=== PATIENT | female | born 1940 | race Caucasian/White ===

== ENCOUNTER 2020-08-03 22:12 | Emergency (ER) | payer MEDICARE, SELFPAY ==
[2020-08-03 22:20] VITALS: BP 159/75; PULSE 77; RESP 18; TEMP 36.2; O2SAT 96
[2020-08-03] MEDS: LIDOCAINE HCL 1% LOCAL INJ 20 ML VIAL (23:17)
--- NOTE | 2020-08-04 00:05 | ED.GENADULT ---
HPI - General Adult General Chief complaint: Fall Stated complaint: FALL, FACIAL TRAUMA Time Seen by Provider: 08/03/20 22:35 History of Present Illness HPI narrative: Patient is a 79-year-old female who presents the emergency department with chief complaint of facial injury. Patient reports that she tripped and fell and landed on her face. Patient reports she had 2 teeth that were fractured and reports that she has a laceration in her lip. Patient states she is unsure of her last tetanus shot reports that the tooth broke and she did not bring the fragments with her. The patient states that she is attempting to get a hold of her dentist to be able to schedule a follow-up appointment for the teeth. Related Data Home Medications Medication Instructions Recorded Confirmed alendronate mg PO 08/03/20 cholecalciferol (vitamin D3) 125 mcg PO DAILY 08/03/20 [Vitamin D3] citalopram mg 08/03/20 donepezil mg 08/03/20 famotidine 08/03/20 hydrochlorothiazide 08/03/20 levothyroxine 08/03/20 lisinopril 08/03/20 mirabegron [Myrbetriq] mg PO 08/03/20 simethicone 125 mg PO DAILY 08/03/20 solifenacin [Vesicare] mg PO 08/03/20 Allergies Allergy/AdvReac Type Severity Reaction Status Date / Time adhesive Allergy Unknown TAPE - Verified 08/03/20 22:26 BLISTERS erythromycin base Allergy Unknown Unknown Verified 08/03/20 22:26 Review of Systems Review of Systems: Narrative: A 10 system review of systems was completed on the patient and is negative except for what is stated in the HPI. Nursing and ancillary documentation was reviewed. [facility] Social History Social History Smoking status: Never smoker Alcohol intake: never Comments Patient has past medical history significant for hypertension Social history the patient lives at home denies alcohol or drug use Exam Narrative: Exam Narrative: GENERAL: Well-appearing, well-nourished, and in no acute distress. HEAD: Normocephalic, atraumatic. EYES: PERRLA and EOMI. ENT: Nares clear, no rhinorrhea or epistaxis. Mucous membranes moist., There is a 2 cm laceration of the lip that is stellate there is a 1 cm intraoral laceration there are dental fractures of the tooth #8 and 9. NECK: Supple. CHEST: Clear to auscultation. No respiratory distress. HEART: Regular rate and rhythm. No murmur heard. Normal peripheral pulses. ABDOMEN: Soft, nontender, nondistended, normal active bowel sounds. EXTREMITIES: Normal range of motion. No edema. SKIN: Warm, dry, no rash. NEURO: No focal deficits. Alert and oriented x3. PSYCH: Normal mood and affect. Course Vital Signs Vital signs: Vital Signs Temperature 36.2 C L 08/03/20 22:20 Pulse Rate 77 08/03/20 22:20 Respiratory Rate 18 08/03/20 22:20 Blood Pressure 159/75 H 08/03/20 22:20 Pulse Oximetry 96 08/03/20 22:20 Temperature 36.2 C L 08/03/20 22:20 Pulse Rate 77 08/03/20 22:20 Respiratory Rate 18 08/03/20 22:20 Blood Pressure 159/75 H 08/03/20 22:20 Pulse Oximetry 96 08/03/20 22:20 Procedures Laceration Laceration 1: Date: 08/04/20 Time: 00:09 Site: lip Size (cm): 3 Description: stellate and involves phylicia border Local Anesthetic: lidocaine 1% Amount of anesthesia used (mL): 3 Pre-repair: wound explored, irrigated and irrigated extensively ====== Skin Level ====== Skin layer closed with: nylon Size (cm): 5-0 Number of sutures: 6 Technique: simple, interrupted ====== Subcutaneous Layer ====== ====== Muscle Layer ====== ====== Tendon Layer ====== Laceration 2: Date: 08/04/20 Time: 00:10 Site: lip Size (cm): 2 Description: linear Local Anesthetic: lidocaine 1% Amount of anesthesia used (mL): 3 Pre-repair: wound explored, irrigated and irrigated extensively ====== Skin Level ====== Skin layer closed wit
[2020-08-04] MEDS: AMOXICILLIN/CLAVULANATE K 875-125 MG TAB 1 TABLET PO (00:21)
[2020-08-04] MEDS: TETANUS,DIPHTHERIA,AC PERTUSSIS ADULT (0.5 ML) BOOSTRIX IM (00:22)
[2020-08-04] MEDS: HYDROcodone/acetaminophen (*CRX) 5-325 MG TABLET 1 TAB PO (00:39)
== END 2020-08-04 00:45 | disposition home or self-care (01) ==
PROVIDERS: Emergency Provider Emergency Medicine; PCP Nurse Practitioner Family
DX: S01.511A Laceration without foreign body of lip, initial encounter (principal); S02.5XXB Fracture of tooth (traumatic), initial encounter for open fracture; S01.512A Laceration without foreign body of oral cavity, initial encounter; W01.0XXA Fall on same level from slipping, tripping and stumbling without subsequent striking against object, initial encounter; Z23 Encounter for immunization
CPT/HCPCS: 12013; 90471; 90715; 99283; A9270

== ENCOUNTER 2021-06-18 19:36 | Emergency (ER) | payer MEDICARE, MEDICAID, SELFPAY ==
--- NOTE | ~2021-06-18 | XR_ITS ---
EXAMINATION: XR wrist LT min 3V DATE: 06/18/2021 20:03 INDICATION: Left wrist pain post fall TECHNIQUE: Posteroanterior, navicular and lateral views of the left wrist were obtained. COMPARISON: none FINDINGS: Comminuted intra-articular fracture of the distal left radius prominent dorsal angulation resulting i n 45 degrees dorsal tilt of the distal articular surface. There is likely a significant fracture gap between a fragment at the dorsal/ulnar aspect of the articular surface however this is suboptimally p rofiled for quantitative assessment on the provided images. There is increased scapholunate angle whi ch suggests possibility of tear of the scapholunate ligament however assessment is limited by the abn ormal alignment of the distal radius resulting from the fracture. 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 Moderate osteoarthritis at the first metacarpophalangeal and inter phalangeal joints. Mild osteoarthritis at the triscaphe and multiple additional metacarpophalangeal a nd interphalangeal joints. Diffuse osteopenia. IMPRESSION: 1. Prominent dorsal angulation of a comminuted intra-articular fracture of the distal left radius. 2. Increased scapholunate angle suggesting possibility of scapholunate ligament tear although assessm ent is limited due to the malalignment of the fracture. Reviewed, dictated and finalized at location A. STOMACH PREPARER IMPRESSION: 1. Prominent dorsal angulation of a comminuted intra-articular fracture of the distal left radius. 2. Increased scapholunate angle suggesting possibility of scapholunate ligament tear although assessment is limited due to the malalignment of the fracture.
--- NOTE | ~2021-06-18 | XR_ITS ---
XR lumbar spine 2-3V DATE: 06/19/2021 01:29 INDICATION: Fall last night. Pain at L5-S1 area TECHNIQUE: AP and crosstable lateral views COMPARISON: 02/09/2019 CT lumbar spine FINDINGS: The crosstable lateral views are quite limited inadequate penetration. There is mild levoscoliosis of the lower thoracic and lumbar spine. There is diffuse osteopenia. There is multilevel degenerative disc disease. The lumbar pedicles are intact. Mild chronic anterior wedge compression fracture deformity of L1. Grade 1 anterolisthesis at L3-4 and L4-5. No obvious fracture or bone destruction is noted otherwise. The sacroiliac joints appear intact. Surgical clips, right upper quadrant, consistent with cholecystectomy. Abdominal aortic calcification . IMPRESSION: Limited examination Reviewed, dictated and finalized at location A. OWCASE MAKER IMPRESSION: Limited examination
--- NOTE | ~2021-06-18 | CT_ITS ---
EXAMINATION: CT cervical spine wo con DATE: 06/19/2021 01:03 INDICATION: Fall. Patient struck head. TECHNIQUE: Computed tomography (CT) of the cervical spine was performed without intravenous contrast. Automated exposure control and iterative reconstruction technique were employed. Exam dose: 585.55 mGy-cm total exam DLP. COMPARISON: None FINDINGS: There is straightening of cervical spine which may be due to positioning or muscle spasm. C1 and C2 are normally aligned and the odontoid process is intact. No fracture or dislocation or lock ed facet or prevertebral soft tissue swelling. There is moderate degenerative disc disease at C3-4. There is moderate degenerative disc disease and minimal anterolisthesis at C4-5. There is severe degenerative disc disease at C5-6 and C6-7, as well as T4-5. There is prominent degenerative change at the apophyseal joints throughout the cervical spine. Uncove rtebral joint spurring is noted as well, particularly at C5-6. Nonspecific mild groundglass infiltrate and/atelectasis of the included upper lungs. IMPRESSION: Straightening of the cervical spine, which may be due to muscle spasm No fracture or dislocation Cervical spondylosis Reviewed, dictated and finalized at Location A. Reviewed, dictated and finalized at location A. COLOGY TEACHER IMPRESSION: Straightening of the cervical spine, which may be due to muscle sp asm No fracture or dislocation Cervical spondylosis
--- NOTE | ~2021-06-18 | XR_ITS ---
XR wrist LT 2V DATE: 06/19/2021 00:28 INDICATION: Postoperative reduction examination TECHNIQUE: AP and lateral views COMPARISON: 06/18/2021 left wrist FINDINGS: There is blunting of the wrist. Comminuted intra-articular fracture distal radius is again noted with prominent dorsal inclination of distal radial articular surface. Prominent osteoarthritic change at the first carpometacarpal and first interphalangeal joints. Diffuse osteopenia. IMPRESSION: Comminuted intra-articular fracture of the distal radius with prominent dorsal inclinatio n of distal radial articular surface Reviewed, dictated and finalized at location A. ANALYTICS SPECIALIST IMPRESSION: Comminuted intra-articular fracture of the distal radius with promi nent dorsal inclination of distal radial articular surface
--- NOTE | ~2021-06-18 | CT_ITS ---
EXAMINATION: CT brain wo con DATE: 06/19/2021 01:04 INDICATION: Patient fell and struck head. TECHNIQUE: Computed tomography (CT) of the head was performed without intravenous contrast. The mA wa s adjusted according to patient size. Iterative reconstruction technique was employed. Exam dose: 60 5.33 mGy-cm total exam DLP. COMPARISON: 12/30/2015 CT brain FINDINGS: There are prominent bilateral vertebral artery calcifications and very prominent bilateral carotid siphon internal carotid artery calcifications. There is nonspecific patchy diminished attenuation of the cerebral white matter, likely due to chroni c small vessel ischemic changes. Chronic left basal ganglia lacunar infarct. There is moderate central and cortical cerebral and cerebellar atrophy. No intracranial mass lesion or hemorrhage or recent cerebrovascular accident is evident. There is no midline shift or mass effect effect. No subdural or epidural hematoma is detected. The included paranasal sinuses and mastoid air cells are normally developed and aerated. No fracture or bone destruction of the cranial vault. IMPRESSION: Prominent cerebral atherosclerosis Chronic small vessel ischemic changes of cerebral white matter Chronic left basal ganglia lacunar infarct No skull fracture or acute intracranial finding Reviewed, dictated and finalized at Location A. Reviewed, dictated and finalized at location A. RINTENDENT SE[employer] MILL
--- NOTE | ~2021-06-18 | XR_ITS ---
XR pelvis 1-2V DATE: 06/19/2021 02:14 INDICATION: Fall last night. Bilateral hip pain. TECHNIQUE: AP pelvis COMPARISON: 02/14/2019 pelvis and left hip FINDINGS: Prominent degenerative changes of the lumbar spine. Diffuse osteopenia. The pubic symphysis and sacroiliac an bilateral hip joints are normally aligned. No pelvic fracture or bone destruction is detected. IMPRESSION: Osteopenia; no pelvic fracture Degenerative changes of the lumbar spine Reviewed, dictated and finalized at location A. ING GAME WARDEN
[2021-06-18 19:42] VITALS: BP 121/69; PULSE 102; RESP 18; TEMP 36.7; O2SAT 95
[2021-06-18 22:13] VITALS: BP 157/83; PULSE 97; RESP 18; O2SAT 97
--- NOTE | 2021-06-18 22:54 | ED.GENADULT ---
HPI - General Adult General Chief complaint: Fall Stated complaint: Fall, left wrist pain Time Seen by Provider: 06/18/21 22:46 Source: patient and RN notes reviewed History of Present Illness HPI narrative: Patient is 80 y/o female complaining left wrist pain after a fall about 3 hours ago. She states that she usually ambulates with a walker, but she did not use a walker when she tried to get into a car. She rates her pain as 9/10. Pain is worse with movement. She also has some low back pain and headache. She states that she fell on her buttock and hit her head. Related Data Home Medications Medication Instructions Recorded Confirmed alendronate mg PO 08/03/20 cholecalciferol (vitamin D3) 125 mcg PO DAILY 08/03/20 [Vitamin D3] citalopram mg 08/03/20 donepezil mg 08/03/20 famotidine 08/03/20 hydrochlorothiazide 08/03/20 levothyroxine 08/03/20 lisinopril 08/03/20 mirabegron [Myrbetriq] mg PO 08/03/20 simethicone 125 mg PO DAILY 08/03/20 solifenacin [Vesicare] mg PO 08/03/20 Allergies Allergy/AdvReac Type Severity Reaction Status Date / Time adhesive Allergy Unknown TAPE - Verified 06/18/21 22:17 BLISTERS erythromycin base Allergy Unknown Unknown Verified 06/18/21 22:17 Review of Systems Constitutional: Constitutional: Denies chills, Denies fever(s), Reports headache(s) and Denies weakness Eyes: Eyes: Denies blurry vision ENT: Reports headache(s) and Denies neck pain Cardiovascular: Cardiovascular: Denies chest pain and Denies dyspnea Respiratory: Respiratory: Denies cough and Denies dyspnea Gastrointestinal: Gastrointestinal: Denies abdominal pain, Denies diarrhea, Denies nausea and Denies vomiting Genitourinary: Genitourinary: Denies hematuria and Denies dysuria Musculoskeletal: Musculoskeletal: Reports as per HPI, Denies back pain, Denies neck pain and Reports other (left wrist pain) Neurologic: Reports headache(s) and Denies weakness PMF Social History Social History Smoking status: Never smoker Alcohol intake: never Exam Const: General: no acute distress and well developed Orientation/consciousness: oriented to person, oriented to place, oriented to time and patient oriented x3 HENMT: Head: normocephalic Ears: external ears normal General nose exam: Normal external nose present Eyes: General: appearance normal, both eyes and all related structures Conjunctivae: conjunctivae normal Neck: Neck: normal visual inspection and full ROM Chest: Chest palpation & inspection: normal inspection of the chest and no tenderness Resp: Effort & Inspection: normal respiratory effort Auscultation: clear to auscultation bilaterally Cardio: Rate: regular rate Rhythm: regular rhythm GI: GI Palp: No abdominal tenderness and Yes Soft to palpation Skin: General skin exam: normal color and turgor normal Neuro: General: oriented to person, oriented to place, oriented to time and patient oriented x3 Cognition (Neuro): normal cognition Extrem: General: normal to inspection, full ROM and no pedal edema Left upper extremity: wrist swelling, abnormal ROM, ecchymosis and deformity Psych: Appearance: grossly normal Mental Status: mental status grossly normal Affect: normal affect Course Consultations Consultation #1: Discussed with Dr. Wu, who agrees with plan for closed reduction and will follow up. Date: 06/18/21 Time: 23:47 Vital Signs Vital signs: Vital Signs Temperature 36.7 C 06/18/21 19:42 Pulse Rate 102 H 06/18/21 19:42 Respiratory Rate 18 06/18/21 19:42 Blood Pressure 121/69 06/18/21 19:42 Pulse Oximetry 95 06/18/21 19:42 Temperature 36.7 C 06/19/21 00:07 Pulse Rate 69 06/19/21 03:17 Respiratory Rate 22 H 06/19/21 03:17 Blood Pressure 159/71 H 06/19/21 03:17 Pulse Oximetry 96 06/19/21 03:17 Procedures Orthopedic Fracture Reduction Fracture #1: Fracture Reduction
[2021-06-18 22:59] VITALS: BP 148/83; PULSE 95; RESP 16; O2SAT 95
[2021-06-19] VITALS (9 sets, daily range): BP systolic 129–159; BP diastolic 67–82; PULSE 69–100; RESP 20–26; TEMP 36.5–36.7; O2SAT 74–100
--- NOTE | 2021-06-19 00:55 | PC.NURSE ---
Pt to CT via stretcher on tele monitor at this time
== END 2021-06-19 03:38 | disposition home or self-care (01) ==
PROVIDERS: Emergency Provider Emergency Medicine; PCP Nurse Practitioner Family
DX: S52.572A Other intraarticular fracture of lower end of left radius, initial encounter for closed fracture (principal); S00.03XA Contusion of scalp, initial encounter; S39.92XA Unspecified injury of lower back, initial encounter; W18.39XA Other fall on same level, initial encounter
CPT/HCPCS: 25605; 70450; 72100; 72125; 72170; 73100; 73110; 99285; A4565; J2704

== ENCOUNTER 2022-01-25 12:22 | Outpatient (CLI) | payer MEDICARE, MEDICAID, SELFPAY ==
--- NOTE | ~2022-01-25 | US_ITS ---
EXAMINATION: US venous doppler LE DATE: 01/25/2022 12:54 INDICATION: Right calf pain. TECHNIQUE: Grayscale ultrasound images without and with compression and Doppler ultrasound images of the bilateral lower extremity veins were obtained. COMPARISON: None. FINDINGS: The visualized portions of right common femoral vein, profunda (deep) femoral vein, femoral vein, pop liteal vein, peroneal veins, posterior tibial veins, and greater saphenous vein outflow are patent. T here is a moderate-sized Joya's cyst. The visualized portions of left common femoral vein, profunda femoral vein, femoral vein, popliteal v ein, peroneal veins, posterior tibial veins, and greater saphenous vein outflow are patent. IMPRESSION: 1. No deep venous thrombosis. 2. Moderate-sized right Joya's cyst. Reviewed, dictated and finalized at location A.
== END 2022-01-25 12:23 | disposition home or self-care (01) ==
PROVIDERS: PCP Nurse Practitioner Family; Visit Provider Nurse Practitioner Family
DX: M79.661 Pain in right lower leg (principal); R09.89 Other specified symptoms and signs involving the circulatory and respiratory systems; M71.21 Synovial cyst of popliteal space [Baker], right knee
CPT/HCPCS: 93970

== ENCOUNTER 2022-04-26 07:34 | Inpatient (IN) | payer MEDICARE, MEDICAID, SELFPAY ==
[2022-04-26] VITALS (38 sets, daily range): BP systolic 86–131; BP diastolic 49–68; PULSE 84–105; RESP 16–35; TEMP 36.3–37.2; O2SAT 87–99; BMI 38.2
--- NOTE | ~2022-04-26 | CT_ITS ---
EXAMINATION: CT femur LT wo con DATE: 04/30/2022 15:26 INDICATION: Dropping hemoglobin/hematocrit following fall with suspected hematoma at the left thigh. TECHNIQUE: High resolution computed tomography (CT) of the left thigh was performed without intraveno us contrast. Additional sagittal and coronal reconstructions were performed. Automated exposure contr ol and iterative reconstruction technique were employed. The dose-length product was 943.93 mGy-cm. COMPARISON: Left hip radiographs dated 04/26/2022 FINDINGS: N at the lateral aspect of the proximal left thigh surrounding a lobulated lesion centered in the sub cutaneous fat which measures 8.5 cm craniocaudally by up to 6.8 x 2.9 cm maximal transaxial dimension s. This demonstrates soft tissue density and given the surrounding edema and provided history of trau ma would be most consistent with a posttraumatic hematoma. Mild to moderate osteoarthritis at the lef t hip. Osteitis pubis. There is a unicompartmental arthroplasty at the medial compartment of the left knee. Chondrocalcinosis and at least moderate osteoarthritis in the lateral compartment and moderate to severe osteoarthritis in the patellofemoral compartment. Small knee joint effusion and calcific d ebris versus loose osteochondral bodies at the suprapatellar pouch of the left knee. Moderate-sized f at-containing left inguinal hernia. IMPRESSION: 1. 8.5 x 6.8 x 2.9 cm lobulated soft tissue density lesion with surrounding edema in the subcutis fat at the lateral aspect of the proximal left thigh most likely representing a posttraumatic hematoma. 2. Moderate-sized fat-containing left inguinal hernia. Reviewed, dictated and finalized at location A. IMPRESSION: 1. 8.5 x 6.8 x 2.9 cm lobulated soft tissue density lesion with surrounding alton ma in the subcutis fat at the lateral aspect of the proximal left thigh most li zach representing a posttraumatic hematoma. 2. Moderate-sized fat-containing left inguinal hernia.
--- NOTE | ~2022-04-26 | XR_ITS ---
EXAMINATION: XR chest 2V DATE: 04/26/2022 08:36 INDICATION: Weakness TECHNIQUE: AP and lateral views of the chest are obtained. COMPARISON: 12/11/2016 FINDINGS: There is eventration in the anterior leaflet of the right hemidiaphragm. There are minimal airspace opacities of the right lung base, likely atelectasis. No pleural effusion or pneumothorax. T he cardiomediastinal silhouette is normal. There is severe thoracic spondylosis. There is advanced os teoarthritis of the shoulders. Surgical clips in the right upper quadrant are likely from prior britton cystectomy. IMPRESSION: 1. Mild atelectasis of the right lung base. Reviewed, dictated and finalized at location A.
--- NOTE | ~2022-04-26 | XR_ITS ---
EXAMINATION: XR hip LT 2V w AP pelvis DATE: 04/26/2022 08:46 INDICATION: Left hip pain. Fall. TECHNIQUE: An anteroposterior view pelvis and 2 views of left hip were obtained. COMPARISON: Pelvis radiograph 06/19/2021 FINDINGS: Bone alignment is normal. No fracture. There is severe lumbar spondylosis. Osteitis pubis i s noted. There is severe right hip osteoarthritis and moderate left hip osteoarthritis. Stool distend s the rectum. IMPRESSION: 1. No fracture. 2. Severe right hip osteoarthritis and moderate left hip osteoarthritis. Reviewed, dictated and finalized at location A.
--- NOTE | 2022-04-26 07:36 | ECG_ITS ---
Measurements Intervals [place] Rate: 92 P: 48 ME: 190 QRS: -47 QRSD: 92 T: 66 QT: 361 QTc: 447 Interpretive Statements SINUS RHYTHM WITH SINUS ARRHYTHMIA LEFT AXIS DEVIATION INCOMPLETE RIGHT BUNDLE BRANCH BLOCK DELAYED PRECORDIAL R/S TRANSITION LOW QRS VOLTAGE IN PRECORDIAL LEADS BORDERLINE ST-T WAVE ABNORMALITY- HIGH LATERAL LEADS BASELINE ARTIFACT- I, II, III, AVR, AVL, AVF, V1 BORDERLINE ECG NO PREVIOUS ECG AVAILABLE FOR COMPARISON Electronically Signed On 04-26-2022 7:47:59 CDT by Keshawn Jackson D.O.
--- NOTE | 2022-04-26 07:49 | ED.WEAKNESS ---
HPI - Weakness General Chief complaint: Weakness Stated complaint: altered loc, sick yesterday, increase in weakness Time Seen by Provider: 04/26/22 07:36 History of Present Illness HPI Narrative: Patient is an 81-year-old female who presents ER with new weakness. Patient had 2 falls at home trying to bed. Ivyyyorj-wi-pjo heard her hit the ground and yell out for help. No evidence of head trauma. Patient has no complaints of pain. Known dementia. Patient may have been becoming more weak yesterday but no reported shortness of breath/cough heard no new urinary symptoms. Related Data Home Medications Medication Instructions Recorded Confirmed alendronate 70 mg tablet mg PO 08/03/20 cholecalciferol (vitamin D3) 125 125 mcg PO DAILY 08/03/20 mcg (5,000 unit) tablet (Vitamin D3) citalopram 40 mg tablet mg 08/03/20 donepezil 10 mg tablet mg 08/03/20 famotidine 20 mg tablet 08/03/20 hydrochlorothiazide 25 mg tablet 08/03/20 levothyroxine 150 mcg tablet 08/03/20 lisinopril 10 mg tablet 08/03/20 mirabegron 25 mg tablet,extended mg PO 08/03/20 release 24 hr (Myrbetriq) simethicone 125 mg tablet 125 mg PO DAILY 08/03/20 solifenacin 10 mg tablet (Vesicare) mg PO 08/03/20 Allergies Allergy/AdvReac Type Severity Reaction Status Date / Time adhesive Allergy Unknown TAPE - Verified 04/26/22 14:47 BLISTERS erythromycin base Allergy Unknown Unknown Verified 04/26/22 14:47 PMF Past Medical History Medical History (Updated 04/26/22 @ 18:25 by Jeffery Woody MD) Alzheimer's dementia Anxiety Cataract Dementia Depression Depression with anxiety GERD (gastroesophageal reflux disease) Glaucoma Hypertension Hypothyroidism Neuropathy Osteoporosis Surgical History Surgical History (Updated 04/26/22 @ 15:12 by Chiquis Walker NP) H/O foot surgery On the right History of bilateral knee replacement History of cholecystectomy History of colonoscopy History of hernia repair History of tonsillectomy and adenoidectomy Family History Family History (Updated 04/26/22 @ 15:13 by Chiquis Walker NP) Father Acute myocardial infarction Sibling Acute myocardial infarction Brother Mother Acute myocardial infarction Social History Social History (Updated 04/26/22 @ 15:14 by Chiquis Walker NP) Social History: The patient is . 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 She has 2 children. She lives with daughter. She is a lifelong nonsmoker. She does not use any alcohol marijuana or illicit drugs. Code status full code Smoking status: Never smoker Second hand tobacco smoke exposure: Yes Alcohol intake: never Substance use: never Spiritual care concerns: No Exam Narrative: GENERAL: Well-appearing, well-nourished, and in no acute distress. HEAD: Normocephalic, atraumatic. EYES: PERRL and EOMI. ENT: Mucous membranes moist. CHEST: Clear to auscultation. No respiratory distress. HEART: Regular rate and rhythm. Normal peripheral pulses. ABDOMEN: Soft, nontender, nondistended. EXTREMITIES: Normal range of motion. No edema. SKIN: Warm, dry, no rash. NEURO: Alert and oriented x2. PSYCH: Normal mood and affect. Course Course Emergency Course: Admit to hospitalist service for weakness and UTI. Patient also found to be COVID-positive. Vital Signs Vital signs: Vital Signs Temperature 97.4 F L 04/26/22 07:35 Pulse Rate 98 04/26/22 07:35 Respiratory Rate 16 04/26/22 07:35 Blood Pressure 121/50 L 04/26/22 07:35 Pulse Oximetry 99 04/26/22 07:35 Temperature 98.9 F 04/26/22 14:39 Pulse Rate 95 04/26/22 14:39 Respiratory Rate 20 04/26/22 14:39 Blood Pressure 116/49 L 04/26/22 14:39 Pulse Oximetry 95 04/26/22 14:39 Oxygen Delivery Room Air 04/26/22 14:51 MDM - Weakness Lab Data Result diagrams: 04/26/22 07:46 04/26/22 07:46 Labs: Lab Results 04/26/22 04/26/22
[2022-04-26 07:55] LABS: Basophils Percent Auto 0.1 % (0.2-1.2); Hematocrit 36.9 % (37.0-47.0); Immature Granulocyte Absolute 0.07 K/mm3 (0.00-0.031); Immature Granulocyte Percent A 0.6 % (0-0.5); Lymphocytes Absolute Auto 1.69 K/mm3 (0.9-3.2); Lymphocytes Percent Auto 14.8 % (18.3-44.2); Mean Corpuscular HGB Conc 32.5 g/dl (32-36); Mean Corpuscular Hemoglobin 32.2 pg (26-34); Mean Corpuscular Volume 98.9 fl (80-100); Mean Platelet Volume 10.4 fl (7.4-10.4); Monocytes Absolute Auto 1.1 K/mm3 (0.1-0.6); Monocytes Percent Auto 9.2 % (2.6-8.5); Neutrophils Absolute Auto 8.6 K/mm3 (1.3-6.7); Neutrophils Percent Auto 75.3 % (45.5-73.1); Platelet Count Result 164 k/mm3 (150-375); Red Blood Count 3.73 M/mm3 (4.2-5.4); Red Cell Distribution Width 13.2 % (11.5-14.5); White Blood Count 11.4 K/mm3 (4.5-10.0)
[2022-04-26 08:07] LABS: Alanine Aminotransferase 20 U/L (6-35); Albumin Level 3.6 g/dL (3.5-5.1); Alkaline Phosphatase 79 U/L (38-126); Anion Gap 9 mmol/L (8-16); Aspartate Amino Transferase 29 U/L (14-36); Bilirubin,Total 0.6 mg/dL (0.2-1.3); Blood Urea Nitrogen 27 mg/dL (7-17); Calcium 8.7 mg/dL (8.4-10.2); Carbon Dioxide 22 mmol/L (22-30); Chloride 100 mmol/L (98-107); Estimated CRCL calculation 25 ml/min; Estimated Glomerular Filt Rate 33; Glucose 203 mg/dL (65-110); Potassium 4.5 mmol/L (3.4-5.0); Sodium 131 mmol/L (137-145)
[2022-04-26 08:49] LABS: Appearance Urine Cloudy (Clear); Bilirubin Urine 1+ (Negative); Blood Urine 1+ (Negative); Color Urine Yellow (Yellow); Glucose Urine UA Negative (Negative); Ketones Urine Negative (Negative); Leukocyte Esterase Ur 1+ LEU/UL (Negative); Nitrate Urine Positive (Negative); Protein Urine 2+ mg/dL (Negative); Urobilinogen Urine 0.2 mg/dL (<2.0); pH Urine 8.5 (5.0-9.0)
[2022-04-26 08:53] LABS: Bacteria Urine 2+ /hpf; Mucus Urine Rare /lpf; RBC Urine 21-50 /hpf (0-2); Squamous Epithelial Cell Urine Rare /hpf (Few); WBC Urine >75 /hpf
[2022-04-26 09:00] LABS: Add Urine Microscopic? YES
[2022-04-26] MEDS: SODIUM CHLORIDE 0.9% IV 1,000 ML 999 ML IV CONT (09:27)
--- NOTE | 2022-04-26 11:19 | PC.NURSE ---
Patient report received from BRANDIE Samaniego. All questions answered and care of patient assumed.
--- NOTE | 2022-04-26 11:51 | PC.NURSE ---
Patient resting comfortably in stretcher with family at bedside and call-light in reach. Awaiting available inpatient bed. VSS. Patient without complaints at this time. Will continue to address needs as they arise.
[2022-04-26 12:24] LABS: SARS-CoV-2 RNA PCR Positive
--- NOTE | 2022-04-26 13:03 | PC.NURSE ---
Patient's [id number] Zainab Ovalleine [phone]
--- NOTE | 2022-04-26 13:25 | PM.IMHP ---
H&P: HPI History of Present Illness Date/Time: 04/26/22 13:25 Chief Complaint: Weakness Narrative: This is a 81-year-old female patient who has a history of dementia and is a poor historian. The patient came in with altered mental status. She had been feeling sick since yesterday and increased weakness. She also has a cough. She lives with her family members and denies any sick contacts. Her white counts noted to be 11.4. Sodium slightly low at 131. Creatinine is 1.5 which appears to be her baseline. Glucose is 203. She was found to have a UTI. She was also found to be positive for COVID. The patient was started on IV fluids and Rocephin. 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 Chest x-ray was read as mild atelectasis of the right lung base. The patient is being admitted for observation status on the date of service of 04/26/2022. Review of Systems Review of Systems: See HPI All systems reviewed & are unremarkable except as noted in HPI and below Constitutional: Constitutional: Reports as per HPI and Reports no additional constitutional complaints Eyes: Eyes: Reports as per HPI and Reports no additional eye complaints ENT: Reports system reviewed and no additional complaints, except as documented and Reports Normal hearing present Cardiovascular: Cardiovascular: Reports no additional cardiovascular complaints Respiratory: Respiratory: Reports no additional respiratory complaints and Reports no additional respiratory complaints Gastrointestinal: Gastrointestinal: Reports as per HPI and Reports no additional gastrointestinal complaints Musculoskeletal: Musculoskeletal: Reports no additional musculoskeletal complaints Integumentary/Breasts: Skin/Breast: Reports system reviewed and no additional complaints, except as docu and Reports as per HPI Neurologic: Reports system reviewed and no additional complaints, except as documented, Reports as per HPI and Reports Normal hearing present Psychiatric: Psychiatric: Reports no additional psychiatric complaints and Reports as per HPI Endocrine: Endocrine: Reports no additional endocrine complaints Hematologic/Lymphatic: Hematologic/Lymphatic: Reports no additional hematologic/lymphatic complaints Allergic/Immunologic: Allergic/Immunologic: Reports no additional allergic/immunologic complaints [facility] Past Medical History Medical History (Updated 04/26/22 @ 15:19 by Chiquis Walker NP) Alzheimer's dementia Anxiety Cataract Dementia Depression Depression with anxiety GERD (gastroesophageal reflux disease) Glaucoma Hypertension Hypothyroidism Neuropathy Osteoporosis Surgical History Surgical History (Updated 04/26/22 @ 15:12 by Chiquis Walker NP) H/O foot surgery On the right History of bilateral knee replacement History of cholecystectomy History of colonoscopy History of hernia repair History of tonsillectomy and adenoidectomy Family History Family History (Updated 04/26/22 @ 15:13 by Chiquis Walker NP) Father Acute myocardial infarction Sibling Acute myocardial infarction Brother Mother Acute myocardial infarction Social History Social History (Updated 04/26/22 @ 15:14 by Chiquis Walker NP) Social History: The patient is . 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 She has 2 children. She lives with daughter. She is a lifelong nonsmoker. She does not use any alcohol marijuana or illicit drugs. Code status full code Smoking status: Never smoker Second hand tobacco smoke exposure: Yes Alcohol intake: never Substance use: never Spiritual care concerns: No Meds Home Medications and Allergies Home Medications Medication Instructions Recorded Confirmed Type alendronate 70 mg tablet mg PO 08/03/20 History cholecalciferol (vitamin D3) 125 125 mcg PO GABRIELA
--- NOTE | 2022-04-26 14:32 | ADMGEN ---
This patient, Lori Pederson, was admitted to Medical Room 244-. Patient/family oriented to hospital policies and general routines including ID bracelet, bed and alarms, visiting hours, pain management, procedures, bathroom and other care routines, personal items, smoking policy, room service/diet, and visiting hours. Information on how to activate the Rapid Response Team has been discussed. Patient/Family are encouraged to report perceived risks to care and to ask questions if they do not understand what they are told or what they should do.
[2022-04-27 06:00] VITALS: BP 106/51; PULSE 103; RESP 16; TEMP 36.9; O2SAT 91
[2022-04-27 06:17] LABS: Basophils Percent Auto 0.2 % (0.2-1.2); Hematocrit 32.9 % (37.0-47.0); Hemoglobin 10.6 g/dL (12.0-15.0); Immature Granulocyte Absolute 0.05 K/mm3 (0.00-0.031); Immature Granulocyte Percent A 0.5 % (0-0.5); Lymphocytes Absolute Auto 2.46 K/mm3 (0.9-3.2); Lymphocytes Percent Auto 26.4 % (18.3-44.2); Mean Corpuscular HGB Conc 32.2 g/dl (32-36); Mean Corpuscular Hemoglobin 31.9 pg (26-34); Mean Corpuscular Volume 99.1 fl (80-100); Mean Platelet Volume 10.9 fl (7.4-10.4); Monocytes Absolute Auto 1.3 K/mm3 (0.1-0.6); Monocytes Percent Auto 13.8 % (2.6-8.5); Neutrophils Absolute Auto 5.5 K/mm3 (1.3-6.7); Neutrophils Percent Auto 59.1 % (45.5-73.1); Platelet Count Result 155 k/mm3 (150-375); Red Blood Count 3.32 M/mm3 (4.2-5.4); Red Cell Distribution Width 13.4 % (11.5-14.5); White Blood Count 9.3 K/mm3 (4.5-10.0)
[2022-04-27 06:27] LABS: CRP 5.4 mg/dL (<1.0); Lactate Dehydrogenase 169 U/L (120-246); Magnesium 1.9 mg/dL (1.6-2.3)
[2022-04-27 06:30] LABS: Lactic Acid Reflex 0.9 mmol/L (0.7-2.0)
--- NOTE | 2022-04-27 07:23 | PM.IMPN ---
Progress Note: A&P Assessment and Plan (1) UTI (urinary tract infection): Code(s): N39.0 - Urinary tract infection, site not specified Status: Acute Assessment and Plan: 1/2 blood cultures positive for GPC. -Resend blood cultures in AM -Continue with Rocephin (2) COVID: Code(s): U07.1 - COVID-19 Status: Acute Assessment and Plan: -supportive care. The patient is on room air -Robitussin -. Albuterol. -contact and droplet isolation (3) GERD (gastroesophageal reflux disease): Code(s): K21.9 - Gastro-esophageal reflux disease without esophagitis Status: Acute Assessment and Plan: -continue with Pepcid (4) Anxiety: Code(s): F41.9 - Anxiety disorder, unspecified Status: Acute Assessment and Plan: -continue Celexa (5) Hypertension: Code(s): I10 - Essential (primary) hypertension Status: Acute Assessment and Plan: -hold hydrochlorothiazide due to hyponatremia -continue with lisinopril patient's creatinine is at her baseline. (6) Hypothyroidism: Code(s): E03.9 - Hypothyroidism, unspecified Status: Acute Assessment and Plan: TSH within range. -continue levothyroxine (7) Dementia: Code(s): F03.90 - Unspecified dementia without behavioral disturbance Status: Acute Assessment and Plan: -continue with donepezil (8) Depression with anxiety: Code(s): F41.8 - Other specified anxiety disorders Status: Acute Assessment and Plan: -continue Celexa (9) Neuropathy: Code(s): G62.9 - Polyneuropathy, unspecified Status: Acute Assessment and Plan: -continue with current management (10) Glaucoma: Code(s): H40.9 - Unspecified glaucoma Status: Acute Assessment and Plan: -continue with current management (11) Osteoporosis: Code(s): M81.0 - Age-related osteoporosis without current pathological fracture Status: Acute Assessment and Plan: -continue with Fosamax Plan Enoxaparin Full Code Subjective Date/time seen: 04/27/22 07:23 Patient says she does not remember how she came to the hospital or emergency department. She says she feels better. Denies chest pain, chest heaviness, shortness of breath, difficulty breathing. Review of Systems Cardiovascular: Cardiovascular: Denies chest pain Respiratory: Respiratory: Denies dyspnea Exam Narrative: GENERAL: NAD, cooperative HEENT: Normocephalic, atraumatic, anicteric NECK: Supple CV: Normal S1, S2, RRR, No MRG RESP: Diminished breath sounds at the bases, no wheezes, rhonchi or rales. EXTREMITIES: Warm and well perfused, no clubbing, cyanosis, or edema. SKIN: warm, dry and intact. NEURO: CN 2-12. Alert and oriente x 4. Objective Data Vital Signs Vital Signs: Vital Signs - 24 hr 04/26/22 07:35 04/26/22 09:04 04/26/22 10:14 Temperature 97.4 F L Pulse Rate 98 97 92 Respiratory Rate 16 16 Blood Pressure 121/50 L 86/50 L 116/53 L Pulse Oximetry 99 96 Oxygen Delivery 04/26/22 07:47 04/26/22 08:06 04/26/22 08:33 Temperature Pulse Rate 93 99 94 Respiratory Rate 31 H 27 H 18 Blood Pressure Pulse Oximetry 97 90 97 Oxygen Delivery 04/26/22 09:15 04/26/22 09:33 04/26/22 09:49 Temperature Pulse Rate 97 102 H 92 Respiratory Rate 32 H 25 H 26 H Blood Pressure Pulse Oximetry 92 91 Oxygen Delivery 04/26/22 09:52 04/26/22 10:00 04/26/22 10:01 Temperature Pulse Rate 92 91 85 Respiratory Rate 30 H 30 H 23 H Blood Pressure 117/57 L 116/53 L Pulse Oximetry 93 98 89 L Oxygen Delivery 04/26/22 10:24 04/26/22 10:32 04/26/22 10:47 Temperature Pulse Rate 92 95 91 Respiratory Rate 29 H 23 H 27 H Blood Pressure Pulse Oximetry 88 L 87 L 88 L Oxygen Delivery 04/26/22 11:00 04/26/22 11:02 04/26/22 11:03 Temperature Pulse Rate 91 92 93 Respiratory Rate 31 H 23 H 29 H Blood Pr
[2022-04-27] MEDS: ENOXAPARIN 40 MG/0.4 ML SYRINGE SUB-Q (09:33)
[2022-04-27 14:00] VITALS: BP 105/66; PULSE 117; RESP 18; TEMP 36.8; O2SAT 92
[2022-04-27 20:22] VITALS: BP 126/55; PULSE 120; RESP 16; TEMP 36.7; O2SAT 96
[2022-04-27] MEDS: ASPIRIN 81 MG ENTERIC TABLET PO (20:58)
[2022-04-27] MEDS: FAMOTIDINE 20 MG TABLET PO (20:58)
[2022-04-27] MEDS: ACETAMINOPHEN 500 MG TABLET 1000 MG PO (21:00)
[2022-04-27] MEDS: CITALOPRAM HYDROBROMIDE 20 MG TABLET 40 MG PO (21:00)
[2022-04-27] MEDS: MIRABEGRON 25 MG ER TABLET PO (21:01)
[2022-04-27] MEDS: DONEPEZIL HCL 10 MG TABLET PO (21:01)
[2022-04-27] MEDS: MELATONIN 5 MG TABLET 10 MG PO (21:01)
[2022-04-27] MEDS: LATANOPROST 0.005% OP SOLN 2.5 ML BTL 1 DROP EACH EYE (21:02)
[2022-04-27] MEDS: SOLIFENACIN 5 MG TABLET 10 MG PO (21:02)
[2022-04-28] MEDS: LEVOTHYROXINE SODIUM 25 MCG TABLET PO (05:52)
[2022-04-28] MEDS: LEVOTHYROXINE SODIUM 112 MCG TABLET PO (05:52)
[2022-04-28 05:55] VITALS: BP 128/90; PULSE 116; RESP 16; TEMP 36.6; O2SAT 94
[2022-04-28 06:12] LABS: Basophils Percent Auto 0.1 % (0.2-1.2); Hematocrit 33.5 % (37.0-47.0); Immature Granulocyte Absolute 0.02 K/mm3 (0.00-0.031); Immature Granulocyte Percent A 0.3 % (0-0.5); Lymphocytes Absolute Auto 2.75 K/mm3 (0.9-3.2); Lymphocytes Percent Auto 39.3 % (18.3-44.2); Mean Corpuscular HGB Conc 32.8 g/dl (32-36); Mean Corpuscular Hemoglobin 32.4 pg (26-34); Mean Corpuscular Volume 98.5 fl (80-100); Mean Platelet Volume 10.4 fl (7.4-10.4); Monocytes Absolute Auto 0.9 K/mm3 (0.1-0.6); Monocytes Percent Auto 12.6 % (2.6-8.5); Neutrophils Absolute Auto 3.3 K/mm3 (1.3-6.7); Neutrophils Percent Auto 47.7 % (45.5-73.1); Platelet Count Result 156 k/mm3 (150-375); Red Cell Distribution Width 13.3 % (11.5-14.5)
[2022-04-28 06:24] LABS: Alanine Aminotransferase 17 U/L (6-35); Albumin Level 3.2 g/dL (3.5-5.1); Alkaline Phosphatase 71 U/L (38-126); Anion Gap 7 mmol/L (8-16); Aspartate Amino Transferase 26 U/L (14-36); Bilirubin,Total 0.5 mg/dL (0.2-1.3); Blood Urea Nitrogen 27 mg/dL (7-17); Calcium 8.6 mg/dL (8.4-10.2); Carbon Dioxide 24 mmol/L (22-30); Chloride 102 mmol/L (98-107); Estimated CRCL calculation 34 ml/min; Estimated Glomerular Filt Rate 47; Glucose 99 mg/dL (65-110); Lactate Dehydrogenase 169 U/L (120-246); Potassium 3.9 mmol/L (3.4-5.0); Sodium 133 mmol/L (137-145)
--- NOTE | 2022-04-28 07:26 | ECG_ITS ---
Measurements Intervals [place] Rate: 103 P: 16 HI: 197 QRS: -41 QRSD: 85 T: 61 QT: 354 QTc: 465 Interpretive Statements SINUS TACHYCARDIA LEFT AXIS DEVIATION LOW QRS VOLTAGE IN PRECORDIAL LEADS POOR R WAVE PROGRESSION, CONSIDER ANTERIOR INFARCT INFERIOR INFARCT, AGE INDETERMINATE BORDERLINE ST-T WAVE ABNORMALITY- HIGH LATERAL LEADS BASELINE ARTIFACT- II, III ABNORMAL ECG COMPARED TO ECG 04/26/2022 07:47:04 HEART RATE HAS INCREASED INFERIOR INFARCT, AGE INDETERMINATE NOW PRESENT Electronically Signed On 04-28-2022 8:21:04 CDT by Keshawn Jackson D.O.
--- NOTE | 2022-04-28 07:35 | PM.IMPN ---
Progress Note: A&P Assessment and Plan (1) UTI (urinary tract infection): Code(s): N39.0 - Urinary tract infection, site not specified Status: Acute Assessment and Plan: 1/2 blood cultures positive staphylococcus haemolytics. This is likely a contaminant. Repeat cultures sent. Urine culture with gram negative bacilli. -Continue with ceftriaxone (2) COVID: Code(s): U07.1 - COVID-19 Status: Acute Assessment and Plan: -supportive care. The patient is on room air -Robitussin -. Albuterol. -contact and droplet isolation (3) GERD (gastroesophageal reflux disease): Code(s): K21.9 - Gastro-esophageal reflux disease without esophagitis Status: Acute Assessment and Plan: -continue with Pepcid (4) Anxiety: Code(s): F41.9 - Anxiety disorder, unspecified Status: Acute Assessment and Plan: -continue Celexa (5) Hypertension: Code(s): I10 - Essential (primary) hypertension Status: Acute Assessment and Plan: -hold hydrochlorothiazide due to hyponatremia. Sodium improved. -continue with lisinopril patient's creatinine is at her baseline. (6) Hypothyroidism: Code(s): E03.9 - Hypothyroidism, unspecified Status: Acute Assessment and Plan: TSH within range. -continue levothyroxine (7) Dementia: Code(s): F03.90 - Unspecified dementia without behavioral disturbance Status: Acute Assessment and Plan: -continue with donepezil (8) Depression with anxiety: Code(s): F41.8 - Other specified anxiety disorders Status: Acute Assessment and Plan: -continue Celexa (9) Neuropathy: Code(s): G62.9 - Polyneuropathy, unspecified Status: Acute Assessment and Plan: -continue with current management (10) Glaucoma: Code(s): H40.9 - Unspecified glaucoma Status: Acute Assessment and Plan: -continue with current management (11) Osteoporosis: Code(s): M81.0 - Age-related osteoporosis without current pathological fracture Status: Acute Assessment and Plan: -continue with Fosamax (12) Chronic kidney disease: Code(s): N18.9 - Chronic kidney disease, unspecified Status: Acute Assessment and Plan: Creatinine 1.9 in 2017 per historical link. Creatinine down to 1.1 today. Stable. Plan Heparin Full Code Subjective Date/time seen: 04/28/22 07:35 Patient says she feels fine and has no complaints. Review of Systems Genitourinary: Genitourinary: Reports dysuria Exam Narrative: GENERAL: NAD, cooperative HEENT: Normocephalic, atraumatic, anicteric NECK: Supple CV: Normal S1, S2, RRR, No MRG RESP: Diminished breath sounds at the bases, no wheezes, rhonchi or rales. EXTREMITIES: Warm and well perfused, no clubbing, cyanosis, or edema. SKIN: warm, dry and intact. NEURO: CN 2-12. Alert and oriente x 4. Objective Data Vital Signs Vital Signs: Vital Signs - 24 hr 04/27/22 08:00 04/27/22 14:00 04/27/22 20:22 Temperature 36.8 C 36.7 C Pulse Rate 117 H 120 H Respiratory Rate 18 16 Blood Pressure 105/66 126/55 L Pulse Oximetry 92 96 Oxygen Delivery Room Air 04/28/22 05:55 Temperature 36.6 C Pulse Rate 116 H Respiratory Rate 16 Blood Pressure 128/90 Pulse Oximetry 94 Oxygen Delivery Intake/Output Intake/Output: Intake & Output 04/25/22 04/26/22 04/27/22 04/28/22 23:59 23:59 23:59 23:59 Intake Total 1270 1170 50 Output Total 150 Balance 1120 1170 50 Meds/Results Medications: Active Medications Generic Name Dose Route Start Last Admin Trade Name Freq PRN Reason Stop Dose Admin Acetaminophen 650 mg 04/26/22 10:48 Acetaminophen 325 Mg Tablet PO Q4H PRN Mild Pain (1-3) or Fever Acetaminophen 1,000 mg 04/27/22 21:00 04/27/22 21:00 Acetaminophen 500 Mg Tablet PO 1,000 mg HS ZACARIAS Administration Hydrocodone Bitart/
[2022-04-28] MEDS: CHOLECALCIFEROL 1,000 UNITS TABLET 5000 UNITS PO (10:01)
[2022-04-28] MEDS: ENOXAPARIN 40 MG/0.4 ML SYRINGE SUB-Q (10:02)
[2022-04-28] MEDS: FAMOTIDINE 20 MG TABLET PO ×2 (10:03→16:46)
[2022-04-28] MEDS: TIMOLOL MALEATE 0.5% OP SOLN 5 ML BOTTLE 1 DROP EACH EYE (10:03)
[2022-04-28] MEDS: VENLAFAXINE HCL XR 75 MG CAP.ER.24H 225 MG PO (10:03)
[2022-04-28] MEDS: LACTATED RINGERS 1,000 ML 500 ML IV CONT ×2 (10:06→17:23)
[2022-04-28] MEDS: ASPIRIN 81 MG ENTERIC TABLET PO (11:14)
[2022-04-28 13:41] VITALS: BP 118/46; PULSE 100; RESP 16; TEMP 36.9; O2SAT 93
[2022-04-28 16:43] LABS: Sodium Urine Random 24 meq/L
[2022-04-28 17:08] VITALS: TEMP 37.1
[2022-04-28 19:44] VITALS: BP 126/46; PULSE 100; RESP 20; TEMP 36.3; O2SAT 92
[2022-04-28] MEDS: CITALOPRAM HYDROBROMIDE 20 MG TABLET 40 MG PO (21:37)
[2022-04-28] MEDS: DONEPEZIL HCL 10 MG TABLET PO (21:37)
[2022-04-28] MEDS: SOLIFENACIN 5 MG TABLET 10 MG PO (21:37)
[2022-04-28] MEDS: ACETAMINOPHEN 500 MG TABLET 1000 MG PO (21:37)
[2022-04-28] MEDS: MELATONIN 5 MG TABLET 10 MG PO (21:37)
[2022-04-28] MEDS: LATANOPROST 0.005% OP SOLN 2.5 ML BTL 1 DROP EACH EYE (21:38)
[2022-04-28] MEDS: MIRABEGRON 25 MG ER TABLET PO (21:38)
[2022-04-29 04:58] VITALS: BP 115/54; PULSE 90; RESP 20; TEMP 36.5; O2SAT 94
[2022-04-29 05:29] LABS: Basophils Percent Auto 0.2 % (0.2-1.2); Hematocrit 28.2 % (37.0-47.0); Hemoglobin 9.2 g/dL (12.0-15.0); Immature Granulocyte Absolute 0.03 K/mm3 (0.00-0.031); Immature Granulocyte Percent A 0.5 % (0-0.5); Lymphocytes Absolute Auto 2.74 K/mm3 (0.9-3.2); Lymphocytes Percent Auto 47.7 % (18.3-44.2); Mean Corpuscular HGB Conc 32.6 g/dl (32-36); Mean Corpuscular Hemoglobin 32.3 pg (26-34); Mean Corpuscular Volume 98.9 fl (80-100); Mean Platelet Volume 10.8 fl (7.4-10.4); Monocytes Absolute Auto 0.7 K/mm3 (0.1-0.6); Monocytes Percent Auto 11.3 % (2.6-8.5); Neutrophils Absolute Auto 2.3 K/mm3 (1.3-6.7); Neutrophils Percent Auto 40.3 % (45.5-73.1); Platelet Count Result 150 k/mm3 (150-375); Red Blood Count 2.85 M/mm3 (4.2-5.4); Red Cell Distribution Width 13.2 % (11.5-14.5); White Blood Count 5.8 K/mm3 (4.5-10.0)
[2022-04-29 05:38] LABS: Alanine Aminotransferase 16 U/L (6-35); Albumin Level 2.7 g/dL (3.5-5.1); Alkaline Phosphatase 58 U/L (38-126); Anion Gap 2 mmol/L (8-16); Aspartate Amino Transferase 23 U/L (14-36); Bilirubin,Total 0.3 mg/dL (0.2-1.3); Blood Urea Nitrogen 22 mg/dL (7-17); Calcium 8.3 mg/dL (8.4-10.2); Carbon Dioxide 27 mmol/L (22-30); Chloride 103 mmol/L (98-107); Estimated CRCL calculation 31 ml/min; Estimated Glomerular Filt Rate 43; Glucose 100 mg/dL (65-110); Lactate Dehydrogenase 143 U/L (120-246); Potassium 3.6 mmol/L (3.4-5.0); Sodium 132 mmol/L (137-145)
[2022-04-29] MEDS: LEVOTHYROXINE SODIUM 112 MCG TABLET PO (05:42)
[2022-04-29] MEDS: LEVOTHYROXINE SODIUM 25 MCG TABLET PO (05:42)
--- NOTE | 2022-04-29 07:10 | PM.DS ---
DS: Summary Time Spent with Patient Time attestation: Total time spent providing and/or coordinating discharge services: DS: Data Data Completed and Pending Labs on day of discharge: Labs from last 24 hours 04/29/22 04/29/22 04/28/22 04:47 04:47 16:05 WBC 5.8 RBC 2.85 L Hgb 9.2 L Hct 28.2 L MCV 98.9 MCH 32.3 MCHC 32.6 RDW 13.2 Plt Count 150 MPV 10.8 H Immature Gran % (Auto) 0.5 Neut % (Auto) 40.3 L Lymph % (Auto) 47.7 H [place] % (Auto) 11.3 H Eos % (Auto) 0.0 Baso % (Auto) 0.2 Lymph # (Auto) 2.74 [place] # (Auto) 0.7 H Eos # (Auto) 0.0 Baso # (Auto) 0.0 Abs Immat Gran (auto) 0.03 Absolute Neuts (auto) 2.3 Absolute Nucleated RBC 0.0 Nucleated RBC % 0.0 Sodium 132 L Potassium 3.6 Chloride 103 Carbon Dioxide 27 Anion Gap 2 L BUN 22 H Creatinine 1.20 H Estim Creat Clear Calc 31 Estimated GFR 43 L Glucose 100 Calcium 8.3 L Total Bilirubin 0.3 AST 23 ALT 16 Alkaline Phosphatase 58 Lactate Dehydrogenase 143 Total Protein 5.0 L Albumin 2.7 L Total Catecholamines Urine Myoglobin Urine Osmolality Ur Random Sodium 24 Ur Random Dopamine Ur Random Epinephrine U Random Norepinephrine Urine Creatinine 04/28/22 16:05 WBC RBC Hgb Hct MCV MCH MCHC RDW Plt Count MPV Immature Gran % (Auto) Neut % (Auto) Lymph % (Auto) [place] % (Auto) Eos % (Auto) Baso % (Auto) Lymph # (Auto) [place] # (Auto) Eos # (Auto) Baso # (Auto) Abs Immat Gran (auto) Absolute Neuts (auto) Absolute Nucleated RBC Nucleated RBC % Sodium Potassium Chloride Carbon Dioxide Anion Gap BUN Creatinine Estim Creat Clear Calc Estimated GFR Glucose Calcium Total Bilirubin AST ALT Alkaline Phosphatase Lactate Dehydrogenase Total Protein Albumin Total Catecholamines Pending Urine Myoglobin Pending Urine Osmolality Pending Ur Random Sodium Ur Random Dopamine Pending Ur Random Epinephrine Pending U Random Norepinephrine Pending Urine Creatinine Pending Preliminary micro results at discharge 04/28/22 09:15 Blood Culture - Preliminary Blood 04/28/22 08:46 Blood Culture - Preliminary Blood 04/26/22 09:25 Blood Culture - Preliminary Blood Staphylococcus haemolytics 04/26/22 09:44 Blood Culture - Preliminary Blood Discharge Plan Discharge Patient Instructions: Pain Management (DC) Discharge Medications: No Action citalopram 40 mg tablet 40 mg PO HS donepezil 10 mg tablet 10 mg PO HS alendronate 70 mg tablet 70 mg PO WEEKLY Rx Instructions: Patient takes on Saturdays famotidine 20 mg tablet 20 mg PO BID levothyroxine 150 mcg tablet 137 mcg PO DAILY simethicone 125 mg Tablet 125 mg PO TIDWM solifenacin [Vesicare] 10 mg tablet 10 mg PO HS cholecalciferol (vitamin D3) [Vitamin D3] 125 mcg (5,000 unit) Tablet 125 mcg PO DAILY Myrbetriq 25 mg tablet extended release 24 hr 25 mg PO HS losartan 50 mg tablet 50 mg PO DAILY latanoprost 0.005 % drops 1 drp EACH EYE HS acetaminophen [Tylenol] 325 mg Tablet 1,000 mg PO HS venlafaxine 75 mg capsule,extended release 24hr 225 mg PO DAILY aspirin 81 mg tablet,delayed release (DR/EC) 81 mg PO DAILY timolol maleate 0.5 % drops 1 drp EACH EYE DAILY melatonin 10 mg Tablet 10 mg PO HS Anoro Ellipta 62.5-25 mcg/actuation blister with device 1 ea INHALATION DAILY PRN (Reason: cough, sob) Date of admission: 04/28/22 16:55 Primary Care Provider: SERGIODESTINI Admitting Provider: Whitney Andrade Attending physician on admission: Whitney Andrade Condition: Stable
--- NOTE | 2022-04-29 07:11 | ECG_ITS ---
Measurements Intervals [place] Rate: 94 P: 209 MD: 129 QRS: -32 QRSD: 81 T: 70 QT: 365 QTc: 457 Interpretive Statements SINUS RHYTHM WITH SINUS ARRHYTMIA LOW QRS VOLTAGE IN PRECORDIAL LEADS BORDERLINE R WAVE PROGRESSION, ANTERIOR LEADS CONSIDER INFERIOR INFARCT, AGE INDETERMINATE ST-T WAVE ABNORMALITY IN HIGH LATERAL LEADS- CONSIDER ISCHEMIA BASELINE ARTIFACT- I, II, AVL, AVF ABNORMAL ECG COMPARED TO ECG 04/28/2022 08:14:15 HEART RATE HAS DECREASED Electronically Signed On 04-29-2022 12:01:07 CDT by Keshawn Jackson D.O.
--- NOTE | 2022-04-29 07:51 | PM.IMPN ---
Progress Note: A&P Assessment and Plan (1) UTI (urinary tract infection): Code(s): N39.0 - Urinary tract infection, site not specified Status: Acute Assessment and Plan: 1/2 blood cultures positive staphylococcus haemolytics. This is likely a contaminant. Repeat cultures sent. Urine culture proteus mirabilis. -Discontinue ceftriaxone -Ampicillin 500 mg q6h through 05/03 -Discharge held as patient needs referral for SNF, which requires insurance authorization. (2) COVID: Code(s): U07.1 - COVID-19 Status: Acute Assessment and Plan: The patient is on room air (3) GERD (gastroesophageal reflux disease): Code(s): K21.9 - Gastro-esophageal reflux disease without esophagitis Status: Acute Assessment and Plan: -continue with Pepcid (4) Anxiety: Code(s): F41.9 - Anxiety disorder, unspecified Status: Acute Assessment and Plan: -continue Celexa (5) Hypertension: Code(s): I10 - Essential (primary) hypertension Status: Acute Assessment and Plan: -hold hydrochlorothiazide due to hyponatremia. Sodium improved. -continue with lisinopril patient's creatinine is at her baseline. (6) Hypothyroidism: Code(s): E03.9 - Hypothyroidism, unspecified Status: Acute Assessment and Plan: TSH within range. -continue levothyroxine (7) Dementia: Code(s): F03.90 - Unspecified dementia without behavioral disturbance Status: Acute Assessment and Plan: -continue with donepezil (8) Depression with anxiety: Code(s): F41.8 - Other specified anxiety disorders Status: Acute Assessment and Plan: -continue Celexa (9) Neuropathy: Code(s): G62.9 - Polyneuropathy, unspecified Status: Acute Assessment and Plan: -continue with current management (10) Glaucoma: Code(s): H40.9 - Unspecified glaucoma Status: Acute Assessment and Plan: -continue with current management (11) Osteoporosis: Code(s): M81.0 - Age-related osteoporosis without current pathological fracture Status: Acute Assessment and Plan: -continue with Fosamax (12) Chronic kidney disease: Code(s): N18.9 - Chronic kidney disease, unspecified Status: Acute Assessment and Plan: Creatinine 1.9 in 2017 per historical link. Creatinine down to 1.1 today. Stable. Plan Heparin Full Code Subjective Date/time seen: 04/29/22 17:51 Patient says she has not been out of bed since she was admitted to the hospital and she does not know if she is strong enough to walk when she leaves the hospital. Says she uses a walker at home. Says she feels fine. Review of Systems Musculoskeletal: Comments: msucle weakness Exam Narrative: GENERAL: NAD, cooperative HEENT: Normocephalic, atraumatic, anicteric NECK: Supple CV: Normal S1, S2, RRR, No MRG RESP: Diminished breath sounds at the bases, no wheezes, rhonchi or rales. EXTREMITIES: Warm and well perfused, no clubbing, cyanosis, or edema. SKIN: warm, dry and intact. NEURO: CN 2-12. Alert and oriente x 4. Objective Data Vital Signs Vital Signs: Vital Signs - 24 hr 04/28/22 19:44 04/29/22 04:58 04/29/22 14:00 Temperature 36.3 C L 36.5 C 36.6 C Pulse Rate 100 90 98 Respiratory Rate 20 20 20 Blood Pressure 126/46 L 115/54 L 120/59 L Pulse Oximetry 92 94 93 Oxygen Delivery 04/29/22 14:38 04/29/22 09:35 Temperature Pulse Rate Respiratory Rate Blood Pressure Pulse Oximetry Oxygen Delivery Room Air Room Air Intake/Output Intake/Output: Intake & Output 04/26/22 04/27/22 04/28/22 04/29/22 23:59 23:59 23:59 23:59 Intake Total 1270 1170 2170 530 Output Total 150 1050 Balance 1120 1170 2170 -520 Meds/Results Medications: Active Medications Generic Name Dose Route Start Last Admin Trade Name Freq PRN Reason Stop Dose Admin Acetaminophe
[2022-04-29] MEDS: UMECLIDINIUM/VILANTEROL 62.5-25 MCG ELLIPTA 1 PUFF INHALATION (09:01)
[2022-04-29] MEDS: VENLAFAXINE HCL XR 75 MG CAP.ER.24H 225 MG PO (09:24)
[2022-04-29] MEDS: CHOLECALCIFEROL 1,000 UNITS TABLET 5000 UNITS PO (09:25)
[2022-04-29] MEDS: FAMOTIDINE 20 MG TABLET PO ×2 (09:25→17:50)
[2022-04-29] MEDS: ASPIRIN 81 MG ENTERIC TABLET PO (09:25)
[2022-04-29] MEDS: ENOXAPARIN 40 MG/0.4 ML SYRINGE SUB-Q (09:25)
[2022-04-29] MEDS: TIMOLOL MALEATE 0.5% OP SOLN 5 ML BOTTLE 1 DROP EACH EYE (09:26)
[2022-04-29 14:00] VITALS: BP 120/59; PULSE 98; RESP 20; TEMP 36.6; O2SAT 93
[2022-04-29] MEDS: SODIUM CHLORIDE 0.9% IV 1,000 ML 100 ML IV CONT (17:52)
[2022-04-29] MEDS: AMPICILLIN TRIHYDRATE 500 MG CAPSULE PO ×2 (18:05→23:04)
[2022-04-29] MEDS: DONEPEZIL HCL 10 MG TABLET PO (20:05)
[2022-04-29] MEDS: SOLIFENACIN 5 MG TABLET 10 MG PO (20:05)
[2022-04-29] MEDS: CITALOPRAM HYDROBROMIDE 20 MG TABLET 40 MG PO (20:05)
[2022-04-29] MEDS: MELATONIN 5 MG TABLET 10 MG PO (20:05)
[2022-04-29] MEDS: LATANOPROST 0.005% OP SOLN 2.5 ML BTL 1 DROP EACH EYE (20:05)
[2022-04-29] MEDS: ACETAMINOPHEN 500 MG TABLET 1000 MG PO (20:05)
[2022-04-29] MEDS: MIRABEGRON 25 MG ER TABLET PO (20:05)
[2022-04-29 21:37] VITALS: BP 130/54; PULSE 93; RESP 18; TEMP 36.8; O2SAT 96
[2022-04-30 05:10] LABS: Basophils Percent Auto 0.2 % (0.2-1.2); Hemoglobin 8.6 g/dL (12.0-15.0); Immature Granulocyte Absolute 0.01 K/mm3 (0.00-0.031); Immature Granulocyte Percent A 0.2 % (0-0.5); Lymphocytes Absolute Auto 1.94 K/mm3 (0.9-3.2); Mean Corpuscular HGB Conc 33.1 g/dl (32-36); Mean Corpuscular Volume 96.7 fl (80-100); Mean Platelet Volume 10.3 fl (7.4-10.4); Monocytes Absolute Auto 0.7 K/mm3 (0.1-0.6); Monocytes Percent Auto 11.7 % (2.6-8.5); Neutrophils Absolute Auto 2.9 K/mm3 (1.3-6.7); Neutrophils Percent Auto 52.9 % (45.5-73.1); Platelet Count Result 157 k/mm3 (150-375); Red Blood Count 2.69 M/mm3 (4.2-5.4); Red Cell Distribution Width 13.1 % (11.5-14.5); White Blood Count 5.6 K/mm3 (4.5-10.0)
[2022-04-30] MEDS: AMPICILLIN TRIHYDRATE 500 MG CAPSULE PO ×4 (05:26→23:40)
[2022-04-30] MEDS: LEVOTHYROXINE SODIUM 112 MCG TABLET PO (05:26)
[2022-04-30] MEDS: LEVOTHYROXINE SODIUM 25 MCG TABLET PO (05:26)
[2022-04-30 05:34] VITALS: BP 131/54; PULSE 76; RESP 18; TEMP 36.8; O2SAT 94
[2022-04-30 05:34] LABS: Alanine Aminotransferase 17 U/L (6-35); Albumin Level 2.6 g/dL (3.5-5.1); Alkaline Phosphatase 53 U/L (38-126); Anion Gap 5 mmol/L (8-16); Aspartate Amino Transferase 25 U/L (14-36); Bilirubin,Total 0.5 mg/dL (0.2-1.3); Blood Urea Nitrogen 20 mg/dL (7-17); Calcium 7.8 mg/dL (8.4-10.2); Carbon Dioxide 24 mmol/L (22-30); Chloride 105 mmol/L (98-107); Estimated CRCL calculation 34 ml/min; Estimated Glomerular Filt Rate 47; Glucose 92 mg/dL (65-110); Lactate Dehydrogenase 196 U/L (120-246); Potassium 3.6 mmol/L (3.4-5.0); Sodium 134 mmol/L (137-145)
[2022-04-30] MEDS: HYDROcodone/acetaminophen (*CRX) 5-325 MG TABLET 1 TAB PO ×2 (05:38→15:32)
[2022-04-30 08:05] VITALS: RESP 16
[2022-04-30] MEDS: UMECLIDINIUM/VILANTEROL 62.5-25 MCG ELLIPTA 1 PUFF INHALATION (08:05)
[2022-04-30] MEDS: VENLAFAXINE HCL XR 75 MG CAP.ER.24H 225 MG PO (09:54)
[2022-04-30] MEDS: CHOLECALCIFEROL 1,000 UNITS TABLET 5000 UNITS PO (09:54)
[2022-04-30] MEDS: ASPIRIN 81 MG ENTERIC TABLET PO (09:55)
[2022-04-30] MEDS: FAMOTIDINE 20 MG TABLET PO ×2 (09:55→17:42)
[2022-04-30] MEDS: TIMOLOL MALEATE 0.5% OP SOLN 5 ML BOTTLE 1 DROP EACH EYE (09:55)
[2022-04-30 14:38] VITALS: BP 102/52; PULSE 94; RESP 18; TEMP 36.7; O2SAT 96
--- NOTE | 2022-04-30 15:23 | PCPTNOTE ---
Attempted to see patient for PT at this time, however patient out of room for testing.
--- NOTE | 2022-04-30 17:45 | PM.IMPN ---
Progress Note: A&P Assessment and Plan (1) UTI (urinary tract infection): Code(s): N39.0 - Urinary tract infection, site not specified Status: Acute Assessment and Plan: 1/2 blood cultures positive staphylococcus haemolytics. This is likely a contaminant. Repeat cultures sent. Urine culture proteus mirabilis. -Discontinue ceftriaxone -Ampicillin 500 mg q6h through 05/03 -SNF authorization pending (2) COVID: Code(s): U07.1 - COVID-19 Status: Acute Assessment and Plan: The patient is on room air. Supportive care as needed. Will monitor. (3) GERD (gastroesophageal reflux disease): Code(s): K21.9 - Gastro-esophageal reflux disease without esophagitis Status: Acute Assessment and Plan: Continue pepcid. (4) Anxiety: Code(s): F41.9 - Anxiety disorder, unspecified Status: Acute Assessment and Plan: Continue celexa. (5) Hypertension: Code(s): I10 - Essential (primary) hypertension Status: Acute Assessment and Plan: -hold hydrochlorothiazide due to hyponatremia. Sodium improved. -continue with lisinopril patient's creatinine is at her baseline. (6) Hypothyroidism: Code(s): E03.9 - Hypothyroidism, unspecified Status: Acute Assessment and Plan: TSH within range. -continue levothyroxine (7) Dementia: Code(s): F03.90 - Unspecified dementia without behavioral disturbance Status: Acute Assessment and Plan: -continue with donepezil (8) Depression with anxiety: Code(s): F41.8 - Other specified anxiety disorders Status: Acute Assessment and Plan: -continue Celexa (9) Neuropathy: Code(s): G62.9 - Polyneuropathy, unspecified Status: Acute Assessment and Plan: -continue with current management (10) Glaucoma: Code(s): H40.9 - Unspecified glaucoma Status: Acute Assessment and Plan: -continue with current management (11) Osteoporosis: Code(s): M81.0 - Age-related osteoporosis without current pathological fracture Status: Acute Assessment and Plan: -continue with Fosamax (12) Chronic kidney disease: Code(s): N18.9 - Chronic kidney disease, unspecified Status: Acute Assessment and Plan: Creatinine 1.9 in 2017 per historical link. Creatinine down to 1.1 today. Stable. (13) Anemia: Code(s): D64.9 - Anemia, unspecified Status: Acute Assessment and Plan: Admission hemoglobin 12.0-->8.6 this morning with left thigh hematoma on exam. CT abomen pelvis shows 8.5x6.8x2.6cm lobulated soft tissue desnity with surrounding edeman at the lateral aspect of the proximal let thigh representing post-traumatic hernia. Hemodynamically stable. Neurovascularly intact. -Consult to General Surgery -Trend H/H -Hold enoxaparin prophylaxis and ASA Plan Heparin Full Code Subjective Date/time seen: 04/30/22 07:45 Patient denies shortness of breath. Says she has persistent rhinorrhea and dry throat. She denies tightness in her left thigh but says it is painful. Review of Systems Respiratory: Respiratory: Denies dyspnea Objective Data Vital Signs Vital Signs: Vital Signs - 24 hr 04/29/22 21:37 04/30/22 05:34 04/30/22 08:05 Temperature 36.8 C 36.8 C Pulse Rate 93 76 Respiratory Rate 18 18 16 Blood Pressure 130/54 L 131/54 L Pulse Oximetry 96 94 Oxygen Delivery 04/30/22 08:00 04/30/22 14:38 Temperature 36.7 C Pulse Rate 94 Respiratory Rate 18 Blood Pressure 102/52 L Pulse Oximetry 96 Oxygen Delivery Room Air Intake/Output Intake/Output: Intake & Output 04/27/22 04/28/22 04/29/22 04/30/22 23:59 23:59 23:59 23:59 Intake Total 1170 2170 1250 240 Output Total 1050 400 Balance 1170 2170 200 -160 Meds/Results Medications: Active Medications Generic Name Dose Route Start Last Admin Trade Name Freq
[2022-04-30 20:02] LABS: Hematocrit 29.1 % (37.0-47.0); Hemoglobin 9.3 g/dL (12.0-15.0)
[2022-04-30 20:08] VITALS: BP 100/40; PULSE 94; RESP 18; TEMP 36; O2SAT 96
[2022-04-30] MEDS: LATANOPROST 0.005% OP SOLN 2.5 ML BTL 1 DROP EACH EYE (21:02)
[2022-04-30] MEDS: SOLIFENACIN 5 MG TABLET 10 MG PO (21:02)
[2022-04-30] MEDS: ACETAMINOPHEN 500 MG TABLET 1000 MG PO (21:02)
[2022-04-30] MEDS: MELATONIN 5 MG TABLET 10 MG PO (21:02)
[2022-04-30] MEDS: CITALOPRAM HYDROBROMIDE 20 MG TABLET 40 MG PO (21:03)
[2022-04-30] MEDS: MIRABEGRON 25 MG ER TABLET PO (21:03)
[2022-04-30] MEDS: DONEPEZIL HCL 10 MG TABLET PO (21:17)
--- NOTE | 2022-04-30 21:49 | PC.NURSE ---
Dr Hameed exchange notified of consult. Added patient to his list for the morning
[2022-05-01 03:03] VITALS: BP 112/51; PULSE 84; RESP 20; TEMP 36.6; O2SAT 94
[2022-05-01 04:53] LABS: Basophils Percent Auto 0.2 % (0.2-1.2); Hematocrit 25.8 % (37.0-47.0); Hemoglobin 8.7 g/dL (12.0-15.0); Immature Granulocyte Absolute 0.02 K/mm3 (0.00-0.031); Immature Granulocyte Percent A 0.4 % (0-0.5); Lymphocytes Absolute Auto 2.28 K/mm3 (0.9-3.2); Mean Corpuscular HGB Conc 33.7 g/dl (32-36); Mean Corpuscular Hemoglobin 32.3 pg (26-34); Mean Corpuscular Volume 95.9 fl (80-100); Mean Platelet Volume 10.3 fl (7.4-10.4); Monocytes Absolute Auto 0.6 K/mm3 (0.1-0.6); Neutrophils Absolute Auto 2.8 K/mm3 (1.3-6.7); Neutrophils Percent Auto 49.4 % (45.5-73.1); Platelet Count Result 171 k/mm3 (150-375); Red Blood Count 2.69 M/mm3 (4.2-5.4); Red Cell Distribution Width 13.2 % (11.5-14.5); White Blood Count 5.7 K/mm3 (4.5-10.0)
[2022-05-01 05:11] LABS: Anion Gap 5 mmol/L (8-16); Blood Urea Nitrogen 20 mg/dL (7-17); Calcium 8.4 mg/dL (8.4-10.2); Carbon Dioxide 25 mmol/L (22-30); Chloride 104 mmol/L (98-107); Estimated CRCL calculation 31 ml/min; Estimated Glomerular Filt Rate 43; Glucose 83 mg/dL (65-110); Potassium 3.8 mmol/L (3.4-5.0); Sodium 134 mmol/L (137-145)
[2022-05-01] MEDS: HYDROcodone/acetaminophen (*CRX) 5-325 MG TABLET 1 TAB PO (05:35)
[2022-05-01] MEDS: LEVOTHYROXINE SODIUM 25 MCG TABLET PO (05:35)
[2022-05-01] MEDS: AMPICILLIN TRIHYDRATE 500 MG CAPSULE PO ×3 (05:35→17:06)
[2022-05-01] MEDS: LEVOTHYROXINE SODIUM 112 MCG TABLET PO (05:42)
--- NOTE | 2022-05-01 08:32 | PM.IMPN ---
Subjective Date/time seen: 05/01/22 08:32 Objective Data Vital Signs Vital Signs: Vital Signs - 24 hr 04/30/22 14:38 04/30/22 20:08 05/01/22 03:03 Temperature 98.0 F 96.8 F L 97.8 F Pulse Rate 94 94 84 Respiratory Rate 18 18 20 Blood Pressure 102/52 L 100/40 L 112/51 L Pulse Oximetry 96 96 94 Intake/Output Intake/Output: Intake & Output 04/28/22 04/29/22 04/30/22 05/01/22 23:59 23:59 23:59 23:59 Intake Total 2170 1250 510 100 Output Total 1050 650 Balance 2170 200 -140 100 Meds/Results Medications: Active Medications Generic Name Dose Route Start Last Admin Trade Name Freq PRN Reason Stop Dose Admin Acetaminophen 650 mg 04/26/22 10:48 Acetaminophen 325 Mg Tablet PO Q4H PRN Mild Pain (1-3) or Fever Acetaminophen 1,000 mg 04/27/22 21:00 04/30/22 21:02 Acetaminophen 500 Mg Tablet PO 1,000 mg HS ZACARIAS Administration Hydrocodone Bitart/Acetaminophen 1 tab 04/26/22 10:48 05/01/22 05:35 Hydrocodone/Acetaminophen (*Crx) 5-325 Mg Tablet PO 1 tab Q4H PRN Administration Pain Rated 4-6 Albuterol 2 puff 04/26/22 15:20 Albuterol Sulfate (*Sp) Aerosol 1 Puff INHALATION Q6HRT PRN Shortness Of Breath Alendronate Sodium 70 mg 05/04/22 06:30 Alendronate Sodium 70 Mg Tablet PO Sa@0630 ZACARIAS Ampicillin 500 mg 04/29/22 18:00 05/01/22 05:35 Ampicillin Trihydrate 500 Mg Capsule PO 05/03/22 23:59 500 mg Q6HR ZACARIAS Administration Aspirin 81 mg 04/27/22 18:35 04/30/22 09:55 Aspirin 81 Mg Enteric Tablet PO 81 mg DAILY ZACARIAS Administration Citalopram Hydrobromide 40 mg 04/27/22 21:00 04/30/22 21:03 Citalopram Hydrobromide 20 Mg Tablet PO 40 mg HS ZACARIAS Administration Donepezil HCl 10 mg 04/27/22 21:00 04/30/22 21:17 Donepezil Hcl 10 Mg Tablet PO 10 mg HS ZACARIAS Administration Enoxaparin Sodium 40 mg 04/27/22 09:00 04/29/22 09:25 Enoxaparin 40 Mg/0.4 Ml Syringe SUB-Q 40 mg DAILY ZACARIAS Administration Famotidine 20 mg 04/27/22 18:45 04/30/22 17:42 Famotidine 20 Mg Tablet PO 20 mg BID ZACARIAS Administration Guaifenesin/Dextromethorphan 10 ml 04/26/22 15:20 Guaifenesin/Dextromethorphan 10 Ml Udc PO Q4H PRN Cough Latanoprost 1 drop 04/27/22 21:00 04/30/22 21:02 Latanoprost 0.005% Op Soln 2.5 Ml Btl EACH EYE 1 drop HS ZACARIAS Administration Levothyroxine Sodium 112 mcg 04/28/22 06:30 05/01/22 05:42 Levothyroxine Sodium 112 Mcg Tablet PO 112 mcg DAILY@0630 ZACARIAS Administration Levothyroxine Sodium 25 mcg 04/28/22 06:30 05/01/22 05:35 Levothyroxine Sodium 25 Mcg Tablet PO 25 mcg DAILY@0630 ZACARIAS Administration Melatonin 10 mg 04/27/22 21:00 04/30/22 21:02 Melatonin 5 Mg Tablet PO 10 mg HS ZACARIAS Administration Mirabegron 25 mg 04/27/22 21:00 04/30/22 21:03 Mirabegron 25 Mg Er Tablet PO 25 mg HS ZACARIAS Administration Morphine Sulfate 4 mg 04/26/22 10:48 Morphine Sulfate (*Crx) 4 Mg/Ml Inj IV PUSH Q2H PRN Pain Rated 7-10 Ondansetron HCl 4 mg 04/26/22 10:48 Ondansetron Inj 4 Mg/2 Ml Vial IV PUSH Q4H PRN Nausea Solifenacin 10 mg 04/27/22 21:00 04/30/22 21:02 Solifenacin 5 Mg Tablet PO 10 mg HS ZACARIAS Administration Timolol Maleate 1 drop 04/28/22 09:00 04/30/22 09:55 Timolol Maleate 0.5% Op Soln 5 Ml Bottle EACH EYE 1 drop DAILY ZACARIAS Administration Umeclidinium/Vilanterol 1 puff 04/29/22 09:00 04/30/22 08:05 Umeclidinium/Vilanterol 62.5-25 Mcg Ellipta INHALATION 1 puff DAILY ZACARIAS Administration Venlafaxine HCl 225 mg 04/28/22 09:00 04/30/22 09:54 Venlafaxine Hcl Xr 75 Mg Cap.Er.24h PO 225 mg DAILY ZACARIAS Administration Vitamin D 5,000 units 04/28/22 09:00 04/30/22 09:54 Cholecalciferol 1,000 Units Tablet PO 5,000 units DAILY ZACARIAS Administration Radiology Results: ITS Impressions Chest X-Ray 04/26/22 08:37 IMPRESSION: 1. Mild atelectasis of the right lung
--- NOTE | 2022-05-01 09:27 | PM.CNGS ---
Assessment and Plan Assessment and plan (1) Hematoma of left lower extremity: Code(s): S80.12XA - Contusion of left lower leg, initial encounter Status: Acute Assessment and Plan: CT femur yesterday suggesting subcutaneous hematoma of the left thigh. No fractures noted on plain films or CT. She has had a recent fall prior to admission, which is likely the cause. On exam, this is a large area of ecchymosis that is soft and not concerning for an expanding hematoma. Her hgb appears stable. Agree with holding any anticoagulation for now. Would recommend using samia wrap for compression of the left upper leg. Elevate the left lower extremity. No indication for surgical intervention at this time. Okay to discharge from our standpoint. (2) Anemia: Code(s): D64.9 - Anemia, unspecified Status: Acute (3) COVID: Code(s): U07.1 - COVID-19 Status: Acute Assessment and Plan: Appears stable. On room air. Still on contact precautions. (4) Acute UTI: Code(s): N39.0 - Urinary tract infection, site not specified Status: Acute (5) Chronic kidney disease: Code(s): N18.9 - Chronic kidney disease, unspecified Status: Acute (6) Hypertension: Code(s): I10 - Essential (primary) hypertension Status: Acute (7) Dementia: Code(s): F03.90 - Unspecified dementia without behavioral disturbance Status: Acute Plan I have discussed the patient's case and plan of care with Dr. Hameed. History of Present Illness Consult details Consult date: 05/01/22 Reason for consult: other (Left leg hematoma) Requesting physician: Whitney Andrade MD Narrative: This is an 81-year-old woman who has dementia and is a poor historian. She was initially brought into the ER on 04/26/2022 for evaluation of altered mental status. She was found have mild leukocytosis and mild hyponatremia. She was found to have a UTI and was positive for COVID. She was admitted to the hospitalist service and started on IV fluids and IV antibiotics. Her IV antibiotics have changed and she is currently on ampicillin p.o.. Prior to admission she had also had a recent fall and was found to have bruising on the left thigh and hip. 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 With serial labs, she was found to be anemic and her hemoglobin was trending down. This is gone as low as 8.6 yesterday, but is now stable on the last to H&H draws. This morning her hemoglobin is 8.7. Yesterday, she subsequently had a left femur CT that showed an 8.5 x 6.8 x 2.9 cm lobulated soft tissue density lesion with surrounding edema in the subcutaneous fat at the lateral aspect of the proximal left thigh, most consistent with a posttraumatic hematoma. Our service has now been consulted for surgical evaluation the hematoma. Her aspirin and Lovenox have been put on hold. She was not on any anticoagulation prior to admission. Review of Systems Review of Systems: ROS unobtainable: Yes unobtainable due to medical condition (dementia) [facility] Past Medical History Medical History Alzheimer's dementia Anxiety Cataract Dementia Depression Depression with anxiety GERD (gastroesophageal reflux disease) Glaucoma Hypertension Hypothyroidism Neuropathy Osteoporosis Surgical History Surgical History H/O foot surgery On the right History of bilateral knee replacement History of cholecystectomy History of colonoscopy History of hernia repair History of tonsillectomy and adenoidectomy Family History Family History Father Acute myocardial infarction Sibling Acute myocardial infarction Brother Mother Acute myocardial infarction Social History Social History (Reviewed 04/05
[2022-05-01] MEDS: CHOLECALCIFEROL 1,000 UNITS TABLET 5000 UNITS PO (09:28)
[2022-05-01] MEDS: FAMOTIDINE 20 MG TABLET PO ×2 (09:28→17:06)
[2022-05-01] MEDS: VENLAFAXINE HCL XR 75 MG CAP.ER.24H 225 MG PO (09:28)
[2022-05-01] MEDS: TIMOLOL MALEATE 0.5% OP SOLN 5 ML BOTTLE 1 DROP EACH EYE (09:28)
[2022-05-01] MEDS: UMECLIDINIUM/VILANTEROL 62.5-25 MCG ELLIPTA 1 PUFF INHALATION (10:52)
[2022-05-01 14:00] VITALS: BP 120/53; PULSE 94; RESP 18; TEMP 36.7; O2SAT 95
--- NOTE | 2022-05-01 14:26 | PM.DS ---
DS: Admitting Diagnosis Discharge Date May 01, 2022 Admitting Diagnosis Altered mental status DS: Discharge Diagnosis Discharge Diagnosis (1) UTI (urinary tract infection): Code(s): N39.0 - Urinary tract infection, site not specified Status: Acute (2) COVID: Code(s): U07.1 - COVID-19 Status: Acute (3) GERD (gastroesophageal reflux disease): Code(s): K21.9 - Gastro-esophageal reflux disease without esophagitis Status: Acute (4) Anxiety: Code(s): F41.9 - Anxiety disorder, unspecified Status: Acute (5) Hypertension: Code(s): I10 - Essential (primary) hypertension Status: Acute (6) Hypothyroidism: Code(s): E03.9 - Hypothyroidism, unspecified Status: Acute (7) Dementia: Code(s): F03.90 - Unspecified dementia, unspecified severity, without behavioral disturbance, psychotic disturbance, mood disturbance, and anxiety Status: Acute (8) Depression with anxiety: Code(s): F41.8 - Other specified anxiety disorders Status: Acute (9) Neuropathy: Code(s): G62.9 - Polyneuropathy, unspecified Status: Acute (10) Glaucoma: Code(s): H40.9 - Unspecified glaucoma Status: Acute (11) Osteoporosis: Code(s): M81.0 - Age-related osteoporosis without current pathological fracture Status: Acute (12) Chronic kidney disease: Code(s): N18.9 - Chronic kidney disease, unspecified Status: Acute (13) Anemia: Code(s): D64.9 - Anemia, unspecified Status: Acute DS: Summary Hospital Course Hospital Course: 81-year-old female patient who has a history of dementia and is a poor historian.? The patient came in with altered mental status.? She had been feeling sick since yesterday and increased weakness.? She also has a cough.? She lives with her family members and denies any sick contacts.? Her white counts noted to be 11.4.? Sodium slightly low at 131.? Creatinine is 1.5 which appears to be her baseline.? Glucose is 203.? She was found to have a UTI.? She was also found to be positive for COVID.? The patient was started on IV fluids and Rocephin.? The patient has had a recent fall and her hip and pelvis were x-rayed which was read as no fracture severe right hip osteoarthritis with moderate left hip osteoarthritis.? Chest x-ray was read as mild atelectasis of the right lung base. General surgery was consulted for her left thigh trauma due to hematoma being noted. No fractures were noted. Surgery recommended holding anticoagulation, wrapping Syd wrap around the left upper leg for compression and elevating. Patient was then discharged in good condition on ampicillin for her UTI with close outpatient follow-up. SNF was recommended at discharge but family refused and wanted to take patient home with them. Time Spent with Patient Time attestation: Total time spent providing and/or coordinating discharge services: DS: Data Data Completed and Pending Labs on day of discharge: Labs from last 24 hours 05/01/22 05/01/22 04/30/22 04:32 04:32 19:51 WBC 5.7 RBC 2.69 L Hgb 8.7 L 9.3 L Hct 25.8 L 29.1 L MCV 95.9 MCH 32.3 MCHC 33.7 RDW 13.2 Plt Count 171 MPV 10.3 Immature Gran % (Auto) 0.4 Neut % (Auto) 49.4 Lymph % (Auto) 40.0 Foard % (Auto) 10.0 H Eos % (Auto) 0.0 Baso % (Auto) 0.2 Lymph # (Auto) 2.28 Foard # (Auto) 0.6 Eos # (Auto) 0.0 Baso # (Auto) 0.0 Abs Immat Gran (auto) 0.02 Absolute Neuts (auto) 2.8 Absolute Nucleated RBC 0.0 Nucleated RBC % 0.0 Sodium 134 L Potassium 3.8 Chloride 104 Carbon Dioxide 25 Anion Gap 5 L BUN 20 H Creatinine 1.20 H Estim Creat Clear Calc 31 Estimated GFR 43 L Glucose 83 Calcium 8.4 Preliminary micro results at discharge 04/26/22 09:25 Blood Culture - Preliminary Blood Staphylococcus haemolytics 04/28/22 09:15 Blood Culture
[2022-05-01 15:19] LABS: Osmolality, Urine 750 mOsm/kg (50-1200)
[2022-05-03 01:10] LABS: Calculated Total (E+NE) 75 mcg/g cr (9-74); Creatinine, Urine 81 mg/dL (20-275); Dopamine, Urine 186 mcg/g cr (40-390); Norepinephrine, Urine 75 mcg/g cr (7-65)
== END 2022-05-01 20:05 | disposition swing bed (61) | DRG 689 ==
LOC: ANHED 08:15 → ANH2MED 14:17
PROVIDERS: Nurse Practitioner; Admitting Provider Family Medicine; Emergency Provider Emergency Medicine; PCP Nurse Practitioner Family; Visit Provider Student in an Organized Health Care Education/Training Program
DX: N39.0 Urinary tract infection, site not specified (principal); U07.1 COVID-19; E87.1 Hypo-osmolality and hyponatremia; B96.4 Proteus (mirabilis) (morganii) as the cause of diseases classified elsewhere; S70.12XA Contusion of left thigh, initial encounter; W19.XXXA Unspecified fall, initial encounter; D63.1 Anemia in chronic kidney disease; E03.9 Hypothyroidism, unspecified; F41.8 Other specified anxiety disorders; F02.80 Dementia in other diseases classified elsewhere, unspecified severity, without behavioral disturbance, psychotic disturbance, mood disturbance, and anxiety; G30.8 Other Alzheimer's disease; G62.9 Polyneuropathy, unspecified; H40.9 Unspecified glaucoma; H26.9 Unspecified cataract; I12.9 Hypertensive chronic kidney disease with stage 1 through stage 4 chronic kidney disease, or unspecified chronic kidney disease; K21.9 Gastro-esophageal reflux disease without esophagitis; M16.0 Bilateral primary osteoarthritis of hip; M81.0 Age-related osteoporosis without current pathological fracture; N18.9 Chronic kidney disease, unspecified; R05.9 Cough, unspecified; Z96.653 Presence of artificial knee joint, bilateral; Z90.49 Acquired absence of other specified parts of digestive tract; Z79.82 Long term (current) use of aspirin
CPT/HCPCS: 36415; 51701; 71046; 73502; 73700; 80048; 80053; 81001; 82384; 82570; 82728; 83605; 83615; 83735; 83874; 83935; 84300; 84443; 85014; 85018; 85025; 86140; 87040; 87077; 87086; 87088; 87147; 87181; 87186; 93005; 94640; 96361; 96365; 96372; 97110; 97161; 97166; 97530; 97535; 99285; A9270; C9803; G0378; J0696; J1650; J7030; J7120; U0003; U0005

== ENCOUNTER 2022-05-01 21:11 | Inpatient (IN) | payer MEDICARE, MEDICAID, SELFPAY ==
--- NOTE | ~2022-05-01 | XR_ITS ---
EXAMINATION: XR hip LT min 2V DATE: 05/07/2022 11:46 INDICATION: Left hip injury. TECHNIQUE: 2 views of left hip were obtained. COMPARISON: Left hip radiographs 04/26/2022 FINDINGS: Bone alignment is normal. No fracture. There is mild left hip osteoarthritis. Osteitis pubi s is noted. IMPRESSION: 1. Mild left hip osteoarthritis. Reviewed, dictated and finalized at location B.
[2022-05-01 21:18] VITALS: BMI 37.2
--- NOTE | 2022-05-01 21:33 | ADMGEN ---
This patient, Lori Pederson, was admitted to 2nd Floor Room 208-1. Patient oriented to hospital policies and general routines including ID bracelet, bed and alarms, visiting hours, pain management, procedures, bathroom and other care routines, personal items, smoking policy, room service/diet, and visiting hours. Information on how to activate the Rapid Response Team has been discussed. Patient are encouraged to report perceived risks to care and to ask questions if they do not understand what they are told or what they should do.
[2022-05-01 22:01] VITALS: O2SAT 97
--- NOTE | 2022-05-01 22:08 | PC.NURSE ---
2135 Julien Hawk, Hospitalist, notified of patient's arrival and that the med rec was completed.
[2022-05-01] MEDS: MELATONIN 5 MG TABLET 10 MG PO (23:08)
[2022-05-01] MEDS: ACETAMINOPHEN 500 MG TABLET 1000 MG PO (23:08)
[2022-05-01] MEDS: MIRABEGRON 25 MG ER TABLET PO (23:08)
[2022-05-01 23:15] VITALS: BP 146/65; PULSE 90; RESP 22; TEMP 36.6; O2SAT 97
[2022-05-01] MEDS: SOLIFENACIN 5 MG TABLET 10 MG PO (23:18)
[2022-05-02] MEDS: LEVOTHYROXINE SODIUM 25 MCG TABLET PO (05:49)
[2022-05-02] MEDS: LEVOTHYROXINE SODIUM 112 MCG TABLET PO (05:49)
--- NOTE | 2022-05-02 06:58 | PM.IMHP ---
H&P: HPI History of Present Illness Date/Time: 05/02/22 06:58 Chief Complaint: Weakness, Rehab, COVID Narrative: This is a 81-year-old female that is being admitted into our swing bed. Patient was admitted from [facility] as she has a past medical history of dementia she was found to have a UTI as well as positive for COVID although she is asymptomatic. Patient lives with a family member she was initially started on IV Rocephin she is coming to us that she is not at her baseline and still remains weak she is going to go home with her daughter who would like for her to be a little bit stronger patient has a past medical history of hypertension, hypothyroidism, depression past surgeries have been tonsillectomy and adenoids, knee resurfacing, and gallbladder removed. Patient has not required any oxygen last set of vitals was 146/65, pulse is 90, respirations 22, temp is 98 5, 97% on room air patient will participate with physical therapy and Occupational Therapy she denies any pain no swelling and states she does not need anything. Review of Systems Review of Systems: Weakness All systems reviewed & are unremarkable except as noted in HPI and below PMFSH Past Medical History Medical History Alzheimer's dementia Anxiety Cataract Dementia Depression Depression with anxiety GERD (gastroesophageal reflux disease) Glaucoma Hypertension Hypothyroidism Neuropathy Osteoporosis Surgical History Surgical History H/O foot surgery On the right History of bilateral knee replacement History of cholecystectomy History of colonoscopy History of hernia repair History of tonsillectomy and adenoidectomy Family History Family History Father Acute myocardial infarction Sibling Acute myocardial infarction Brother Mother Acute myocardial infarction Social History Social History Social History: The patient is . 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 She has 2 children. She lives with daughter. She is a lifelong nonsmoker. She does not use any alcohol marijuana or illicit drugs. Code status full code Smoking status: Never smoker Second hand tobacco smoke exposure: Yes Alcohol intake: never Substance use: never Spiritual care concerns: Yes (Mosque) Comments At time as signature, I have reviewed and agree with nursing past medical, social, surgical and family history. Please see nursing chart for further information. There is no relevant family history pertinent to the presenting complaint. Meds Home Medications and Allergies Home Medications Medication Instructions Recorded Confirmed Type alendronate 70 mg tablet 70 mg PO WEEKLY 08/03/20 05/01/22 History cholecalciferol (vitamin D3) 125 125 mcg PO DAILY 08/03/20 05/01/22 History mcg (5,000 unit) tablet (Vitamin D3) citalopram 40 mg tablet 40 mg PO HS 08/03/20 05/01/22 History donepezil 10 mg tablet 10 mg PO HS 08/03/20 05/01/22 History famotidine 20 mg tablet 20 mg PO BID 08/03/20 05/01/22 History levothyroxine 150 mcg tablet 137 mcg PO DAILY 08/03/20 05/01/22 History mirabegron 25 mg tablet,extended 25 mg PO HS 08/03/20 05/01/22 History release 24 hr (Myrbetriq) simethicone 125 mg tablet 125 mg PO TIDWM 08/03/20 05/01/22 History solifenacin 10 mg tablet (Vesicare) 10 mg PO HS 08/03/20 05/01/22 History aspirin 81 mg tablet,delayed 81 mg PO DAILY 04/27/22 05/01/22 History release latanoprost 0.005 % eye drops 1 drp EACH EYE HS 04/27/22 05/01/22 History melatonin 10 mg tablet 10 mg PO HS 04/27/22 05/01/22 History timolol maleate 0.5 % eye drops 1 drp EACH EYE DAILY 04/27/22 05/01/22 History umeclidinium 62.5 mcg-vilanterol 1 ea inhalation DAILY PRN cough, 04/27/22 05/01/22 History 25 mcg/
[2022-05-02 08:00] VITALS: BP 140/64; PULSE 79; RESP 16; TEMP 36.7; O2SAT 92
[2022-05-02] MEDS: SIMETHICONE 80 MG TAB.CHEW PO ×3 (08:10→17:16)
[2022-05-02] MEDS: UMECLIDINIUM/VILANTEROL 62.5-25 MCG ELLIPTA 2 PUFF INHALATION (09:06)
[2022-05-02] MEDS: TIMOLOL MALEATE 0.5% OP SOLN 5 ML BOTTLE 1 DROP EACH EYE (09:07)
[2022-05-02] MEDS: CHOLECALCIFEROL 1,000 UNITS TABLET 5000 UNITS PO (09:07)
[2022-05-02] MEDS: VENLAFAXINE HCL XR 75 MG CAP.ER.24H 225 MG PO (09:08)
[2022-05-02] MEDS: ASPIRIN 81 MG ENTERIC TABLET PO (09:09)
[2022-05-02] MEDS: FAMOTIDINE 20 MG TABLET PO ×2 (09:09→17:16)
[2022-05-02] MEDS: AMOXICILLIN 500 MG CAPSULE PO ×3 (09:18→21:06)
[2022-05-02 16:40] VITALS: BP 140/69; PULSE 87; RESP 18; TEMP 37.1; O2SAT 93
[2022-05-02 20:00] VITALS: O2SAT 96
[2022-05-02] MEDS: DONEPEZIL HCL 5 MG TABLET 10 MG PO (20:25)
[2022-05-02] MEDS: CITALOPRAM HYDROBROMIDE 20 MG TABLET 40 MG PO (20:25)
[2022-05-02] MEDS: LATANOPROST 0.005% OP SOLN 2.5 ML BTL 1 DROP EACH EYE (20:26)
[2022-05-02] MEDS: MELATONIN 5 MG TABLET 10 MG PO (20:26)
[2022-05-02] MEDS: ACETAMINOPHEN 500 MG TABLET 1000 MG PO (20:26)
[2022-05-02] MEDS: MIRABEGRON 25 MG ER TABLET PO (20:27)
[2022-05-02] MEDS: SOLIFENACIN 5 MG TABLET 10 MG PO (20:27)
[2022-05-03] VITALS: BP 137/45; PULSE 78; RESP 19; TEMP 36.6; O2SAT 91
[2022-05-03] MEDS: AMOXICILLIN 500 MG CAPSULE PO ×4 (02:05→20:41)
[2022-05-03] MEDS: LEVOTHYROXINE SODIUM 25 MCG TABLET PO (06:17)
[2022-05-03] MEDS: LEVOTHYROXINE SODIUM 112 MCG TABLET PO (06:17)
[2022-05-03 08:00] VITALS: BP 131/62; PULSE 88; RESP 16; TEMP 36.4; O2SAT 97
[2022-05-03] MEDS: SIMETHICONE 80 MG TAB.CHEW PO ×3 (08:10→17:33)
[2022-05-03] MEDS: CHOLECALCIFEROL 1,000 UNITS TABLET 5000 UNITS PO (09:01)
[2022-05-03] MEDS: VENLAFAXINE HCL XR 75 MG CAP.ER.24H 225 MG PO (09:02)
[2022-05-03] MEDS: ASPIRIN 81 MG ENTERIC TABLET PO (09:03)
[2022-05-03] MEDS: FAMOTIDINE 20 MG TABLET PO ×2 (09:04→17:33)
[2022-05-03] MEDS: UMECLIDINIUM/VILANTEROL 62.5-25 MCG ELLIPTA 2 PUFF INHALATION (09:04)
[2022-05-03] MEDS: TIMOLOL MALEATE 0.5% OP SOLN 5 ML BOTTLE 1 DROP EACH EYE (09:04)
[2022-05-03 16:35] VITALS: BP 125/53; PULSE 85; RESP 18; TEMP 36.9; O2SAT 95
[2022-05-03] MEDS: ACETAMINOPHEN 500 MG TABLET 1000 MG PO (20:37)
[2022-05-03] MEDS: CITALOPRAM HYDROBROMIDE 20 MG TABLET 40 MG PO (20:38)
[2022-05-03] MEDS: DONEPEZIL HCL 5 MG TABLET 10 MG PO (20:40)
[2022-05-03] MEDS: MELATONIN 5 MG TABLET 10 MG PO (20:40)
[2022-05-03] MEDS: SOLIFENACIN 5 MG TABLET 10 MG PO (20:41)
[2022-05-03] MEDS: LATANOPROST 0.005% OP SOLN 2.5 ML BTL 1 DROP EACH EYE (20:42)
[2022-05-03] MEDS: MIRABEGRON 25 MG ER TABLET PO (20:42)
--- NOTE | 2022-05-03 22:44 | PC.NURSE ---
Pt assisted c SBA and use of walker and gait belt to BR. Pt moves very slowly and needs much encouragement to walk. Pt c/o pain c movement and soreness to her Lt hip area c movement. Pt assisted back to bed and call meyers within reach.
[2022-05-04 00:49] VITALS: BP 129/64; PULSE 74; RESP 20; TEMP 36.4; O2SAT 96
--- NOTE | 2022-05-04 01:05 | PC.NURSE ---
Pt awake, watching TV, assisted c SBA and walker to BR, noted depend saturated c urine, pt incontinent, reminded on use of call meyers for assist. Pt verbalizes understanding, assisted back to bed in position of comfort c call meyers at pt side.
[2022-05-04] MEDS: AMOXICILLIN 500 MG CAPSULE PO ×4 (03:38→20:09)
[2022-05-04] MEDS: LEVOTHYROXINE SODIUM 112 MCG TABLET PO (06:19)
[2022-05-04] MEDS: LEVOTHYROXINE SODIUM 25 MCG TABLET PO (06:19)
[2022-05-04 08:00] VITALS: BP 157/68; PULSE 89; RESP 16; TEMP 36.9
[2022-05-04] MEDS: SIMETHICONE 80 MG TAB.CHEW PO ×3 (08:26→17:04)
[2022-05-04] MEDS: CHOLECALCIFEROL 1,000 UNITS TABLET 5000 UNITS PO (08:26)
[2022-05-04] MEDS: VENLAFAXINE HCL XR 75 MG CAP.ER.24H 225 MG PO (08:27)
[2022-05-04] MEDS: ASPIRIN 81 MG ENTERIC TABLET PO (08:27)
[2022-05-04] MEDS: FAMOTIDINE 20 MG TABLET PO ×2 (08:28→17:04)
[2022-05-04] MEDS: UMECLIDINIUM/VILANTEROL 62.5-25 MCG ELLIPTA 2 PUFF INHALATION (08:29)
[2022-05-04] MEDS: TIMOLOL MALEATE 0.5% OP SOLN 5 ML BOTTLE 1 DROP EACH EYE (08:29)
[2022-05-04 16:00] VITALS: BP 156/63; PULSE 86; RESP 16; TEMP 36.9; O2SAT 97
[2022-05-04] MEDS: CITALOPRAM HYDROBROMIDE 20 MG TABLET 40 MG PO (20:06)
[2022-05-04] MEDS: DONEPEZIL HCL 5 MG TABLET 10 MG PO (20:07)
[2022-05-04] MEDS: MIRABEGRON 25 MG ER TABLET PO ×2 (20:07→20:10)
[2022-05-04] MEDS: MELATONIN 5 MG TABLET 10 MG PO (20:07)
[2022-05-04] MEDS: ACETAMINOPHEN 500 MG TABLET 1000 MG PO (20:08)
[2022-05-04] MEDS: SOLIFENACIN 5 MG TABLET 10 MG PO (20:09)
[2022-05-04] MEDS: LATANOPROST 0.005% OP SOLN 2.5 ML BTL 1 DROP EACH EYE (20:10)
[2022-05-05] VITALS: BP 166/60; PULSE 85; RESP 20; TEMP 35.8; O2SAT 93
[2022-05-05] MEDS: AMOXICILLIN 500 MG CAPSULE PO (02:58)
[2022-05-05] MEDS: LEVOTHYROXINE SODIUM 25 MCG TABLET PO (06:03)
[2022-05-05] MEDS: LEVOTHYROXINE SODIUM 112 MCG TABLET PO (06:03)
[2022-05-05 08:00] VITALS: BP 153/83; PULSE 92; RESP 16; TEMP 36.8; O2SAT 95
[2022-05-05] MEDS: SIMETHICONE 80 MG TAB.CHEW PO ×3 (08:17→17:13)
[2022-05-05] MEDS: CHOLECALCIFEROL 1,000 UNITS TABLET 5000 UNITS PO (08:17)
[2022-05-05] MEDS: VENLAFAXINE HCL XR 75 MG CAP.ER.24H 225 MG PO (08:18)
[2022-05-05] MEDS: FAMOTIDINE 20 MG TABLET PO ×2 (08:19→17:13)
[2022-05-05] MEDS: TIMOLOL MALEATE 0.5% OP SOLN 5 ML BOTTLE 1 DROP EACH EYE (08:20)
[2022-05-05] MEDS: UMECLIDINIUM/VILANTEROL 62.5-25 MCG ELLIPTA 2 PUFF INHALATION (08:20)
[2022-05-05] MEDS: ASPIRIN 81 MG ENTERIC TABLET PO (08:21)
[2022-05-05] MEDS: ACETAMINOPHEN 325 MG TABLET 650 MG PO ×2 (10:18→17:22)
--- NOTE | 2022-05-05 10:25 | PM.EVENT ---
Event Note Event Note Event Note: Patient is having some pain and I ordered some Tylenol for patient today we will continue to monitor not wanting to cause confusion we will see if this helps
[2022-05-05 16:00] VITALS: BP 123/60; PULSE 80; RESP 16; TEMP 36.8; O2SAT 93
--- NOTE | 2022-05-05 18:48 | PCDIET ---
Patient gets good relief with Tylenol 650. Up in chair with no immediate needs at this time.
[2022-05-05] MEDS: DONEPEZIL HCL 5 MG TABLET 10 MG PO (20:40)
[2022-05-05] MEDS: CITALOPRAM HYDROBROMIDE 20 MG TABLET 40 MG PO (20:40)
[2022-05-05] MEDS: SOLIFENACIN 5 MG TABLET 10 MG PO (20:40)
[2022-05-05] MEDS: MELATONIN 5 MG TABLET 10 MG PO (20:41)
[2022-05-05] MEDS: ACETAMINOPHEN 500 MG TABLET 1000 MG PO (20:41)
[2022-05-05] MEDS: LATANOPROST 0.005% OP SOLN 2.5 ML BTL 1 DROP EACH EYE (21:05)
[2022-05-05] MEDS: ALBUTEROL SULFATE (*SP) INHALER 2 PUFF INHALATION (21:48)
[2022-05-06] VITALS: BP 145/64; PULSE 73; RESP 20; TEMP 36.6; O2SAT 93
[2022-05-06] MEDS: ACETAMINOPHEN 325 MG TABLET 650 MG PO ×2 (03:22→13:45)
[2022-05-06] MEDS: LEVOTHYROXINE SODIUM 112 MCG TABLET PO (06:02)
[2022-05-06] MEDS: LEVOTHYROXINE SODIUM 25 MCG TABLET PO (06:02)
[2022-05-06 08:00] VITALS: BP 150/70; PULSE 85; RESP 16; TEMP 36.6; O2SAT 98
[2022-05-06] MEDS: SIMETHICONE 80 MG TAB.CHEW PO ×3 (08:30→16:44)
[2022-05-06] MEDS: polyethylene glycoL 3350 17 GM POWD.PACK PO (09:48)
[2022-05-06] MEDS: CHOLECALCIFEROL 1,000 UNITS TABLET 5000 UNITS PO (09:49)
[2022-05-06] MEDS: FAMOTIDINE 20 MG TABLET PO ×2 (09:49→16:44)
[2022-05-06] MEDS: VENLAFAXINE HCL XR 75 MG CAP.ER.24H 225 MG PO (09:50)
[2022-05-06] MEDS: ASPIRIN 81 MG ENTERIC TABLET PO (09:51)
[2022-05-06] MEDS: TIMOLOL MALEATE 0.5% OP SOLN 5 ML BOTTLE 1 DROP EACH EYE (09:51)
[2022-05-06] MEDS: UMECLIDINIUM/VILANTEROL 62.5-25 MCG ELLIPTA 2 PUFF INHALATION (09:51)
[2022-05-06 15:59] VITALS: BP 154/65; PULSE 84; RESP 20; TEMP 36.6; O2SAT 97
[2022-05-06 20:00] VITALS: PULSE 84; RESP 20; O2SAT 97
[2022-05-06] MEDS: MELATONIN 5 MG TABLET 10 MG PO (20:15)
[2022-05-06] MEDS: DONEPEZIL HCL 5 MG TABLET 10 MG PO (20:16)
[2022-05-06] MEDS: CITALOPRAM HYDROBROMIDE 20 MG TABLET 40 MG PO (20:16)
[2022-05-06] MEDS: ACETAMINOPHEN 500 MG TABLET 1000 MG PO (20:16)
[2022-05-06] MEDS: LATANOPROST 0.005% OP SOLN 2.5 ML BTL 1 DROP EACH EYE (20:18)
[2022-05-06] MEDS: MIRABEGRON 25 MG ER TABLET PO (20:18)
[2022-05-06] MEDS: SOLIFENACIN 5 MG TABLET 10 MG PO (20:18)
--- NOTE | 2022-05-06 23:10 | PC.NURSE ---
Pt alarm sounding in room, pt had transferred herself from recliner to bed without calling for assist, no injury noted. Pt states, I thought I put on the light, I must have pushed the TV button. Reorientation to call light given, fall precaution education given, pt states understanding.
[2022-05-07] VITALS: BP 143/66; PULSE 83; RESP 16; TEMP 36.7; O2SAT 97
[2022-05-07 05:36] LABS: Basophils Absolute Auto 0.01 K/mm3 (0.00-0.10); Basophils Percent Auto 0.1 % (0.0-1.0); Hematocrit 29.6 % (35.0-42.0); Hemoglobin 9.7 g/dL (11.7-13.8); Immature Granulocyte Absolute 0.03 K/mm3 (0.00-0.00); Immature Granulocyte Percent A 0.4 % (0.0-0.0); Lymphocytes Absolute Auto 2.54 K/mm3 (1.10-4.50); Lymphocytes Percent Auto 31.9 % (18.0-42.0); Mean Corpuscular HGB Conc 32.8 g/dL (32.0-36.0); Mean Corpuscular Hemoglobin 32.3 pg (27.0-31.0); Mean Corpuscular Volume 98.7 fL (78.0-102.0); Monocytes Absolute Auto 0.73 K/mm3 (0.10-0.90); Monocytes Percent Auto 9.2 % (2.0-11.0); Neutrophils Absolute Auto 4.6 K/mm3 (1.7-7.2); Neutrophils Percent Auto 58.4 % (50.0-70.0); Platelet Count Result 290 K/mm3 (150-420); Red Cell Distribution Width 14.3 % (11.6-14.4)
[2022-05-07] MEDS: LEVOTHYROXINE SODIUM 25 MCG TABLET PO (05:53)
[2022-05-07] MEDS: LEVOTHYROXINE SODIUM 112 MCG TABLET PO (05:53)
[2022-05-07 05:54] LABS: Alanine Aminotransferase 24 U/L (14-59); Albumin Level 3.1 g/dL (3.4-5.0); Alkaline Phosphatase 102 U/L (46-116); Anion Gap 9 mmol/L (8-16); Aspartate Amino Transferase 21 U/L (15-37); Bilirubin,Total 0.8 mg/dL (0.00-1.00); Blood Urea Nitrogen 24 mg/dL (7-18); Calcium 8.9 mg/dL (8.5-10.1); Carbon Dioxide 26 mmol/L (21-32); Chloride 105 mmol/L (98-108); Estimated CRCL calculation 27 ml/min; Estimated Glomerular Filt Rate 37; Glucose 85 mg/dL (70-99); Osmolality Calculated 293 mOsm/kg (285-295); Sodium 140 mmol/L (136-145)
--- NOTE | 2022-05-07 06:23 | PC.NURSE ---
Pt noted to be incontinent, states I'm just so confused. A&Ox3. Assisted to bedside commode with extensive 1 assist, pt unable to move her legs on/off bed without assist. Dayami-care provided, pt assisted back to bed. No distress noted.
[2022-05-07 08:00] VITALS: BP 140/70; PULSE 83; RESP 16; TEMP 36.4; O2SAT 97
[2022-05-07] MEDS: SIMETHICONE 80 MG TAB.CHEW PO ×3 (08:33→16:55)
[2022-05-07] MEDS: CHOLECALCIFEROL 1,000 UNITS TABLET 5000 UNITS PO (09:30)
[2022-05-07] MEDS: ASPIRIN 81 MG ENTERIC TABLET PO (09:34)
[2022-05-07] MEDS: polyethylene glycoL 3350 17 GM POWD.PACK PO (09:34)
[2022-05-07] MEDS: VENLAFAXINE HCL XR 75 MG CAP.ER.24H 225 MG PO (09:34)
[2022-05-07] MEDS: FAMOTIDINE 20 MG TABLET PO ×2 (09:35→16:55)
[2022-05-07] MEDS: UMECLIDINIUM/VILANTEROL 62.5-25 MCG ELLIPTA 2 PUFF INHALATION (09:39)
[2022-05-07] MEDS: TIMOLOL MALEATE 0.5% OP SOLN 5 ML BOTTLE 1 DROP EACH EYE (09:39)
[2022-05-07] MEDS: ACETAMINOPHEN 325 MG TABLET 650 MG PO (13:30)
[2022-05-07 16:00] VITALS: BP 150/84; PULSE 79; RESP 20; TEMP 36.6; O2SAT 97
--- NOTE | 2022-05-07 16:16 | PC.NURSE ---
UA collected per order, SBA of pt to BSC c use of gait belt and walker, pt then back to chair c legs elevated and watching TV, call meyers in pt reach.
[2022-05-07 16:29] LABS: Add Urine Microscopic? NO; Appearance Urine Clear (Clear); Bilirubin Urine Negative (Negative); Blood Urine Negative (Negative); Color Urine Yellow (Yellow); Glucose Urine UA Negative (Negative); Ketones Urine Negative (Negative); Leukocyte Esterase Ur Negative LEU/UL (Negative); Nitrate Urine Negative (Negative); Protein Urine Negative (Negative); Specific Grav Ur 1.025 (1.010-1.020); Urobilinogen Urine 0.2 mg/dL (0.2-1.0)
--- NOTE | 2022-05-07 18:38 | PC.NURSE ---
Pt sitting in chair recliner c legs elevated visiting c family watching TV, pt reports no pain at this time, call meyers in reach.
[2022-05-07] MEDS: LATANOPROST 0.005% OP SOLN 2.5 ML BTL 1 DROP EACH EYE (20:55)
[2022-05-07] MEDS: CITALOPRAM HYDROBROMIDE 20 MG TABLET 40 MG PO (20:55)
[2022-05-07] MEDS: MELATONIN 5 MG TABLET 10 MG PO (20:55)
[2022-05-07] MEDS: MIRABEGRON 25 MG ER TABLET PO (20:55)
[2022-05-07] MEDS: SOLIFENACIN 5 MG TABLET 10 MG PO (20:55)
[2022-05-07] MEDS: DONEPEZIL HCL 5 MG TABLET 10 MG PO (20:56)
[2022-05-07] MEDS: ACETAMINOPHEN 500 MG TABLET 1000 MG PO (20:56)
[2022-05-08] VITALS: BP 144/69; PULSE 82; RESP 18; TEMP 36.4; O2SAT 96
[2022-05-08] MEDS: LEVOTHYROXINE SODIUM 25 MCG TABLET PO (05:56)
[2022-05-08] MEDS: LEVOTHYROXINE SODIUM 112 MCG TABLET PO (05:56)
[2022-05-08 08:00] VITALS: BP 145/58; PULSE 81; RESP 17; TEMP 36.6; O2SAT 93
[2022-05-08] MEDS: polyethylene glycoL 3350 17 GM POWD.PACK PO (08:41)
[2022-05-08] MEDS: traMADol HCL (*CRX) 50 MG TABLET PO (08:42)
[2022-05-08] MEDS: SIMETHICONE 80 MG TAB.CHEW PO ×3 (08:45→17:12)
[2022-05-08] MEDS: VENLAFAXINE HCL XR 75 MG CAP.ER.24H 225 MG PO (08:45)
[2022-05-08] MEDS: CHOLECALCIFEROL 1,000 UNITS TABLET 5000 UNITS PO (08:45)
[2022-05-08] MEDS: ASPIRIN 81 MG ENTERIC TABLET PO (08:45)
[2022-05-08] MEDS: FAMOTIDINE 20 MG TABLET PO ×2 (08:45→17:12)
[2022-05-08] MEDS: TIMOLOL MALEATE 0.5% OP SOLN 5 ML BOTTLE 1 DROP EACH EYE (08:45)
[2022-05-08] MEDS: UMECLIDINIUM/VILANTEROL 62.5-25 MCG ELLIPTA 2 PUFF INHALATION (08:46)
--- NOTE | 2022-05-08 09:54 | WPDPN ---
Progress Note: A&P Assessment and Plan (1) COVID: Code(s): U07.1 - COVID-19 Status: Acute Assessment and Plan: isolated completed Asymptomatic will monitor and treat symptoms (2) Chronic kidney disease: Code(s): N18.9 - Chronic kidney disease, unspecified Status: Acute Assessment and Plan: avoid nephrotoxic medication cr on admission 1.36 baseline 1.10-1.20 Monitor BUN/CR (3) GERD (gastroesophageal reflux disease): Code(s): K21.9 - Gastro-esophageal reflux disease without esophagitis Status: Acute Assessment and Plan: Protonix (4) UTI (urinary tract infection): Code(s): N39.0 - Urinary tract infection, site not specified Status: Acute Assessment and Plan: treatment completed (5) Hypertension: Code(s): I10 - Essential (primary) hypertension Status: Acute Assessment and Plan: continue with home medication patient blood pressure is stable (6) Dementia: Code(s): F03.90 - Unspecified dementia, unspecified severity, without behavioral disturbance, psychotic disturbance, mood disturbance, and anxiety Status: Acute Assessment and Plan: monitor pt is alert and able to follow direction (7) Weakness: Code(s): R53.1 - Weakness Status: Acute Assessment and Plan: pt/OT EVALUATE AND TREAT (8) Hypothyroidism: Code(s): E03.9 - Hypothyroidism, unspecified Status: Acute Assessment and Plan: stable continue home dosage of Synthroid Subjective Date/time seen: 05/08/22 09:54 Interval history: Patient notes that she feels better she continues to have pain to that left hip but it has improved since yesterday. Patient notes that she slept well overnight, she is tolerating her meals if physical therapy is going well. The patient denies SOB, CP, palpitation, extremity numbness, lightheadedness, dizziness, constipation, diarrhea, chills, or fever. Review of Systems Review of Systems: All systems reviewed & are unremarkable except as noted in HPI and below Exam Narrative: GENERAL:Well-appearing, SMALL/frail and in no acute distress. HEAD:Normocephalic, atraumatic. EYES: PERRLA ENT: Nares clear, no rhinorrhea or epistaxis. Mucous membranes moist. NECK: Supple. CHEST: Clear to auscultation. No respiratory distress. HEART: Regular rate and rhythm. Normal peripheral pulses. ABDOMEN: Soft, nontender, nondistended, normal active bowel sounds. EXTREMITIES: Normal range of motion. No edema. SKIN: Warm, dry, no rash.discoloration to the left hip. NEURO: No focal deficits. Alert and oriented x3. Objective Data Vital Signs Vital Signs: Vital Signs - 24 hr 05/07/22 16:00 05/08/22 00:00 05/08/22 08:00 Temperature 97.8 F 97.6 F 98 F Pulse Rate 79 82 81 Respiratory Rate 20 18 17 Blood Pressure 150/84 H 144/69 H 145/58 H Pulse Oximetry 97 96 93 Oxygen Delivery Room Air Room Air Room Air Intake/Output Intake/Output: Intake & Output 05/05/22 05/06/22 05/07/22 05/08/22 23:59 23:59 23:59 23:59 Intake Total 1920 1390 1540 690 Output Total 500 600 500 550 Balance 9440 005 9999 140 Meds/Results Medications: Active Medications Generic Name Dose Route Start Last Admin Trade Name Freq PRN Reason Stop Dose Admin Acetaminophen 1,000 mg 05/01/22 21:00 05/07/22 20:56 Acetaminophen 500 Mg Tablet PO 1,000 mg HS ZACARIAS Administration Acetaminophen 650 mg 05/05/22 09:43 05/07/22 13:30 Acetaminophen 325 Mg Tablet PO 650 mg Q6H PRN Administration Mild Pain (1-3) or Fever Hydrocodone Bitart/Acetaminophen 1 tab 05/08/22 08:23 Hydrocodone/Acetaminophen (*Crx) 7.5-325 Mg Tablet PO Q6H PRN Pain Rated 7-10 Albuterol 2 puff 05/02/22 06:56 05/05/22 21:48 Albuterol Sulfate (*Sp) Inhaler INHALATION 2 puff QID PRN Administration Shortness Of Breath Alendronate Sodium 70 mg 05/11/22 06:30 A
[2022-05-08 16:00] VITALS: BP 144/60; PULSE 71; RESP 17; TEMP 36.6; O2SAT 96
--- NOTE | 2022-05-08 19:09 | PC.NURSE ---
Charting by Yana Genao, student nurse has been reviewed and agreed with by this nurse.
[2022-05-08] MEDS: SOLIFENACIN 5 MG TABLET 10 MG PO (20:46)
[2022-05-08] MEDS: CITALOPRAM HYDROBROMIDE 20 MG TABLET 40 MG PO (20:47)
[2022-05-08] MEDS: MIRABEGRON 25 MG ER TABLET PO (20:47)
[2022-05-08] MEDS: DONEPEZIL HCL 5 MG TABLET 10 MG PO (20:48)
[2022-05-08] MEDS: ACETAMINOPHEN 500 MG TABLET 1000 MG PO (20:48)
[2022-05-08] MEDS: MELATONIN 5 MG TABLET 10 MG PO (20:49)
[2022-05-08] MEDS: DICLOFENAC SODIUM 1% 100 GM GEL (*BKC) 1 APPLIC TOPICAL (20:49)
[2022-05-08] MEDS: TOLNAFTATE 1% POWDER 45 GM BTL 1 APPLIC TOPICAL (20:50)
[2022-05-08] MEDS: LATANOPROST 0.005% OP SOLN 2.5 ML BTL 1 DROP EACH EYE (20:50)
[2022-05-09] VITALS: BP 130/62; PULSE 80; RESP 18; TEMP 36.8; O2SAT 95
[2022-05-09] MEDS: traMADol HCL (*CRX) 50 MG TABLET PO ×3 (00:30→21:50)
[2022-05-09] MEDS: LEVOTHYROXINE SODIUM 25 MCG TABLET PO (05:40)
[2022-05-09] MEDS: LEVOTHYROXINE SODIUM 112 MCG TABLET PO (05:40)
[2022-05-09 08:00] VITALS: BP 142/82; PULSE 82; RESP 18; TEMP 36.6; O2SAT 95
[2022-05-09] MEDS: polyethylene glycoL 3350 17 GM POWD.PACK PO (08:34)
[2022-05-09] MEDS: VENLAFAXINE HCL XR 75 MG CAP.ER.24H 225 MG PO (08:34)
[2022-05-09] MEDS: DICLOFENAC SODIUM 1% 100 GM GEL (*BKC) 1 APPLIC TOPICAL ×4 (08:34→21:02)
[2022-05-09] MEDS: SIMETHICONE 80 MG TAB.CHEW PO ×3 (08:34→17:07)
[2022-05-09] MEDS: CHOLECALCIFEROL 1,000 UNITS TABLET 5000 UNITS PO (08:34)
[2022-05-09] MEDS: FAMOTIDINE 20 MG TABLET PO ×2 (08:35→17:07)
[2022-05-09] MEDS: ASPIRIN 81 MG ENTERIC TABLET PO (08:35)
[2022-05-09] MEDS: TIMOLOL MALEATE 0.5% OP SOLN 5 ML BOTTLE 1 DROP EACH EYE (08:35)
[2022-05-09] MEDS: TOLNAFTATE 1% POWDER 45 GM BTL 1 APPLIC TOPICAL ×2 (08:37→21:02)
[2022-05-09] MEDS: UMECLIDINIUM/VILANTEROL 62.5-25 MCG ELLIPTA 2 PUFF INHALATION (08:46)
[2022-05-09 16:00] VITALS: BP 164/62; PULSE 82; RESP 18; TEMP 36.6; O2SAT 95
[2022-05-09 20:00] VITALS: PULSE 82; RESP 18; O2SAT 95
[2022-05-09] MEDS: MELATONIN 5 MG TABLET 10 MG PO (21:03)
[2022-05-09] MEDS: SOLIFENACIN 5 MG TABLET 10 MG PO (21:03)
[2022-05-09] MEDS: CITALOPRAM HYDROBROMIDE 20 MG TABLET 40 MG PO (21:08)
[2022-05-09] MEDS: LATANOPROST 0.005% OP SOLN 2.5 ML BTL 1 DROP EACH EYE (21:08)
[2022-05-09] MEDS: ACETAMINOPHEN 500 MG TABLET 1000 MG PO (21:08)
[2022-05-09] MEDS: DONEPEZIL HCL 5 MG TABLET 10 MG PO (21:08)
[2022-05-09] MEDS: MIRABEGRON 25 MG ER TABLET PO (21:08)
[2022-05-10] VITALS: BP 113/47; PULSE 89; RESP 17; TEMP 36.8; O2SAT 95
[2022-05-10] MEDS: LEVOTHYROXINE SODIUM 112 MCG TABLET PO (05:48)
[2022-05-10] MEDS: LEVOTHYROXINE SODIUM 25 MCG TABLET PO (05:48)
[2022-05-10 08:00] VITALS: BP 146/78; PULSE 78; RESP 20; TEMP 36.8; O2SAT 95
[2022-05-10] MEDS: CHOLECALCIFEROL 1,000 UNITS TABLET 5000 UNITS PO (08:43)
[2022-05-10] MEDS: polyethylene glycoL 3350 17 GM POWD.PACK PO (08:43)
[2022-05-10] MEDS: DICLOFENAC SODIUM 1% 100 GM GEL (*BKC) 1 APPLIC TOPICAL ×4 (08:43→21:18)
[2022-05-10] MEDS: VENLAFAXINE HCL XR 75 MG CAP.ER.24H 225 MG PO (08:44)
[2022-05-10] MEDS: traMADol HCL (*CRX) 50 MG TABLET PO ×2 (08:44→15:43)
[2022-05-10] MEDS: ASPIRIN 81 MG ENTERIC TABLET PO (08:45)
[2022-05-10] MEDS: TIMOLOL MALEATE 0.5% OP SOLN 5 ML BOTTLE 1 DROP EACH EYE (08:45)
[2022-05-10] MEDS: TOLNAFTATE 1% POWDER 45 GM BTL 1 APPLIC TOPICAL ×2 (08:46→21:18)
[2022-05-10] MEDS: UMECLIDINIUM/VILANTEROL 62.5-25 MCG ELLIPTA 2 PUFF INHALATION (08:46)
[2022-05-10] MEDS: SIMETHICONE 80 MG TAB.CHEW PO ×3 (08:57→16:42)
[2022-05-10] MEDS: FAMOTIDINE 20 MG TABLET PO ×2 (09:05→16:42)
[2022-05-10 16:00] VITALS: BP 133/57; PULSE 75; RESP 16; TEMP 36.7; O2SAT 93
[2022-05-10] MEDS: ACETAMINOPHEN 500 MG TABLET 1000 MG PO (21:15)
[2022-05-10] MEDS: DONEPEZIL HCL 5 MG TABLET 10 MG PO (21:16)
[2022-05-10] MEDS: CITALOPRAM HYDROBROMIDE 20 MG TABLET 40 MG PO (21:16)
[2022-05-10] MEDS: SOLIFENACIN 5 MG TABLET 10 MG PO (21:17)
[2022-05-10] MEDS: MELATONIN 5 MG TABLET 10 MG PO (21:17)
[2022-05-10] MEDS: MIRABEGRON 25 MG ER TABLET PO (21:17)
[2022-05-10] MEDS: LATANOPROST 0.005% OP SOLN 2.5 ML BTL 1 DROP EACH EYE (21:18)
[2022-05-11] VITALS: BP 134/53; PULSE 80; RESP 24; TEMP 36.6; O2SAT 94
--- NOTE | 2022-05-11 00:02 | PC.NURSE ---
Pt resting in recliner chair and vital signs taken. Pt up to the bathroom with the walker and standby assist of one. Pt voided and returned to bed with the walker and standby assist of one.
--- NOTE | 2022-05-11 03:05 | PC.NURSE ---
Pt asleep and no signs of discomfort noted.
[2022-05-11] MEDS: ALENDRONATE SODIUM 70 MG TABLET PO (06:44)
[2022-05-11] MEDS: LEVOTHYROXINE SODIUM 112 MCG TABLET PO (06:44)
[2022-05-11] MEDS: LEVOTHYROXINE SODIUM 25 MCG TABLET PO (06:44)
--- NOTE | 2022-05-11 06:45 | PC.NURSE ---
Pt given synthroid 137 mcg and fosamax 70 mcg PO. HOB up 30 degrees at this time.
[2022-05-11 08:00] VITALS: BP 124/60; PULSE 78; RESP 18; TEMP 36.6; O2SAT 95
[2022-05-11] MEDS: polyethylene glycoL 3350 17 GM POWD.PACK PO (10:02)
[2022-05-11] MEDS: VENLAFAXINE HCL XR 75 MG CAP.ER.24H 225 MG PO (10:05)
[2022-05-11] MEDS: ASPIRIN 81 MG ENTERIC TABLET PO (10:05)
[2022-05-11] MEDS: CHOLECALCIFEROL 1,000 UNITS TABLET 5000 UNITS PO (10:05)
[2022-05-11] MEDS: FAMOTIDINE 20 MG TABLET PO ×2 (10:05→17:00)
[2022-05-11] MEDS: SIMETHICONE 80 MG TAB.CHEW PO ×3 (10:05→17:00)
[2022-05-11] MEDS: TIMOLOL MALEATE 0.5% OP SOLN 5 ML BOTTLE 1 DROP EACH EYE (10:06)
[2022-05-11] MEDS: DICLOFENAC SODIUM 1% 100 GM GEL (*BKC) 1 APPLIC TOPICAL ×2 (10:06→21:08)
[2022-05-11] MEDS: UMECLIDINIUM/VILANTEROL 62.5-25 MCG ELLIPTA 2 PUFF INHALATION (10:07)
[2022-05-11] MEDS: TOLNAFTATE 1% POWDER 45 GM BTL 1 APPLIC TOPICAL ×2 (10:08→21:10)
[2022-05-11 16:00] VITALS: BP 138/64; PULSE 82; RESP 18; TEMP 36.3; O2SAT 97
--- NOTE | 2022-05-11 18:18 | PC.NURSE ---
Charting by Yana Genao, student nurse has been reviewed and agreed with by this nurse.
[2022-05-11] MEDS: CITALOPRAM HYDROBROMIDE 20 MG TABLET 40 MG PO (21:07)
[2022-05-11] MEDS: ACETAMINOPHEN 500 MG TABLET 1000 MG PO (21:07)
[2022-05-11] MEDS: MELATONIN 5 MG TABLET 10 MG PO (21:08)
[2022-05-11] MEDS: DONEPEZIL HCL 5 MG TABLET 10 MG PO (21:08)
[2022-05-11] MEDS: LATANOPROST 0.005% OP SOLN 2.5 ML BTL 1 DROP EACH EYE (21:08)
[2022-05-11] MEDS: SOLIFENACIN 5 MG TABLET 10 MG PO (21:09)
[2022-05-11] MEDS: MIRABEGRON 25 MG ER TABLET PO (21:09)
[2022-05-12] VITALS: BP 142/58; PULSE 62; RESP 18; TEMP 36.8; O2SAT 98
[2022-05-12] MEDS: traMADol HCL (*CRX) 50 MG TABLET PO (01:22)
[2022-05-12 05:27] LABS: Hematocrit 33.6 % (35.0-42.0); Hemoglobin 10.6 g/dL (11.7-13.8); Mean Corpuscular HGB Conc 31.5 g/dL (32.0-36.0); Mean Corpuscular Hemoglobin 32.4 pg (27.0-31.0); Mean Corpuscular Volume 102.8 fL (78.0-102.0); Platelet Count Result 324 K/mm3 (150-420); Red Blood Count 3.27 M/mm3 (4.20-5.40); Red Cell Distribution Width 14.6 % (11.6-14.4); White Blood Count 7.2 K/mm3 (4.8-10.8)
[2022-05-12] MEDS: LEVOTHYROXINE SODIUM 25 MCG TABLET PO (05:39)
[2022-05-12] MEDS: LEVOTHYROXINE SODIUM 112 MCG TABLET PO (05:39)
[2022-05-12 05:42] LABS: Anion Gap 7 mmol/L (8-16); Blood Urea Nitrogen 20 mg/dL (7-18); Carbon Dioxide 27 mmol/L (21-32); Chloride 104 mmol/L (98-108); Estimated CRCL calculation 26 ml/min; Estimated Glomerular Filt Rate 34; Glucose 95 mg/dL (70-99); Osmolality Calculated 288 mOsm/kg (285-295); Sodium 138 mmol/L (136-145)
[2022-05-12 08:00] VITALS: BP 135/54; PULSE 80; RESP 18; TEMP 36.6; O2SAT 94
--- NOTE | 2022-05-12 08:27 | PM.DS ---
DS: Admitting Diagnosis Discharge Date 05/12/2022 Admitting Diagnosis wekness, rehab DS: Discharge Diagnosis Discharge Diagnosis (1) COVID: Code(s): U07.1 - COVID-19 Status: Acute Assessment and Plan: isolated completed Asymptomatic will monitor and treat symptoms (2) Chronic kidney disease: Code(s): N18.9 - Chronic kidney disease, unspecified Status: Acute Assessment and Plan: avoid nephrotoxic medication cr on admission 1.36 baseline 1.10-1.20 f/u with pcp (3) GERD (gastroesophageal reflux disease): Code(s): K21.9 - Gastro-esophageal reflux disease without esophagitis Status: Acute Assessment and Plan: continue famotidine (4) UTI (urinary tract infection): Code(s): N39.0 - Urinary tract infection, site not specified Status: Acute Assessment and Plan: treatment completed (5) Hypertension: Code(s): I10 - Essential (primary) hypertension Status: Acute Assessment and Plan: continue with home medication patient blood pressure is stable (6) Dementia: Code(s): F03.90 - Unspecified dementia, unspecified severity, without behavioral disturbance, psychotic disturbance, mood disturbance, and anxiety Status: Acute Assessment and Plan: monitor pt is alert and able to follow direction (7) Weakness: Code(s): R53.1 - Weakness Status: Acute Assessment and Plan: home with home health (8) Hypothyroidism: Code(s): E03.9 - Hypothyroidism, unspecified Status: Acute Assessment and Plan: stable continue home dosage of Synthroid DS: Summary Hospital Course Hospital Course: This is a 81-year-old female that is was admitted into our swing bed.? Patient was admitted from [facility] as she has a past medical history of dementia she was found to have a UTI as well as positive for COVID although she was asymptomatic.? Patient lives with a family member.On discharge she is able to ambulate 100 Ftx2 with FWW and sba. Discharge instructions reviewed with patient, as well as provided in writing per nursing staff. The instructions also include specific and strict return/GO TO THE ER as well as f/u information. All questions have been answered, and the patient and/or family deny any further questions with discharge and discharge plan. The patient denies SOB, CP, palpitation, extremity numbness, lightheadedness, dizziness, constipation, diarrhea, chills, or fever. Time Spent with Patient Time attestation: Total time spent providing and/or coordinating discharge services: Exam Narrative: GENERAL:Well-appearing, SMALL/frail and in no acute distress. HEAD:Normocephalic, atraumatic. EYES: PERRLA ENT: Nares clear, no rhinorrhea or epistaxis. Mucous membranes moist. NECK: Supple. CHEST: Clear to auscultation. No respiratory distress. HEART: Regular rate and rhythm. Normal peripheral pulses. ABDOMEN: Soft, nontender, nondistended, normal active bowel sounds. EXTREMITIES: Normal range of motion. No edema. SKIN: Warm, dry, no rash.discoloration to the left hip. NEURO: No focal deficits. Alert and oriented x3. DS: Data Data Completed and Pending Labs on day of discharge: Labs from last 24 hours 05/12/22 05/12/22 05:16 05:16 WBC 7.2 RBC 3.27 L Hgb 10.6 L Hct 33.6 L MCV 102.8 H MCH 32.4 H MCHC 31.5 L RDW 14.6 H Plt Count 324 MPV 10.0 Sodium 138 Potassium 4.0 Chloride 104 Carbon Dioxide 27 Anion Gap 7 L BUN 20 H Creatinine 1.47 H Estim Creat Clear Calc 26 Estimated GFR 34 L Glucose 95 Calculated Osmolality 288 Calcium 9.0 Discharge Plan Discharge Attending physician on discharge: Gatito Flores Discharging Clinician: Zoe Hameed Anticipated Discharge Date/Time: 05/12/22 07:54 Patient Disposition: Home Health Service Activity: as tolerated Diet: heart healthy
[2022-05-12] MEDS: TIMOLOL MALEATE 0.5% OP SOLN 5 ML BOTTLE 1 DROP EACH EYE (09:56)
[2022-05-12] MEDS: UMECLIDINIUM/VILANTEROL 62.5-25 MCG ELLIPTA 2 PUFF INHALATION (09:56)
[2022-05-12] MEDS: CHOLECALCIFEROL 1,000 UNITS TABLET 5000 UNITS PO (09:58)
[2022-05-12] MEDS: ASPIRIN 81 MG ENTERIC TABLET PO (09:58)
[2022-05-12] MEDS: VENLAFAXINE HCL XR 75 MG CAP.ER.24H 225 MG PO (09:59)
[2022-05-12] MEDS: FAMOTIDINE 20 MG TABLET PO (09:59)
[2022-05-12] MEDS: ACETAMINOPHEN 325 MG TABLET 650 MG PO (09:59)
[2022-05-12] MEDS: SIMETHICONE 80 MG TAB.CHEW PO ×2 (09:59→12:23)
--- NOTE | 2022-05-12 12:34 | PC.NURSE ---
Reviewed discharge with pt and pt's daughter. All questions answered.
--- NOTE | 2022-05-15 09:50 | PC.NURSE ---
Unable to contact for discharge call back.
== END 2022-05-12 13:10 | disposition home health service (06) | DRG 947 ==
PROVIDERS: Nurse Practitioner; Nurse Practitioner Family; Admitting Provider Internal Medicine; PCP Nurse Practitioner Family; Visit Provider Internal Medicine
DX: R53.1 Weakness (principal); U07.1 COVID-19; N39.0 Urinary tract infection, site not specified; I12.9 Hypertensive chronic kidney disease with stage 1 through stage 4 chronic kidney disease, or unspecified chronic kidney disease; N18.9 Chronic kidney disease, unspecified; E03.9 Hypothyroidism, unspecified; K21.9 Gastro-esophageal reflux disease without esophagitis; M81.0 Age-related osteoporosis without current pathological fracture; M25.552 Pain in left hip; G62.9 Polyneuropathy, unspecified; G30.9 Alzheimer's disease, unspecified; F02.80 Dementia in other diseases classified elsewhere, unspecified severity, without behavioral disturbance, psychotic disturbance, mood disturbance, and anxiety; F41.9 Anxiety disorder, unspecified; F32.A Depression, unspecified; Z96.653 Presence of artificial knee joint, bilateral; Z90.49 Acquired absence of other specified parts of digestive tract; Z79.82 Long term (current) use of aspirin
CPT/HCPCS: 36415; 73502; 80048; 80053; 81003; 85025; 85027; 97110; 97161; 97165; 97530; 97535; A9270

== ENCOUNTER 2023-03-22 21:08 | Emergency (ER) | payer MEDICARE, MEDICAID, SELFPAY ==
--- NOTE | ~2023-03-22 | CT_ITS ---
EXAMINATION: CT brain wo con DATE: 03/22/2023 21:57 INDICATION: Head injury. TECHNIQUE: Computed tomography (CT) of the head was performed without intravenous contrast. The mA wa s adjusted according to patient size. Iterative reconstruction technique was employed. The dose-lengt h product was 605.33 mGy-cm. COMPARISON: Head CT 06/19/2021 FINDINGS: There are scattered areas of low attenuation in the cerebral white matter. There are old in farcts in the bilateral basal ganglia. There is no intracranial hemorrhage, acute infarction, or abno rmal intracranial mass lesion. The ventricles are normal in size. There are likely changes of ocular lens replacement surgeries. The paranasal sinuses are clear. There is a trace left mastoid effusion. IMPRESSION: 1. Old infarcts in the bilateral basal ganglia. 2. Stable extensive nonspecific cerebral white matter disease, which likely represents chronic small vessel ischemic disease. Reviewed, dictated and finalized at location A. IMPRESSION: 1. Old infarcts in the bilateral basal ganglia. 2. Stable extensive nonspecific cerebral white matter disease, which likely rep resents chronic small vessel ischemic disease.
--- NOTE | ~2023-03-22 | XR_ITS ---
EXAMINATION: XR shoulder RT min 2V DATE: 03/22/2023 22:09 INDICATION: Right shoulder pain. Fall. TECHNIQUE: 4 views of right shoulder were obtained. COMPARISON: None. FINDINGS: Bone alignment is normal. No fracture. There is advanced osteoarthritis of glenohumeral aureliano nt including bone volume loss of glenoid and humeral head. There is severe osteoarthritis of acromioc lavicular joint. There is calcific tendinitis of the rotator cuff. IMPRESSION: 1. Polyarticular osteoarthritis. 2. Calcific tendinitis of the rotator cuff. Reviewed, dictated and finalized at location A.
--- NOTE | ~2023-03-22 | XR_ITS ---
EXAMINATION: XR ribs RT 2V w CXR 2V DATE: 03/22/2023 22:08 INDICATION: Right chest pain. Fall. TECHNIQUE: Frontal and lateral views of the chest and 2 views on 3 radiographs of the right ribs were obtained. COMPARISON: Chest 2 views 04/26/2022 FINDINGS: CHEST TWO VIEWS: There is no pneumonia, pleural effusion, or pneumothorax. The heart size is normal. Calcified left hilar lymph nodes are consistent with old granulomatous disease. There are surgical cl ips in the abdomen. There is mild chronic anterior wedging of a midthoracic vertebral body. There is severe thoracic spondylosis. RIGHT RIBS: There is no right rib fracture. IMPRESSION: 1. No right rib fracture. Reviewed, dictated and finalized at location A. IMPRESSION: 1. No right rib fracture.
--- NOTE | ~2023-03-22 | CT_ITS ---
EXAMINATION: CT facial & cervical spine wo DATE: 03/22/2023 21:57 INDICATION: Head injury. TECHNIQUE: Computed tomography (CT) of the maxillofacial region and cervical spine was performed with out intravenous contrast. Automated exposure control and iterative reconstruction technique were empl oyed. The dose-length product was 289.26 mGy-cm. COMPARISON: CT cervical spine 06/19/2021 FINDINGS: MAXILLOFACIAL CT: There are likely changes of ocular lens replacement surgeries. There is right cheek soft tissue swell ing. There is rightward deviation of the nasal septum. The paranasal sinuses are clear. There is a tr samia left mastoid effusion. CERVICAL SPINE CT: There is 2 mm anterolisthesis of C4 on C5. Vertebral body heights are normal. There is moderately dec reased disc height at C3-C4, mildly decreased disc height at C4-C5, and severely decreased disc heigh t at C5-C6 and C6-C7. The following disc levels are specifically discussed: C2-C3: There is no uncovertebral joint osteoarthritis. There is ankylosis of left facet joint with se danielle hypertrophy. There is mild left neural foraminal stenosis. There is no central canal stenosis. C3-C4: There is severe right and moderate left uncovertebral joint osteoarthritis. There is severe bi lateral facet joint osteoarthritis. There is mild right and moderate left neural foraminal stenosis. There is mild central canal stenosis. C4-C5: There is moderate right and severe left uncovertebral joint osteoarthritis. There is severe bi lateral facet joint osteoarthritis. There is mild bilateral neural foraminal stenosis. There is mild central canal stenosis. C5-C6: There is severe bilateral uncovertebral joint osteoarthritis. There is moderate right and yan re left facet joint osteoarthritis. There is mild right and moderate left neural foraminal stenosis. There is mild central canal stenosis. C6-C7: There is severe right and moderate left uncovertebral joint osteoarthritis. There is severe bi lateral facet joint osteoarthritis. There is mild bilateral neural foraminal stenosis. There is mild central canal stenosis. C7-T1: There is no uncovertebral joint osteoarthritis. There is severe bilateral facet joint osteoart hritis. There is mild bilateral neural foraminal stenosis. There is no central canal stenosis. IMPRESSION: 1. No fracture. 2. Severe cervical spondylosis. Reviewed, dictated and finalized at location A.
[2023-03-22 21:09] VITALS: BP 138/63; PULSE 99; RESP 19; TEMP 36.4; O2SAT 95
[2023-03-22 21:23] VITALS: BP 150/68; PULSE 93; RESP 21; O2SAT 100
[2023-03-22] MEDS: TETANUS,DIPHTHERIA,AC PERTUSSIS ADULT (0.5 ML) BOOSTRIX IM (22:11)
[2023-03-22 23:10] VITALS: BP 122/55; PULSE 86; RESP 25; O2SAT 97
--- NOTE | 2023-03-23 00:27 | ED.GENADULT ---
HPI - General Adult General Chief complaint: Fall Stated complaint: fall Time Seen by Provider: 03/22/23 21:21 History of Present Illness HPI narrative: Patient is a 82-year-old female who presents to the emergency department with chief complaint of fall. Patient reports that she was walking and got tangled up in her walker fell forward and landed on the ground. Patient reports she struck the right side of her face reports that she had a bruise on her cheek and also small laceration the patient states this happened around 2 PM and reports that she had no loss of consciousness and originally was negative, and but the small laceration continued to bleed and they decided that she come in for possible wound closure. Patient reports that she is acting her normal self afterwards reports she has no chest pain or shortness of breath patient reports no pain in her extremities other than her shoulder on the right side patient also reports she has pain in her anterior ribs on the right side of her chest. Related Data Home Medications Medication Instructions Recorded Confirmed alendronate 70 mg tablet 70 mg PO WEEKLY 08/03/20 05/01/22 cholecalciferol (vitamin D3) 125 125 mcg PO DAILY 08/03/20 05/01/22 mcg (5,000 unit) tablet (Vitamin D3) citalopram 40 mg tablet 40 mg PO HS 08/03/20 05/01/22 donepezil 10 mg tablet 10 mg PO HS 08/03/20 05/01/22 famotidine 20 mg tablet 20 mg PO BID 08/03/20 05/01/22 simethicone 125 mg tablet 125 mg PO TIDWM 08/03/20 05/01/22 solifenacin 10 mg tablet (Vesicare) 10 mg PO HS 08/03/20 05/01/22 aspirin 81 mg tablet,delayed 81 mg PO DAILY 04/27/22 05/01/22 release latanoprost 0.005 % eye drops 1 drp EACH EYE HS 04/27/22 05/01/22 melatonin 10 mg tablet 10 mg PO HS 04/27/22 05/01/22 timolol maleate 0.5 % eye drops 1 drp EACH EYE DAILY 04/27/22 05/01/22 umeclidinium 62.5 mcg-vilanterol 1 ea inhalation DAILY PRN cough, 04/27/22 05/01/22 25 mcg/actuation powdr for sob inhalation (Anoro Ellipta) venlafaxine 75 mg capsule,extended 225 mg PO DAILY 04/27/22 05/01/22 release 24 hr acetaminophen 500 mg tablet 1,000 mg PO HS 05/01/22 05/01/22 (Acetaminophen Extra Strength) Allergies Allergy/AdvReac Type Severity Reaction Status Date / Time adhesive Allergy Unknown TAPE - Verified 03/22/23 21:13 BLISTERS erythromycin base Allergy Unknown Unknown Verified 03/22/23 21:13 Review of Systems Review of Systems: A 10 system review of systems was completed on the patient and is negative except for what is stated in the HPI. Nursing and ancillary documentation was reviewed. [facility] Past Medical History Medical History Alzheimer's dementia Anxiety Cataract Dementia Depression Depression with anxiety GERD (gastroesophageal reflux disease) Glaucoma Hypertension Hypothyroidism Neuropathy Osteoporosis Surgical History Surgical History H/O foot surgery On the right History of bilateral knee replacement History of cholecystectomy History of colonoscopy History of hernia repair History of tonsillectomy and adenoidectomy Family History Family History Father Acute myocardial infarction Sibling Acute myocardial infarction Brother Mother Acute myocardial infarction Social History Social History Social History: The patient is . 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 She has 2 children. She lives with daughter. She is a lifelong nonsmoker. She does not use any alcohol marijuana or illicit drugs. Code status full code Smoking status: Never smoker Second hand tobacco smoke exposure: Yes Alcohol intake: never Substance use: never Spiritual care concerns: Yes (Evangelical) Exam Narrative: GENERAL:
[2023-03-23 01:02] VITALS: BP 145/75; PULSE 91; RESP 21; TEMP 36.9; O2SAT 96
== END 2023-03-23 01:03 | disposition home or self-care (01) ==
PROVIDERS: Emergency Provider Emergency Medicine; PCP Nurse Practitioner Family
DX: S01.411A Laceration without foreign body of right cheek and temporomandibular area, initial encounter (principal); S40.011A Contusion of right shoulder, initial encounter; S20.211A Contusion of right front wall of thorax, initial encounter; S20.01XA Contusion of right breast, initial encounter; Z23 Encounter for immunization; G30.9 Alzheimer's disease, unspecified; F02.80 Dementia in other diseases classified elsewhere, unspecified severity, without behavioral disturbance, psychotic disturbance, mood disturbance, and anxiety; K21.9 Gastro-esophageal reflux disease without esophagitis; I10 Essential (primary) hypertension; H40.9 Unspecified glaucoma; E03.9 Hypothyroidism, unspecified; M81.0 Age-related osteoporosis without current pathological fracture; G62.9 Polyneuropathy, unspecified; F41.8 Other specified anxiety disorders; Z96.653 Presence of artificial knee joint, bilateral; Z90.49 Acquired absence of other specified parts of digestive tract; Z77.22 Contact with and (suspected) exposure to environmental tobacco smoke (acute) (chronic); Z79.82 Long term (current) use of aspirin; M19.011 Primary osteoarthritis, right shoulder; M75.31 Calcific tendinitis of right shoulder; R90.82 White matter disease, unspecified; M47.812 Spondylosis without myelopathy or radiculopathy, cervical region; W18.39XA Other fall on same level, initial encounter
CPT/HCPCS: 12011; 70450; 70486; 71046; 71100; 72125; 73030; 90471; 90715; 99284

== ENCOUNTER 2025-04-19 14:15 | Inpatient (IN) | payer MEDICARE, MEDICAID, SELFPAY ==
--- NOTE | ~2025-04-19 | MR_ITS ---
EXAMINATION: MR hip LT wo con DATE: 04/20/2025 12:16 INDICATION: Left hip and leg pain. Osteoporosis. TECHNIQUE: Magnetic resonance imaging (MRI) of the left hip was performed without intravenous contrast. Sequences included full-field axial PD-weighted FS FSE and T1-weighted FSE, coronal of the pelvis with PD-weighted FS FSE, T2- weighted FSE and T1-weighted FSE, small field of view of the left hip with axial PD-weighted FS FSE, sagittal PD-weighted FS FSE, coronal PD-weighted FS FSE and coronal T2 weighted FSE. Additional radial T1-weighted FGR oriented orthogonal to the acetabular rim were obtained for evaluation of the labrum. COMPARISON: None FINDINGS: Bones/labrum/cartilage: Partially visualized mild levocurvature at the visualized mid lumbar spine. Grade 1 anterolisthesis L4 on L5. Horizontal compression fracture line underlying the superior endplate of L4 with minimal associated marrow edema suggesting this is subacute but with residual lucency along the fracture plane w hich remains ununited on prior CT. No other fractures. No avascular necrosis or pathologic marrow replacing process. Polyarticular osteoarthritis, mild at the bilateral hips, moderate at the bilateral sacroiliac joints is severe at multiple bilateral mid to lower lumbar facet joints. Diffuse degenerative tearing of the left acetabular labrum. Fluid: Symmetric physiologic amount of fluid within both hip joints. There are small fluid collections along the posterior margin of the basicervical proximal femurs, left greater than right, consistent with greater externus bursitis. Soft tissues: There is asymmetric moderate fatty atrophy of the right right iliac crest and psoas muscles. The right iliopsoas tendon distal to the anterior margin of the right acetabulum appears attenuated with mild thickening of the more proximal tendon when compared with the left iliopsoas tendon consistent with partial tear which is likely chronic and accounts for the likely secondary muscular atrophy. Similarly there is asymmetric muscular atrophy of the left obturator externus muscle belly with at least partial tear at the femoral insertion of the tendon. There is mild tendinopathy without discrete tear at the contralateral right obturator externus tendon. Remainder of the muscular nature of the pelvis and visualized proximal thighs appears normal and symmetric. The bilateral gluteal and proximal hamstring tendons are normal. There is diverticulosis along the visualized sigmoid colon without adjacent comparison to suggest diverticulitis. Limited evaluation of visceral organs of the pelvis is otherwise unremarkable. Moderate-sized bilateral fat-containing inguinal hernias. No pathologically enlarged pelvic/inguinal lymphadenopathy. IMPRESSION: 1. Bilateral obturator externus bursitis, mild on the right with mild tendinopathy without discrete tear of the distal right obturator externus tendon. More prominent bursitis on the left with likely chronic partial tear of the left obturator externus tendon and secondary moderate atrophy of the left o bturator externus muscle belly. 2. Severe lumbar spondylosis with likely subacute subacute superior endplate compression fracture at L4. 3. Polyarticular osteoarthritis in the pelvis, moderate severity at the bilateral sacral iliac joints and mild at the bilateral hip joints with diffuse degenerative tearing of the left acetabular labrum on the small [id number] images. Reviewed, dictated and finalized at location A. IMPRESSION: 1. Bilateral obturator externus bursitis, mild on the right with mild tendinopa thy without discrete tear of the distal right obturator externus tendon. More p rominent bursitis on the left with likely chronic partial tear of the left obtu rator externus tendon and secondary moderate atrophy of the left obturator exte rnus muscle belly. 2. Severe lumbar spondylosis with likely subacute subacute superior endplate co mpression fracture at L4. 3. Polyarticular osteoarthritis in the pelvis, moderate severity at the bilater al sacral iliac joints and mild at the bilateral hip joints with diffuse degene rative tearing of the left acetabular labrum on the small [id number] images.
--- NOTE | ~2025-04-19 | CT_ITS ---
EXAMINATION: CT lumbar spine wo con DATE: 04/19/2025 18:41 INDICATION: Fall. TECHNIQUE: Computed tomography (CT) of the lumbar spine was performed without intravenous contrast. Automated exposure control and iterative reconstruction technique were employed. The dose-length product was 1300.06 mGy-cm. COMPARISON: CT lumbar spine 02/09/2019 FINDINGS: There is 16 degrees levoscoliosis of thoracolumbar spine. There is 5 mm anterolisthesis of L3 on L4 and L4 on L5. Again seen is a chronic compression fracture of L1 with 1/5 loss of height. There is severely decreased disc height from T12-L1 through L4-L5. There is severe bilateral facet joint osteoarthritis at all levels. The discs are bulging from T12-L1 through L5-S1. There is mild neural foraminal stenosis at most levels. On the right, there is moderate neural foraminal stenosis at T12-L1, L1-L2, and L4-L5. On the left, there is moderate neural foraminal stenosis at L3-L4 and L4-L5. There is mild central canal stenosis at T12-L1 and L1-L2, severe central canal stenosis at L2-L3, moderate central canal stenosis at L3-L4 and L4-L5, and mild central canal stenosis at L5-S1. IMPRESSION: 1. No acute fracture. 2. Severe lumbar spondylosis. 3. Thoracolumbar levoscoliosis. Reviewed, dictated and finalized at location E.
--- NOTE | ~2025-04-19 | MR_ITS ---
EXAMINATION: MR femur LT wo con DATE: 04/20/2025 12:16 INDICATION: Left femoral pain post fall TECHNIQUE: Magnetic resonance imaging (MRI) of the left femur was performed without intravenous contrast. Sequences included axial, sagittal and coronal T1- weighted FSE and fluid sensitive FSE STIR. COMPARISON: Left hip MRI dated 04/20/[address] dated 12/17/2024 FINDINGS: Chronic nonunited avulsion fracture of the femoral insertion of the left obturator externus tendon with moderate secondary atrophy of the left palletiser operator externus muscle belly. There is associated moderate-sized left palletiser operator externus bursal fluid collection consistent with bursitis. The more distal musculature in the left thigh demonstrate normal bulk and signal and appears symmetric with the contralateral right thigh which is included on the larger [id number] imaging. Bone marrow signal is normal throughout with no acute fracture or pathologic marrow replacing process. Moderate osteoarthritis at the patellofemoral compartment of the left knee with small to moderate-sized knee joint effusion and associated synovitis at the suprapatellar pouch. 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 Moderate-sized fat-containing left inguinal hernia. No pathologically enlarged left pelvic or inguinal lymphadenopathy. IMPRESSION: 1. 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 No acute fracture. 2. Moderate fat-containing left inguinal hernia. Reviewed, dictated and finalized at location A.
--- NOTE | ~2025-04-19 | XR_ITS ---
EXAMINATION: XR chest 1V portable COMPARISON: No comparisons available. HISTORY: weakness FINDINGS: Mild pulmonary venous congestion. Elevation right hemidiaphragm. No pneumothorax. Mild cardiomegaly. Mediastinal and hilar contours are within normal limits. Severe degenerative changes of the glenohumeral joints. Miscellaneous: None Impression: Mild CHF Reviewed, dictated and finalized at location A. Impression: Mild CHF
--- NOTE | ~2025-04-19 | CT_ITS ---
EXAM: CT pelvis wo con - 04/19/2025 18:31 CDT History: 84 years old Female with falls TECHNIQUE: Multidetector CT of the pelvis without contrast. Coronal and sagittal reformats were also provided for review. Automatic exposure control was used for this study. COMPARISON: None Available. FINDINGS: URINARY BLADDER: Within normal limits. VISUALIZED BOWEL: No abnormal bowel wall thickening. No obstruction. REPRODUCTIVE ORGANS: Within normal limits. MESENTERY/PERITONEAL CAVITY: No free fluid or pneumoperitoneum. LYMPH NODES: No abdominal or pelvic lymphadenopathy. ABDOMINAL WALL: Bilateral fat-containing inguinal hernias. VASCULATURE: Within normal limits. MUSCULOSKELETAL: Multilevel degenerative changes of the spine. IMPRESSION: No fracture. Reviewed, dictated and finalized at location N. IMPRESSION: No fracture.
[2025-04-19 14:35] VITALS: BP 139/68; PULSE 95; RESP 14; TEMP 36.6; O2SAT 97
--- OUTSIDE RECORDS SUMMARY | 2025-04-19 15:54 | XMS_ITS | Clinical Summary ---
Author Organization [facility] the grafter Address [address] [place] [address] Care Team Providers Care Invasive Cardiologist Name Role Phone Cayetano Farrar MD Primary Care Provider [phone] Source Comments [facility],non-owned Affiliates and Associated Physician Practices is amultiple site organization consisting of ambulatory clinics and hospital sitesin [place], [place], [place] and [place]. This disclosure is being madepursuant to the Care Everywhere program and may not contain all information available regarding this patient. 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 Gender Identity Not on file Sexual Orientation Not on file Last Filed Vital Signs Vital Sign Reading Time Taken Comments Blood Pressure 121/64 12/30/2015 11:30 PM CDT Pulse 79 12/30/2015 11:30 PM CDT Temperature 36.6 C (97.9 F) 12/30/2015 9:34 PM CDT Respiratory Rate 25 12/30/2015 11:30 PM CDT Oxygen Saturation 98% 12/30/2015 11:30 PM CDT Inhaled Oxygen Concentration - - Weight 81.6 kg (180 lb) 12/30/2015 9:34 PM CDT Height 160 cm (5' 3) 12/30/2015 9:34 PM CDT Body Mass Index 31.89 12/30/2015 9:34 PM CDT Plan of Treatment Health Maintenance Due Date Last Done Comments BONE DENSITY TESTING 1938 DTAP/TDAP/TD VACCINES (1 - Tdap) 1957 PNEUMOCOCCAL VACCINE 50+ (1 of 1 - PCV) 1988 ZOSTER VACCINE (1 of 2) 1988 Respiratory Syncytial Virus (RSV) Vaccine Pt: or over 60 yrs (1 - 1-dose 75+ series) 2013 DEPRESSION SCREENING 08/04/2024 COVID-19 VACCINE ( - 2023-2 5 season) 2025 INFLUENZA VACCINE (#1) 2025 HEPATITIS B VACCINE Aged Out No longe r eligible based on patient's age to complete this topic HIB VACCINE Aged Out No longer eligi ble based on patient's age to complete this topic HPV VACCINE Aged Out No longer eligi ble based on patient's age to complete this topic MENINGOCOCCAL (Group B) VACC INE SHARED DECISION-MAKING Aged Out No longer eligibl e based on patient's age to complete this topic MENINGOCOCCAL GROUPS A/C/Y/W VACCINE Aged Out No longer eligible b ased on patient's age to complete this topic Care Teams Invasive Cardiologist Relationship Specialty Start Date End Date Cayetano Farrar MD PCP - General 08/12/19
--- OUTSIDE RECORDS SUMMARY | 2025-04-19 15:54 | XMS_ITS | Encounter Summary ---
Author Organization [facility] Address 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
--- OUTSIDE RECORDS SUMMARY | 2025-04-19 15:54 | XMS_ITS | Encounter Summary ---
Author Organization [facility] Address 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
--- OUTSIDE RECORDS SUMMARY | 2025-04-19 15:54 | XMS_ITS | Clinical Summary ---
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 Gender Identity Not on file Sexual Orientation Not on file Occupation Industry Job Start Date Job End Date Not on file Not on file Not on file Not on file Plan of Treatment Health Maintenance Due Date Last Done Comments DTAP/TDAP/TD VACCINES (1 - Tdap) 1957 ZOSTER VACCINE (1 of 2) 1988 OSTEOPOROSIS SCREENING 12/22/2003 RSV VACCINE (60+ or ) (1 - 1-dose 75+ series) 2013 INFLUENZA VACCINE (#1) 2025 08/04/2012 PNEUMOCOCCAL VACCINE 50+ YEARS Completed 05/01/2016 , 05/04/2006 Insurance [place]ICAID [place] Care Teams Commercial Credit Reviewer Relationship Specialty Start Date End Date Joseph Simmons MD [address] [place] [address] PCP - General 06/13/15
--- OUTSIDE RECORDS SUMMARY | 2025-04-19 15:54 | XMS_ITS | Encounter Summary ---
Author Organization [facility] Address [address] [place] [address] Care Team Providers Care Commissions Analyst Name Role Phone Joseph Simmons MD Primary Care Provider +1- [phone] Encounter Details Date Type Department Care Team (Latest Contact Info) Description 05/19/2001 Outpatient Historical HIS [facility] BIBI Quintana, Yaya Rosales MD NO ADDRESS ON FILE Other screening mammogram (Primary Dx) Social History Tobacco Use Types Packs/Day Years Used Date Smoking Tobacco: Never Assessed Comments Unknown Sex and Gender Information Value Date Recorded Sex Assigned at Not on file Legal Sex Female 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
--- OUTSIDE RECORDS SUMMARY | 2025-04-19 15:54 | XMS_ITS | Encounter Summary ---
Author Organization [facility] Address 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
--- OUTSIDE RECORDS SUMMARY | 2025-04-19 15:54 | XMS_ITS | Clinical Summary ---
[facility] [address] [facility], [address] [address] Phone Care Team Providers Care Channel Manager Name Role Phone Unavailable Primary Care Provider Unavailabl e Allergies Active Allergy Reactions Criticality Noted Date Comments Erythromycin Unknown 07/19/2015 Medications hydrochlorothia zide 25 MG Tablet 3 5 Active latanoprost (XALATAN) 0.005 % Solution 11 5 Active levothyroxine (SYNTHROID) 150 MCG Tablet 3 5 Active PATADAY 0.2 % Solution 5 Active timolol (TIMOPTIC) 0.5 % Solution 11 5 Active omeprazole (PRILOSEC) 20 MG CAPSULE DELAYED RELEASE TAKE ONE CAPSULE BY MOUTH EVERY DAY 90 Cap 3 5 Active desonide (DESOWEN) 0.05 % Lotion 6 6 Active ibuprofen (MOTRIN) 600 MG Tablet 0 6 Active citalopram (CELEXA) 40 MG Tablet Take by mouth. Activ e Fexofenadine HCl (BETO PO) Take 1 Tab by mouth daily. Active Cholecalciferol (VITAMIN D PO) Take 5,000 mg by mouth daily. Active methylPREDNISol one (MEDROL DOSPACK) 4 MG Tablet Therapy Pack Follow instructions on pack, take with food; Give one pack 1 Each 0 6 Active fluticasone (FLONASE) 50 MCG/ACT Suspension 1-2 Sprays by Nasal route daily. 1-2 sprays each nostril daily for nasal congestion and allergies. 1 Bottle 0 6 Active donepezil (ARICEPT) 10 MG Tablet Take 1 Tab by mouth every evening. 90 Tab 7 Active Active Problems Problem Noted Date Diagnosed Date Nodule of right lung 08/15/2016 SOB (shortness of breath) 08/15/2016 Cough 08/15/2016 Non morbid obesity due to excess calories 2016 Chronic obstructive pulmonary disease 06/13/2016 Closed fracture of nasal bone with routine heali ng 01/03/2016 HTN (hypertension) 07/19/2015 Hypothyroidism 07/19/2015 Osteoarthritis 07/19/2015 Low vitamin D level 07/19/2015 Glaucoma 07/19/2015 GERD (gastroesophageal reflux disease) 5 Alzheimer disease 07/19/2015 Immunizations Immunization Administration Dates Next Due Influenza Vaccine greater than 3 yrs 08/04/2012 PUR PCV-13 05/01/2016 Pneumococcal Vaccine Adult - 23 Valent 6 Tetanus Toxoid, Unspecified Formulation 08/04/19 06 Family History Medical History Relation Name Comments Heart Attack Father Heart Attack Mother Relation Name Status Comments Father Mother Social History Tobacco Use Types Packs/Day Years Used Date Smoking Tobacco: Never Tobacco Cessation:Counseling Given: No Alcohol Use Standard Drinks/Week Comments No 0 (1 standard drink = 0.6 oz pur e alcohol) Comments No Sex and Gender Information Value Date Recorded Sex Assigned at Not on file Legal Sex Female 10:55 PM CDT Gender Identity Not on file Sexual Orientation Not on file Last Filed Vital Signs Vital Sign Reading Time Taken Comments Blood Pressure 138/80 08/15/2016 1:39 PM COMMERCIAL ATTACHE Pulse 82 08/15/2016 1:39 PM COMMERCIAL ATTACHE Temperature 36.6 C (97.8 F) 08/15/2016 1:39 PM COMMERCIAL ATTACHE Respiratory Rate 18 08/15/2016 1:39 PM COMMERCIAL ATTACHE Oxygen Saturation 90% 08/15/2016 1:39 PM COMMERCIAL ATTACHE Inhaled Oxygen Concentration - - Weight 88.5 kg (195 lb) 08/15/2016 1:39 PM COMMERCIAL ATTACHE Height 154.9 cm (5' 1) 08/15/2016 1:39 PM COMMERCIAL ATTACHE Body Mass Index 36.84 08/15/2016 1:39 PM COMMERCIAL ATTACHE Plan of Treatment Health Maintenance Due Date Last Done Comments Hepatitis C Virus (HCV) Screening 1940 TdaP Immunization 1940 Zoster Immunization (1 of 2) 1988 Respiratory Syncytial Virus (RSV) Immunization (Adult) (1 - 1-dose 75+ series) 2013 Influenza Immunization (#1) 2025 08/04/2012 SARS-COV-2 Immunization ( season) 2025 Pneumococcal Immunization (5 0+ years) Completed 05/01/2016, 05/04/2006 Pneumococcal Immunization Combined Discontinued 05/01/2016, 05/04/2006 Hepatitis B Immunization Aged Out No longer eligible based on patient's age to complete this topic Human Papillomavirus (HPV) Immunization Aged Out No longer eligible based on patient's age to complete this topic Meningococcal Immunization (ACWY) Aged Out No longer eligible based on patient's age to complete this topic Rotavirus Immunization Aged Out No lo nger eligible based on patient's age to complete this topic
--- OUTSIDE RECORDS SUMMARY | 2025-04-19 15:54 | XMS_ITS | Clinical Summary ---
Author Organization [place] [id number] Address [address] [place] [address] Care Team Providers Care Support Engineer Name Role Phone Lisette Yadav NP Primary Care Provider + [phone] Allergies Active Allergy Reactions Criticality Noted Date Comments Erythromycin Unknown 03/09/2019 Medications levothyroxine (SYNTHROID, LEVOTHROID) 150 mcg tablet Take 150 mcg by mouth painter spray before breakfast Active hydroCHLOROthia zide (HYDRODIURIL) 25 mg tablet Take 25 mg by mouth daily Active citalopram (CeleXA) 40 mg tablet Take 40 mg by mouth daily Active donepezil (ARICEPT) 10 mg tablet Take 10 mg by mouth nightly Active mirabegron ER (MYRBETRIQ) 25 mg tablet extended release 24 hr 25 mg Active oxybutynin (DITROPAN) 5 mg tablet Take 5 mg by mouth 3 (three) times a day Active solifenacin (VESIcare) 10 mg tablet Take 10 mg by mouth daily Active diazePAM (VALIUM) 5 mg tablet Take 5 mg by mouth daily as needed for anxiety Active HYDROcodone-samia taminophen (NORCO) 5-325 mg per tabletIndicatio ns:Pain Take 1 tablet by mouth every 6 (six) hours as needed Active Active Problems Problem Noted Date Diagnosed Date Lumbar stenosis with neurogenic claudication 01/2019 Assessment & Plan (03/09/2019 2:37 PM CDT): CT lumbar along with the above findings was reviewed with Dr. Evans, patient has central disc stenosis at L4-5. Unable to detect other issues other than the fact that her bone quality seems to be of poor quality. We would have the patient obtain MRI lumbar spine without contrast to check for lumbar stenosis as well as a bone density study to determine if she would be a good surgical candidate. If her bone quality is poor she would not be a good candidate for any type of fusion surgery with instrumentation. Her next course of action would be to follow up with pain management for injection therapy. Discussed with the daughter as far as holding the diazepam and is using Tylenol p.r.n. For pain control at night and this is insufficient to helping alleviate her symptoms to contact her primary care provider for the possibility of tramadol as an option. Discussed Dr. Evans policy about not prescribing any medication until the patient is surgical and only postoperatively. Osteopenia determined by x-ray 03/09/2019 Age-related osteoporosis wit h current pathological fracture of vertebra ([facility]) 03/09/2019 Alzheimer's disease 05/11/2013 Anxiety 02/16/2013 Surgical History Surgery Date Site/Laterality Comments TONSILLECTOMY AND ADENOIDECTOMY 08/04/1943 - 08/03/1944 KNEE SURGERY 08/04/1984 - 08/03/1985 resurfacing CHOLECYSTECTOMY 08/04/1988 - 08/03/1989 Medical History Medical History Date Comments Infectious viral hepatitis Liver disease Thyroid disease Depression Sleep apnea Glaucoma Loss of hearing Vision changes Hypertension Pneumonia Arthritis Gastric reflux Family History Medical History Relation Name Comments Alzheimer's disease Brother Family h istory of Alzheimer's disease - may have had Parkinson;s dementia rather than AD (Added by TW Conv) Heart disease Father Hypertension Father Heart disease Mother Hypertension Mother Relation Name Status Comments Brother Father Mother Social History Tobacco Use Types Packs/Day Years Used Date Smoking Tobacco: Never Smokeless Tobacco: Never Alcohol Use Standard Drinks/Week Comments Yes 0 (1 standard drink = 0.6 oz pur e alcohol) PHQ-2 Answer Date Recorded PHQ-2 Score 2 03/24/2019 Comments Unknown Sex and Gender Information Value Date Recorded Sex Assigned at Not on file 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 Gender Identity Not on file Sexual Orientation Not on file Occupation Industry Job Start Date Job End Date Retired Not on file Not on file Not on file Obstetrics History Last Filed Vital Signs Vital Sign Reading Time Taken Comments Blood Pressure 115/73 03/09/2019 1:37 PM CDT Pulse 80 03/09/2019 1:37 PM CDT Temperature - - Respiratory Rate - - Oxygen Saturation - - Inhaled Oxygen Concentration - - Weight 78 kg (172 lb) 03/09/2019 1:37 PM CDT Height 154.3 cm (5' 0.75) 03/09/2019 1:37 PM CD T Body Mass Index 32.77 03/09/2019 1:37 PM CDT Plan of Treatment Not on file Insurance [place] [employer] Member Subscriber Plan / Payer ( fective 2018-Present) Name:Lori Pederson Relation to Subscriber:Self Name:Lori Pederson Payer ID:[id number] ([facility]) Type:Not on file Address: [address] [facility] Care Teams Support Engineer Relationship Specialty Start Date End Date Lisette Yadav NP [address] [place] [address] PCP - General Nurse Practitioner 02/16/19
--- OUTSIDE RECORDS SUMMARY | 2025-04-19 15:54 | XMS_ITS | Encounter Summary ---
Author Organization [facility] Address [address] [place] [address] Care Team Providers Care Regional Transfer Liaison Name Role Phone Joseph Simmons MD Primary Care Provider +1- [phone] Encounter Details Date Type Department Care Team (Late st Contact Info) Description 12/14/2004 Outpatient Historical [facility] Nilton Bhat MD [address] [place] [address] SURGERY FOLLOWUP, UNSPEC (Primary Dx) Social History Tobacco Use Types Packs/Day Years Used Date Smoking Tobacco: Never Assessed Comments Unknown Sex and Gender Information Value Date Recorded Sex Assigned at Not on file 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
--- OUTSIDE RECORDS SUMMARY | 2025-04-19 15:54 | XMS_ITS | Encounter Summary ---
Author Organization [facility] Address [address] [place] [address] Care Team Providers Care Government Relations Analyst Name Role Phone Joseph Simmons MD Primary Care Provider +1- [phone] Encounter Details Date Type Department Care Team (Late st Contact Info) Description 10/29/1999 Outpatient Historical [facility] Nilton Bhat MD [address] [place] [address] Diverticulosis of colon (without mention of hemorrhage) (Primary Dx) Social History Tobacco Use Types Packs/Day Years Used Date Smoking Tobacco: Never Assessed Comments Unknown Sex and Gender Information Value Date Recorded Sex Assigned at Not on file 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
--- NOTE | 2025-04-19 15:56 | PC.NURSE ---
patient to ED with her daughter who she lives with. Daughter states that on January 30, 2025 she couldn't walk or stand up and they went to [facility] ER. Patient got a hip xray that was negative, but continued having pain and discomfort and bouts of inability to walk. patient then was taken to her doctor on 03/10 due to increasing pain and inability to walk or preform ADLs- where they did a second hip xray that was also negative. stated that they may need to do an MRI- patient got the MRI on 03/30 and was referred to ortho (Dr. Jara who they have an appointment with tomorrow) last night the patient was screaming in pain from waist to her knee. complaining of unbearable pain stating that she can't do this anymore patient was able to step up on a step to get to the toilet, but was unable to step back down. patient at 0100 was unable to ambulate knees were shaking and legs were wobbly at 0700 this morning patient was unable to get off of the toilet and fell in the bathroom. had increased wobbly legs and inability to stand. patients daughter states that she has not been giving the patient ordered norco due to it causing her to be a psycho bitch from hell causing things to fly off of the wall and hallucinations. patient has been getting tylenol and muscle relaxer tizanidine every 8 hours. daughter states that she is starting to be unable to care for the patient because she has no ability to transfer and help with ambulation. Will speak to [facility] with care coordination.
--- NOTE | 2025-04-19 17:00 | ED.LOWEXIN ---
HPI - Extremity Injury (Lower) General Chief Complaint: Extremity Injury, Lower <Fede Cunningham MD - Last Filed: 04/19/25 18:55> Stated Complaint: leg pain <Fede Cunningham MD - Last Filed: 04/19/25 18:55> Time Seen by Provider: 04/19/25 16:59 <Fede Cunningham MD - Last Filed: 04/19/25 18:55> Source: patient <Fede Cunningham MD - Last Filed: 04/19/25 18:55> Mode of arrival: ambulatory <Fede Cunningham MD - Last Filed: 04/19/25 18:55> Limitations: no limitations <Fede Cunningham MD - Last Filed: 04/19/25 18:55> History of Present Illness HPI Narrative: 84 years old white female came to the ED with daughter from home complaining of pain from left buttock old way down to the left knee started January 30 after multiple falls. Pain is getting worse. Patient was seen by emergency room and by her family physician, schedule for MRI next month, scheduled to see an orthopedic tomorrow. Today unable to manage to put weight on the left leg, her daughter got concerned and brought her to the emergency room. No recent trauma the last few days, no fever, no chills, no nausea no vomiting no abdominal pain no chest pain or shortness of breath no back pain. <Fede Cunningham MD - Last Filed: 04/19/25 18:55> Related Data Home Medications: Home Medications ?Medication ?Instructions ?Recorded ?Confirmed ?Last Taken ?Type alendronate 70 mg tablet 70 mg PO WEEKLY 08/03/20 04/20/25 04/16/25 06:16 History cholecalciferol (vitamin D3) 125 125 mcg PO DAILY 08/03/20 04/20/25 04/19/25 10:41 History mcg (5,000 unit) tablet (Vitamin D3) citalopram 40 mg tablet 40 mg PO HS 08/03/20 04/20/25 04/17/25 22:00 History donepezil 10 mg tablet 10 mg PO HS 08/03/20 04/20/25 04/18/25 22:00 History famotidine 20 mg tablet 20 mg PO BID 08/03/20 04/20/2525 08:00 History simethicone 125 mg tablet 125 mg PO TIDWM 08/03/20 04/20/25 04/19/25 08:27 History solifenacin 10 mg tablet (Vesicare) 10 mg PO HS 08/03/20 04/20/25 04/18/25 22:00 History aspirin 81 mg tablet,delayed 81 mg PO DAILY 04/27/22 04/20/25 04/19/25 08:09 History release latanoprost 0.005 % eye drops 1 drp EACH EYE HS 04/27/22 04/20/25 04/18/25 22:18 History melatonin 10 mg tablet 10 mg PO HS 04/27/22 04/20/25 04/18/25 22:00 History timolol maleate 0.5 % eye drops 1 drp EACH EYE DAILY 04/27/22 04/20/25 04/19/25 09:00 History umeclidinium 62.5 mcg-vilanterol 1 ea inhalation DAILY PRN cough, 04/27/22 04/20/25 04/13/25 08:00 History 25 mcg/actuation powdr for sob inhalation (Anoro Ellipta) venlafaxine 75 mg capsule,extended 225 mg PO DAILY 04/27/22 04/20/25 04/19/25 08:00 History release 24 hr Lactobacillus rhamnosus GG 10 1 cap PO DAILY 04/20/25 04/20/25 04/18/25 10:00 History billion cell capsule (Culturelle) acetaminophen 650 mg 650 mg PO Q8H PRN pain 04/20/25 04/20/25 04/19/25 08:00 History tablet,extended release calcium citrate 400 mg PO DAILY 04/20/25 04/20/25 04/19/25 08:38 History d-mannose 500 mg capsule 2,100 mg PO DAILY 04/20/25 04/20/25 04/18/25 10:00 History folic acid 1 mg tablet 1,000 mcg PO DAILY 04/20/25 04/20/25 04/18/25 22:32 History hydrochlorothiazide 12.5 mg capsule 12.5 mg PO DAILY 04/20/25 04/20/25 04/19/25 08:00 History magnesium 100 mg capsule 300 mg PO HS 0904/20/25 04/18/25 22:00 History mirabegron 50 mg tablet,extended 50 mg PO QHS 04/20/25 04/20/25 04/18/25 22:00 History release 24 hr (Myrbetriq) polyethylene glycol 3350 17 17 g PO .qod 04/20/25 04/20/25 04/18/25 22:26 History gram/dose oral powder terbinafine HCl 250 mg tablet 250 mg PO DAILY 04/20/25 04/20/25 04/19/25 08:00 History tizanidine 2 mg tablet 2 mg PO Q8H 04/20/25 04/20/25 04/19/25 10:00 History <Fede Cunningham MD - Last Filed: 04/19/25 18:55> Allergies/Adverse Reactions: Allergies Allergy/AdvReac Type Severity Reaction Status Date / Time adhesive Allergy Unknown TAPE - Verified 03/22/23 21:13 BLISTERS erythromycin base Allergy Unknown Unknown Verified 03/22/23 21:13 <Fede Cunningham MD - Last Filed: 04/19/25 18:55> Review of Systems Review of Systems: All systems reviewed & are unremarkable except as noted in HPI and below <Fede Cunningham MD - Last Filed: 04/19/25 18:55> [facility] Past Medical History Medical History: Medical History Dementia Depression with anxiety Osteoporosis Neuropathy Glaucoma Cataract Anxiety Depression Hypothyroidism GERD (gastroesophageal reflux disease) Hypertension Alzheimer's dementia <Fede Cunningham MD - Last Filed: 04/19/25 18:55> Surgical History Surgical History: Surgical History H/O foot surgery On the right History of bilateral knee replacement History of colonoscopy History of tonsillectomy and adenoidectomy History of hernia repair History of cholecystectomy <Fede Cunningham MD - Last Filed: 04/19/25 18:55> Family History Family History: Family History (Updated 04/20/25 @ 00:43 by Elisa Clayton RN) Father Acute myocardial infarction Hypertension Sibling Acute myocardial infarction Brother Mother Acute myocardial infarction Hypertension <Fede Cunningham MD - Last Filed: 04/19/25 18:55> Social History Social History: Social History Social History: The patient is . 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 She has 2 children. She lives with daughter. She is a lifelong nonsmoker. She does not use any alcohol marijuana or illicit drugs. Code status full code Smoking status: Never smoker Second hand tobacco smoke exposure: Yes Alcohol intake: never Substance use: never Lack of Transportation: No Lack of Food: Never True Current Housing: I Have Housing Concerned About Future Housing: No Difficulty Paying Gas/Electric Bills: No Difficulty Paying for Meds: No Currently Unemployed: No Education: High School Diploma/GED Difficulty w/ Childcare or Family Care: No Spiritual care concerns: No <Fede Cunningham MD - Last Filed: 04/19/25 18:55> Exam Narrative: General appearance: Well-developed, well-nourished Skin: Normal color Head: Normocephalic, nontraumatic Eyes: Clear conjunctiva ENT: Oropharynx normal, ears normal, nose normal Neck: Supple, nontender Chest and respiratory: Airway patent, no respiratory distress, no accessory muscle use Heart: Regular rate/rhythm Abdomen: Soft, nontender, no organomegaly, quiet bowel sounds Vascular: Normal peripheral pulses, normal capillary refill. Musculoskeletal: Normal range of motion, nontender back Neurologic: Alert and oriented ?3, NETWORKING SPECIALIST is normal as tested, no gross motor deficit <Fede Cunningham MD - Last Filed: 04/19/25 18:55> Course Vital Signs Vital signs: Vital Signs Temperature 97.8 F 04/19/25 14:35 Pulse Rate 95 04/19/25 14:35 Respiratory Rate 14 04/19/25 14:35 Blood Pressure 139/68 04/19/25 14:35 Pulse Oximetry 97 04/19/25 14:35 Temperature 97.1 F L 04/20/25 00:01 Pulse Rate 89 04/20/25 00:01 Respiratory Rate 18 04/20/25 00:01 Blood Pressure 123/53 L 04/20/25 00:01 Pulse Oximetry 95 04/20/25 00:01 Oxygen Delivery Room Air 04/20/25 00:51 <Fede Cunningham MD - Last Filed: 04/19/25 18:55> Vital Signs Temperature 97.8 F 04/19/25 14:35 Pulse Rate 95 04/19/25 14:35 Respiratory Rate 14 04/19/25 14:35 Blood Pressure 139/68 04/19/25 14:35 Pulse Oximetry 97 04/19/25 14:35 Temperature 97.1 F L 04/20/25 00:01 Pulse Rate 89 04/20/25 00:01 Respiratory Rate 18 04/20/25 00:01 Blood Pressure 123/53 L 04/20/25 00:01 Pulse Oximetry 95 04/20/25 00:01 Oxygen Delivery Room Air 04/20/25 00:51 <Ricci Bell MD - Last Filed: 04/20/25 01:18> MDM - Extremity Injury (Lower) MDM Narrative Medical decision making narrative: Patient came from home with her daughter because of chronic pain at the left buttock all the way down to the left knee after multiple falls. Vital signs are stable Physical examination showing diffuse tenderness add in the left buttocks with deep palpation otherwise within normal limit, patient is able to bend and extend left hip without any restriction, no deformity Differential diagnosis lumbar spine fracture, pelvic fracture, contusion, urinary tract infection Blood workup today includes CBC, CMP showed sodium 131, BUN 24, creatinine 1.1 otherwise within normal limit Urinalysis showed no acute abnormality Chest x-ray showed mild CHF <Fede Cunningham MD - Last Filed: 04/19/25 18:55> Differential Diagnosis Differential diagnosis: Likely other (As above) <Fede Cunningham MD - Last Filed: 04/19/25 18:55> Medical Records Attestation: I reviewed the patient's medical records. <Fede Cunningham MD - Last Filed: 04/19/25 18:55> Lab Data Attestation: I reviewed the patient's lab results. <Fede Cunningham MD - Last Filed: 04/19/25 18:55> Result diagrams: 04/19/25 17:49 04/19/25 17:49 <Fede Cunningham MD - Last Filed: 04/19/25 18:55> Labs: Lab Results 04/19/25 04/19/25 Range/Units 17:49 18:05 WBC 8.6 (4.5-10.0) K/mm3 RBC 3.83 L (4.2-5.4) M/mm3 Hgb 13.0 D (12.0-15.0) g/dL Hct 38.5 (37.0-47.0) % MCV 100.5 H (80-100) fl MCH 33.9 (26-34) pg MCHC 33.8 (32-36) g/dl RDW 14.8 H (11.5-14.5) % Plt Count 171 (150-375) k/mm3 MPV 9.3 (7.4-10.4) fl Immature Gran % (Auto) 0.3 (0-0.5) % Neut % (Auto) 61.5 (45.5-73.1) % Lymph % (Auto) 28.2 (18.3-44.2) % [place] % (Auto) 9.7 H (2.6-8.5) % Eos % (Auto) 0.1 (0-4.4) % Baso % (Auto) 0.2 (0.2-1.2) % Lymph # (Auto) 2.42 (0.9-3.2) K/mm3 [place] # (Auto) 0.8 H (0.1-0.6) K/mm3 Eos # (Auto) 0.0 (0-0.3) K/mm3 Baso # (Auto) 0.0 (0.0-0.1) K/mm3 Abs Immat Gran (auto) 0.03 (0.00-0.031) K/mm3 Absolute Neuts (auto) 5.3 (1.3-6.7) K/mm3 Absolute Nucleated RBC 0.000 (0.0-0.012) K/mm3 Nucleated RBC % 0.0 (0.0-0.2) % Sodium 131 L (137-145) mmol/L Potassium 3.4 (3.4-5.0) mmol/L Chloride 97 L (98-107) mmol/L Carbon Dioxide 27 (22-30) mmol/L Anion Gap 7 (4-12) mmol/L BUN 24 H (7-17) mg/dL Creatinine 1.17 H (0.7-1.0) mg/dL Estim Creat Clear Calc 25 ml/min Estimated GFR 44 L (59 - ) Glucose 98 (65-110) mg/dL Calcium 9.8 (8.4-10.2) mg/dL Total Bilirubin 0.8 (0.2-1.3) mg/dL AST 31 (14-36) U/L ALT 17 (6-35) U/L Alkaline Phosphatase 77 (38-126) U/L Total Creatine Kinase 83 (30-135) U/L Total Protein 7.2 (6.3-8.2) g/dL Albumin 4.1 (3.5-5.1) g/dL Urine Color Yellow (Yellow) Urine Appearance Clear (Clear) Urine pH 5.0 (5.0-9.0) Ur Specific [place] 1.026 (1.001-1.035) Urine Protein Trace (Negative) mg/dL Urine Glucose (UA) Negative (Negative) mg/dL Urine Ketones Negative (Negative) mg/dL Ur Blood (Man) Negative (Negative) Urine Nitrate Negative (Negative) Urine Bilirubin Negative (Negative) Urine Urobilinogen 1.0 (<2.0) mg/dL Add Ur Microanalysis Reviewed Leukocyte Esterase Rfl Negative (Negative) DAGO/UL Urine RBC 0-2 (0-2) /hpf Urine WBC 0-5 (0-3) /hpf Ur Squamous Epith Cells None seen (Few) /hpf Urine Bacteria None seen /hpf Urine Casts 0-2 <Fede Cunningham MD - Last Filed: 04/19/25 18:55> Lab Results 04/19/25 04/19/25 Range/Units 17:49 18:05 WBC 8.6 (4.5-10.0) K/mm3 RBC 3.83 L (4.2-5.4) M/mm3 Hgb 13.0 D (12.0-15.0) g/dL Hct 38.5 (37.0-47.0) % MCV 100.5 H (80-100) fl MCH 33.9 (26-34) pg MCHC 33.8 (32-36) g/dl RDW 14.8 H (11.5-14.5) % Plt Count 171 (150-375) k/mm3 MPV 9.3 (7.4-10.4) fl Immature Gran % (Auto) 0.3 (0-0.5) % Neut % (Auto) 61.5 (45.5-73.1) % Lymph % (Auto) 28.2 (18.3-44.2) % [place] % (Auto) 9.7 H (2.6-8.5) % Eos % (Auto) 0.1 (0-4.4) % Baso % (Auto) 0.2 (0.2-1.2) % Lymph # (Auto) 2.42 (0.9-3.2) K/mm3 [place] # (Auto) 0.8 H (0.1-0.6) K/mm3 Eos # (Auto) 0.0 (0-0.3) K/mm3 Baso # (Auto) 0.0 (0.0-0.1) K/mm3 Abs Immat Gran (auto) 0.03 (0.00-0.031) K/mm3 Absolute Neuts (auto) 5.3 (1.3-6.7) K/mm3 Absolute Nucleated RBC 0.000 (0.0-0.012) K/mm3 Nucleated RBC % 0.0 (0.0-0.2) % Sodium 131 L (137-145) mmol/L Potassium 3.4 (3.4-5.0) mmol/L Chloride 97 L (98-107) mmol/L Carbon Dioxide 27 (22-30) mmol/L Anion Gap 7 (4-12) mmol/L BUN 24 H (7-17) mg/dL Creatinine 1.17 H (0.7-1.0) mg/dL Estim Creat Clear Calc 25 ml/min Estimated GFR 44 L (59 - ) Glucose 98 (65-110) mg/dL Calcium 9.8 (8.4-10.2) mg/dL Total Bilirubin 0.8 (0.2-1.3) mg/dL AST 31 (14-36) U/L ALT 17 (6-35) U/L Alkaline Phosphatase 77 (38-126) U/L Total Creatine Kinase 83 (30-135) U/L Total Protein 7.2 (6.3-8.2) g/dL Albumin 4.1 (3.5-5.1) g/dL Urine Color Yellow (Yellow) Urine Appearance Clear (Clear) Urine pH 5.0 (5.0-9.0) Ur Specific [place] 1.026 (1.001-1.035) Urine Protein Trace (Negative) mg/dL Urine Glucose (UA) Negative (Negative) mg/dL Urine Ketones Negative (Negative) mg/dL Ur Blood (Man) Negative (Negative) Urine Nitrate Negative (Negative) Urine Bilirubin Negative (Negative) Urine Urobilinogen 1.0 (<2.0) mg/dL Add Ur Microanalysis Reviewed Leukocyte Esterase Rfl Negative (Negative) DAGO/UL Urine RBC 0-2 (0-2) /hpf Urine WBC 0-5 (0-3) /hpf Ur Squamous Epith Cells None seen (Few) /hpf Urine Bacteria None seen /hpf Urine Casts 0-2 <Ricci Bell MD - Last Filed: 04/20/25 01:18> Medical Decision Making MDM Documentation: Patient signed out pending CT L spine and pelvis. Possible admission for placement vs discharge depending on patient/family goals. CT lumbar spine showed a 10% loss of height compression fracture to L1. 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 On further discussion with patient and family, they would prefer admission for possible rehab placement. Discussed case with hospitalist who will admit the patient. 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
--- NOTE | 2025-04-19 17:24 | PCCCNOTE ---
Asked to speak to the pt and her daughter whom is her caregiver. She stated the pt has been unable to walk/transfer the last two days and is unable to care for her at home. Stated they had not been seen yet by the ED provider and unsure of her diagnosis. Did note she has [employer] MCR and Medicaid. Stated their goal would be to get some rehab so she can go back home. Noted they had success with the [facility] swing bed last time. Per the pt's insurance for rehab she would need a PT/OT eval and authorization before she can be admitted for rehab services. Pt's nurse updated since they have not been seen by a provider at this time.-misael
[2025-04-19 18:00] LABS: Hematocrit 38.5 % (37.0-47.0); Hemoglobin 13.0 g/dL (12.0-15.0); Immature Granulocyte Percent A 0.3 % (0-0.5); Lymphocytes Absolute Auto 2.42 K/mm3 (0.9-3.2); Mean Corpuscular HGB Conc 33.8 g/dl (32-36); Mean Corpuscular Hemoglobin 33.9 pg (26-34); Mean Corpuscular Volume 100.5 fl (80-100); Nucleated Red Blood Cells Absolute Auto 0.000 K/mm3 (0.0-0.012); Nucleated Red Blood Cells Perc 0.0 % (0.0-0.2); Platelet Count Result 171 k/mm3 (150-375); Red Blood Count 3.83 M/mm3 (4.2-5.4); White Blood Count 8.6 K/mm3 (4.5-10.0)
[2025-04-19 18:09] LABS: Alanine Aminotransferase 17 U/L (6-35); Albumin Level 4.1 g/dL (3.5-5.1); Alkaline Phosphatase 77 U/L (38-126); Anion Gap 7 mmol/L (4-12); Aspartate Amino Transferase 31 U/L (14-36); Bilirubin,Total 0.8 mg/dL (0.2-1.3); Blood Urea Nitrogen 24 mg/dL (7-17); Calcium 9.8 mg/dL (8.4-10.2); Carbon Dioxide 27 mmol/L (22-30); Chloride 97 mmol/L (98-107); Creatine Kinase 83 U/L (30-135); Estimated CRCL calculation 25 ml/min; Estimated Glomerular Filt Rate 44; Glucose 98 mg/dL (65-110); Potassium 3.4 mmol/L (3.4-5.0); Sodium 131 mmol/L (137-145); Total Protein 7.2 g/dL (6.3-8.2)
[2025-04-19 18:37] LABS: Add Urine Microscopic? YES; Appearance Urine Clear (Clear); Glucose Urine UA Negative (Negative); Leukocyte Esterase Ur Negative LEU/UL (Negative); Need Manual Microscopic Reviewed; Nitrate Urine Negative (Negative); Non Pathogenic Casts 0-2; Specific Grav Ur 1.026 (1.001-1.035)
--- NOTE | 2025-04-19 19:15 | PC.NURSE ---
Assumed care of patient after receiving bedside report from BRANDIE Dimas. Pt and daughter given update about admission with no questions at this time.
[2025-04-19] MEDS: TIZANIDINE HCL 2 MG TABLET PO (22:27)
[2025-04-19] MEDS: ACETAMINOPHEN 500 MG TABLET 1000 MG PO (22:27)
[2025-04-19 23:19] VITALS: BMI 26.2
--- NOTE | 2025-04-19 23:58 | ADMGEN ---
This patient, Lori Pederson, was admitted to [facility] Surg Room 301-01. Patient/family oriented to hospital policies and general routines including ID bracelet, bed and alarms, visiting hours, pain management, procedures, bathroom and other care routines, personal items, smoking policy, room service/diet, and visiting hours. Information on how to activate the Rapid Response Team has been discussed. Patient/Family are encouraged to report perceived risks to care and to ask questions if they do not understand what they are told or what they should do.
[2025-04-20 00:01] VITALS: BP 123/53; PULSE 89; RESP 18; TEMP 36.2; O2SAT 95
--- NOTE | 2025-04-20 05:04 | PM.IMHP ---
H&P: HPI History of Present Illness Date/Time: 04/20/25 05:04 Chief Complaint: Pain to left hip after fall Narrative: This is an 84-year-old female patient to reside with her daughter. The patient has a history of dementia and has been having multiple falls. The patient came to the emergency room with complaints of left buttocks pain in that goes all the way down her left leg to her knee. The patient stated that she is scheduled for an MRI next month and that she has an appointment with Orthopedics today. As per ED provider CT lumbar spine showed a 10% loss of height compression fracture to L1. 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 Her sodium was low at 131 BUN 24 creatinine 1.17 which appears to be improved since previous labs. Her GFR is 44 which again has improved from previous. The daughter was in the emergency room and stated that she wanted the patient to be admitted for pain management and rehab. Patient is being admitted to inpatient status on medical-surgical floor the date of service of 04/20/2025. Review of Systems Constitutional: Constitutional: Reports as per HPI and Reports no additional constitutional complaints Eyes: Eyes: Reports as per HPI and Reports no additional eye complaints ENT: Reports no additional ear, nose, mouth, and throat complaints and Reports Normal hearing present Cardiovascular: Cardiovascular: Reports no additional cardiovascular complaints Respiratory: Respiratory: Reports as per HPI and Reports no additional respiratory complaints Gastrointestinal: Gastrointestinal: Reports as per HPI and Reports no additional gastrointestinal complaints Genitourinary: Genitourinary: Reports no additional female genitourinary complaints Musculoskeletal: Musculoskeletal: Reports no additional musculoskeletal complaints Integumentary/Breasts: Skin/Breast: Reports system reviewed and no additional complaints, except as docu Neurologic: Reports no additional neurologic complaints and Reports Normal hearing present Psychiatric: Psychiatric: Reports no additional psychiatric complaints and Reports as per HPI Hematologic/Lymphatic: Hematologic/Lymphatic: Reports no additional hematologic/lymphatic complaints Allergic/Immunologic: Allergic/Immunologic: Reports no additional allergic/immunologic complaints [facility] Past Medical History Medical History Dementia Depression with anxiety Osteoporosis Neuropathy Glaucoma Cataract Anxiety Depression Hypothyroidism GERD (gastroesophageal reflux disease) Hypertension Alzheimer's dementia Surgical History Surgical History H/O foot surgery On the right History of bilateral knee replacement History of colonoscopy History of tonsillectomy and adenoidectomy History of hernia repair History of cholecystectomy Family History Family History Father Acute myocardial infarction Hypertension Sibling Acute myocardial infarction Brother Mother Acute myocardial infarction Hypertension Social History Social History Social History: The patient is . 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 She has 2 children. She lives with daughter. She is a lifelong nonsmoker. She does not use any alcohol marijuana or illicit drugs. Code status full code Smoking status: Never smoker Second hand tobacco smoke exposure: Yes Alcohol intake: never Substance use: never Lack of Transportation: No Lack of Food: Never True Current Housing: I Have Housing Concerned About Future Housing: No Difficulty Paying Gas/Electric Bills: No Difficulty Paying for Meds: No Currently Unemployed: No Education: High School Diploma/GED Difficulty w/ Childcare or Family Care: No Spiritual care concerns: No Meds Home Medications and Allergies Home Medications ?Medication ?Instructions ?Recorded ?Confirmed ?Type alendronate 70 mg tablet 70 mg PO WEEKLY 08/03/20 04/20/25 History cholecalciferol (vitamin D3) 125 125 mcg PO DAILY 08/03/20 04/20/25 History mcg (5,000 unit) tablet (Vitamin D3) citalopram 40 mg tablet 40 mg PO HS 08/03/20 04/20/25 History donepezil 10 mg tablet 10 mg PO HS 08/03/20 04/20/25 History famotidine 20 mg tablet 20 mg PO BID 08/03/20 04/20/25 History simethicone 125 mg tablet 125 mg PO TIDWM 08/03/20 04/20/25 History solifenacin 10 mg tablet (Vesicare) 10 mg PO HS 08/03/20 04/20/25 History aspirin 81 mg tablet,delayed 81 mg PO DAILY 04/27/22 04/20/25 History release latanoprost 0.005 % eye drops 1 drp EACH EYE HS 04/27/22 04/20/25 History melatonin 10 mg tablet 10 mg PO HS 04/27/22 04/20/25 History timolol maleate 0.5 % eye drops 1 drp EACH EYE DAILY 04/27/22 04/20/25 History umeclidinium 62.5 mcg-vilanterol 1 ea inhalation DAILY PRN cough, 04/27/22 04/20/25 History 25 mcg/actuation powdr for sob inhalation (Anoro Ellipta) venlafaxine 75 mg capsule,extended 225 mg PO DAILY 04/27/22 04/20/25 History release 24 hr albuterol sulfate 90 mcg/actuation 2 puff inhalation QID PRN 05/12/22 04/20/25 Rx aerosol inhaler (Proventil HFA) Shortness Of Breath #1 g levothyroxine 150 mcg tablet 137 mcg (0.9133 x 150 mcg) PO 05/12/22 04/20/25 Rx DAILY 30 days #30 tabs losartan 50 mg tablet 50 mg PO DAILY #30 tabs 05/12/22 04/20/25 Rx tolnaftate 1 % topical powder 1 applic topical Q12HR 20 days #1 g 05/12/22 04/20/25 Rx Lactobacillus rhamnosus GG 10 1 cap PO DAILY 04/20/25 04/20/25 History billion cell capsule (Culturelle) acetaminophen 650 mg 650 mg PO Q8H PRN pain 04/20/25 04/20/25 History tablet,extended release calcium citrate 400 mg PO DAILY 04/20/25 04/20/25 History d-mannose 500 mg capsule 2,100 mg PO DAILY 04/20/25 04/20/25 History folic acid 1 mg tablet 1,000 mcg PO DAILY 04/20/25 04/20/25 History hydrochlorothiazide 12.5 mg capsule 12.5 mg PO DAILY 04/20/25 04/20/25 History magnesium 100 mg capsule 300 mg PO HS 04/20/25 04/20/25 History mirabegron 50 mg tablet,extended 50 mg PO QHS 04/20/25 04/20/25 History release 24 hr (Myrbetriq) polyethylene glycol 3350 17 17 g PO .qod 04/20/25 04/20/25 History gram/dose oral powder terbinafine HCl 250 mg tablet 250 mg PO DAILY 04/20/25 04/20/25 History tizanidine 2 mg tablet 2 mg PO Q8H 04/20/25 04/20/25 History Allergies Allergy/AdvReac Type Severity Reaction Status Date / Time adhesive Allergy Unknown TAPE - Verified 03/22/23 21:13 BLISTERS erythromycin base Allergy Unknown Unknown Verified 03/22/23 21:13 Vital Signs Vital Signs - 24 hr 04/19/25 14:35 04/20/25 00:01 04/20/25 00:51 Temperature 97.8 F 97.1 F L Pulse Rate 95 89 Respiratory Rate 14 18 Blood Pressure 139/68 123/53 L Pulse Oximetry 97 95 Oxygen Delivery Room Air Exam Const: General: cooperative, no acute distress, well developed, awake, Physically active, average body habitus and well nourished Nutritional Appearance: average body habitus and well nourished Orientation/consciousness: oriented to person and oriented to place HENMT: Head: normal to inspection, No palpable skull fracture present, normocephalic, atraumatic and abrasion Ears: hearing grossly normal bilaterally and external ears normal Eyes: General: appearance normal, both eyes and all related structures Alignment and Position: alignment normal Periorbital: periorbital findings normal Eyelids: eyelids normal EOM: EOMs intact bilaterally Neck: Neck: normal visual inspection, full ROM and no lymphadenopathy Chest: Chest palpation & inspection: normal inspection of the chest Resp: Effort & Inspection: normal respiratory effort Auscultation: clear to auscultation bilaterally Percussion: percussion normal Cardio: Palpation: normal PMI Rate: regular rate Rhythm: regular rhythm Heart sounds: S1 normal heart sound present and S2 normal heart sound present Peripheral pulses: Peripheral pulses 2+ throughout GI: Inspection: normal to inspection Percussion: Yes normal to percussion Auscultation: normal bowel sounds Rectal Exam: deferred Back/Spine/Pelvis: Cervical Spine: cervical ROM normal Skin: General skin exam: normal color Rashes: no rashes Wounds: no wounds Hair: normal Nails: normal Other: Multiple stages of bruising to bilateral legs. some are green and some are purple. Neuro: General: oriented to person and oriented to place Cranial nerves: Yes Equal, round and reactive pupils present and Yes Normal hearing present Cognition (Neuro): normal cognition Speech: normal speech Extrem: General: normal to inspection Right upper extremity: normal to inspection and shoulder/upper arm Left upper extremity: normal to inspection and shoulder/upper arm Right lower extremity: normal to inspection Psych: Appearance: grossly normal Mental Status: mental status grossly normal Speech and movement: Normal speech and movement present Affect: normal affect Attitude: cooperative Thought process: Normal thought process present Thought content: Yes Normal thought content present Insight: Limited insight present (Psych) Judgement: Limited judgement present (Psych) H&P: Results Labs Labs: Short CBC 04/19/25 Range/Units 17:49 WBC 8.6 (4.5-10.0) K/mm3 Hgb 13.0 D (12.0-15.0) g/dL Hct 38.5 (37.0-47.0) % Plt Count 171 (150-375) k/mm3 BMP 04/19/25 17:49 Sodium 131 L Potassium 3.4 Chloride 97 L Carbon Dioxide 27 BUN 24 H Creatinine 1.17 H Glucose 98 Calcium 9.8 Cardiac Enzymes 04/19/25 Range/Units 17:49 Total Creatine Kinase 83 (30-135) U/L Liver Function 04/19/25 Range/Units 17:49 Total Bilirubin 0.8 (0.2-1.3) mg/dL AST 31 (14-36) U/L ALT 17 (6-35) U/L Alkaline Phosphatase 77 (38-126) U/L Albumin 4.1 (3.5-5.1) g/dL Urine 04/19/25 Range/Units 18:05 Urine Color Yellow (Yellow) Urine Appearance Clear (Clear) Urine pH 5.0 (5.0-9.0) Ur Specific [place] 1.026 (1.001-1.035) Urine Protein Trace (Negative) mg/dL Urine Glucose (UA) Negative (Negative) mg/dL Imaging Chest x-ray: Radiologist's impression: Impressions Chest X-Ray 04/19/25 17:33 Impression: Mild CHF Assessment and Plan Assessment and plan (1) Hip pain, left: Code(s): M25.552 - Pain in left hip Status: Acute Assessment and Plan: -intractable left hip pain. Tenderness noted to the left lateral femur. The patient has had multiple falls. -MRI has been ordered of the left hip -PT evaluate and treat. -care connector consult for possible rehab. -pain management. (2) Depression with anxiety: Code(s): F41.8 - Other specified anxiety disorders Status: Acute Assessment and Plan: -continue Celexa and venlafaxine (3) Hypothyroidism: Code(s): E03.9 - Hypothyroidism, unspecified Status: Acute Assessment and Plan: -continue with levothyroxine and check thyroid level (4) Osteoporosis: Code(s): M81.0 - Age-related osteoporosis without current pathological fracture Status: Acute Assessment and Plan: -osteoporosis with multiple falls puts the patient at risk for a fracture. -continue with Fosamax (5) Glaucoma: Code(s): H40.9 - Unspecified glaucoma Status: Acute Assessment and Plan: -continue with home eye drops. (6) Hypertension: Code(s): I10 - Essential (primary) hypertension Status: Acute Assessment and Plan: -continue with losartan and monitor renal functions. (7) Dementia: Code(s): F03.90 - Unspecified dementia, unspecified severity, without behavioral disturbance, psychotic disturbance, mood disturbance, and anxiety Status: Acute Assessment and Plan: -continue with donepezil
[2025-04-20 05:39] VITALS: BP 128/60; PULSE 91; RESP 18; TEMP 36.2; O2SAT 97
[2025-04-20] MEDS: TIZANIDINE HCL 2 MG TABLET PO ×3 (05:55→21:19)
[2025-04-20] MEDS: LEVOTHYROXINE SODIUM 112 MCG TABLET PO (05:56)
[2025-04-20] MEDS: LEVOTHYROXINE SODIUM 25 MCG TABLET PO (05:56)
[2025-04-20] MEDS: ACETAMINOPHEN 325 MG TABLET 650 MG PO (05:56)
[2025-04-20 06:04] LABS: Magnesium 1.9 mg/dL (1.6-2.3)
[2025-04-20] MEDS: HYDROcodone/acetaminophen (*CRX) 5-325 MG TABLET 1 TAB PO ×3 (06:38→18:08)
--- NOTE | 2025-04-20 07:19 | P.PNIM_ITS ---
Progress Note: A&P Assessment and Plan (1) Hip pain, left: Code(s): M25.552 - Pain in left hip Status: Acute Assessment and Plan: -intractable left hip pain. Tenderness noted to the left lateral femur. The bethany taylor has had multiple falls. - CT L-spine showed severe lumbar spondylosis and thoracolumbar levoscoliosis. -MRI L hip and femur ordered to rule occult fracture. -PT/OT -career services assistant consult for possible rehab. -pain management. (2) Depression with anxiety: Code(s): F41.8 - Other specified anxiety disorders Status: Acute Assessment and Plan: -continue Celexa and venlafaxine (3) Hypothyroidism: Code(s): E03.9 - Hypothyroidism, unspecified Status: Acute Assessment and Plan: -TSH WNL -continue levothyroxine (4) Osteoporosis: Code(s): M81.0 - Age-related osteoporosis without current pathological fracture Status: Acute Assessment and Plan: -osteoporosis with multiple falls puts the patient at risk for a fracture. -continue with Fosamax (5) Glaucoma: Code(s): H40.9 - Unspecified glaucoma Status: Acute Assessment and Plan: -continue with home eye drops. (6) Hypertension: Code(s): I10 - Essential (primary) hypertension Status: Acute Assessment and Plan: -continue with losartan and monitor renal functions. (7) Dementia: Code(s): F03.90 - Unspecified dementia, unspecified severity, without behavioral disturbance, psychotic disturbance, mood disturbance, and anxiety Status: Acute Assessment and Plan: -continue with donepezil (8) Hyponatremia: Code(s): E87.1 - Hypo-osmolality and hyponatremia Status: Acute Assessment and Plan: - Na 131 - CXR with possible mild CHF - may be due to poor PO intake in setting of pain. Also on HCTZ - hold HCTZ - monitor BMP (9) Chronic kidney disease: Code(s): N18.9 - Chronic kidney disease, unspecified Status: Acute Assessment and Plan: - Cr 1.17, near baseline - avoid nephrotoxins Subjective Date/time seen: 04/20/25 07:19 Interval history: This is an 84-year-old female patient to reside with her daughter. The patient has a history of dementia and has been having multiple falls. Patient seen and examined at bedside. Still having significant pain in her anterior thigh this morning. Agree able to MRI and likely placement. Review of Systems Review of Systems: All systems reviewed & are unremarkable except as noted in HPI and below Exam Narrative: General: NAD Eyes: EOMI ENT: neck supple Cardiovascular: Regular rate and rhythm Respiratory: Clear to auscultation, respirations even and unlabored on RA Gastrointestinal: Soft, non tender Genitourinary: no suprapubic tenderness Musculoskeletal: No edema. Tenderness to left anterior thigh with palpation. Mild tenderness of lumbar spine and left SI joint with deep palpation. No bruising or deformity noted. Full range of motion at hip and knee bilaterally. Skin: warm, dry Neuro: Alert. Strength 5/5 in bilateral lower extremities. Psych: Mood appropriate Objective Data Vital Signs Vital Signs: Vital Signs - 24 hr 04/19/25 14:35 04/20/25 00:01 04/20/25 00:51 Temperature 97.8 F 97.1 F L Pulse Rate 95 89 Respiratory Rate 14 18 Blood Pressure 139/68 123/53 L Pulse Oximetry 97 95 Oxygen Delivery Room Air 04/20/25 05:39 Temperature 97.1 F L Pulse Rate 91 Respiratory Rate 18 Blood Pressure 128/60 Pulse Oximetry 97 Oxygen Delivery Intake/Output Intake/Output: Intake & Output 04/17/25 04/18/25 04/19/25 04/20/25 23:59 23:59 23:59 23:59 Output Total 0 Balance 0 Meds/Results Medications: Active Medications Generic Name Dose Route Start Last Admin Trade Name Freq PRN Reason Stop Dose Admin Acetaminophen 650 mg 04/20/25 05:13 04/20/25 05:56 Acetaminophen 325 Mg Tablet PO 650 mg Q8H PRN Administration Pain Rated 1-3 Hydrocodone Bitart/Acetaminophen 1 tab 04/20/25 05:00 04/20/25 06:38 Hydrocodone/Acetaminophen (*Crx) 5-325 Mg Tablet PO 1 tab Q4H PRN Administration Pain Rated 4-6 Albuterol 2 puff 04/20/25 05:13 Albuterol Sulfate (*Sp) Aerosol 1 Puff INHALATION QID PRN Shortness Of Breath Alendronate Sodium 70 mg 04/23/25 07:30 Alendronate Sodium 70 Mg Tablet PO Sa@0730 [facility] Aspirin 81 mg 04/20/25 09:00 Aspirin 81 Mg Enteric Tablet PO DAILY [facility] Calcium Citrate 1 tablet 04/20/25 09:00 Calcium Citrate 315 Mg/Vitamin D 6.25 Mcg (250 Units) Tab PO QAM [facility] Citalopram Hydrobromide 40 mg 04/20/25 21:00 Citalopram Hydrobromide 20 Mg Tablet PO HS [facility] Diclofenac Sodium 1 applic 04/20/25 09:00 Diclofenac Sodium 1% 100 Gm Gel (*Bkc) TOPICAL QID [facility] Donepezil HCl 10 mg 04/20/25 21:00 Donepezil Hcl 10 Mg Tablet PO HS [facility] Famotidine 20 mg 04/20/25 09:00 Famotidine 20 Mg Tablet PO BID [facility] Folic Acid 1 mg 04/20/25 09:00 Folic Acid 1 Mg Tablet PO DAILY [facility] Hydrochlorothiazide 12.5 mg 04/20/25 09:00 Hydrochlorothiazide 12.5 Mg Capsule PO DAILY [facility] Lactobacillus Acidophilus 1 tablet 04/20/25 09:00 Acidophilus/Bulgaricus Chewable Tablet BY MOUTH DAILY [facility] Latanoprost 1 drop 04/20/25 21:00 Latanoprost 0.005% Op Soln 2.5 Ml Btl EACH EYE HS [facility] Levothyroxine Sodium 112 mcg 04/20/25 06:30 04/20/25 05:56 Levothyroxine Sodium 112 Mcg Tablet PO 112 mcg DAILY@0630 [facility] Administration Levothyroxine Sodium 25 mcg 04/20/25 06:30 04/20/25 05:56 Levothyroxine Sodium 25 Mcg Tablet PO 25 mcg DAILY@0630 [facility] Administration Losartan Potassium 50 mg 04/20/25 09:00 Losartan Potassium 50 Mg Tablet PO DAILY [facility] Magnesium Oxide 400 mg 04/20/25 21:00 Magnesium Oxide 400 Mg Tablet PO HS [facility] Melatonin 10 mg 04/20/25 21:00 Melatonin 5 Mg Tablet PO HS [facility] Mirabegron 50 mg 04/20/25 21:00 Mirabegron 50 Mg Er Tablet PO QHS [facility] Miscellaneous Information 1 each 04/20/25 09:00 Tolnaftate Powder XX 04/21/25 08:59 BID PRN Informational Polyethylene Glycol 17 gm 04/20/25 09:00 Polyethylene Glycol 3350 17 Gm Powd.Pack PO Q48H [facility] Simethicone 125 mg 04/20/25 08:00 Simethicone 125 Mg Chew Tab PO TIDWM [facility] Solifenacin 10 mg 04/20/25 21:00 Solifenacin 5 Mg Tablet PO HS [facility] Terbinafine HCl 250 mg 04/20/25 09:00 Terbinafine Hcl 250 Mg Tablet PO DAILY [facility] Timolol Maleate 1 drop 04/20/25 09:00 Timolol Maleate 0.5% Op Soln 5 Ml Bottle EACH EYE DAILY [facility] Tizanidine HCl 2 mg 04/20/25 06:00 04/20/25 05:55 Tizanidine Hcl 2 Mg Tablet PO 2 mg Q8HR [facility] Administration Umeclidinium/Vilanterol 1 puff 04/20/25 08:00 Umeclidinium/Vilanterol 62.5-25 Mcg Ellipta INHALATION DAILYRT [facility] Venlafaxine HCl 225 mg 04/20/25 09:00 Venlafaxine Hcl Xr 75 Mg Cap.Er.24h PO DAILY [facility] Vitamin D 125 mcg 04/20/25 09:00 Cholecalciferol (Vitamin D3) 125 Mcg (5,000 Units) Tablet PO DAILY [facility] Radiology Results: ITS Impressions Chest X-Ray 04/19/25 17:33 Impression: Mild CHF Labs Labs: Laboratory Results - last 24 hr 04/19/25 04/19/25 04/20/25 17:49 18:05 05:18 WBC 8.6 RBC 3.83 L Hgb 13.0 D Hct 38.5 MCV 100.5 H MCH 33.9 MCHC 33.8 RDW 14.8 H Plt Count 171 MPV 9.3 Immature Gran % (Auto) 0.3 Neut % (Auto) 61.5 Lymph % (Auto) 28.2 [place] % (Auto) 9.7 H Eos % (Auto) 0.1 Baso % (Auto) 0.2 Lymph # (Auto) 2.42 [place] # (Auto) 0.8 H Eos # (Auto) 0.0 Baso # (Auto) 0.0 Abs Immat Gran (auto) 0.03 Absolute Neuts (auto) 5.3 Absolute Nucleated RBC 0.000 Nucleated RBC % 0.0 Sodium 131 L Potassium 3.4 Chloride 97 L Carbon Dioxide 27 Anion Gap 7 BUN 24 H Creatinine 1.17 H Estim Creat Clear Calc 25 Estimated GFR 44 L Glucose 98 Calcium 9.8 Magnesium 1.9 Total Bilirubin 0.8 AST 31 ALT 17 Alkaline Phosphatase 77 Total Creatine Kinase 83 Total Protein 7.2 Albumin 4.1 Vitamin D 25-Hydroxy 28.1 Urine Color Yellow Urine Appearance Clear Urine pH 5.0 Ur Specific [place] 1.026 Urine Protein Trace Urine Glucose (UA) Negative Urine Ketones Negative Ur Blood (Man) Negative Urine Nitrate Negative Urine Bilirubin Negative Urine Urobilinogen 1.0 Add Ur Microanalysis Reviewed Leukocyte Esterase Rfl Negative Urine RBC 0-2 Urine WBC 0-5 Ur Squamous Epith Cells None seen Urine Bacteria None seen Urine Casts 0-2 Quality VTE Prophylaxis VTE prophylaxis: pharmacologic ordered
[2025-04-20 07:56] LABS: NT Pro B Type Natriuretic Pept 4460 pg/mL (19.9-100)
[2025-04-20 08:04] LABS: Thyroid Stimulating Hormone Reflex 3.500 uIU/mL (0.465-4.68)
[2025-04-20] MEDS: SIMETHICONE 125 MG CHEW TAB PO ×3 (09:00→16:14)
[2025-04-20] MEDS: TERBINAFINE HCL 250 MG TABLET PO (09:21)
[2025-04-20] MEDS: LOSARTAN POTASSIUM 50 MG TABLET PO (09:21)
[2025-04-20] MEDS: CALCIUM CITRATE 315 MG/VITAMIN D 6.25 MCG (250 UNITS) TAB 1 TABLET PO (09:22)
[2025-04-20] MEDS: ASPIRIN 81 MG ENTERIC TABLET PO (09:22)
[2025-04-20] MEDS: CHOLECALCIFEROL (VITAMIN D3) 125 MCG (5,000 UNITS) TABLET PO (09:22)
[2025-04-20] MEDS: VENLAFAXINE HCL XR 75 MG CAP.ER.24H 225 MG PO (09:22)
[2025-04-20] MEDS: ACIDOPHILUS/BULGARICUS CHEWABLE TABLET 1 TABLET BY MOUTH (09:22)
[2025-04-20] MEDS: FAMOTIDINE 20 MG TABLET PO ×2 (09:22→16:14)
[2025-04-20] MEDS: FOLIC ACID 1 MG TABLET PO (09:22)
[2025-04-20] MEDS: TIMOLOL MALEATE 0.5% OP SOLN 5 ML BOTTLE 1 DROP EACH EYE (09:22)
[2025-04-20] MEDS: UMECLIDINIUM/VILANTEROL 62.5-25 MCG ELLIPTA 1 PUFF INHALATION (10:10)
[2025-04-20 10:11] VITALS: PULSE 84; RESP 18
--- NOTE | 2025-04-20 10:20 | PC.NURSE ---
Attempted to reach Kimberley Pederson, daughter, to get MRI screening completed, but there was no answer.
[2025-04-20] MEDS: DICLOFENAC SODIUM 1% 100 GM GEL (*BKC) 1 APPLIC TOPICAL ×3 (12:40→20:24)
[2025-04-20 14:00] VITALS: BP 142/71; PULSE 86; RESP 20; TEMP 35.8; O2SAT 94
[2025-04-20] MEDS: CITALOPRAM HYDROBROMIDE 20 MG TABLET 40 MG PO (20:19)
[2025-04-20] MEDS: MIRABEGRON 50 MG ER TABLET PO (20:19)
[2025-04-20] MEDS: SOLIFENACIN 5 MG TABLET 10 MG PO (20:19)
[2025-04-20] MEDS: MAGNESIUM OXIDE 400 MG TABLET PO (20:20)
[2025-04-20] MEDS: DONEPEZIL HCL 10 MG TABLET PO (20:20)
[2025-04-20] MEDS: LATANOPROST 0.005% OP SOLN 2.5 ML BTL 1 DROP EACH EYE (20:21)
[2025-04-20] MEDS: MELATONIN 5 MG TABLET 10 MG PO (21:19)
[2025-04-20 21:40] VITALS: BP 112/57; PULSE 92; RESP 17; TEMP 36.1; O2SAT 98
[2025-04-21 04:05] VITALS: BP 130/55; PULSE 86; RESP 17; TEMP 36.3; O2SAT 97
[2025-04-21] MEDS: LEVOTHYROXINE SODIUM 25 MCG TABLET PO (05:44)
[2025-04-21] MEDS: TIZANIDINE HCL 2 MG TABLET PO ×3 (05:44→21:15)
[2025-04-21] MEDS: LEVOTHYROXINE SODIUM 112 MCG TABLET PO (05:44)
[2025-04-21 06:26] LABS: Hematocrit 41.3 % (37.0-47.0); Hemoglobin 13.8 g/dL (12.0-15.0); Immature Granulocyte Percent A 0.5 % (0-0.5); Lymphocytes Absolute Auto 2.79 K/mm3 (0.9-3.2); Mean Corpuscular HGB Conc 33.4 g/dl (32-36); Mean Corpuscular Hemoglobin 34.2 pg (26-34); Mean Corpuscular Volume 102.2 fl (80-100); Nucleated Red Blood Cells Absolute Auto 0.000 K/mm3 (0.0-0.012); Nucleated Red Blood Cells Perc 0.0 % (0.0-0.2); Platelet Count Result 177 k/mm3 (150-375); Red Blood Count 4.04 M/mm3 (4.2-5.4); White Blood Count 8.2 K/mm3 (4.5-10.0)
[2025-04-21 06:47] LABS: Anion Gap 7 mmol/L (4-12); Blood Urea Nitrogen 27 mg/dL (7-17); Calcium 9.2 mg/dL (8.4-10.2); Carbon Dioxide 27 mmol/L (22-30); Chloride 97 mmol/L (98-107); Estimated CRCL calculation 26 ml/min; Estimated Glomerular Filt Rate 45; Glucose 86 mg/dL (65-110); Potassium 3.6 mmol/L (3.4-5.0); Sodium 131 mmol/L (137-145)
[2025-04-21] MEDS: UMECLIDINIUM/VILANTEROL 62.5-25 MCG ELLIPTA 1 PUFF INHALATION (07:07)
[2025-04-21 07:08] VITALS: PULSE 89; RESP 18
[2025-04-21 07:10] VITALS: PULSE 89; RESP 18; O2SAT 93
--- NOTE | 2025-04-21 07:14 | P.PNIM_ITS ---
Progress Note: A&P Assessment and Plan (1) Hip pain, left: Code(s): M25.552 - Pain in left hip Status: Acute Assessment and Plan: -intractable left hip pain. Tenderness noted to the left lateral femur. The bethany taylor has had multiple falls. - CT L-spine showed severe lumbar spondylosis and thoracolumbar levoscoliosis. 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 -PT/OT - recommended SNF. Care coordination following for placement. -pain management - stop opiates due to concerns for hallucinations. Schedule Tylenol, continue PRN Zanaflex. Heating pad. - ortho consulted, appreciate recs (2) Depression with anxiety: Code(s): F41.8 - Other specified anxiety disorders Status: Acute Assessment and Plan: -continue Celexa and venlafaxine (3) Hypothyroidism: Code(s): E03.9 - Hypothyroidism, unspecified Status: Acute Assessment and Plan: -TSH WNL -continue levothyroxine (4) Osteoporosis: Code(s): M81.0 - Age-related osteoporosis without current pathological fracture Status: Acute Assessment and Plan: -osteoporosis with multiple falls puts the patient at risk for a fracture. -continue with Fosamax (5) Glaucoma: Code(s): H40.9 - Unspecified glaucoma Status: Acute Assessment and Plan: -continue with home eye drops. (6) Hypertension: Code(s): I10 - Essential (primary) hypertension Status: Acute Assessment and Plan: -continue with losartan and monitor renal functions. (7) Dementia: Code(s): F03.90 - Unspecified dementia, unspecified severity, without behavioral disturbance, psychotic disturbance, mood disturbance, and anxiety Status: Acute Assessment and Plan: -continue with donepezil (8) Hyponatremia: Code(s): E87.1 - Hypo-osmolality and hyponatremia Status: Acute Assessment and Plan: - Na 131 - may be due to poor PO intake in setting of pain. Also on HCTZ - hold HCTZ - monitor BMP (9) Chronic kidney disease: Code(s): N18.9 - Chronic kidney disease, unspecified Status: Acute Assessment and Plan: - Cr 1.17, near baseline - avoid nephrotoxins Subjective Date/time seen: 04/21/25 07:14 Interval history: This is an 84-year-old female patient to reside with her daughter. The patient has a history of dementia and has been having multiple falls. Patient seen and examined at bedside. Daughter concerned opiates may be causing hallucinations. Will make medication adjustments. Review of Systems Review of Systems: All systems reviewed & are unremarkable except as noted in HPI and below Exam Narrative: General: NAD Eyes: EOMI ENT: neck supple Cardiovascular: Regular rate and rhythm Respiratory: Clear to auscultation, respirations even and unlabored on RA Gastrointestinal: Soft, non tender Genitourinary: no suprapubic tenderness Musculoskeletal: No edema. Skin: warm, dry Neuro: Alert and oriented to person, place and time, but appears to be hallucinating. Psych: Mood appropriate Objective Data Vital Signs Vital Signs: Vital Signs - 24 hr 04/20/25 08:00 04/20/25 10:11 04/20/25 13:59 Temperature Pulse Rate 84 Respiratory Rate 18 Blood Pressure Pulse Oximetry Oxygen Delivery Room Air Room Air 04/20/25 14:00 04/20/25 21:19 04/20/25 21:40 Temperature 96.5 F L 96.9 F L Pulse Rate 86 92 Respiratory Rate 20 17 Blood Pressure 142/71 H 112/57 L Pulse Oximetry 94 98 Oxygen Delivery Room Air 04/21/25 04:05 04/21/25 07:08 04/21/25 07:10 Temperature 97.3 F L Pulse Rate 86 89 89 Respiratory Rate 17 18 18 Blood Pressure 130/55 L Pulse Oximetry 97 93 Oxygen Delivery Room Air Intake/Output Intake/Output: Intake & Output 04/18/25 04/19/25 04/20/25 04/21/25 23:59 23:59 23:59 23:59 Intake Total 480 Output Total 200 400 Balance 280 -400 Meds/Results Medications: Active Medications Generic Name Dose Route Start Last Admin Trade Name Freq PRN Reason Stop Dose Admin Acetaminophen 650 mg 04/20/25 05:13 04/20/25 05:56 Acetaminophen 325 Mg Tablet PO 650 mg Q8H PRN Administration Pain Rated 1-3 Hydrocodone Bitart/Acetaminophen 1 tab 04/20/25 05:00 04/20/25 18:08 Hydrocodone/Acetaminophen (*Crx) 5-325 Mg Tablet PO 1 tab Q4H PRN Administration Pain Rated 4-6 Albuterol 2 puff 04/20/25 05:13 Albuterol Sulfate (*Sp) Aerosol 1 Puff INHALATION QID PRN Shortness Of Breath Alendronate Sodium 70 mg 04/23/25 07:30 Alendronate Sodium 70 Mg Tablet PO Sa@0730 ZACARIAS Aspirin 81 mg 04/20/25 09:00 04/20/25 09:22 Aspirin 81 Mg Enteric Tablet PO 81 mg DAILY ZACARIAS Administration Calcium Citrate 1 tablet 04/20/25 09:00 04/20/25 09:22 Calcium Citrate 315 Mg/Vitamin D 6.25 Mcg (250 Units) Tab PO 1 tablet QAM ZACARIAS Administration Citalopram Hydrobromide 40 mg 04/20/25 21:00 04/20/25 20:19 Citalopram Hydrobromide 20 Mg Tablet PO 40 mg HS ZACARIAS Administration Diclofenac Sodium 1 applic 04/20/25 09:00 04/20/25 20:24 Diclofenac Sodium 1% 100 Gm Gel (*Bkc) TOPICAL 1 applic QID ZACARIAS Administration Donepezil HCl 10 mg 04/20/25 21:00 04/20/25 20:20 Donepezil Hcl 10 Mg Tablet PO 10 mg HS ZACARIAS Administration Enoxaparin Sodium 30 mg 04/21/25 09:00 Enoxaparin 30 Mg/0.3 Ml Syringe SUB-Q DAILY ZACARIAS Famotidine 20 mg 04/20/25 09:00 04/20/25 16:14 Famotidine 20 Mg Tablet PO 20 mg BID ZACARIAS Administration Folic Acid 1 mg 04/20/25 09:00 04/20/25 09:22 Folic Acid 1 Mg Tablet PO 1 mg DAILY ZACARIAS Administration Lactobacillus Acidophilus 1 tablet 04/20/25 09:00 04/20/25 09:22 Acidophilus/Bulgaricus Chewable Tablet BY MOUTH 1 tablet DAILY ZACARIAS Administration Latanoprost 1 drop 04/20/25 21:00 04/20/25 20:21 Latanoprost 0.005% Op Soln 2.5 Ml Btl EACH EYE 1 drop HS ZACARIAS Administration Levothyroxine Sodium 112 mcg 04/20/25 06:30 04/21/25 05:44 Levothyroxine Sodium 112 Mcg Tablet PO 112 mcg DAILY@0630 ZACARIAS Administration Levothyroxine Sodium 25 mcg 04/20/25 06:30 04/21/25 05:44 Levothyroxine Sodium 25 Mcg Tablet PO 25 mcg DAILY@0630 ZACARIAS Administration Losartan Potassium 50 mg 04/20/25 09:00 04/20/25 09:21 Losartan Potassium 50 Mg Tablet PO 50 mg DAILY ZACARIAS Administration Magnesium Oxide 400 mg 04/20/25 21:00 04/20/25 20:20 Magnesium Oxide 400 Mg Tablet PO 400 mg HS ZACRAIAS Administration Melatonin 10 mg 04/20/25 21:00 04/20/25 21:19 Melatonin 5 Mg Tablet PO 10 mg HS ZACARIAS Administration Mirabegron 50 mg 04/20/25 21:00 04/20/25 20:19 Mirabegron 50 Mg Er Tablet PO 50 mg QHS ZACARIAS Administration Miscellaneous Information 1 each 04/20/25 09:00 Tolnaftate Powder XX 04/21/25 08:59 BID PRN Informational Polyethylene Glycol 17 gm 04/20/25 09:00 04/20/25 09:21 Polyethylene Glycol 3350 17 Gm Powd.Pack PO 17 gm Q48H ZACARIAS Administration Simethicone 125 mg 04/20/25 08:00 04/20/25 16:14 Simethicone 125 Mg Chew Tab PO 125 mg TIDWM ZACARIAS Administration Solifenacin 10 mg 04/20/25 21:00 04/20/25 20:19 Solifenacin 5 Mg Tablet PO 10 mg HS ZACARIAS Administration Terbinafine HCl 250 mg 04/20/25 09:00 04/20/25 09:21 Terbinafine Hcl 250 Mg Tablet PO 250 mg DAILY ZACARIAS Administration Timolol Maleate 1 drop 04/20/25 09:00 04/20/25 09:22 Timolol Maleate 0.5% Op Soln 5 Ml Bottle EACH EYE 1 drop DAILY ZACARIAS Administration Tizanidine HCl 2 mg 04/20/25 06:00 04/21/25 05:44 Tizanidine Hcl 2 Mg Tablet PO 2 mg Q8HR ZACARIAS Administration Umeclidinium/Vilanterol 1 puff 04/20/25 08:00 04/21/25 07:07 Umeclidinium/Vilanterol 62.5-25 Mcg Ellipta INHALATION 1 puff DAILYRT ZACARIAS Administration Venlafaxine HCl 225 mg 04/20/25 09:00 04/20/25 09:22 Venlafaxine Hcl Xr 75 Mg Cap.Er.24h PO 225 mg DAILY ZACARIAS Administration Vitamin D 125 mcg 04/20/25 09:00 04/20/25 09:22 Cholecalciferol (Vitamin D3) 125 Mcg (5,000 Units) Tablet PO 125 mcg DAILY ZACARIAS Administration Radiology Results: ITS Impressions Chest X-Ray 04/19/25 17:33 Impression: Mild CHF Pelvis CT 04/20/25 08:32 IMPRESSION: No fracture. Lumbar Spine CT 04/20/25 08:33 IMPRESSION: 1. No acute fracture. 2. Severe lumbar spondylosis. 3. Thoracolumbar levoscoliosis. Hip MRI 04/20/25 12:31 IMPRESSION: 1. Bilateral obturator externus bursitis, mild on the right with mild tendinopathy without discrete tear of the distal right obturator externus tendon. More prominent bursitis on the left with likely chronic partial tear of the left obturator externus tendon and secondary moderate atrophy of the left obturator externus muscle belly. 2. Severe lumbar spondylosis with likely subacute subacute superior endplate compression fracture at L4. 3. 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 ADDENDUM: 04/20/25 1316 ADDENDUM: Upon further review of the images of the pelvis CT there are corticated ossicles along the medial margin of the posterior left greater trochanter in the region of the insertion of the left obturator externus tendon and rather than chronic partial tear, this is more likely to represent a chronic nonunited avulsion fracture of the footplate of the obturator externus tendon. Femur MRI 04/20/25 13:07 IMPRESSION: 1. 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 No acute fracture. 2. Moderate fat-containing left inguinal hernia. Labs Labs: Laboratory Results - last 24 hr 04/20/25 04/20/25 04/21/25 05:18 05:18 05:19 WBC 8.2 RBC 4.04 L Hgb 13.8 Hct 41.3 MCV 102.2 H MCH 34.2 H MCHC 33.4 RDW 14.6 H Plt Count 177 MPV 9.7 Immature Gran % (Auto) 0.5 Neut % (Auto) 53.1 Lymph % (Auto) 34.1 [place] % (Auto) 11.4 H Eos % (Auto) 0.5 Baso % (Auto) 0.4 Lymph # (Auto) 2.79 [place] # (Auto) 0.9 H Eos # (Auto) 0.0 Baso # (Auto) 0.0 Abs Immat Gran (auto) 0.04 H Absolute Neuts (auto) 4.3 Absolute Nucleated RBC 0.000 Nucleated RBC % 0.0 Sodium 131 L Potassium 3.6 Chloride 97 L Carbon Dioxide 27 Anion Gap 7 BUN 27 H Creatinine 1.14 H Estim Creat Clear Calc 26 Estimated GFR 45 L Glucose 86 Calcium 9.2 NT-Pro-B Natriuret Pep 4460 H TSH (Reflex) 3.500 Cancelled Quality VTE Prophylaxis VTE prophylaxis: pharmacologic ordered
--- NOTE | 2025-04-21 08:10 | PCOTNOTE ---
Ortho consult pending. OT evaluation pending ortho recommendation.
[2025-04-21] MEDS: ASPIRIN 81 MG ENTERIC TABLET PO (08:50)
[2025-04-21] MEDS: FOLIC ACID 1 MG TABLET PO (08:50)
[2025-04-21] MEDS: CALCIUM CITRATE 315 MG/VITAMIN D 6.25 MCG (250 UNITS) TAB 1 TABLET PO (08:51)
[2025-04-21] MEDS: LOSARTAN POTASSIUM 50 MG TABLET PO (08:51)
[2025-04-21] MEDS: TERBINAFINE HCL 250 MG TABLET PO (08:51)
[2025-04-21] MEDS: SIMETHICONE 125 MG CHEW TAB PO ×3 (08:51→16:32)
[2025-04-21] MEDS: ACIDOPHILUS/BULGARICUS CHEWABLE TABLET 1 TABLET BY MOUTH (08:51)
[2025-04-21] MEDS: CHOLECALCIFEROL (VITAMIN D3) 125 MCG (5,000 UNITS) TABLET PO (08:51)
[2025-04-21] MEDS: FAMOTIDINE 20 MG TABLET PO ×2 (08:51→16:32)
[2025-04-21] MEDS: VENLAFAXINE HCL XR 75 MG CAP.ER.24H 225 MG PO (08:52)
[2025-04-21] MEDS: DICLOFENAC SODIUM 1% 100 GM GEL (*BKC) 1 APPLIC TOPICAL ×4 (08:56→21:18)
[2025-04-21] MEDS: TIMOLOL MALEATE 0.5% OP SOLN 5 ML BOTTLE 1 DROP EACH EYE (08:56)
[2025-04-21] MEDS: ENOXAPARIN 30 MG/0.3 ML SYRINGE SUB-Q (09:02)
--- NOTE | 2025-04-21 11:47 | PM.CNOR ---
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 Decreased muscle tone in the left leg. Multiple falls. Patient may have aggravated an old injury with her recent fall. No acute findings on the MRI. Reviewed MRI of the hip, femur, and the CT pelvis with Dr. Hernández. Moderate hip joint arthritis. Chronic appearing fracture with muscle atrophy on MRI. Patient is pleasant confused and answers questions well. Excellent hip range of motion without pain. No surgical intervention is recommended at this time. She may follow up outpatient with orthopedics. Per ER note she was scheduled to see an orthopedic provider that day. Per patient's nurse, patient screams in pain when trying to ambulate. I recommend physical therapy. Patient may weight bear as tolerated with a walker. I recommend rehab at discharge. <ALEXANDRIA Sandhu - Last Filed: 04/21/25 14:47> (2) Arthritis of left hip: Code(s): M16.12 - Unilateral primary osteoarthritis, left hip <ALEXANDIRA Sandhu - Last Filed: 04/21/25 14:47> Status: Acute <ALEXANDRIA Sandhu - Last Filed: 04/21/25 14:47> (3) Multiple falls: Code(s): R29.6 - Repeated falls <ALEXANDRIA Sandhu - Last Filed: 04/21/25 14:47> Status: Acute <ALEXANDRIA Sandhu - Last Filed: 04/21/25 14:47> Assessment and Plan: Patient seen and examined. Discussed above care plan. Radiographic images reviewed personally. Agree with conservative care plan. <Antelmo Hernández MD - Last Filed: 04/21/25 14:51> History of Present Illness HPI Consult date: 04/21/25 <ALEXANDRIA Sandhu - Last Filed: 04/21/25 14:47> 04/21/25 <Antelmo Hernández MD - Last Filed: 04/21/25 14:51> Chief complaint: Hip pain, general debility, compression fracture <ALEXANDRIA Sandhu - Last Filed: 04/21/25 14:47> Narrative: Pleasant 84 y/o female. She complains of left lower leg pain. States the pain is more in the anterior thigh. Pain does go down to her feet. No numbness or tingling. She has been falling. Typically walks with a walker. Patient has dementia. No family in the room. Per the nurse, patient screams with pain when bearing weight on the left leg. No calf pain. <ALEXANDRIA Sandhu - Last Filed: 04/21/25 14:47> Review of Systems Review of Systems: All systems reviewed & are unremarkable except as noted in HPI and below <ALEXANDRIA Sandhu - Last Filed: 04/21/25 14:47> [facility] Past Medical History Medical History: Medical History Dementia Depression with anxiety Osteoporosis Neuropathy Glaucoma Cataract Anxiety Depression Hypothyroidism GERD (gastroesophageal reflux disease) Hypertension Alzheimer's dementia <ALEXANDRIA Sandhu - Last Filed: 04/21/25 14:47> Surgical History Surgical History: Surgical History H/O foot surgery On the right History of bilateral knee replacement History of colonoscopy History of tonsillectomy and adenoidectomy History of hernia repair History of cholecystectomy <ALEXANDRIA Sandhu - Last Filed: 04/21/25 14:47> Family History Family History: Family History Father Acute myocardial infarction Hypertension Sibling Acute myocardial infarction Brother Mother Acute myocardial infarction Hypertension <ALEXANDRIA Sandhu - Last Filed: 04/21/25 14:47> Social History Social History: Social History Social History: The patient is . 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 She has 2 children. She lives with daughter. She is a lifelong nonsmoker. She does not use any alcohol marijuana or illicit drugs. Code status full code Smoking status: Never smoker Second hand tobacco smoke exposure: Yes Alcohol intake: never Substance use: never Lack of Transportation: No Lack of Food: Never True Current Housing: I Have Housing Concerned About Future Housing: No Difficulty Paying Gas/Electric Bills: No Difficulty Paying for Meds: No Currently Unemployed: No Education: High School Diploma/GED Difficulty w/ Childcare or Family Care: No Spiritual care concerns: No <ALEXANDRIA Sandhu - Last Filed: 04/21/25 14:47> Meds Home Medications and Allergies Home medications: Home Medications ?Medication ?Instructions ?Recorded ?Confirmed ?Type alendronate 70 mg tablet 70 mg PO WEEKLY 08/03/20 04/20/25 History cholecalciferol (vitamin D3) 125 125 mcg PO DAILY 08/03/20 04/20/25 History mcg (5,000 unit) tablet (Vitamin D3) citalopram 40 mg tablet 40 mg PO HS 08/03/20 04/20/25 History donepezil 10 mg tablet 10 mg PO HS 08/03/20 04/20/25 History famotidine 20 mg tablet 20 mg PO BID 08/03/20 04/20/25 History simethicone 125 mg tablet 125 mg PO TIDWM 08/03/20 04/20/25 History solifenacin 10 mg tablet (Vesicare) 10 mg PO HS 08/03/20 04/20/25 History aspirin 81 mg tablet,delayed 81 mg PO DAILY 04/27/22 04/20/25 History release latanoprost 0.005 % eye drops 1 drp EACH EYE HS 04/27/22 04/20/25 History melatonin 10 mg tablet 10 mg PO HS 04/27/22 04/20/25 History timolol maleate 0.5 % eye drops 1 drp EACH EYE DAILY 04/27/22 04/20/25 History umeclidinium 62.5 mcg-vilanterol 1 ea inhalation DAILY PRN cough, 04/27/22 04/20/25 History 25 mcg/actuation powdr for sob inhalation (Anoro Ellipta) venlafaxine 75 mg capsule,extended 225 mg PO DAILY 04/27/22 04/20/25 History release 24 hr albuterol sulfate 90 mcg/actuation 2 puff inhalation QID PRN 05/12/22 04/20/25 Rx aerosol inhaler (Proventil HFA) Shortness Of Breath #1 g levothyroxine 150 mcg tablet 137 mcg (0.9133 x 150 mcg) PO 05/12/22 04/20/25 Rx DAILY 30 days #30 tabs losartan 50 mg tablet 50 mg PO DAILY #30 tabs 05/12/22 04/20/25 Rx tolnaftate 1 % topical powder 1 applic topical Q12HR 20 days #1 g 05/12/22 04/20/25 Rx Lactobacillus rhamnosus GG 10 1 cap PO DAILY 04/20/25 04/20/25 History billion cell capsule (Culturelle) acetaminophen 650 mg 650 mg PO Q8H PRN pain 04/20/25 04/20/25 History tablet,extended release calcium citrate 400 mg PO DAILY 04/20/25 04/20/25 History d-mannose 500 mg capsule 2,100 mg PO DAILY 04/20/25 04/20/25 History folic acid 1 mg tablet 1,000 mcg PO DAILY 04/20/25 04/20/25 History hydrochlorothiazide 12.5 mg capsule 12.5 mg PO DAILY 04/20/25 04/20/25 History magnesium 100 mg capsule 300 mg PO HS 04/20/25 04/20/25 History mirabegron 50 mg tablet,extended 50 mg PO QHS 04/20/25 04/20/25 History release 24 hr (Myrbetriq) polyethylene glycol 3350 17 17 g PO .qod 04/20/25 04/20/25 History gram/dose oral powder terbinafine HCl 250 mg tablet 250 mg PO DAILY 04/20/25 04/20/25 History tizanidine 2 mg tablet 2 mg PO Q8H 04/20/25 04/20/25 History ALEXANDRIA Pierre - Last Filed: 04/21/25 14:47> Allergies/Adverse reactions: Allergies Allergy/AdvReac Type Severity Reaction Status Date / Time adhesive Allergy Unknown TAPE - Verified 03/22/23 21:13 BLISTERS erythromycin base Allergy Unknown Unknown Verified 03/22/23 21:13 <ALEXANDRIA Sandhu Last Filed: 04/21/25 14:47> Vital Signs Vital Signs - 24 hr 04/20/25 13:59 04/20/25 14:00 04/20/25 21:19 Temperature 96.5 F L Pulse Rate 86 Respiratory Rate 20 Blood Pressure 142/71 H Pulse Oximetry 94 Oxygen Delivery Room Air Room Air 04/20/25 21:40 04/21/25 04:05 04/21/25 07:08 Temperature 96.9 F L 97.3 F L Pulse Rate 92 86 89 Respiratory Rate 17 17 18 Blood Pressure 112/57 L 130/55 L Pulse Oximetry 98 97 Oxygen Delivery 04/21/25 07:10 04/21/25 08:30 Temperature Pulse Rate 89 Respiratory Rate 18 Blood Pressure Pulse Oximetry 93 Oxygen Delivery Room Air Room Air <ALEXANDRIA Sandhu - Last Filed: 04/21/25 14:47> Exam Narrative: Pleasant overweight 84 y/o female. A&O x3. No acute distress. Resting comfortably in bed. No clinical deformity. Decreased muscle tone in the left leg. Hip ROM, no pain with any motion: Flexion 120?, internal rotation 30 and external rotation 45 without pain. Negative Stinchfield sign. Tenderness at the greater trochanter. No ecchymosis or swelling. No rash or lesions. No mass or swelling. No distal edema. Anterior tibialis strength 3/5 without pain. Knee exam benign. Scar from previous total knee arthroplasty. Light touch sensation intact. Dorsalis pedis pulse normal. Normal plantar and dorsiflexion flexion strength bilaterally. <ALEXANDRIA Sandhu - Last Filed: 04/21/25 14:47> Results Labs Result Diagrams: 04/21/25 05:19 04/21/25 05:19 <ALEXANDRIA Sandhu Last Filed: 04/21/25 14:47> Labs: Abnormal lab results 09/18/25 Range/Units 05:19 RBC 4.04 L (4.2-5.4) M/mm3 MCV 102.2 H (80-100) fl MCH 34.2 H (26-34) pg RDW 14.6 H (11.5-14.5) % [place] % (Auto) 11.4 H (2.6-8.5) % [place] # (Auto) 0.9 H (0.1-0.6) K/mm3 Abs Immat Gran (auto) 0.04 H (0.00-0.031) K/mm3 Sodium 131 L (137-145) mmol/L Chloride 97 L (98-107) mmol/L BUN 27 H (7-17) mg/dL Creatinine 1.14 H (0.7-1.0) mg/dL Estimated GFR 45 L (59 - ) H & H 04/19/25 04/21/25 Range/Units 17:49 05:19 Hgb 13.0 D 13.8 (12.0-15.0) g/dL Hct 38.5 41.3 (37.0-47.0) % All other labs normal. <ALEXANDRIA Sandhu - Last Filed: 04/21/25 14:47>
[2025-04-21] MEDS: ACETAMINOPHEN 325 MG TABLET 650 MG PO ×2 (12:52→17:31)
[2025-04-21 14:00] VITALS: BP 159/83; PULSE 89; RESP 17; TEMP 36.7; O2SAT 97
[2025-04-21 19:37] VITALS: BP 111/73; PULSE 80; RESP 12; TEMP 36.6; O2SAT 95
[2025-04-21] MEDS: CITALOPRAM HYDROBROMIDE 20 MG TABLET 40 MG PO (21:15)
[2025-04-21] MEDS: MAGNESIUM OXIDE 400 MG TABLET PO (21:15)
[2025-04-21] MEDS: MIRABEGRON 50 MG ER TABLET PO (21:15)
[2025-04-21] MEDS: DONEPEZIL HCL 10 MG TABLET PO (21:15)
[2025-04-21] MEDS: MELATONIN 5 MG TABLET 10 MG PO (21:16)
[2025-04-21] MEDS: LATANOPROST 0.005% OP SOLN 2.5 ML BTL 1 DROP EACH EYE (21:18)
[2025-04-21] MEDS: SOLIFENACIN 5 MG TABLET 10 MG PO (21:21)
[2025-04-22] MEDS: ACETAMINOPHEN 325 MG TABLET 650 MG PO ×4 (00:46→18:19)
[2025-04-22 04:17] VITALS: BP 128/70; PULSE 93; RESP 12; TEMP 36.2; O2SAT 97
[2025-04-22] MEDS: TIZANIDINE HCL 2 MG TABLET PO ×3 (06:31→21:53)
[2025-04-22] MEDS: LEVOTHYROXINE SODIUM 112 MCG TABLET PO (06:31)
[2025-04-22] MEDS: LEVOTHYROXINE SODIUM 25 MCG TABLET PO (06:31)
[2025-04-22 07:17] LABS: Anion Gap 6 mmol/L (4-12); Blood Urea Nitrogen 28 mg/dL (7-17); Calcium 9.3 mg/dL (8.4-10.2); Carbon Dioxide 26 mmol/L (22-30); Chloride 97 mmol/L (98-107); Estimated CRCL calculation 25 ml/min; Estimated Glomerular Filt Rate 43; Glucose 80 mg/dL (65-110); Potassium 3.9 mmol/L (3.4-5.0); Sodium 129 mmol/L (137-145)
[2025-04-22] MEDS: SIMETHICONE 125 MG CHEW TAB PO ×3 (08:19→18:19)
[2025-04-22] MEDS: ACIDOPHILUS/BULGARICUS CHEWABLE TABLET 1 TABLET BY MOUTH (08:19)
[2025-04-22] MEDS: TERBINAFINE HCL 250 MG TABLET PO (08:19)
[2025-04-22] MEDS: VENLAFAXINE HCL XR 75 MG CAP.ER.24H 225 MG PO (08:19)
[2025-04-22] MEDS: FAMOTIDINE 20 MG TABLET PO ×2 (08:20→18:19)
[2025-04-22] MEDS: LOSARTAN POTASSIUM 50 MG TABLET PO (08:20)
[2025-04-22] MEDS: CHOLECALCIFEROL (VITAMIN D3) 125 MCG (5,000 UNITS) TABLET PO (08:20)
[2025-04-22] MEDS: FOLIC ACID 1 MG TABLET PO (08:20)
[2025-04-22] MEDS: ASPIRIN 81 MG ENTERIC TABLET PO (08:20)
[2025-04-22] MEDS: DICLOFENAC SODIUM 1% 100 GM GEL (*BKC) 1 APPLIC TOPICAL ×4 (08:21→21:58)
[2025-04-22] MEDS: TIMOLOL MALEATE 0.5% OP SOLN 5 ML BOTTLE 1 DROP EACH EYE (08:21)
[2025-04-22] MEDS: CALCIUM CITRATE 315 MG/VITAMIN D 6.25 MCG (250 UNITS) TAB 1 TABLET PO (08:22)
[2025-04-22] MEDS: ENOXAPARIN 30 MG/0.3 ML SYRINGE SUB-Q (08:30)
[2025-04-22 08:40] VITALS: BP 142/71; PULSE 84; O2SAT 97
[2025-04-22] MEDS: UMECLIDINIUM/VILANTEROL 62.5-25 MCG ELLIPTA 1 PUFF INHALATION (08:45)
[2025-04-22 08:46] VITALS: PULSE 92; RESP 18
--- NOTE | 2025-04-22 11:25 | P.PNIM_ITS ---
Progress Note: A&P Assessment and Plan (1) Hip pain, left: Code(s): M25.552 - Pain in left hip Status: Acute Assessment and Plan: -intractable left hip pain. Tenderness noted to the left lateral femur. The bethany taylor has had multiple falls. - CT L-spine showed severe lumbar spondylosis and thoracolumbar levoscoliosis. 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 -PT/OT - recommended SNF. Care coordination following for placement. -pain management - stopped opiates due to concerns for hallucinations. Schedule Tylenol, continue PRN Zanaflex. Heating pad. - ortho consulted - recommended WBAT and PT. Follow-up as outpatient. (2) Depression with anxiety: Code(s): F41.8 - Other specified anxiety disorders Status: Acute Assessment and Plan: -continue Celexa and venlafaxine (3) Hypothyroidism: Code(s): E03.9 - Hypothyroidism, unspecified Status: Acute Assessment and Plan: -TSH WNL -continue levothyroxine (4) Osteoporosis: Code(s): M81.0 - Age-related osteoporosis without current pathological fracture Status: Acute Assessment and Plan: -osteoporosis with multiple falls puts the patient at risk for a fracture. -continue with Fosamax (5) Glaucoma: Code(s): H40.9 - Unspecified glaucoma Status: Acute Assessment and Plan: -continue with home eye drops. (6) Hypertension: Code(s): I10 - Essential (primary) hypertension Status: Acute Assessment and Plan: -continue with losartan and monitor renal functions. (7) Dementia: Code(s): F03.90 - Unspecified dementia, unspecified severity, without behavioral disturbance, psychotic disturbance, mood disturbance, and anxiety Status: Acute Assessment and Plan: -continue with donepezil (8) Hyponatremia: Code(s): E87.1 - Hypo-osmolality and hyponatremia Status: Acute Assessment and Plan: - Na 131-->129 - may be due to poor PO intake in setting of pain. Also on HCTZ - hold HCTZ - monitor BMP (9) Chronic kidney disease: Code(s): N18.9 - Chronic kidney disease, unspecified Status: Acute Assessment and Plan: - Cr 1.17, near baseline - avoid nephrotoxins Subjective Date/time seen: 04/22/25 11:25 Interval history: This is an 84-year-old female patient to reside with her daughter. The patient has a history of dementia and has been having multiple falls. Patient seen and examined at bedside. States pain is well controlled. Seems to be doing better with medication changes. Review of Systems Review of Systems: All systems reviewed & are unremarkable except as noted in HPI and below Exam Narrative: General: NAD Eyes: EOMI ENT: neck supple Cardiovascular: Regular rate and rhythm Respiratory: Clear to auscultation, respirations even and unlabored on RA Gastrointestinal: Soft, non tender Genitourinary: no suprapubic tenderness Musculoskeletal: No edema. Skin: warm, dry Neuro: Alert and oriented to person, place and time. Psych: Mood appropriate Objective Data Vital Signs Vital Signs: Vital Signs - 24 hr 04/21/25 14:00 04/21/25 19:37 04/21/25 21:15 Temperature 98.1 F 97.8 F Pulse Rate 89 80 Respiratory Rate 17 12 Blood Pressure 159/83 H 111/73 Pulse Oximetry 97 95 Oxygen Delivery Room Air 04/22/25 04:17 04/22/25 08:40 04/22/25 08:40 Temperature 97.2 F L Pulse Rate 93 84 84 Respiratory Rate 12 Blood Pressure 128/70 142/71 H Pulse Oximetry 97 97 97 Oxygen Delivery Room Air 04/22/25 08:46 Temperature Pulse Rate 92 Respiratory Rate 18 Blood Pressure Pulse Oximetry Oxygen Delivery Intake/Output Intake/Output: Intake & Output 04/19/25 04/20/25 04/21/25 04/22/25 23:59 23:59 23:59 23:59 Intake Total 480 1080 300 Output Total 200 900 Balance 280 180 300 Meds/Results Medications: Active Medications Generic Name Dose Route Start Last Admin Trade Name Freq PRN Reason Stop Dose Admin Acetaminophen 650 mg 04/21/25 12:00 04/22/25 06:32 Acetaminophen 325 Mg Tablet PO 650 mg Q6H ZACARIAS Administration Albuterol 2 puff 04/20/25 05:13 Albuterol Sulfate (*Sp) Aerosol 1 Puff INHALATION QID PRN Shortness Of Breath Alendronate Sodium 70 mg 04/23/25 07:30 Alendronate Sodium 70 Mg Tablet PO Sa@0730 ZACARIAS Aspirin 81 mg 04/20/25 09:00 04/22/25 08:20 Aspirin 81 Mg Enteric Tablet PO 81 mg DAILY ZACARIAS Administration Calcium Citrate 1 tablet 04/20/25 09:00 04/22/25 08:22 Calcium Citrate 315 Mg/Vitamin D 6.25 Mcg (250 Units) Tab PO 1 tablet QAM ZACARIAS Administration Citalopram Hydrobromide 40 mg 04/20/25 21:00 04/21/25 21:15 Citalopram Hydrobromide 20 Mg Tablet PO 40 mg HS ZACARIAS Administration Diclofenac Sodium 1 applic 04/20/25 09:00 04/22/25 08:21 Diclofenac Sodium 1% 100 Gm Gel (*Bkc) TOPICAL 1 applic QID ZACARIAS Administration Donepezil HCl 10 mg 04/20/25 21:00 04/21/25 21:15 Donepezil Hcl 10 Mg Tablet PO 10 mg HS ZACRAIAS Administration Enoxaparin Sodium 30 mg 04/21/25 09:00 04/22/25 08:30 Enoxaparin 30 Mg/0.3 Ml Syringe SUB-Q 30 mg DAILY ZACARIAS Administration Famotidine 20 mg 04/20/25 09:00 04/22/25 08:20 Famotidine 20 Mg Tablet PO 20 mg BID ZACARIAS Administration Folic Acid 1 mg 04/20/25 09:00 04/22/25 08:20 Folic Acid 1 Mg Tablet PO 1 mg DAILY ZACARIAS Administration Lactobacillus Acidophilus 1 tablet 04/20/25 09:00 04/22/25 08:19 Acidophilus/Bulgaricus Chewable Tablet BY MOUTH 1 tablet DAILY ZACARIAS Administration Latanoprost 1 drop 04/20/25 21:00 04/21/25 21:18 Latanoprost 0.005% Op Soln 2.5 Ml Btl EACH EYE 1 drop HS ZACARIAS Administration Levothyroxine Sodium 112 mcg 04/20/25 06:30 04/22/25 06:31 Levothyroxine Sodium 112 Mcg Tablet PO 112 mcg DAILY@0630 ZACARIAS Administration Levothyroxine Sodium 25 mcg 04/20/25 06:30 04/22/25 06:31 Levothyroxine Sodium 25 Mcg Tablet PO 25 mcg DAILY@0630 ZACARIAS Administration Losartan Potassium 50 mg 04/20/25 09:00 04/22/25 08:20 Losartan Potassium 50 Mg Tablet PO 50 mg DAILY ZACARIAS Administration Magnesium Oxide 400 mg 04/20/25 21:00 04/21/25 21:15 Magnesium Oxide 400 Mg Tablet PO 400 mg HS ZACARIAS Administration Melatonin 10 mg 04/20/25 21:00 04/21/25 21:16 Melatonin 5 Mg Tablet PO 10 mg HS ZACARIAS Administration Mirabegron 50 mg 04/20/25 21:00 04/21/25 21:15 Mirabegron 50 Mg Er Tablet PO 50 mg QHS ZACARIAS Administration Polyethylene Glycol 17 gm 04/20/25 09:00 04/22/25 08:21 Polyethylene Glycol 3350 17 Gm Powd.Pack PO 17 gm Q48H ZACARIAS Administration Simethicone 125 mg 04/20/25 08:00 04/22/25 08:19 Simethicone 125 Mg Chew Tab PO 125 mg TIDWM ZACARIAS Administration Solifenacin 10 mg 04/20/25 21:00 04/21/25 21:21 Solifenacin 5 Mg Tablet PO 10 mg HS ZACARIAS Administration Terbinafine HCl 250 mg 04/20/25 09:00 04/22/25 08:19 Terbinafine Hcl 250 Mg Tablet PO 250 mg DAILY ZACARIAS Administration Timolol Maleate 1 drop 04/20/25 09:00 04/22/25 08:21 Timolol Maleate 0.5% Op Soln 5 Ml Bottle EACH EYE 1 drop DAILY ZACARIAS Administration Tizanidine HCl 2 mg 04/20/25 06:00 04/22/25 06:31 Tizanidine Hcl 2 Mg Tablet PO 2 mg Q8HR ZACARIAS Administration Umeclidinium/Vilanterol 1 puff 04/20/25 08:00 04/22/25 08:45 Umeclidinium/Vilanterol 62.5-25 Mcg Ellipta INHALATION 1 puff DAILYRT ZACARIAS Administration Venlafaxine HCl 225 mg 04/20/25 09:00 04/22/25 08:19 Venlafaxine Hcl Xr 75 Mg Cap.Er.24h PO 225 mg DAILY ZACARIAS Administration Vitamin D 125 mcg 04/20/25 09:00 04/22/25 08:20 Cholecalciferol (Vitamin D3) 125 Mcg (5,000 Units) Tablet PO 125 mcg DAILY ZACARIAS Administration Radiology Results: ITS Impressions Chest X-Ray 04/19/25 17:33 Impression: Mild CHF Pelvis CT 04/20/25 08:32 IMPRESSION: No fracture. Lumbar Spine CT 04/20/25 08:33 IMPRESSION: 1. No acute fracture. 2. Severe lumbar spondylosis. 3. Thoracolumbar levoscoliosis. Hip MRI 04/20/25 12:31 IMPRESSION: 1. Bilateral obturator externus bursitis, mild on the right with mild tendinopathy without discrete tear of the distal right obturator externus tendon. More prominent bursitis on the left with likely chronic partial tear of the left obturator externus tendon and secondary moderate atrophy of the left obturator externus muscle belly. 2. Severe lumbar spondylosis with likely subacute subacute superior endplate compression fracture at L4. 3. 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 ADDENDUM: 04/20/25 1316 ADDENDUM: Upon further review of the images of the pelvis CT there are corticated ossicles along the medial margin of the posterior left greater trochanter in the region of the insertion of the left obturator externus tendon and rather than chronic partial tear, this is more likely to represent a chronic nonunited avulsion fracture of the footplate of the obturator externus tendon. Femur MRI 04/20/25 13:07 IMPRESSION: 1. 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 No acute fracture. 2. Moderate fat-containing left inguinal hernia. Labs Labs: Laboratory Results - last 24 hr 04/22/25 05:59 Sodium 129 L Potassium 3.9 Chloride 97 L Carbon Dioxide 26 Anion Gap 6 BUN 28 H Creatinine 1.20 H Estim Creat Clear Calc 25 Estimated GFR 43 L Glucose 80 Calcium 9.3 Quality VTE Prophylaxis VTE prophylaxis: pharmacologic ordered
[2025-04-22 13:24] VITALS: BMI 26.2
[2025-04-22 14:00] VITALS: BP 103/50; PULSE 79; RESP 18; TEMP 36.4; O2SAT 96
[2025-04-22 19:36] VITALS: BP 110/51; PULSE 72; RESP 20; TEMP 35.9; O2SAT 97
[2025-04-22 20:20] VITALS: O2SAT 94
[2025-04-22] MEDS: MIRABEGRON 50 MG ER TABLET PO (21:53)
[2025-04-22] MEDS: SOLIFENACIN 5 MG TABLET 10 MG PO (21:53)
[2025-04-22] MEDS: CITALOPRAM HYDROBROMIDE 20 MG TABLET 40 MG PO (21:53)
[2025-04-22] MEDS: MAGNESIUM OXIDE 400 MG TABLET PO (21:53)
[2025-04-22] MEDS: DONEPEZIL HCL 10 MG TABLET PO (21:53)
[2025-04-22] MEDS: MELATONIN 5 MG TABLET 10 MG PO (21:56)
[2025-04-22] MEDS: LATANOPROST 0.005% OP SOLN 2.5 ML BTL 1 DROP EACH EYE (21:58)
[2025-04-23] MEDS: ACETAMINOPHEN 325 MG TABLET 650 MG PO ×4 (01:00→17:18)
[2025-04-23 04:09] VITALS: BP 117/50; PULSE 78; RESP 18; TEMP 36.6; O2SAT 97
[2025-04-23] MEDS: ALENDRONATE SODIUM 70 MG TABLET PO (06:36)
[2025-04-23] MEDS: LEVOTHYROXINE SODIUM 112 MCG TABLET PO (06:36)
[2025-04-23] MEDS: TIZANIDINE HCL 2 MG TABLET PO ×3 (06:36→21:10)
[2025-04-23] MEDS: LEVOTHYROXINE SODIUM 25 MCG TABLET PO (06:38)
[2025-04-23 06:46] LABS: Anion Gap 7 mmol/L (4-12); Blood Urea Nitrogen 35 mg/dL (7-17); Calcium 9.2 mg/dL (8.4-10.2); Carbon Dioxide 26 mmol/L (22-30); Chloride 97 mmol/L (98-107); Estimated CRCL calculation 23 ml/min; Estimated Glomerular Filt Rate 38; Glucose 84 mg/dL (65-110); Potassium 4.0 mmol/L (3.4-5.0); Sodium 130 mmol/L (137-145)
[2025-04-23 07:25] VITALS: PULSE 90; RESP 18
[2025-04-23] MEDS: UMECLIDINIUM/VILANTEROL 62.5-25 MCG ELLIPTA 1 PUFF INHALATION (07:25)
[2025-04-23] MEDS: DICLOFENAC SODIUM 1% 100 GM GEL (*BKC) 1 APPLIC TOPICAL ×4 (08:31→21:16)
[2025-04-23] MEDS: SIMETHICONE 125 MG CHEW TAB PO ×3 (08:32→17:18)
[2025-04-23] MEDS: VENLAFAXINE HCL XR 75 MG CAP.ER.24H 225 MG PO (08:32)
[2025-04-23] MEDS: FOLIC ACID 1 MG TABLET PO (08:32)
[2025-04-23] MEDS: CALCIUM CITRATE 315 MG/VITAMIN D 6.25 MCG (250 UNITS) TAB 1 TABLET PO (08:32)
[2025-04-23] MEDS: FAMOTIDINE 20 MG TABLET PO ×2 (08:32→17:18)
[2025-04-23] MEDS: ASPIRIN 81 MG ENTERIC TABLET PO (08:32)
[2025-04-23] MEDS: ACIDOPHILUS/BULGARICUS CHEWABLE TABLET 1 TABLET BY MOUTH (08:33)
[2025-04-23] MEDS: LOSARTAN POTASSIUM 50 MG TABLET PO (08:33)
[2025-04-23] MEDS: TIMOLOL MALEATE 0.5% OP SOLN 5 ML BOTTLE 1 DROP EACH EYE (08:33)
[2025-04-23] MEDS: CHOLECALCIFEROL (VITAMIN D3) 125 MCG (5,000 UNITS) TABLET PO (08:33)
[2025-04-23] MEDS: ENOXAPARIN 30 MG/0.3 ML SYRINGE SUB-Q (08:33)
[2025-04-23] MEDS: TERBINAFINE HCL 250 MG TABLET PO (08:33)
[2025-04-23 09:56] VITALS: O2SAT 94
--- NOTE | 2025-04-23 10:37 | P.PNIM_ITS ---
Progress Note: A&P Assessment and Plan (1) Hip pain, left: Code(s): M25.552 - Pain in left hip Status: Acute Assessment and Plan: -intractable left hip pain. Tenderness noted to the left lateral femur. The bethany taylor has had multiple falls. - CT L-spine showed severe lumbar spondylosis and thoracolumbar levoscoliosis. 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 -PT/OT - recommended SNF. Awaiting auth. -pain management - stopped opiates due to concerns for hallucinations. Schedule Tylenol, continue PRN Zanaflex. Heating pad. - ortho consulted - recommended WBAT and PT. Follow-up as outpatient. (2) Depression with anxiety: Code(s): F41.8 - Other specified anxiety disorders Status: Acute Assessment and Plan: -continue Celexa and venlafaxine (3) Hypothyroidism: Code(s): E03.9 - Hypothyroidism, unspecified Status: Acute Assessment and Plan: -TSH WNL -continue levothyroxine (4) Osteoporosis: Code(s): M81.0 - Age-related osteoporosis without current pathological fracture Status: Acute Assessment and Plan: -osteoporosis with multiple falls puts the patient at risk for a fracture. -continue with Fosamax (5) Glaucoma: Code(s): H40.9 - Unspecified glaucoma Status: Acute Assessment and Plan: -continue with home eye drops. (6) Hypertension: Code(s): I10 - Essential (primary) hypertension Status: Acute Assessment and Plan: -continue with losartan and monitor renal functions. (7) Dementia: Code(s): F03.90 - Unspecified dementia, unspecified severity, without behavioral disturbance, psychotic disturbance, mood disturbance, and anxiety Status: Acute Assessment and Plan: -continue with donepezil (8) Hyponatremia: Code(s): E87.1 - Hypo-osmolality and hyponatremia Status: Acute Assessment and Plan: - Na 130 - may be due to poor PO intake in setting of pain. Also on HCTZ - hold HCTZ - monitor BMP (9) Chronic kidney disease: Code(s): N18.9 - Chronic kidney disease, unspecified Status: Acute Assessment and Plan: - Cr 1.3, baseline 1.1 - avoid nephrotoxins - encourage PO intake - monitor BMP Subjective Date/time seen: 04/23/25 10:37 Interval history: This is an 84-year-old female patient to reside with her daughter. The patient has a history of dementia and has been having multiple falls. Patient seen and examined at bedside. Having some pain this morning. Review of Systems Review of Systems: All systems reviewed & are unremarkable except as noted in HPI and below Exam Narrative: General: NAD Eyes: EOMI ENT: neck supple Cardiovascular: Regular rate and rhythm Respiratory: Clear to auscultation, respirations even and unlabored on RA Gastrointestinal: Soft, non tender Genitourinary: no suprapubic tenderness Musculoskeletal: No edema. Skin: warm, dry Neuro: Alert. Psych: Mood appropriate Objective Data Vital Signs Vital Signs: Vital Signs - 24 hr 04/22/25 11:40 04/22/25 14:00 04/22/25 19:36 Temperature 97.6 F 96.7 F L Pulse Rate 79 72 Respiratory Rate 18 20 Blood Pressure 103/50 L 110/51 L Pulse Oximetry 96 97 Oxygen Delivery Room Air 04/22/25 20:20 04/23/25 04:09 04/23/25 07:25 Temperature 97.8 F Pulse Rate 78 90 Respiratory Rate 18 18 Blood Pressure 117/50 L Pulse Oximetry 94 97 Oxygen Delivery Room Air 04/23/25 09:56 Temperature Pulse Rate Respiratory Rate Blood Pressure Pulse Oximetry 94 Oxygen Delivery Room Air Intake/Output Intake/Output: Intake & Output 04/20/25 04/21/25 04/22/25 04/23/25 23:59 23:59 23:59 23:59 Intake Total 480 1080 1100 200 Output Total 200 900 Balance 334 200 5953 200 Meds/Results Medications: Active Medications Generic Name Dose Route Start Last Admin Trade Name Freq PRN Reason Stop Dose Admin Acetaminophen 650 mg 04/21/25 12:00 04/23/25 06:36 Acetaminophen 325 Mg Tablet PO 650 mg Q6H ZACARIAS Administration Albuterol 2 puff 04/20/25 05:13 Albuterol Sulfate (*Sp) Aerosol 1 Puff INHALATION QID PRN Shortness Of Breath Alendronate Sodium 70 mg 04/23/25 07:30 04/23/25 06:36 Alendronate Sodium 70 Mg Tablet PO 70 mg Sa@0730 ZACARIAS Administration Aspirin 81 mg 04/20/25 09:00 04/23/25 08:32 Aspirin 81 Mg Enteric Tablet PO 81 mg DAILY ZACARIAS Administration Calcium Citrate 1 tablet 04/20/25 09:00 04/23/25 08:32 Calcium Citrate 315 Mg/Vitamin D 6.25 Mcg (250 Units) Tab PO 1 tablet QAM ZACARIAS Administration Citalopram Hydrobromide 40 mg 04/20/25 21:00 04/22/25 21:53 Citalopram Hydrobromide 20 Mg Tablet PO 40 mg HS ZACARIAS Administration Diclofenac Sodium 1 applic 04/20/25 09:00 04/23/25 08:31 Diclofenac Sodium 1% 100 Gm Gel (*Bkc) TOPICAL 1 applic QID ZACARIAS Administration Donepezil HCl 10 mg 04/20/25 21:00 04/22/25 21:53 Donepezil Hcl 10 Mg Tablet PO 10 mg HS ZACARIAS Administration Enoxaparin Sodium 30 mg 04/21/25 09:00 04/23/25 08:33 Enoxaparin 30 Mg/0.3 Ml Syringe SUB-Q 30 mg DAILY ZACARIAS Administration Famotidine 20 mg 04/20/25 09:00 04/23/25 08:32 Famotidine 20 Mg Tablet PO 20 mg BID ZACARIAS Administration Folic Acid 1 mg 04/20/25 09:00 04/23/25 08:32 Folic Acid 1 Mg Tablet PO 1 mg DAILY ZACARIAS Administration Lactobacillus Acidophilus 1 tablet 04/20/25 09:00 04/23/25 08:33 Acidophilus/Bulgaricus Chewable Tablet BY MOUTH 1 tablet DAILY ZACARIAS Administration Latanoprost 1 drop 04/20/25 21:00 04/22/25 21:58 Latanoprost 0.005% Op Soln 2.5 Ml Btl EACH EYE 1 drop HS ZACARIAS Administration Levothyroxine Sodium 112 mcg 04/20/25 06:30 04/23/25 06:36 Levothyroxine Sodium 112 Mcg Tablet PO 112 mcg DAILY@0630 ZACARIAS Administration Levothyroxine Sodium 25 mcg 04/20/25 06:30 04/23/25 06:38 Levothyroxine Sodium 25 Mcg Tablet PO 25 mcg DAILY@0630 ZACARIAS Administration Losartan Potassium 50 mg 04/20/25 09:00 04/23/25 08:33 Losartan Potassium 50 Mg Tablet PO 50 mg DAILY ZACARIAS Administration Magnesium Oxide 400 mg 04/20/25 21:00 04/22/25 21:53 Magnesium Oxide 400 Mg Tablet PO 400 mg HS ZACARIAS Administration Melatonin 10 mg 04/20/25 21:00 04/22/25 21:56 Melatonin 5 Mg Tablet PO 10 mg HS ZACARIAS Administration Mirabegron 50 mg 04/20/25 21:00 04/22/25 21:53 Mirabegron 50 Mg Er Tablet PO 50 mg QHS ZACARIAS Administration Polyethylene Glycol 17 gm 04/20/25 09:00 04/22/25 08:21 Polyethylene Glycol 3350 17 Gm Powd.Pack PO 17 gm Q48H ZACARIAS Administration Simethicone 125 mg 04/20/25 08:00 04/23/25 08:32 Simethicone 125 Mg Chew Tab PO 125 mg TIDWM ZACARIAS Administration Solifenacin 10 mg 04/20/25 21:00 04/22/25 21:53 Solifenacin 5 Mg Tablet PO 10 mg HS ZACARIAS Administration Terbinafine HCl 250 mg 04/20/25 09:00 04/23/25 08:33 Terbinafine Hcl 250 Mg Tablet PO 250 mg DAILY ZACARIAS Administration Timolol Maleate 1 drop 04/20/25 09:00 04/23/25 08:33 Timolol Maleate 0.5% Op Soln 5 Ml Bottle EACH EYE 1 drop DAILY ZACARIAS Administration Tizanidine HCl 2 mg 04/20/25 06:00 04/23/25 06:36 Tizanidine Hcl 2 Mg Tablet PO 2 mg Q8HR ZACARIAS Administration Umeclidinium/Vilanterol 1 puff 04/20/25 08:00 04/23/25 07:25 Umeclidinium/Vilanterol 62.5-25 Mcg Ellipta INHALATION 1 puff DAILYRT ZACARIAS Administration Venlafaxine HCl 225 mg 04/20/25 09:00 04/23/25 08:32 Venlafaxine Hcl Xr 75 Mg Cap.Er.24h PO 225 mg DAILY ZACARIAS Administration Vitamin D 125 mcg 04/20/25 09:00 04/23/25 08:33 Cholecalciferol (Vitamin D3) 125 Mcg (5,000 Units) Tablet PO 125 mcg DAILY ZACARIAS Administration Radiology Results: ITS Impressions Chest X-Ray 04/19/25 17:33 Impression: Mild CHF Pelvis CT 04/20/25 08:32 IMPRESSION: No fracture. Lumbar Spine CT 04/20/25 08:33 IMPRESSION: 1. No acute fracture. 2. Severe lumbar spondylosis. 3. Thoracolumbar levoscoliosis. Hip MRI 04/20/25 12:31 IMPRESSION: 1. Bilateral obturator externus bursitis, mild on the right with mild tendinopathy without discrete tear of the distal right obturator externus tendon. More prominent bursitis on the left with likely chronic partial tear of the left obturator externus tendon and secondary moderate atrophy of the left obturator externus muscle belly. 2. Severe lumbar spondylosis with likely subacute subacute superior endplate compression fracture at L4. 3. 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 ADDENDUM: 04/20/25 1316 ADDENDUM: Upon further review of the images of the pelvis CT there are corticated ossicles along the medial margin of the posterior left greater trochanter in the region of the insertion of the left obturator externus tendon and rather than chronic partial tear, this is more likely to represent a chronic nonunited avulsion fracture of the footplate of the obturator externus tendon. Femur MRI 04/20/25 13:07 IMPRESSION: 1. 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 No acute fracture. 2. Moderate fat-containing left inguinal hernia. Labs Labs: Laboratory Results - last 24 hr 04/23/25 05:16 Sodium 130 L Potassium 4.0 Chloride 97 L Carbon Dioxide 26 Anion Gap 7 BUN 35 H Creatinine 1.32 H Estim Creat Clear Calc 23 Estimated GFR 38 L Glucose 84 Calcium 9.2 Quality VTE Prophylaxis VTE prophylaxis: pharmacologic ordered
[2025-04-23 14:00] VITALS: BP 96/52; PULSE 83; RESP 16; TEMP 36.5; O2SAT 98
[2025-04-23] MEDS: MAGNESIUM OXIDE 400 MG TABLET PO (21:10)
[2025-04-23] MEDS: MIRABEGRON 50 MG ER TABLET PO (21:10)
[2025-04-23] MEDS: DONEPEZIL HCL 10 MG TABLET PO (21:10)
[2025-04-23] MEDS: CITALOPRAM HYDROBROMIDE 20 MG TABLET 40 MG PO (21:11)
[2025-04-23] MEDS: MELATONIN 5 MG TABLET 10 MG PO (21:12)
[2025-04-23] MEDS: SOLIFENACIN 5 MG TABLET 10 MG PO (21:12)
[2025-04-23] MEDS: LATANOPROST 0.005% OP SOLN 2.5 ML BTL 1 DROP EACH EYE (21:15)
[2025-04-23 21:20] VITALS: BP 102/60; PULSE 84; RESP 16; TEMP 36.6; O2SAT 97
[2025-04-24] MEDS: ACETAMINOPHEN 325 MG TABLET 650 MG PO ×4 (00:37→17:20)
[2025-04-24 05:33] VITALS: BP 128/45; PULSE 80; RESP 17; TEMP 36.6; O2SAT 97
[2025-04-24] MEDS: LEVOTHYROXINE SODIUM 25 MCG TABLET PO (05:48)
[2025-04-24] MEDS: LEVOTHYROXINE SODIUM 112 MCG TABLET PO (05:49)
[2025-04-24] MEDS: TIZANIDINE HCL 2 MG TABLET PO ×3 (05:49→21:19)
[2025-04-24 08:00] LABS: Anion Gap 1 mmol/L (4-12); Blood Urea Nitrogen 33 mg/dL (7-17); Calcium 8.8 mg/dL (8.4-10.2); Carbon Dioxide 30 mmol/L (22-30); Chloride 99 mmol/L (98-107); Estimated CRCL calculation 22 ml/min; Estimated Glomerular Filt Rate 36; Glucose 120 mg/dL (65-110); Potassium 4.0 mmol/L (3.4-5.0); Sodium 130 mmol/L (137-145)
[2025-04-24] MEDS: UMECLIDINIUM/VILANTEROL 62.5-25 MCG ELLIPTA 1 PUFF INHALATION (08:32)
[2025-04-24] MEDS: TERBINAFINE HCL 250 MG TABLET PO (09:04)
[2025-04-24] MEDS: ASPIRIN 81 MG ENTERIC TABLET PO (09:04)
[2025-04-24] MEDS: DICLOFENAC SODIUM 1% 100 GM GEL (*BKC) 1 APPLIC TOPICAL ×4 (09:04→20:52)
[2025-04-24] MEDS: CHOLECALCIFEROL (VITAMIN D3) 125 MCG (5,000 UNITS) TABLET PO (09:04)
[2025-04-24] MEDS: VENLAFAXINE HCL XR 75 MG CAP.ER.24H 225 MG PO (09:04)
[2025-04-24] MEDS: LOSARTAN POTASSIUM 50 MG TABLET PO (09:04)
[2025-04-24] MEDS: ACIDOPHILUS/BULGARICUS CHEWABLE TABLET 1 TABLET BY MOUTH (09:04)
[2025-04-24] MEDS: CALCIUM CITRATE 315 MG/VITAMIN D 6.25 MCG (250 UNITS) TAB 1 TABLET PO (09:04)
[2025-04-24] MEDS: TIMOLOL MALEATE 0.5% OP SOLN 5 ML BOTTLE 1 DROP EACH EYE (09:04)
[2025-04-24] MEDS: FOLIC ACID 1 MG TABLET PO (09:04)
[2025-04-24] MEDS: SIMETHICONE 125 MG CHEW TAB PO ×3 (09:04→17:20)
[2025-04-24] MEDS: FAMOTIDINE 20 MG TABLET PO ×2 (09:04→17:20)
[2025-04-24] MEDS: ENOXAPARIN 30 MG/0.3 ML SYRINGE SUB-Q (09:05)
[2025-04-24] MEDS: LACTATED RINGERS 500 ML 100 ML IV CONT (09:18)
--- NOTE | 2025-04-24 10:30 | P.PNIM_ITS ---
Progress Note: A&P Assessment and Plan (1) Hip pain, left: Code(s): M25.552 - Pain in left hip Status: Acute Assessment and Plan: -intractable left hip pain. Tenderness noted to the left lateral femur. The bethany taylor has had multiple falls. - CT L-spine showed severe lumbar spondylosis and thoracolumbar levoscoliosis. 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 -PT/OT - recommended SNF. Awaiting auth. -pain management - stopped opiates due to concerns for hallucinations. Schedule Tylenol, continue PRN Zanaflex. Heating pad. - ortho consulted - recommended WBAT and PT. Follow-up as outpatient. (2) Depression with anxiety: Code(s): F41.8 - Other specified anxiety disorders Status: Acute Assessment and Plan: -continue Celexa and venlafaxine (3) Hypothyroidism: Code(s): E03.9 - Hypothyroidism, unspecified Status: Acute Assessment and Plan: -TSH WNL -continue levothyroxine (4) Osteoporosis: Code(s): M81.0 - Age-related osteoporosis without current pathological fracture Status: Acute Assessment and Plan: -osteoporosis with multiple falls puts the patient at risk for a fracture. -continue with Fosamax (5) Glaucoma: Code(s): H40.9 - Unspecified glaucoma Status: Acute Assessment and Plan: -continue with home eye drops. (6) Hypertension: Code(s): I10 - Essential (primary) hypertension Status: Acute Assessment and Plan: -continue with losartan and monitor renal functions. (7) Dementia: Code(s): F03.90 - Unspecified dementia, unspecified severity, without behavioral disturbance, psychotic disturbance, mood disturbance, and anxiety Status: Acute Assessment and Plan: -continue with donepezil (8) Hyponatremia: Code(s): E87.1 - Hypo-osmolality and hyponatremia Status: Acute Assessment and Plan: - Na 130 - may be due to poor PO intake in setting of pain. Also on HCTZ - hold HCTZ - monitor BMP - trialing gentle IV fluids (9) Chronic kidney disease: Code(s): N18.9 - Chronic kidney disease, unspecified Status: Acute Assessment and Plan: - Cr 1.3, baseline 1.1 - avoid nephrotoxins - encourage PO intake - monitor BMP - Cr trended up slightly, trial gentle IV fluids Subjective Date/time seen: 04/24/25 10:30 Interval history: This is an 84-year-old female patient to reside with her daughter. The patient has a history of dementia and has been having multiple falls. Patient seen and examined at bedside. Pain well-controlled today. Review of Systems Review of Systems: All systems reviewed & are unremarkable except as noted in HPI and below Exam Narrative: General: NAD Eyes: EOMI ENT: neck supple Cardiovascular: Regular rate and rhythm Respiratory: Clear to auscultation, respirations even and unlabored on RA Gastrointestinal: Soft, non tender Genitourinary: no suprapubic tenderness Musculoskeletal: No edema. Skin: warm, dry Neuro: Alert. Psych: Mood appropriate Objective Data Vital Signs Vital Signs: Vital Signs - 24 hr 04/23/25 14:00 04/23/25 21:20 04/24/25 05:33 Temperature 97.7 F 97.8 F 97.8 F Pulse Rate 83 84 80 Respiratory Rate 16 16 17 Blood Pressure 96/52 L 102/60 128/45 L Pulse Oximetry 98 97 97 Intake/Output Intake/Output: Intake & Output 04/21/25 04/22/25 04/23/25 04/24/25 23:59 23:59 23:59 23:59 Intake Total 1080 1100 980 180 Output Total 900 Balance 180 1100 980 180 Meds/Results Medications: Active Medications Generic Name Dose Route Start Last Admin Trade Name Freq PRN Reason Stop Dose Admin Acetaminophen 650 mg 04/21/25 12:00 04/24/25 05:48 Acetaminophen 325 Mg Tablet PO 650 mg Q6H ZACARIAS Administration Albuterol 2 puff 04/20/25 05:13 Albuterol Sulfate (*Sp) Aerosol 1 Puff INHALATION QID PRN Shortness Of Breath Alendronate Sodium 70 mg 04/23/25 07:30 04/23/25 06:36 Alendronate Sodium 70 Mg Tablet PO 70 mg Sa@0730 ZACARIAS Administration Aspirin 81 mg 04/20/25 09:00 04/24/25 09:04 Aspirin 81 Mg Enteric Tablet PO 81 mg DAILY ZACARIAS Administration Calcium Citrate 1 tablet 04/20/25 09:00 04/24/25 09:04 Calcium Citrate 315 Mg/Vitamin D 6.25 Mcg (250 Units) Tab PO 1 tablet QAM ZACARIAS Administration Citalopram Hydrobromide 40 mg 04/20/25 21:00 04/23/25 21:11 Citalopram Hydrobromide 20 Mg Tablet PO 40 mg HS ZACARIAS Administration Diclofenac Sodium 1 applic 04/20/25 09:00 04/23/25 21:16 Diclofenac Sodium 1% 100 Gm Gel (*Bkc) TOPICAL 1 applic QID ZACARIAS Administration Donepezil HCl 10 mg 04/20/25 21:00 04/23/25 21:10 Donepezil Hcl 10 Mg Tablet PO 10 mg HS ZACARIAS Administration Enoxaparin Sodium 30 mg 04/21/25 09:00 04/24/25 09:05 Enoxaparin 30 Mg/0.3 Ml Syringe SUB-Q 30 mg DAILY ZACARIAS Administration Famotidine 20 mg 04/20/25 09:00 04/24/25 09:04 Famotidine 20 Mg Tablet PO 20 mg BID ZACARIAS Administration Folic Acid 1 mg 04/20/25 09:00 04/24/25 09:04 Folic Acid 1 Mg Tablet PO 1 mg DAILY ZACARIAS Administration Lactated Ringer's 500 mls @ 100 mls/hr 04/24/25 09:00 04/24/25 09:18 Lactated Ringers IV CONT 04/24/25 13:59 100 mls/hr .Q5H ZACARIAS Administration Lactobacillus Acidophilus 1 tablet 04/20/25 09:00 04/24/25 09:04 Acidophilus/Bulgaricus Chewable Tablet BY MOUTH 1 tablet DAILY ZACARIAS Administration Latanoprost 1 drop 04/20/25 21:00 04/23/25 21:15 Latanoprost 0.005% Op Soln 2.5 Ml Btl EACH EYE 1 drop HS ZACARIAS Administration Levothyroxine Sodium 112 mcg 04/20/25 06:30 04/24/25 05:49 Levothyroxine Sodium 112 Mcg Tablet PO 112 mcg DAILY@0630 ZACARIAS Administration Levothyroxine Sodium 25 mcg 04/20/25 06:30 04/24/25 05:48 Levothyroxine Sodium 25 Mcg Tablet PO 25 mcg DAILY@0630 ZACARIAS Administration Losartan Potassium 50 mg 04/20/25 09:00 04/24/25 09:04 Losartan Potassium 50 Mg Tablet PO 50 mg DAILY ZACARIAS Administration Magnesium Oxide 400 mg 04/20/25 21:00 04/23/25 21:10 Magnesium Oxide 400 Mg Tablet PO 400 mg HS ZACARIAS Administration Melatonin 10 mg 04/20/25 21:00 04/23/25 21:12 Melatonin 5 Mg Tablet PO 10 mg HS ZACARIAS Administration Mirabegron 50 mg 04/20/25 21:00 04/23/25 21:10 Mirabegron 50 Mg Er Tablet PO 50 mg QHS ZACARIAS Administration Polyethylene Glycol 17 gm 04/20/25 09:00 04/24/25 09:03 Polyethylene Glycol 3350 17 Gm Powd.Pack PO 17 gm Q48H ZACARIAS Administration Senna/Docusate Sodium 1 tab 04/24/25 21:00 Senna/Docusate Sodium Tablet PO HS ZACARIAS Simethicone 125 mg 04/20/25 08:00 04/24/25 09:04 Simethicone 125 Mg Chew Tab PO 125 mg TIDWM ZACARIAS Administration Solifenacin 10 mg 04/20/25 21:00 04/23/25 21:12 Solifenacin 5 Mg Tablet PO 10 mg HS ZACARIAS Administration Terbinafine HCl 250 mg 04/20/25 09:00 04/24/25 09:04 Terbinafine Hcl 250 Mg Tablet PO 250 mg DAILY ZACARIAS Administration Timolol Maleate 1 drop 04/20/25 09:00 04/23/25 08:33 Timolol Maleate 0.5% Op Soln 5 Ml Bottle EACH EYE 1 drop DAILY ZACARIAS Administration Tizanidine HCl 2 mg 04/20/25 06:00 04/24/25 05:49 Tizanidine Hcl 2 Mg Tablet PO 2 mg Q8HR ZACARIAS Administration Umeclidinium/Vilanterol 1 puff 04/20/25 08:00 04/24/25 08:32 Umeclidinium/Vilanterol 62.5-25 Mcg Ellipta INHALATION 1 puff DAILYRT ZACARIAS Administration Venlafaxine HCl 225 mg 04/20/25 09:00 04/24/25 09:04 Venlafaxine Hcl Xr 75 Mg Cap.Er.24h PO 225 mg DAILY ZACARIAS Administration Vitamin D 125 mcg 04/20/25 09:00 04/24/25 09:04 Cholecalciferol (Vitamin D3) 125 Mcg (5,000 Units) Tablet PO 125 mcg DAILY ZACARIAS Administration Radiology Results: ITS Impressions Chest X-Ray 04/19/25 17:33 Impression: Mild CHF Pelvis CT 04/20/25 08:32 IMPRESSION: No fracture. Lumbar Spine CT 04/20/25 08:33 IMPRESSION: 1. No acute fracture. 2. Severe lumbar spondylosis. 3. Thoracolumbar levoscoliosis. Hip MRI 04/20/25 12:31 IMPRESSION: 1. Bilateral obturator externus bursitis, mild on the right with mild tendinopathy without discrete tear of the distal right obturator externus tendon. More prominent bursitis on the left with likely chronic partial tear of the left obturator externus tendon and secondary moderate atrophy of the left obturator externus muscle belly. 2. Severe lumbar spondylosis with likely subacute subacute superior endplate compression fracture at L4. 3. 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 ADDENDUM: 04/20/25 3695 ADDENDUM: Upon further review of the images of the pelvis CT there are corticated ossicles along the medial margin of the posterior left greater trochanter in the region of the insertion of the left obturator externus tendon and rather than chronic partial tear, this is more likely to represent a chronic nonunited avulsion fracture of the footplate of the obturator externus tendon. Femur MRI 04/20/25 13:07 IMPRESSION: 1. 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 No acute fracture. 2. Moderate fat-containing left inguinal hernia. Labs Labs: Laboratory Results - last 24 hr 04/24/25 07:16 Sodium 130 L Potassium 4.0 Chloride 99 Carbon Dioxide 30 Anion Gap 1 L BUN 33 H Creatinine 1.38 H Estim Creat Clear Calc 22 Estimated GFR 36 L Glucose 120 H Calcium 8.8 Quality VTE Prophylaxis VTE prophylaxis: pharmacologic ordered
[2025-04-24 12:50] VITALS: BP 124/58; PULSE 81; RESP 18; TEMP 36.7; O2SAT 97
[2025-04-24] MEDS: SOLIFENACIN 5 MG TABLET 10 MG PO (20:47)
[2025-04-24] MEDS: MELATONIN 5 MG TABLET 10 MG PO (20:48)
[2025-04-24] MEDS: MAGNESIUM OXIDE 400 MG TABLET PO (20:48)
[2025-04-24] MEDS: CITALOPRAM HYDROBROMIDE 20 MG TABLET 40 MG PO (20:48)
[2025-04-24] MEDS: DONEPEZIL HCL 10 MG TABLET PO (20:48)
[2025-04-24] MEDS: SENNA/DOCUSATE SODIUM TABLET 1 TAB PO (20:48)
[2025-04-24] MEDS: MIRABEGRON 50 MG ER TABLET PO (20:48)
[2025-04-24 20:51] VITALS: BP 126/44; PULSE 87; RESP 18; TEMP 37; O2SAT 96
[2025-04-24] MEDS: LATANOPROST 0.005% OP SOLN 2.5 ML BTL 1 DROP EACH EYE (20:51)
[2025-04-25] MEDS: ACETAMINOPHEN 325 MG TABLET 650 MG PO ×3 (00:31→12:07)
[2025-04-25 05:08] VITALS: BP 121/51; PULSE 53; RESP 18; TEMP 37.1; O2SAT 98
[2025-04-25 06:00] LABS: Anion Gap 5 mmol/L (4-12); Blood Urea Nitrogen 30 mg/dL (7-17); Calcium 8.9 mg/dL (8.4-10.2); Carbon Dioxide 27 mmol/L (22-30); Chloride 100 mmol/L (98-107); Estimated CRCL calculation 25 ml/min; Estimated Glomerular Filt Rate 42; Glucose 84 mg/dL (65-110); Potassium 4.3 mmol/L (3.4-5.0); Sodium 132 mmol/L (137-145)
[2025-04-25] MEDS: LEVOTHYROXINE SODIUM 112 MCG TABLET PO (06:45)
[2025-04-25] MEDS: TIZANIDINE HCL 2 MG TABLET PO ×2 (06:45→13:56)
[2025-04-25] MEDS: LEVOTHYROXINE SODIUM 25 MCG TABLET PO (06:45)
[2025-04-25 07:20] VITALS: PULSE 68; RESP 14
[2025-04-25] MEDS: UMECLIDINIUM/VILANTEROL 62.5-25 MCG ELLIPTA 1 PUFF INHALATION (07:22)
[2025-04-25 08:11] LABS: Hematocrit 35.7 % (37.0-47.0); Hemoglobin 11.6 g/dL (12.0-15.0); Immature Granulocyte Percent A 0.6 % (0-0.5); Lymphocytes Absolute Auto 2.21 K/mm3 (0.9-3.2); Mean Corpuscular HGB Conc 32.5 g/dl (32-36); Mean Corpuscular Hemoglobin 34.0 pg (26-34); Mean Corpuscular Volume 104.7 fl (80-100); Nucleated Red Blood Cells Absolute Auto 0.000 K/mm3 (0.0-0.012); Nucleated Red Blood Cells Perc 0.0 % (0.0-0.2); Platelet Count Result 178 k/mm3 (150-375); Red Blood Count 3.41 M/mm3 (4.2-5.4); White Blood Count 6.4 K/mm3 (4.5-10.0)
[2025-04-25 08:17] LABS: Alanine Aminotransferase 17 U/L (6-35); Albumin Level 3.4 g/dL (3.5-5.1); Alkaline Phosphatase 64 U/L (38-126); Aspartate Amino Transferase 26 U/L (14-36); Bilirubin,Total 0.4 mg/dL (0.2-1.3); Total Protein 6.0 g/dL (6.3-8.2)
[2025-04-25] MEDS: ACIDOPHILUS/BULGARICUS CHEWABLE TABLET 1 TABLET BY MOUTH (09:15)
[2025-04-25] MEDS: FOLIC ACID 1 MG TABLET PO (09:15)
[2025-04-25] MEDS: LOSARTAN POTASSIUM 50 MG TABLET PO (09:15)
[2025-04-25] MEDS: SIMETHICONE 125 MG CHEW TAB PO ×2 (09:15→12:08)
[2025-04-25] MEDS: FAMOTIDINE 20 MG TABLET PO (09:15)
[2025-04-25] MEDS: CHOLECALCIFEROL (VITAMIN D3) 125 MCG (5,000 UNITS) TABLET PO (09:15)
[2025-04-25] MEDS: ASPIRIN 81 MG ENTERIC TABLET PO (09:15)
[2025-04-25] MEDS: CALCIUM CITRATE 315 MG/VITAMIN D 6.25 MCG (250 UNITS) TAB 1 TABLET PO (09:15)
[2025-04-25] MEDS: TERBINAFINE HCL 250 MG TABLET PO (09:15)
[2025-04-25] MEDS: VENLAFAXINE HCL XR 75 MG CAP.ER.24H 225 MG PO (09:15)
[2025-04-25] MEDS: TIMOLOL MALEATE 0.5% OP SOLN 5 ML BOTTLE 1 DROP EACH EYE (09:16)
[2025-04-25] MEDS: ENOXAPARIN 30 MG/0.3 ML SYRINGE SUB-Q (09:16)
[2025-04-25] MEDS: DICLOFENAC SODIUM 1% 100 GM GEL (*BKC) 1 APPLIC TOPICAL ×2 (09:17→12:08)
[2025-04-25] MEDS: traMADol HCL (*CRX) 25 MG TABLET PO (10:45)
--- NOTE | 2025-04-25 13:16 | P.DS_ITS ---
DS: Admitting Diagnosis Discharge Date 04/25/25 Admitting Diagnosis - intractable left hip pain DS: Discharge Diagnosis Discharge Diagnosis (1) Hip pain, left: Code(s): M25.552 - Pain in left hip Status: Acute (2) Depression with anxiety: Code(s): F41.8 - Other specified anxiety disorders Status: Acute (3) Hypothyroidism: Code(s): E03.9 - Hypothyroidism, unspecified Status: Acute (4) Osteoporosis: Code(s): M81.0 - Age-related osteoporosis without current pathological fracture Status: Acute (5) Glaucoma: Code(s): H40.9 - Unspecified glaucoma Status: Acute (6) Hypertension: Code(s): I10 - Essential (primary) hypertension Status: Acute (7) Dementia: Code(s): F03.90 - Unspecified dementia, unspecified severity, without behavioral disturbance, psychotic disturbance, mood disturbance, and anxiety Status: Acute (8) Hyponatremia: Code(s): E87.1 - Hypo-osmolality and hyponatremia Status: Acute (9) Chronic kidney disease: Code(s): N18.9 - Chronic kidney disease, unspecified Status: Acute DS: Summary Hospital Course Reason for hospitalization: - intractable left hip pain Hospital Course: Patient is an 84 yo female with past medical history of dementia, osteoporosis, hypertension with intractable left hip pain. CT L-spine showed severe lumbar spondylosis and thoracolumbar levoscoliosis. In ED, sodium 131, BUN 24, cr eatinine 1.17 which appears to be improved since previous labs. Her GFR is 44 which again has improved from previous. The daughter was in the emergency room and stated that she wanted the patient to be admitted for pain management and rehab. 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 Orthopedic surgery was consulted and recommended weight- bearing as tolerated and physical therapy. Recommended follow-up as outpatient. Patient was initially started on opiates for pain control however developed hallucinations. She was subsequently scheduled on Tylenol and tizanidine was some improvement in her pain. Patient also felt heating pad was beneficial. May consider trialing gabapentin in swing bed if pain does not continue to improve. PT/OT was consulted and recommended fpc facility. While admitted, patient had mild hyponatremia likely secondary to hydrochlorothiazide and poor p.o. intake. Creatinine also trended up slightly from her baseline. She received IV fluids with improvement in her sodium and creatinine. Hydrochlorothiazide was discontinued on discharge. Recommend repeat BMP in 3-5 days to monitor sodium and creatinine levels. Patient was discharged to [facility] bed in stable condition. Status at Discharge Functional status at discharge: uses cane/walker Time Spent with Patient Time attestation: Total time spent providing and/or coordinating discharge services: Time spent: Greater than 30 minutes Exam Narrative: General: NAD Eyes: EOMI ENT: neck supple Cardiovascular: Regular rate and rhythm Respiratory: Clear to auscultation, respirations even and unlabored on RA Gastrointestinal: Soft, non tender Genitourinary: no suprapubic tenderness Musculoskeletal: No edema. Skin: warm, dry Neuro: Alert. Psych: Mood appropriate DS: Data Data Completed and Pending Completed studies during hospitalization: ITS Impressions Chest X-Ray 04/19/25 17:33 Impression: Mild CHF Pelvis CT 04/20/25 08:32 IMPRESSION: No fracture. Lumbar Spine CT 04/20/25 08:33 IMPRESSION: 1. No acute fracture. 2. Severe lumbar spondylosis. 3. Thoracolumbar levoscoliosis. Hip MRI 04/20/25 12:31 IMPRESSION: 1. Bilateral obturator externus bursitis, mild on the right with mild tendinopathy without discrete tear of the distal right obturator externus tendon. More prominent bursitis on the left with likely chronic partial tear of the left obturator externus tendon and secondary moderate atrophy of the left obturator externus muscle belly. 2. Severe lumbar spondylosis with likely subacute subacute superior endplate compression fracture at L4. 3. 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 ADDENDUM: 04/20/25 [id number] ADDENDUM: Upon further review of the images of the pelvis CT there are corticated ossicles along the medial margin of the posterior left greater trochanter in the region of the insertion of the left obturator externus tendon and rather than chronic partial tear, this is more likely to represent a chronic nonunited avulsion fracture of the footplate of the obturator externus tendon. Femur MRI 04/20/25 13:07 IMPRESSION: 1. 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 No acute fracture. 2. Moderate fat-containing left inguinal hernia. Labs on day of discharge: Labs from last 24 hours 04/25/25 05:16 WBC 6.4 RBC 3.41 L Hgb 11.6 L Hct 35.7 L MCV 104.7 H MCH 34.0 MCHC 32.5 RDW 15.1 H Plt Count 178 MPV 9.5 Immature Gran % (Auto) 0.6 H Neut % (Auto) 52.9 Lymph % (Auto) 34.3 [place] % (Auto) 11.6 H Eos % (Auto) 0.3 Baso % (Auto) 0.3 Lymph # (Auto) 2.21 [place] # (Auto) 0.8 H Eos # (Auto) 0.0 Baso # (Auto) 0.0 Abs Immat Gran (auto) 0.04 H Absolute Neuts (auto) 3.4 Absolute Nucleated RBC 0.000 Nucleated RBC % 0.0 Sodium 132 L Potassium 4.3 Chloride 100 Carbon Dioxide 27 Anion Gap 5 BUN 30 H Creatinine 1.21 H Estim Creat Clear Calc 25 Estimated GFR 42 L Glucose 84 Calcium 8.9 Total Bilirubin 0.4 Direct Bilirubin 0.0 AST 26 ALT 17 Alkaline Phosphatase 64 Total Protein 6.0 L Albumin 3.4 L Discharge Plan Discharge Attending physician on discharge: Christa Arana Consulting providers: Milena Mak; Antelmo Hernández Discharging Clinician: Milena Mak Anticipated Discharge Date/Time: 04/25/25 12:10 Patient Disposition: Hospital Swing Bed Activity: as tolerated Diet: regular Discharge Instructions: Patient can weight bear as tolerated. Patient's sodium running low, likely due to poor PO intake and HCTZ. HCTZ was stopped. Repeat BMP in 3-5 days to monitor and encourage PO intake. Continue bowel regimen. Patient gets confused/hallucinates when she receives opiates (including Tramadol). Continue to alternate Tylenol and tizanidine. Utilize heating pad. Patient needs to follow-up with Dr. Hernández as outpatient. Patient Instructions: Antibiotic Form Patient Language: Pashto Stand Alone Forms: General Discharge Information Discharge Medications: Continued tolnaftate 1 % Powder 1 applic topical Q12HR 20 Days Qty: 1 0RF albuterol sulfate [Proventil HFA] 90 mcg/actuation Hfa Aerosol Inhaler 2 puff inhalation QID PRN (Reason: Shortness Of Breath) Qty: 1 0RF losartan 50 mg tablet 50 mg PO DAILY Qty: 30 0RF levothyroxine 150 mcg tablet 137 mcg PO DAILY 30 Days Qty: 30 0RF citalopram 40 mg tablet 40 mg PO HS donepezil 10 mg tablet 10 mg PO HS alendronate 70 mg tablet 70 mg PO WEEKLY Rx Instructions: Patient takes on Saturdays famotidine 20 mg tablet 20 mg PO BID simethicone 125 mg Tablet 125 mg PO TIDWM solifenacin [Vesicare] 10 mg tablet 10 mg PO HS cholecalciferol (vitamin D3) [Vitamin D3] 125 mcg (5,000 unit) Tablet 125 mcg PO DAILY latanoprost 0.005 % drops 1 drp EACH EYE HS venlafaxine 75 mg capsule,extended release 24hr 225 mg PO DAILY aspirin 81 mg tablet,delayed release (DR/EC) 81 mg PO DAILY timolol maleate 0.5 % drops 1 drp EACH EYE DAILY melatonin 10 mg Tablet 10 mg PO HS umeclidinium-vilanterol [Anoro Ellipta] 62.5-25 mcg/actuation blister with device 1 ea INHALATION DAILY PRN (Reason: cough, sob) terbinafine HCl 250 mg tablet 250 mg PO DAILY mirabegron [Myrbetriq] 50 mg tablet extended release 24 hr 50 mg PO QHS polyethylene glycol 3350 17 gram/dose powder 17 g PO .qod tizanidine 2 mg tablet 2 mg PO Q8H magnesium 100 mg capsule 300 mg PO HS folic acid 1 mg tablet 1,000 mcg PO DAILY calcium citrate 200 mg (950 mg) tablet 400 mg PO DAILY d-mannose 500 mg capsule 2,100 mg PO DAILY Culturelle 10 billion cell capsule 1 cap PO DAILY Changed acetaminophen 650 mg tablet extended release 650 mg PO Q6H Qty: 60 0RF Discontinued hydrochlorothiazide 12.5 mg capsule 12.5 mg PO DAILY Date of admission: 04/19/25 22:52 Primary Care Provider: MAGNUS,DESTINI Admitting Provider: Majo Mercado Attending physician on admission: Majo Mercado Condition: Stable
[2025-04-25 13:56] VITALS: BP 128/49; PULSE 87; RESP 22; TEMP 36.4; O2SAT 98
== END 2025-04-25 15:30 | disposition swing bed (61) | DRG 565 ==
LOC: ANHED 22:15 → ANH3MEDSUR 23:11
PROVIDERS: Emergency Medicine; Nurse Practitioner; Admitting Provider General Practice; Emergency Provider Student in an Organized Health Care Education/Training Program; PCP Nurse Practitioner Family; Visit Provider Physician Assistant
DX: S72.112K Displaced fracture of greater trochanter of left femur, subsequent encounter for closed fracture with nonunion (principal); E87.1 Hypo-osmolality and hyponatremia; E03.9 Hypothyroidism, unspecified; I12.9 Hypertensive chronic kidney disease with stage 1 through stage 4 chronic kidney disease, or unspecified chronic kidney disease; N18.9 Chronic kidney disease, unspecified; K21.9 Gastro-esophageal reflux disease without esophagitis; M16.0 Bilateral primary osteoarthritis of hip; M16.12 Unilateral primary osteoarthritis, left hip; M47.816 Spondylosis without myelopathy or radiculopathy, lumbar region; M81.0 Age-related osteoporosis without current pathological fracture; M71.552 Other bursitis, not elsewhere classified, left hip; G62.9 Polyneuropathy, unspecified; G30.9 Alzheimer's disease, unspecified; R29.6 Repeated falls; F02.80 Dementia in other diseases classified elsewhere, unspecified severity, without behavioral disturbance, psychotic disturbance, mood disturbance, and anxiety; F41.9 Anxiety disorder, unspecified; F32.A Depression, unspecified; Z96.653 Presence of artificial knee joint, bilateral; Z79.82 Long term (current) use of aspirin
CPT/HCPCS: 36415; 71045; 72131; 72192; 73718; 73721; 80048; 80053; 80076; 81001; 82306; 82550; 83735; 83880; 84443; 85025; 94640; 97110; 97116; 97162; 97166; 97530; 97535; 99285; A9270; J1650; J7120

== ENCOUNTER 2025-04-25 16:10 | Inpatient (IN) | payer MEDICARE, MEDICAID, SELFPAY ==
--- OUTSIDE RECORDS SUMMARY | 2025-04-25 16:26 | XMS_ITS | Clinical Summary ---
[facility] [address] [facility], [address] [address] Phone Care Team Providers Care Vp Cardiovascular Name Role Phone Unavailable Primary Care Provider [...] Comments Blood Pressure 138/80 08/15/2016 1:39 PM RECREATION FACILITY MANAGER Pulse 82 08/15/2016 1:39 PM RECREATION FACILITY MANAGER Temperature 36.6 C (97.8 F) 08/15/2016 1:39 PM RECREATION FACILITY MANAGER Respiratory Rate 18 08/15/2016 1:39 PM RECREATION FACILITY MANAGER Oxygen Saturation 90% 08/15/2016 1:39 PM RECREATION FACILITY MANAGER Inhaled Oxygen Concentration - - Weight 88.5 kg (195 lb) 08/15/2016 1:39 PM RECREATION FACILITY MANAGER Height 154.9 cm (5' 1) 08/15/2016 1:39 PM RECREATION FACILITY MANAGER Body Mass Index 36.84 08/15/2016 1:39 PM RECREATION FACILITY MANAGER Plan of Treatment Health Maintenance Due Date [...]
--- OUTSIDE RECORDS SUMMARY | 2025-04-25 16:26 | XMS_ITS | Clinical Summary ---
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
--- OUTSIDE RECORDS SUMMARY | 2025-04-25 16:26 | XMS_ITS | Encounter Summary ---
Author Organization [facility] Address [address] [place] [address] Care Team Providers Care Medical Care Evaluation Specialist Name Role Phone Joseph Simmons MD Primary Care Provider [phone]- [phone] Encounter Details Date Type Department Care Team (Late st Contact Info) Description 10/29/1999 Outpatient Historical [facility] Nilton Bhat MD [address] [place] [address] Diverticulosis of colon (without mention of hemorrhage) (Primary Dx) Social History Tobacco Use Types Packs/Day Years Used Date Smoking Tobacco: Never Assessed Comments Unknown Sex and Gender Information Value Date Recorded Sex Assigned at Not on file 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
--- OUTSIDE RECORDS SUMMARY | 2025-04-25 16:27 | XMS_ITS | Encounter Summary ---
Author Organization [facility] Address 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
--- OUTSIDE RECORDS SUMMARY | 2025-04-25 16:27 | XMS_ITS | Encounter Summary ---
Author Organization [facility] Address 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
--- OUTSIDE RECORDS SUMMARY | 2025-04-25 16:27 | XMS_ITS | Clinical Summary ---
Author Organization [place] [id number] [facility] Address [address] [place] [address] Care Team Providers Care Trimmer Sorter Name Role Phone Lisette Yadav NP Primary Care Provider [phone] Allergies Active Allergy Reactions Criticality Noted Date Comments Erythromycin Unknown 03/09/2019 Medications levothyroxine (SYNTHROID, LEVOTHROID) 150 mcg tablet Take 150 mcg by mouth auto damage insurance appraiser before breakfast Active hydroCHLOROthia zide (HYDRODIURIL) 25 [...] wit h current pathological fracture of vertebra ([facility]) 03/09/2019 Alzheimer's disease 05/11/2013 Anxiety 02/16/2013 Surgical [...] on file Legal Sex Female 9:50 AM INGREDIENT SCALER Gender Identity Not on file Sexual Orientation [...] Plan of Treatment Not on file Insurance [employer] Member Subscriber Plan / Payer ( fective 2018-Present) Name:Lori Pederson Relation to Subscriber:Self Name:Lori Pederson Payer ID:[id number] ([facility]) Type:Not on file Address: [address] [facility] Care Teams Trimmer Sorter Relationship Specialty Start Date End Date Lisette Yadav NP [address] [place] [address] PCP - General Nurse Practitioner 02/16/19
--- OUTSIDE RECORDS SUMMARY | 2025-04-25 16:27 | XMS_ITS | Clinical Summary ---
Author Organization [facility] Address [address] [place] [address] Care Team Providers Care Shampooer Name Role Phone Cayetano Farrar MD Primary Care Provider [phone] Source Comments [facility],non-owned Affiliates and Associated Physician Practices is amultiple site organization consisting of ambulatory clinics and hospital sitesin [place], [place], [place] and [place]. This disclosure is being madepursuant to the Care Everywhere program and may not contain all information available regarding this patient. Last updated 18.[facility] Allergies Active Allergy Reactions Criticality Noted Date Comments Erythromycin Other Low 12/30/2015 unsure Social History Tobacco Use Types Packs/Day Years Used Date Smoking Tobacco: Former Alcohol Use Standard Drinks/Week Comments No 0 (1 standard drink = 0.6 oz pur e alcohol) Comments Unknown Sex and Gender Information Value Date Recorded Sex Assigned at Not on file Legal Sex Female 5:58 PM SUPERVISOR TYPE PHOTOGRAPHY Gender Identity Not on file Sexual Orientation [...] age to complete this topic Care Teams Shampooer Relationship Specialty Start Date End Date Cayetano Farrar MD PCP - General 08/12/19
--- OUTSIDE RECORDS SUMMARY | 2025-04-25 16:27 | XMS_ITS | Encounter Summary ---
Author Organization [facility] Address [address] [place] [address] Care Team Providers Care Quantometer Operator Name Role Phone Joseph Simmons MD Primary Care Provider [phone] Encounter Details Date Type Department Care Team (Latest Contact Info) Description 05/17/1999 Outpatient Historical HIS [facility] BIBI Quintana, Yaya Rosales MD NO ADDRESS ON FILE Other screening mammogram (Primary Dx) Social History Tobacco Use Types Packs/Day Years Used Date Smoking Tobacco: Never Assessed Comments Unknown Sex and Gender Information Value Date Recorded Sex Assigned at Not on file Legal Sex Female 3:01 AM SIGNALLING AND COMMUNICATIONS ENGINEER Gender Identity Not on file Sexual Orientation Not on file documented as of this encounter Plan of Treatment Not on file documented as of this encounter Visit Diagnoses Diagnosis Other screening mammogram- Primary documented in this encounter Care Teams Quantometer Operator Relationship Specialty Start Date End Date Joseph Simmons MD [address] [place] [address] PCP - General 06/13/15 documented as of this encounter
--- OUTSIDE RECORDS SUMMARY | 2025-04-25 16:27 | XMS_ITS | Encounter Summary ---
Author Organization [facility] Address [address] [place] [address] Care Team Providers Care Team Supervisor Name Role Phone Joseph Simmons MD Primary Care Provider [phone] Encounter Details Date Type Department Care Team (Late st Contact Info) Description 12/14/2004 Outpatient Historical HIS [facility] Nilton Bhat MD [address] [place] [address] SURGERY FOLLOWUP, UNSPEC (Primary Dx) Social History Tobacco Use Types Packs/Day Years Used Date Smoking Tobacco: Never Assessed Comments Unknown Sex and Gender Information Value Date Recorded Sex Assigned at Not on file Legal Sex Female 3:01 AM ASSOCIATE PROFESSOR OF MATHEMATICS Gender Identity Not on file Sexual Orientation Not on file documented as of this encounter Plan of Treatment Not on file documented as of this encounter Visit Diagnoses Diagnosis Follow-up examination, following unspecified surgery- Primary documented in this encounter Care Teams Team Supervisor Relationship Specialty Start Date End Date Joseph Simmons MD [address] [place] [address] PCP - General 06/13/15 documented as of this encounter
--- OUTSIDE RECORDS SUMMARY | 2025-04-25 16:27 | XMS_ITS | Encounter Summary ---
Author Organization [facility] Address [address] [place] [address] Care Team Providers Care Computer Hardware Developer Name Role Phone Joseph Simmons MD Primary Care Provider [phone] Encounter Details Date Type Department Care Team (Latest Contact Info) Description 05/06/2000 Outpatient Historical HIS X/[facility] Yaya Quintana MD NO ADDRESS ON FILE Other screening mammogram (Primary Dx) Social History Tobacco Use Types Packs/Day Years Used Date Smoking Tobacco: Never Assessed Comments Unknown Sex and Gender Information Value Date Recorded Sex Assigned at Not on file Legal Sex Female 3:01 AM LEGAL INTERN Gender Identity Not on file Sexual Orientation Not on file documented as of this encounter Plan of Treatment Not on file documented as of this encounter Visit Diagnoses Diagnosis Other screening mammogram- Primary documented in this encounter Care Teams Computer Hardware Developer Relationship Specialty Start Date End Date Joseph Simmons MD [address] [place] [address] PCP - General 06/13/15 documented as of this encounter
[2025-04-25 16:29] VITALS: BMI 28.7
[2025-04-25 17:07] VITALS: PULSE 75; RESP 16; O2SAT 96
--- NOTE | 2025-04-25 17:14 | PC.NURSE ---
1610 Patient arrived to unit on stretcher accompanied by EMS. Patient required 3 person assist to transfer from bed to stretcher. Patient educated on use of call light and bed controls. Patient told about visiting hours. Due to patient's memory impairment, further education will wait until patient's family is present.
--- NOTE | 2025-04-25 17:20 | PC.NURSE ---
Patient has a history of Alzheimer dimentia and is unable to preform [place] screening.
[2025-04-25] MEDS: ACETAMINOPHEN 325 MG TABLET 650 MG PO ×2 (17:44→21:32)
--- NOTE | 2025-04-25 18:24 | PC.NURSE ---
Patient noted to be coughing after eating her evening meal. Charge nurse notified. Speech evaluation may be warranted.
[2025-04-25 20:00] VITALS: PULSE 75; RESP 16; O2SAT 96
[2025-04-25] MEDS: LATANOPROST 0.005% OP SOLN 2.5 ML BTL 1 DROP EACH EYE (21:30)
[2025-04-25] MEDS: MELATONIN 5 MG TABLET 10 MG PO (21:31)
[2025-04-25] MEDS: TIZANIDINE HCL 2 MG TABLET PO (21:31)
[2025-04-25] MEDS: CITALOPRAM HYDROBROMIDE 20 MG TABLET 40 MG PO (21:31)
[2025-04-25] MEDS: MAGNESIUM OXIDE 400 MG TABLET PO (21:31)
[2025-04-25] MEDS: DONEPEZIL HCL 5 MG TABLET 10 MG PO (21:31)
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
[2025-04-26] VITALS: BP 139/59; PULSE 90; RESP 17; TEMP 36.7; O2SAT 100
[2025-04-26] MEDS: ACETAMINOPHEN 325 MG TABLET 650 MG PO ×4 (01:39→16:25)
[2025-04-26] MEDS: TIZANIDINE HCL 2 MG TABLET PO ×3 (05:31→21:05)
[2025-04-26] MEDS: LEVOTHYROXINE SODIUM 112 MCG TABLET PO (05:32)
[2025-04-26] MEDS: LEVOTHYROXINE SODIUM 25 MCG TABLET PO (05:32)
--- OUTSIDE RECORDS SUMMARY | 2025-04-26 06:44 | XMS_ITS | Encounter Summary ---
Author Organization [facility] Address [facility] [place] [address] Care Team Providers Care De Ionizer Operator Name Role Phone Lisette Yadav Primary Care Provider [phone] Lyndsay Hernandez RN Unavailable [phone] Kimberley Tapia RN Unavailable Unavailable Fely Lua RN Unavailable Encounter Details Date Type Department Care Team (Late st Contact Info) Description 09/11/2020 Gamida Cellt Message Enc [facility] Medical Group Family & Internal Medicine [facility] [address] [place] [address] Lisette Yadav FNP [address] [place] [address] RE: FW: FW: Medication Questions Social History Tobacco Use Types Packs/Day Years Used Date Smoking Tobacco: Never Smokeless Tobacco: Never Alcohol Use Standard Drinks/Week Comments No 0 (1 standard drink = 0.6 oz pur e alcohol) AUDIT-C Answer Date Recorded Frequency of Alcohol Consumption Never 10/27/2018 Average Number of Drinks Not on file 019 Frequency of Binge Drinking Not on file 10/03 PHQ-2 Answer Date Recorded PHQ-2 Score - If the patient scores above 3, please move on to questions 3-9 0 05/18/2020 Comments No Sex and Gender Information Value Date Recorded Sex Assigned at Female 08/20/2024 9:29 AM MILLER KILN DRIED SALT Legal Sex Female 1:41 PM CDT Gender Identity Not on file Sexual Orientation Not on file COVID-19 Exposure Response Date Recorded In the last month, have you been in contact with someone who was confirmed or suspected to have Coronavirus / COVID-19? No / Unsure 08/14/2020 8:51 AM MILLER KILN DRIED SALT documented as of this encounter Plan of Treatment Not on file documented as of this encounter Visit Diagnoses Not on filedocumented in this encounter Additional Health Concerns Assessment Noted Time PHQ-9 Depression Total Score: 2 11/07/19 19 3:21 PM CDT documented as of this encounter Care Teams De Ionizer Operator Relationship Specialty Start Date End Date Lisette Yadav FNP [address] [place] [address] PCP - General NURSE PRACTITIONER 11/03/17 Lyndsay Hernandez, RN [address] [place], [place] [address] Trauma Manager (Ambulatory) REGISTERED NURSE 04/30/22 Kimberley Tapia, director communications (Ambulatory) CARE MANAGEMENT 02/01/25 02/01/25 Fely Lua, RN [address] [place], [place] [id number] Trauma Manager (Ambulatory) REGISTERED NURSE 04/21/25 documented as of this encounter
--- OUTSIDE RECORDS SUMMARY | 2025-04-26 06:44 | XMS_ITS | Encounter Summary ---
Author Organization [facility] Address [address] [place] [address] Care Team Providers Care Senior Buyer Planner Name Role Phone Lisette Yadav Primary Care Provider [phone] Lyndsay Hernandez RN Unavailable [phone] Kimberley Tapia RN Unavailable Unavailable Fely Lua RN Unavailable Encounter Details Date Type Department Care Team (Late st Contact Info) Description 04/22/2022 PM Pediatricst Message Enc [facility] Medical Group Family & Internal Medicine [place] [id number] [place] [address] Lisette Yadav FNP [address] [place] [address] Vaccine Social History Tobacco Use Types Packs/Day Years Used Date Smoking Tobacco: Never Smokeless Tobacco: Never Alcohol Use Standard Drinks/Week Comments Never 0 (1 standard drink = 0.6 oz pur e alcohol) AUDIT-C Answer Date Recorded Frequency of Alcohol Consumption Never 10/27/2018 Average Number of Drinks Not on file 019 Frequency of Binge Drinking Not on file 10/03 PHQ-2 Answer Date Recorded PHQ-2 Score - If the patient scores above 3, please move on to questions 3-9 0 04/18/2022 Comments No Sex and Gender Information Value Date Recorded Sex Assigned at Female 08/20/2024 9:29 AM MOTORS AND GENERATORS INSPECTOR Legal Sex Female 1:41 PM CDT Gender Identity Not on file Sexual Orientation Not on file COVID-19 Exposure Response Date Recorded In the last 10 days, have neo u been in contact with someone who was confirmed or suspected to have Coronavirus/COVID-19? No / Unsure 04/18/2022 7:48 AM CDT documented as of this encounter Plan of Treatment Not on file documented as of this encounter Visit Diagnoses Not on filedocumented in this encounter Additional Health Concerns Assessment Noted Time PHQ-9 Depression Total Score: 4 01/26/20 22 10:54 AM CDT documented as of this encounter Care Teams Senior Buyer Planner Relationship Specialty Start Date End Date Lisette Yadav FNP [address] [place] [address] PCP - General NURSE PRACTITIONER 11/03/17 Lyndsay Hernandez, RN [address] [place], [place] [address] Advertising Manager (Ambulatory) REGISTERED NURSE 04/30/22 Kimberley Tapia, automobile mechanic helper (Ambulatory) CARE MANAGEMENT 02/01/25 02/01/25 Fely Lua, RN [address] [place] [address] Advertising Manager (Ambulatory) REGISTERED NURSE 04/21/25 documented as of this encounter
--- OUTSIDE RECORDS SUMMARY | 2025-04-26 06:44 | XMS_ITS | Encounter Summary ---
Author Organization [facility] Address [address] [place] [address] Care Team Providers Care Public Transit Trolley Driver Name Role Phone Lisette Yadav Primary Care Provider [phone] Lyndsay Hernandez RN Unavailable [phone] Kimberley Tapia RN Unavailable Unavailable Fely Lua RN Unavailable Encounter Details Date Type Department Care Team (Late st Contact Info) Description 06/01/2020 Atempo Message Enc [facility] Medical Group Family & Internal Medicine [facility] [address] [place] [address] Lisette Yadav FNP [address] [place] [address] RE: Medication Questions Social History Tobacco Use Types [...] Sex Assigned at Female 08/20/2024 9:29 AM REGIONAL MEDICAL DIRECTOR Legal Sex Female 1:41 PM CDT Gender Identity Not on file Sexual Orientation Not on file COVID-19 Exposure Response Date Recorded In the last month, have you been in contact with someone who was confirmed or suspected to have Coronavirus / COVID-19? No / Unsure 05/18/2020 9:17 AM CDT documented as of this encounter Plan of Treatment Not on file documented as of this encounter Visit Diagnoses Not on filedocumented in this encounter Additional Health Concerns Assessment Noted Time PHQ-9 Depression Total Score: 2 11/07/19 19 3:21 PM CDT documented as of this encounter Care Teams Public Transit Trolley Driver Relationship Specialty Start Date End Date Lisette Yadav FNP [address] [place] [address] PCP - General NURSE PRACTITIONER 11/03/17 Lyndsay Hernandez, RN [address] [place], [place] [id number] Junior Buyer (Ambulatory) REGISTERED NURSE 04/30/22 Kimberley Tapia, missile inspector preflight (Ambulatory) CARE MANAGEMENT 02/01/25 02/01/25 Fely Lua, RN [address] [place] [address] Junior Buyer (Ambulatory) REGISTERED NURSE 04/21/25 documented as of this encounter
--- OUTSIDE RECORDS SUMMARY | 2025-04-26 06:44 | XMS_ITS | Encounter Summary ---
Author Organization [facility] Address [facility] [place] [address] Care Team Providers Care Butcher Name Role Phone Lisette Yadav PERLA Primary Care Provider [phone] Lyndsay Hernandez RN Unavailable [phone] Kimberley Tapia RN Unavailable Unavailable Fely Lua RN Unavailable Encounter Details Date Type Department Care Team (Late st Contact Info) Description 04/26/2022 Lockheed Martint Message Enc [facility] Medical Group [facility]is[facility]ialty [facility] - [facility] [address], [address] [place] [address] Wilfredo Calixto MD Mybetriq Social History Tobacco Use Types Packs/Day Years [...] Sex Assigned at Female 08/20/2024 9:29 AM SURVEY RODMAN Legal Sex Female 1:41 PM CDT Gender Identity Not on file Sexual Orientation Not on file COVID-19 Exposure Response Date Recorded In the last 10 days, have yo u been in contact with someone who [...] documented as of this encounter Care Teams Butcher Relationship Specialty Start Date End Date Lisette Yadav FNP [address] [place] [address] PCP - General NURSE PRACTITIONER 11/03/17 Lyndsay Hernandez, RN [address] [place], [place] [phone] Waist Cutter (Ambulatory) REGISTERED NURSE 04/30/22 Kimberley Tapia, bus trolley and taxi instructor (Ambulatory) CARE MANAGEMENT 02/01/25 02/01/25 Fely Lua, RN [address] [place], [place] [phone] Waist Cutter (Ambulatory) REGISTERED NURSE 04/21/25 documented as of this encounter
--- OUTSIDE RECORDS SUMMARY | 2025-04-26 06:44 | XMS_ITS | Encounter Summary ---
Author Organization [facility] Address [address] [place] [address] Care Team Providers Care Bsa/Aml Compliance Officer Name Role Phone Lisette Yadav Primary Care Provider [phone] Lyndsay Hernandez RN Unavailable [phone] Kimberley Tapia RN Unavailable Unavailable Fely Lua RN Unavailable Encounter Details Date Type Department Care Team (Late st Contact Info) Description 04/26/2022 Data Craft and Magict Message Enc [facility] Medical Group Family & Internal Medicine [facility] [address] [place] [address] Lisette Yadav FNP [facility] [place] [address] H&P: HPI History of Present Illness Social History Tobacco Use Types Packs/Day Years [...] Sex Assigned at Female 08/20/2024 9:29 AM HELICOPTER ENGINEER Legal Sex Female 1:41 PM CDT Gender Identity Not on file Sexual Orientation Not on file COVID-19 Exposure Response Date Recorded In the last 10 days, have yo u been in contact with someone who was confirmed or suspected to have Coronavirus/COVID-19? No / Unsure 04/18/2022 7:48 AM CDT documented as of this encounter Progress Notes * PERLA Albarran - 04/30/2022 12:50 PM CDT Can we print these out? Thank you. I cannot see them documented in this encounter Plan of Treatment Not on file documented as of this encounter Visit Diagnoses Not on filedocumented in this encounter Additional Health Concerns Assessment Noted Time PHQ-9 Depression Total Score: 4 01/26/20 22 10:54 AM CDT documented as of this encounter Care Teams Bsa/Aml Compliance Officer Relationship Specialty Start Date End Date Lisette Yadav FNP [address] [place] [address] PCP - General NURSE PRACTITIONER 11/03/17 Lyndsay Hernandez, RN [address] [place], [place] [address] Communications Representative (Ambulatory) REGISTERED NURSE 04/30/22 Kimberley Tapia, bottle inspector (Ambulatory) CARE MANAGEMENT 02/01/25 02/01/25 Fely Lua, RN [address] [place] [address] Communications Representative (Ambulatory) REGISTERED NURSE 04/21/25 documented as of this encounter
--- OUTSIDE RECORDS SUMMARY | 2025-04-26 06:44 | XMS_ITS | Encounter Summary ---
Author Organization [facility] Address [address] [place] [address] Care Team Providers Care Cleaning And Washing Equipment Operator Name Role Phone Lisette Yadav Primary Care Provider [phone] Fely Lua RN Unavailable Encounter Details Date Type Department Care Team (Late st Contact Info) Description 03/14/2025 Results Follow-Up [facility] Medical Group Family & Internal Medicine [place] [address] [place] [address] Lisette Yadav FNP [address] [place] [address] URINALYSIS AUTO DIP, URINE BACTERIA CULTURE Social History Tobacco Use Types Packs/Day Years Used Date Smoking Tobacco: Never Smokeless Tobacco: Never Alcohol Use Standard Drinks/Week Comments Never 0 (1 standard drink = 0.6 oz pur e alcohol) OASIS D0700: Social Isolation Answer Da te Recorded Frequency of experiencing loneliness or isolatio n Often 08/27/2022 OASIS A1250: Transportation Answer Date Recorded Lack of Transportation (Medical) No 08/27/2022 Lack of Transportation (Non-Medical) No 08/27/2022 Patient Unable or Declines to Respond No 08/27/2022 OASIS B1300: Health Literacy Answer Rei e Recorded Frequency of needing help to read materials from doctor or pharmacy Sometimes 08/27/2022 AUDIT-C Answer Date Recorded Q1: How often do you have a drink containing alcohol? Never 12/29/2024 Q2: How many drinks containi ng alcohol do you have on a typical day when you are drinking? Patient does not drink Q3: How often do you have si x or more drinks on one occasion? Never 12/29/2024 PHQ-2 Answer Date Recorded Patient Health Questionnaire-2 Score 1 12/29/2024 Hunger Vital Sign Answer Date Recorded Within the past 12 months, y ou worried that your food would run out before you got the money to buy more. Never true 06/03/20 22 Within the past 12 months, t he food you bought just didn't last and you didn't have money to get more. Never true 06/03/2022 PRAPARE - Transportation Answer Date Re corded In the past 12 months, has l ack of transportation kept you from medical appointments or from getting medications? No 05/06 In the past 12 months, has l ack of transportation kept you from meetings, work, or from getting things needed for daily living? No 06/03/2022 Comments No Sex and Gender Information Value Date Recorded Sex Assigned at Female 08/20/2024 9:29 AM CASHIER GENERAL Legal Sex Female 1:41 PM CDT Gender Identity Not on file Sexual Orientation Not on file documented as of this encounter Progress Notes * PERLA Albarran - 03/14/2025 11:38 AM CDT Urine did not grow any bacteria documented in this encounter Plan of Treatment Not on file documented as of this encounter Visit Diagnoses Not on filedocumented in this encounter Additional Health Concerns Assessment Noted Time PHQ-9 Depression Total Score: 2 12/30/19 25 8:16 PM CDT documented as of this encounter Care Teams Cleaning And Washing Equipment Operator Relationship Specialty Start Date End Date Lisette Yadav FNP [address] [place] [address] PCP - General NURSE PRACTITIONER 11/03/17 Fely Lua, RN [address] [place] [address] Oven Equipment Repairer (Ambulatory) REGISTERED NURSE 04/21/25 documented as of this encounter
--- OUTSIDE RECORDS SUMMARY | 2025-04-26 06:44 | XMS_ITS | Encounter Summary ---
Author Organization [facility] Address [address] [place] [address] Care Team Providers Care Planer Stone Name Role Phone Lisette Yadav Primary Care Provider [phone] Lyndsay Hernandez RN Unavailable [phone] Kimberley Tapia RN Unavailable Unavailable Fely Lua RN Unavailable Encounter Details Date Type Department Care Team (Late st Contact Info) Description 04/26/2022 Sensegont Message Enc [facility] Medical Group Family & Internal Medicine [facility] [address] [place] [address] Lisette Yadav FNP [address] [place] [address] [facility] Social History Tobacco Use Types Packs/Day Years [...] Sex Assigned at Female 08/20/2024 9:29 AM CORONER Legal Sex Female 1:41 PM CDT Gender [...] documented as of this encounter Care Teams Planer Stone Relationship Specialty Start Date End Date Lisette Yadav FNP [address] [place] [address] PCP - General NURSE PRACTITIONER 11/03/17 Lyndsay Hernandez, RN [address] [place], [place] [phone] Card Player (Ambulatory) REGISTERED NURSE 04/30/22 Kimberley Tapia, credit coordinator (Ambulatory) CARE MANAGEMENT 02/01/25 02/01/25 Fely Lua, RN [address] [place] [address] Card Player (Ambulatory) REGISTERED NURSE 04/21/25 documented as of this encounter
--- OUTSIDE RECORDS SUMMARY | 2025-04-26 06:44 | XMS_ITS | Encounter Summary ---
Author Organization [facility] Address [address] [place] [address] Care Team Providers Care Communication Coordinator Name Role Phone Lisette Yadav Primary Care Provider [phone] Lyndsay Hernandez RN Unavailable [phone] Kimberley Tapia RN Unavailable Unavailable Fely Lua RN Unavailable Encounter Details Date Type Department Care Team (Late st Contact Info) Description 04/28/2022 Exari Systemst Message Enc [facility] Medical Group Family & Internal Medicine [address] [place] [address] Lisette Yadav FNP [facility] [place] [address] Echocardiogram Social History Tobacco Use Types Packs/Day Years [...] Sex Assigned at Female 08/20/2024 9:29 AM SENIOR COBOL DEVELOPER Legal Sex Female 1:41 PM CDT Gender Identity Not on file Sexual Orientation Not on file COVID-19 Exposure Response Date Recorded In the last 10 days, have neo u been in contact with someone who was confirmed or suspected to have Coronavirus/COVID-19? No / Unsure 04/18/2022 7:48 AM CDT documented as of this encounter Progress Notes * PERLA Albarran - 04/30/2022 12:51 PM CDT Can we print these out, I cannot pull them up documented in this encounter Plan of Treatment Not on file documented as of this encounter Visit Diagnoses Not on filedocumented in this encounter Additional Health Concerns Assessment Noted Time PHQ-9 Depression Total Score: 4 01/26/20 22 10:54 AM CDT documented as of this encounter Care Teams Communication Coordinator Relationship Specialty Start Date End Date Lisette Yadav FNP [address] [place] [address] PCP - General NURSE PRACTITIONER 11/03/17 Lyndsay Hernandez, RN [address] [place], [place] [address] Asbestos Pipe Supervisor (Ambulatory) REGISTERED NURSE 04/30/22 Kimberley Tapia claims attorney (Ambulatory) CARE MANAGEMENT 02/01/25 02/01/25 Fely Lua, RN [address] [place], [place] [address] Asbestos Pipe Supervisor (Ambulatory) REGISTERED NURSE 04/21/25 documented as of this encounter
--- OUTSIDE RECORDS SUMMARY | 2025-04-26 06:44 | XMS_ITS | Encounter Summary ---
Author Organization [facility] Address [facility] [place] [address] Care Team Providers Care Bag Machine Tender Name Role Phone Lisette Yadav Primary Care Provider [phone] Lyndsay Hernandez RN Unavailable [phone] Kimberley Tapia RN Unavailable Unavailable Fely Lua RN Unavailable Encounter Details Date Type Department Care Team (Late st Contact Info) Description 04/18/2020 Ak[employer] Message Enc [facility] Medical Group Family & Internal Medicine [id number] [place] [address] Lisette Yadav FNP [address] [place] [address] RE: Question Social History Tobacco Use Types Packs/Day Years Used Date Smoking Tobacco: Never Smokeless Tobacco: Never Alcohol Use Standard Drinks/Week Comments No 0 (1 standard drink = 0.6 oz pur e alcohol) AUDIT-C Answer Date Recorded Frequency of Alcohol Consumption Never 10/27/2018 Average Number of Drinks Not on file 019 Frequency of Binge Drinking Not on file 10/03 PHQ-2 Answer Date Recorded PHQ-2 Score 0 11/06/2018 Comments No Sex and Gender Information Value Date Recorded Sex Assigned at Female 08/20/2024 9:29 AM DOCUMENT ADVISOR Legal Sex Female 1:41 PM CDT Gender Identity Not on file Sexual Orientation Not on file COVID-19 Exposure Response Date Recorded In the last month, have you been in contact with someone who was confirmed or suspected to have Coronavirus / COVID-19? No / Unsure 04/21/2020 7:01 AM CDT documented as of this encounter Plan of Treatment Not on file documented as of this encounter Visit Diagnoses Not on filedocumented in this encounter Additional Health Concerns Assessment Noted Time PHQ-9 Depression Total Score: 2 11/07/19 19 3:21 PM CDT documented as of this encounter Care Teams Bag Machine Tender Relationship Specialty Start Date End Date Lisette Yadav FNP [address] [place] [address] PCP - General NURSE PRACTITIONER 11/03/17 Lyndsay Hernandez, RN [address] [place], [place] [id number] Aircrewman (Ambulatory) REGISTERED NURSE 04/30/22 Kimberley Tapia, staff air defense officer (Ambulatory) CARE MANAGEMENT 02/01/25 02/01/25 Fely Lua, RN [address] [place], [place] [address] Aircrewman (Ambulatory) REGISTERED NURSE 04/21/25 documented as of this encounter
--- OUTSIDE RECORDS SUMMARY | 2025-04-26 06:44 | XMS_ITS | Encounter Summary ---
Author Organization [facility] Address [facility] [place] [address] Care Team Providers Care Bladder Tier Name Role Phone Lisette Yadav Primary Care Provider [phone] Lyndsay Hernandez RN Unavailable [phone] Kimberley Tapia RN Unavailable Unavailable Fely Lua RN Unavailable Encounter Details Date Type Department Care Team (Late st Contact Info) Description 10/21/2019 [employer] Message Enc [facility] Medical Group Family & Internal Medicine [facility] [address] [place] [address] Lisette Yadav FNP [address] [place] [address] Question Social History Tobacco Use Types Packs/Day [...] Sex Assigned at Female 08/20/2024 9:29 AM SNUFF BLENDER Legal Sex Female 1:41 PM CDT Gender Identity Not on file Sexual Orientation Not on file documented as of this encounter Plan of Treatment Not on file documented as of this encounter Visit Diagnoses Not on filedocumented in this encounter Additional Health Concerns Assessment Noted Time PHQ-9 Depression Total Score: 2 11/07/19 19 3:21 PM CDT documented as of this encounter Care Teams Bladder Tier Relationship Specialty Start Date End Date Lisette Yadav FNP [address] [place] [address] PCP - General NURSE PRACTITIONER 11/03/17 Lyndsay Hernandez, RN [address] [place], [place] [phone] Sustainable Landscape Architect (Ambulatory) REGISTERED NURSE 04/30/22 Kimberley Tapia, sisal operator (Ambulatory) CARE MANAGEMENT 02/01/25 02/01/25 Fely Lua, RN [address] [place] [address] Sustainable Landscape Architect (Ambulatory) REGISTERED NURSE 04/21/25 documented as of this encounter
--- OUTSIDE RECORDS SUMMARY | 2025-04-26 06:44 | XMS_ITS | Encounter Summary ---
Author Organization [facility] Address [address] [place] [address] Care Team Providers Care Tenant Relations Coordinator Name Role Phone Lisette Yadav Primary Care Provider [phone] Lyndsay Hernandez RN Unavailable [phone] Kimberley Tapia RN Unavailable Unavailable Fely Lua RN Unavailable Encounter Details Date Type Department Care Team (Late st Contact Info) Description 05/21/2020 [employer] Message Enc [facility] Medical Group Family & Internal Medicine [facility] [address] [place] [address] Lisette Yadav FNP [address] [place] [address] Follow Up/Update Social History Tobacco Use Types Packs/Day Years [...] Sex Assigned at Female 08/20/2024 9:29 AM MOTOR BUS DRIVER Legal Sex Female 1:41 PM CDT Gender [...] documented as of this encounter Care Teams Tenant Relations Coordinator Relationship Specialty Start Date End Date Lisette Yadav FNP [address] [place] [address] PCP - General NURSE PRACTITIONER 11/03/17 Lyndsay Hernandez, RN [address] [place], [place] [id number] Caddie (Ambulatory) REGISTERED NURSE 04/30/22 Kimberley Tapia, sales support rep (Ambulatory) CARE MANAGEMENT 02/01/25 02/01/25 Fely Lua, RN [address] [place] [address] Caddie (Ambulatory) REGISTERED NURSE 04/21/25 documented as of this encounter
--- OUTSIDE RECORDS SUMMARY | 2025-04-26 06:44 | XMS_ITS | Encounter Summary ---
Author Organization [facility] Address [facility] [place] [address] Care Team Providers Care State Attorney Name Role Phone Vicenta Lisette PERLA Primary Care Provider [phone] Lyndsay Hernandez RN Unavailable [phone] Kimberley Tapia RN Unavailable Unavailable Fely Lua RN Unavailable Encounter Details Date Type Department Care Team (Late st Contact Info) Description 01/30/2022 New Body MD Message Enc [facility] Medical Group Multispecialty Care - [facility] [address] [facility], [facility] [address] [place] [address] Moriah Armando MD 3 [facility], [facility] [address] [place] [address] Question Social History Tobacco Use Types Packs/Day [...] please move on to questions 3-9 0 01/25/2022 Comments No Sex and Gender Information Value Date Recorded Sex Assigned at Female 08/20/2024 9:29 AM BLASTING CAP ASSEMBLER Legal Sex Female 1:41 PM CDT Gender Identity Not on file Sexual Orientation Not on file COVID-19 Exposure Response Date Recorded In the last 10 days, have yo u been in contact with someone who was confirmed or suspected to have Coronavirus/COVID-19? No / Unsure 01/25/2022 9:53 AM CDT documented as of this encounter Plan of Treatment Not on file documented as of this encounter Visit Diagnoses Not on filedocumented in this encounter Additional Health Concerns Assessment Noted Time PHQ-9 Depression Total Score: 4 01/26/20 22 10:54 AM CDT documented as of this encounter Care Teams State Attorney Relationship Specialty Start Date End Date Lisette Yadav FNP [address] [place] [address] PCP - General NURSE PRACTITIONER 11/03/17 Lyndsay Hernandez RN [address] [place], [place] [address] Chemical Tester (Ambulatory) REGISTERED NURSE 04/30/22 Kimberley Tapia, crusher dry ground mica (Ambulatory) CARE MANAGEMENT 02/01/25 02/01/25 Fely Lua, RN [address] [place] [address] Chemical Tester (Ambulatory) REGISTERED NURSE 04/21/25 documented as of this encounter
--- OUTSIDE RECORDS SUMMARY | 2025-04-26 06:44 | XMS_ITS | Encounter Summary ---
Author Organization [facility] Address [facility] [place] [address] Care Team Providers Care It Admin Name Role Phone Lisette Yadav Primary Care Provider [phone] Fely Lua RN Unavailable Encounter Details Date Type Department Care Team (Late st Contact Info) Description 04/19/2025 Onzo Message Enc [facility] Medical Group Family & Internal Medicine [facility] [address] [place] [address] Lisette Yadav FNP [address] [place] [address] Just a question about tomorrow s appointment with Dr. Jara Social History Tobacco Use Types Packs/Day Years [...] Sex Assigned at Female 08/20/2024 9:29 AM ER RN Legal Sex Female 1:41 PM CDT Gender Identity Not on file Sexual Orientation Not on file documented as of this encounter Progress Notes * PERLA Albarran - 04/20/2025 12:18 PM CDT According to her lumbar ct- she will need pain management or neurosurgery referral for her disc bulging and her pain. * PERLA Albarran - 04/19/2025 2:42 PM CDT It depends on if they think she can wait til tomorrow, if it is not bearable, she might need ER tonight and still maintain follow up tomorrow. 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
--- OUTSIDE RECORDS SUMMARY | 2025-04-26 06:45 | XMS_ITS | Encounter Summary ---
Author Organization [facility] Address [facility] [place] [address] Care Team Providers Care Instructional Services Librarian Name Role Phone Lisette Yadav Primary Care Provider [phone] Lyndsay Hernandez RN Unavailable [phone] Kimberley Tapia RN Unavailable Unavailable Fely Lua RN Unavailable Encounter Details Date Type Department Care Team (Late st Contact Info) Description 03/09/2019 [employer] Message Enc [facility] Medical Group Family & Internal Medicine [address] [place] [address] Lisette Yadav FNP [address] [place] [address] RE: FW: FW: FW: Medication Questions Social History Tobacco [...] Sex Assigned at Female 08/20/2024 9:29 AM FOREMAN/PILE DRIVING AND ERECTION Legal Sex Female 1:41 PM CDT Gender Identity Not on file Sexual Orientation Not on file documented as of this encounter Progress Notes * PERLA Albarran - 03/11/2019 5:36 PM CDT We just need to know if he wanted her to continue both the Vesicare and Mybetriq documented in this encounter Plan of Treatment Not on file documented as of this encounter Visit Diagnoses Not on filedocumented in this encounter Additional Health Concerns Assessment Noted Time PHQ-9 Depression Total Score: 2 11/07/19 19 3:21 PM CDT documented as of this encounter Care Teams Instructional Services Librarian Relationship Specialty Start Date End Date Lisette Yadav FNP [address] [place] [address] PCP - General NURSE PRACTITIONER 11/03/17 Lyndsay Hernandez RN [address] [place], [place] [phone] Support Services Rep (Ambulatory) REGISTERED NURSE 04/30/22 Kimberley Tapia, billing department supervisor (Ambulatory) CARE MANAGEMENT 02/01/25 02/01/25 Fely Lua, RN [address] [place], [place] [phone] Support Services Rep (Ambulatory) REGISTERED NURSE 04/21/25 documented as of this encounter
--- OUTSIDE RECORDS SUMMARY | 2025-04-26 06:45 | XMS_ITS | Encounter Summary ---
Author Organization [facility] Address [address] [place] [address] Care Team Providers Care Web Assistant Name Role Phone Joseph Simmons MD Primary Care Provider [phone] Encounter Details Date Type Department Care Team (Late st Contact Info) Description 10/29/1999 Outpatient Historical [facility] Nilton Bhat MD [address] [place] [address] Diverticulosis of colon (without mention of hemorrhage) (Primary Dx) Social History Tobacco Use Types Packs/Day Years Used Date Smoking Tobacco: Never Assessed Comments Unknown Sex and Gender Information Value Date Recorded Sex Assigned at Not on file Legal Sex Female 3:01 AM HEAD CHOPPER Gender Identity Not on file Sexual Orientation Not on file documented as of this encounter Plan of Treatment Not on file documented as of this encounter Visit Diagnoses Diagnosis Diverticulosis of colon (without mention of hemorrhage)- Primary documented in this encounter Care Teams Web Assistant Relationship Specialty Start Date End Date Joseph Simmons MD [address] [place] [address] PCP - General 06/13/15 documented as of this encounter
--- OUTSIDE RECORDS SUMMARY | 2025-04-26 06:45 | XMS_ITS | Encounter Summary ---
Author Organization [facility] Address [address] [place] [address] Care Team Providers Care Screw Machine Adjuster Automatic Name Role Phone Joseph Simmons MD Primary Care Provider [phone] Encounter Details Date Type Department Care Team (Latest Contact Info) Description 05/19/2001 Outpatient Historical [facility] BIBI Quintana, Yaya Rosales MD NO ADDRESS ON FILE Other screening mammogram (Primary Dx) Social History Tobacco Use Types Packs/Day Years Used Date Smoking Tobacco: Never Assessed Comments Unknown Sex and Gender Information Value Date Recorded Sex Assigned at Not on file Legal Sex Female 3:01 AM CHECK INSPECTOR Gender Identity Not on file Sexual Orientation Not on file documented as of this encounter Plan of Treatment Not on file documented as of this encounter Visit Diagnoses Diagnosis Other screening mammogram- Primary documented in this encounter Care Teams Screw Machine Adjuster Automatic Relationship Specialty Start Date End Date Joseph Simmons MD [address] [place] [address] PCP - General 06/13/15 documented as of this encounter
--- OUTSIDE RECORDS SUMMARY | 2025-04-26 06:45 | XMS_ITS | Encounter Summary ---
Author Organization [facility] Address [facility] [place] [address] Care Team Providers Care Marine Steamfitter Name Role Phone Lisette Yadav Primary Care Provider [phone] Kimberley Tapia RN Unavailable Unavailable Fely Lua RN Unavailable Encounter Details Date Type Department Care Team (Late st Contact Info) Description 01/03/2023 [employer] Message Enc [facility] Medical Group Family & Internal Medicine [address] [place] [address] Lisette Yadav FNP [address] [place] [address] Signify Health Visit Social History Tobacco Use Types Packs/Day Years [...] pharmacy Sometimes 08/27/2022 AUDIT-C Answer Date Recorded Frequency of Alcohol Consumption Never 10/27/2018 Average Number of Drinks Not on file 019 Frequency of Binge Drinking Not on file 10/03 PHQ-2 Answer Date Recorded PHQ-2 Score - If the patient scores above 3, please move on to questions 3-9 0 04/18/2022 Hunger Vital Sign Answer Date Recorded Within [...] Sex Assigned at Female 08/20/2024 9:29 AM MULE DRIVER Legal Sex Female 1:41 PM CDT Gender Identity Not on file Sexual Orientation Not on file documented as of this encounter Progress Notes * PERLA Albarran - 01/14/2023 4:48 PM CDT Was this addressed while I was out? documented in this encounter Plan of Treatment Not on file documented as of this encounter Visit Diagnoses Not on filedocumented in this encounter Additional Health Concerns Assessment Noted Time PHQ-9 Depression Total Score: 4 01/26/20 10:54 AM CDT documented as of this encounter Care Teams Marine Steamfitter Relationship Specialty Start Date End Date Lisette Yadav FNP [address] [place] [address] PCP - General NURSE PRACTITIONER 11/03/17 Kimberley Tapia car cooper (Ambulatory) CARE MANAGEMENT 02/01/25 02/01/25 Fely Lua, RN [address] [place], [place] [address] Bath Mixer (Ambulatory) REGISTERED NURSE 04/21/25 documented as of this encounter
--- OUTSIDE RECORDS SUMMARY | 2025-04-26 06:45 | XMS_ITS | Clinical Summary ---
Author Organization [facility] Address [address] [place] [address] Phone Care Team Providers Care Urology Physician Assistant Name Role Phone Joseph Simmons MD Primary Care Provider [phone] Family History Medical History Relation Name Comments Breast Cancer Neg Hx Cancer Neg Hx Ovarian Cancer Neg Hx Social History Tobacco Use Types Packs/Day Years Used Date Smoking Tobacco: Never Assessed Comments Unknown Sex and Gender Information Value Date Recorded Sex Assigned at Not on file Legal Sex Female 3:01 AM SUPERVISOR FISH PROCESSING Gender Identity Not on file Sexual Orientation [...] YEARS Completed 05/01/2016 , 05/04/2006 Insurance MEDICAID [place] Care Teams Urology Physician Assistant Relationship Specialty Start Date End Date Joseph Simmons MD [address] [place] [address] PCP - General 06/13/15
--- OUTSIDE RECORDS SUMMARY | 2025-04-26 06:45 | XMS_ITS | Encounter Summary ---
Author Organization [facility] Address [address] [place] [address] Care Team Providers Care Academic Dean Name Role Phone Joseph Simmons MD Primary Care Provider [phone] Encounter Details Date Type Department Care Team (Latest Contact Info) Description 07/01/2001 Outpatient Historical [facility] Yaya Quintana MD NO ADDRESS ON FILE FEMALE CLIMACTERIC STATE (Primary Dx) Social History Tobacco Use Types Packs/Day Years Used Date Smoking Tobacco: Never Assessed Comments Unknown Sex and Gender Information Value Date Recorded Sex Assigned at Not on file Legal Sex Female 3:01 AM ULTRASOUND APPLICATIONS SPECIALIST Gender Identity Not on file Sexual Orientation Not on file documented as of this encounter Plan of Treatment Not on file documented as of this encounter Visit Diagnoses Diagnosis Symptomatic menopausal or female climacteric states- Primary documented in this encounter Care Teams Academic Dean Relationship Specialty Start Date End Date Joseph Simmons MD [address] [place] [address] PCP - General 06/13/15 documented as of this encounter
--- OUTSIDE RECORDS SUMMARY | 2025-04-26 06:45 | XMS_ITS | Clinical Summary ---
Author Organization [facility] Address [address] [facility], [address] [address] Phone Care Team Providers Care Dross Skimmer Name Role Phone Unavailable Primary Care Provider [...] Comments Blood Pressure 138/80 08/15/2016 1:39 PM FLATWORK FINISHER Pulse 82 08/15/2016 1:39 PM FLATWORK FINISHER Temperature 36.6 C (97.8 F) 08/15/2016 1:39 PM FLATWORK FINISHER Respiratory Rate 18 08/15/2016 1:39 PM FLATWORK FINISHER Oxygen Saturation 90% 08/15/2016 1:39 PM FLATWORK FINISHER Inhaled Oxygen Concentration - - Weight 88.5 kg (195 lb) 08/15/2016 1:39 PM FLATWORK FINISHER Height 154.9 cm (5' 1) 08/15/2016 1:39 PM FLATWORK FINISHER Body Mass Index 36.84 08/15/2016 1:39 PM FLATWORK FINISHER Plan of Treatment Health Maintenance Due Date [...]
--- OUTSIDE RECORDS SUMMARY | 2025-04-26 06:45 | XMS_ITS | Clinical Summary ---
Author Organization [facility] Address [address] [place] [address] Care Team Providers Care Corn Breeder Name Role Phone Cayetano Farrar MD Primary Care Provider [phone] Source Comments [facility],non-owned Affiliates and Associated Physician Practices is amultiple site organization consisting of ambulatory clinics and hospital sitesin [place], [place], [place] and [place]. This disclosure is being madepursuant to the Care Everywhere program and may not contain all information available regarding this patient. Last updated 18.[facility] Allergies Active Allergy Reactions Criticality Noted Date Comments Erythromycin Other Low 12/30/2015 unsure Social History Tobacco Use Types Packs/Day Years Used Date Smoking Tobacco: Former Alcohol Use Standard Drinks/Week Comments No 0 (1 standard drink = 0.6 oz pur e alcohol) Comments Unknown Sex and Gender Information Value Date Recorded Sex Assigned at Not on file Legal Sex Female 5:58 PM PROJECT MANAGER RETAIL Gender Identity Not on file Sexual Orientation [...] age to complete this topic Care Teams Corn Breeder Relationship Specialty Start Date End Date Cayetano Farrar MD PCP - General 08/12/19
--- OUTSIDE RECORDS SUMMARY | 2025-04-26 06:45 | XMS_ITS | Encounter Summary ---
Author Organization [facility] Address [address] [place] [address] Care Team Providers Care Dental Biller Name Role Phone Joseph Simmons MD Primary Care Provider [phone] Encounter Details Date Type Department Care Team (Late st Contact Info) Description 12/14/2004 Outpatient Historical [facility] Nilton Bhat MD [address] [place] [address] SURGERY FOLLOWUP, UNSPEC (Primary Dx) Social History Tobacco Use Types Packs/Day Years Used Date Smoking Tobacco: Never Assessed Comments Unknown Sex and Gender Information Value Date Recorded Sex Assigned at Not on file Legal Sex Female 3:01 AM STEEL RULE INSPECTOR Gender Identity Not on file Sexual Orientation Not on file documented as of this encounter Plan of Treatment Not on file documented as of this encounter Visit Diagnoses Diagnosis Follow-up examination, following unspecified surgery- Primary documented in this encounter Care Teams Dental Biller Relationship Specialty Start Date End Date Joseph Simmons MD [address] [place] [address] PCP - General 06/13/15 documented as of this encounter
--- OUTSIDE RECORDS SUMMARY | 2025-04-26 06:45 | XMS_ITS | Encounter Summary ---
Author Organization [facility] Address [facility] [place] [address] Care Team Providers Care Gasoline Plant Operator Name Role Phone Lisette Yadav Primary Care Provider [phone] Lyndsay Hernandez RN Unavailable [phone] Kimberley Tapia RN Unavailable Unavailable Fely Lua RN Unavailable Encounter Details Date Type Department Care Team (Late st Contact Info) Description 12/16/2018 KOWN Message Enc [facility] Internal [facility] [address] [place] [address] Lisette Yadav FNP [facility] [place] [address] RE: FW: FW: Medication Questions [...] Sex Assigned at Female 08/20/2024 9:[address]ANT Legal Sex Female 1:41 PM CDT Gender Identity Not on file Sexual Orientation Not on file documented as of this encounter Plan of Treatment Not on file documented as of this encounter Visit Diagnoses Not on filedocumented in this encounter Additional Health Concerns Assessment Noted Time PHQ-9 Depression Total Score: 2 11/07/19 19 3:21 PM CDT documented as of this encounter Care Teams Gasoline Plant Operator Relationship Specialty Start Date End Date VicentaGregLisettePERLA coleman [address] [place] [address] PCP - General NURSE PRACTITIONER 11/03/17 Lyndsay Hernandez, RN [address], [place] [address] Industrial Specialist (Ambulatory) REGISTERED NURSE 04/30/22 Kimberley Tapia, java tech (Ambulatory) CARE MANAGEMENT 02/01/25 02/01/25 Fely Lua, RN [address], [place] [id number] Industrial Specialist (Ambulatory) REGISTERED NURSE 04/21/25 documented as of this encounter
--- OUTSIDE RECORDS SUMMARY | 2025-04-26 06:45 | XMS_ITS | Clinical Summary ---
Author Organization [facility] Address [address] [place] [address] Care Team Providers Care Manager Delivery Name Role Phone Destini Yadav PERLA Primary Care Provider [phone] Fely Lua RN Unavailable Allergies Active Allergy Reactions Criticality Noted Date Comments Tape Rash Low 04/02/2019 Patient reports latex in tape not latex gloves Erythromycin Unknown,Rash Low 07/19/2015 Medications * This document contains information received from the source organization and may not represent a complete record from that organization. vitamin D3, cholecalciferol, 5000 UNITS capsuleIndication s:Vitamin and/or Mineral Deficiency Take 1 capsule (5,000 Units total) by mouth weekly. Indications: Vitamin and/or Mineral Deficiency Active Cyanocobalamin (QC VITAMIN B12) 5000 MCG SL TabIndications:vi tamin deficiency Take 5,000 mcg by mouth daily. Indications: vitamin deficiency Active NON FORMULARYIndicati ons:vitamin deviciency Take 2 capsules by mouth daily. D Mannose Capsules Indications: vitamin deviciency Active melatonin 10 MG tablet Take 1 tablet (10 mg total) by mouth nightly as needed for Sleep. Active lactobacillus (CULTURELLE) capsule Take 1 capsule by mouth daily. Active Magnesium 300 MG Cap Take 1 tablet by mouth daily. Active acetaminophen (TYLENOL) 500 MG tabletIndications :Pain Take 1 tablet (500 mg total) by mouth every 4 (four) hours as needed for Pain. Indications: Pain 90 tablet 3 024 Active albuterol sulfate HFA 108 (90 Base) MCG/ACT inhalerIndication s:shortness of breath Inhale 2 puffs into the lungs every 6 (six) hours as needed for Wheezing. Indications: shortness of breath 90 mcg/actuation HFA Aerosol Inhaler 54 g 3 Active alendronate (FOSAMAX) 70 MG tabletIndications :Age-related osteoporosis with current pathological fracture of vertebra with routine healing, subsequent encounter take 1 tablet by mouth every week 12 tablet 3 Active aspirin EC (ASPIRIN LOW DOSE) 81 MG tabletIndications :Primary hypertension TAKE 1 TABLET BY MOUTH DAILY 90 tablet 3 Active Calcium Carbonate-Vit D-Min (CALCIUM 1200) 8939-4923 MG-UNIT Chew TabIndications:vi tamin deficiency Chew 1 tablet by mouth daily. Indications: vitamin deficiency 90 tablet 3 Active citalopram (CELEXA) 40 MG tabletIndications :Mild episode of recurrent major depressive disorder Take 1 tablet (40 mg total) by mouth daily. 90 tablet 3 Active famotidine (PEPCID) 20 MG tabletIndications :acid reflux Indications: acid reflux TAKE 1 TABLET(20 MG) BY MOUTH TWICE DAILY FOR GERD 180 tablet 3 Active latanoprost (XALATAN) 0.005 % ophthalmic solutionIndicatio ns:dry eyes Indications: dry eyes INT 1 GTT IN EACH EYE QPM 7.5 mL 11 Active levothyroxine (SYNTHROID) 137 MCG tabletIndications :Acquired hypothyroidism TAKE 1 TABLET(137 MCG) BY MOUTH EVERY MORNING FOR THYROID 90 tablet 3 Active losartan (COZAAR) 50 MG tabletIndications :Primary hypertension,Stag e 3b chronic kidney disease (CMS/HCC) Take 1 tablet (50 mg total) by mouth daily. 90 tablet 3 Active nystatin (MYCOSTATIN) creamIndications: fungal rash Apply topically 2 (two) times daily. Indications: fungal rash Apply topically to the folds of the skin BID 30 g 2 Active polyethylene glycol (MIRALAX) 17 GM/SCOOP powderIndications :Chronic idiopathic constipation Take 17 g by mouth daily. Dissolve powder in 240 mL water 255 g 3 11/21/2 024 Active simethicone (MYLICON) 80 MG chewable tabletIndications :gas Chew 1.5 tablets (120 mg total) by mouth 3 (three) times daily with meals. Indications: gas 135 tablet 3 024 Active venlafaxine XR (EFFEXOR-XR) 75 MG 24 hr capsuleIndication s:Mild episode of recurrent major depressive disorder TAKE 3 CAPSULES(225 MG) BY MOUTH DAILY 270 capsule 3 024 Active solifenacin succinate (VESICARE) 10 MG TabIndications:OA B (overactive bladder) TAKE 1 TABLET BY MOUTH EVERY DAY 90 tablet 3 025 Active MYRBETRIQ 50 MG 24 hr tabletIndications :Urge incontinence of urine Take 1 tablet (50 mg total) by mouth daily. 30 tablet 5 025 Active timolol (TIMOLOL MALEATE OCUDOSE) 0.5 % ophthalmic solution INSTILL 1 DROP INTO EACH EYE EVERY MORNING Active terbinafine (LAMISIL) 250 MG tablet Take 1 tablet (250 mg total) by mouth daily. Active hydroCHLOROthiazi de (MICROZIDE) 12.5 MG capsuleIndication s:Localized edema TAKE 1 TO 2 CAPSULES BY MOUTH EVERY DAY NEEDED 90 capsule 3 025 Active donepezil (ARICEPT) 10 MG TabIndications:Al zheimer's dementia without behavioral disturbance (CMS/HCC) TAKE 1 TABLET(10 MG) BY MOUTH EVERY NIGHT AT BEDTIME 90 tablet 1 025 Active HYDROcodone-aceta minophen (NORCO) 5-325 MG tabletIndications :Acute Pain < 7 Day Supply Take 1 tablet by mouth every 6 (six) hours as needed for Pain (severe). Indications: Acute Pain < 7 Day Supply 28 tablet 025 Active traMADol (ULTRAM) 50 MG tabletIndications :Chronic Pain Take 1 tablet (50 mg total) by mouth every 6 (six) hours as needed for Pain. Indications: Chronic Pain 30 tablet 2 025 Active tiZANidine (ZANAFLEX) 2 MG tabletIndications :Muscle spasm Take 1 tablet (2 mg total) by mouth every 8 (eight) hours as needed. 30 tablet 025 Active traMADol 50 MG tabletIndications :Chronic Pain Take 1 tablet (50 mg total) by mouth every 6 (six) hours as needed for Pain. Indications: Chronic Pain 30 tablet 2 022 2024 Discontinued(R eorder) umeclidinium-margarita nterol (ANORO ELLIPTA) 62.5-25 MCG/ACT inhalerIndication s:Chronic obstructive pulmonary disease, unspecified COPD type ([facility]) Inhale 1 puff into the lungs daily. 180 each 3 024 2024 Discontinued(F ormulary change) tiZANidine (ZANAFLEX) 2 MG tabletIndications :Muscle spasm Take 1 tablet (2 mg total) by mouth every 8 (eight) hours as needed. 30 tablet 025 2024 Discontinued tiZANidine (ZANAFLEX) 2 MG tabletIndications :Muscle spasm TAKE 1 TABLET(2 MG) BY MOUTH EVERY 8 HOURS NEEDED 30 tablet 025 2024 Discontinued(R eorder) ANORO ELLIPTA 62.5-25 MCG/ACT inhalerIndication s:Chronic obstructive pulmonary disease, unspecified COPD type ([facility]) Inhale 1 puff into the lungs once for 1 dose. 180 each 3 025 2024 Active Problems Patient Care Coordination No te Formatting of this note migh t be different from the original. OP PT precautions: HTN(med controlled), osteoporosis, allergic to latex. Problem Noted Date Diagnosed Date Acute nonintractable headache, unspecified heada caitlin type 12/23/2024 Fall, subsequent encounter 04/16/2023 CKD (chronic kidney disease) stage 4, GFR 15-29 ml/min ([facility]) 03/28/2023 Physical deconditioning 07/12/2022 Vitamin D deficiency 07/12/2022 Recurrent UTI 07/12/2022 Overweight with body mass in dex (BMI) of 29 to 29.9 in adult 01/25/2022 Balance disorder 06/05/2021 Generalized weakness 06/05/2021 Albuminuria 09/28/2020 Mixed hyperlipidemia 04/25/2020 Mild episode of recurrent major depressive disor russell 04/25/2020 Lumbar radiculopathy 04/15/2019 Macular degeneration 04/02/2019 Degenerative lumbar spinal stenosis 04/02/2019 Age-related osteoporosis wit h current pathological fracture of vertebra ([facility]) 03/09/2019 Lumbar stenosis with neurogenic claudication 01/2019 Overview (04/02/2019): Last Assessment & Plan: CT lumbar along with the above findings [...] the patient is surgical and only postoperatively. Urinary incontinence in female 02/23/2018 Constipation 07/16/2017 OAB (overactive bladder) 07/16/2017 Pain in joint 06/10/2017 Nodule of right lung 08/15/2016 Osteoporosis 08/13/2016 Bilateral shoulder pain 07/22/2016 Cough 07/22/2016 Dementia 07/22/2016 Chronic obstructive pulmonary disease ([facility]) 06/13/2016 Midline cystocele 10/02/2015 Uterine prolapse without vaginal wall prolapse 0 10/02/2015 Alzheimer's dementia without behavioral disturba nce 07/19/2015 GERD (gastroesophageal reflux disease) 5 Glaucoma 07/19/2015 HTN (hypertension) 07/19/2015 Hypothyroidism 07/19/2015 Osteoarthrosis 07/19/2015 Incomplete uterovaginal prolapse 05/31/2015 Resolved Problems Problem Noted Date Diagnosed Date Resolved Date Right arm pain 04/16/2023 12/23/2024 Rash 07/12/2022 12/23/2024 Stage 3b chronic kidney disease 09/28/2020 12/23/2024 Urge incontinence of urine 04/25/2020 0 12/23/2024 Contusion of right knee, initial encounter 12/16/2018 12/23/2024 Urinary urgency 02/23/2018 12/23/2024 Pneumonia 11/03/2017 12/23/2024 Dry skin 08/24/2017 12/23/2024 Fungal rash of trunk 08/19/2017 025 Kidney dysfunction 07/16/2017 Benign essential hypertension 12/10/2016 12/23/2024 Class 2 severe obesity due t o excess calories with serious comorbidity and body mass index (BMI) of 37.0 to 37.9 in adult 08/15/2016 2 SOB (shortness of breath) 08/15/2016 Disorder of bone 07/03/2016 12/23/2024 Closed fracture of nasal bon e with routine healing 01/03/2016 12/23/2024 Low vitamin D level 07/19/2015 12/24/19 25 Encounters Date Type Department Care Team Description 04/25/2025 Patient Outreach [facility] Family & Internal Medicine [address] [phone] Fely Lua, RN Hospital Follow Up 04/21/2025 Patient Outreach [facility] Family Internal [address] [phone] Fely Lua, RN Hospital Follow Up 04/19/2025 Scan APSX INFO SRVCS Scanned, [facility] 04/19/2025 [employer] Message Enc [facility] & Internal [address] [phone] Destini Yadav FNP Just a question about tomorrow s appointment with Dr. Jara 04/12/2025 Telephone [facility] & Internal [address] [phone] Destini Yadav FNP Medication Problem 03/30/2025 Telephone [facility] Orthopedic & Sports Medicine [address] [address] Tc Ascencio MD Appointment Request 03/30/2025 Results Follow-Up [facility] Internal [place] [address] [place] [address] Destini Yadav FNP MRI HIP LT WO CON 03/23/2025 MyChart Message Enc [facility] Internal [place] [address] [place] [address] Destini Yadav FNP [employer] medication review 03/21/2025 1:11 PM CDT - 03/21/2025 11:59 PM CDT Hospital Encounter [facility] Open MRI [address] [place] [address] Destini Yadav FNP Discharge Disposition: Home or Self Care (Routine Discharge) 03/21/2025 Travel 03/14/2025 Results Follow-Up [address] [phone] Destini Yadav FNP URINALYSIS AUTO DIP, URINE BACTERIA CULTURE 03/14/2025 Telephone [facility] [address] [facility] [facility] [address] [place] [address] Priyanka Bernstein, PT Counseling 03/10/2025 8:40 AM CDT Allied Health/Nurse Visit [address] [address] Destini Yadav FNP Allied Health Visit (UA) 03/10/2025 - 03/10/2025 11:59 PM CDT Hospital Encounter [facility] [address] [place] [address] Destini Yadav FNP Discharge Disposition: Home or Self Care (Routine Discharge) 03/10/2025 Results Follow-Up [place] [address] [place] [address] Destini Yadav FNP XR HIP LT 2V 03/10/2025 Travel 03/04/2025 11:00 AM CDT Office Visit [facility] [address] [place] [address] Priyanka Bernstein, PT Catrachita Santa, ICE CREAM FREEZER HELPER Generalized Weakness 03/04/2025 Scan [facility] SRVCS Scanned, [facility] 03/04/2025 Orders Only [place] [address] [place] [address] Destini Yadav FNP 03/04/2025 MyChart Message Enc [address] [phone] Destini Yadav FNP Pain 03/04/2025 Travel 02/22/2025 2:45 PM CDT Office Visit [facility] [address] [place] [phone] Destini Yadav, Noam Vivar, PT Generalized Weakness 02/22/2025 Travel 02/18/2025 1:00 PM CDT Office Visit [facility] Physical [facility] [address] [place] [address] Destini Yadav, Noam Vivar, PT Initial Evaluation 02/18/2025 Travel 02/01/2025 Patient Outreach [address] [phone] Kimberley Tapia DRUG COORDINATOR F/U (ED visit [facility] 01/30/25) 01/31/2025 MyChart Message Enc [address] [address] Destini Yadav FNP Fall 01/30/2025 6:33 PM CDT - 01/30/2025 10:01 PM CDT Emergency [facility] [place] [address] Noam Benavides, PA [facility] Discharge Disposition: Home or Self Care (Routine Discharge) 01/30/2025 Travel from Last 3 Months Immunizations Immunization Administration Dates Next Due Arexvy Respiratory Syncytial Virus (RSV, adjuvanted) 0.5 mL, PF 08/08/2023 Fluzone 6 Months+ Quad (0.5 mL Prefilled Syringe) 08/08/2023 Fluzone High Dose (IIV, triv alent, 0.5mL) 06/03/2024 Fluzone High Dose - >Age 65 (Prefilled Syringe) 05/14/2022,06/22/2021,04/21/2020 Influenza (Generic) 08/04/2012 Influenza Adult (Generic) 04/21/2020,08/04/2012 PFIZER COVID-19 (12+) MRNA, LNP-S, PF, ASHISH-SUCROSE, 30 MCG/0.3 ML (COMIRNATY) 12/23/2024,06/03/2024 PFIZER COVID-19 (ORIGINAL FORMULATION, PURPLE CAP) mRNA, LNP-S, PF, 30 MCG/0.3 ML DOSE 06/22/2021,08/28/2020 PFIZER COVID-19 BIVALENT (12 +) mRNA, LNP-S, PF, 30 MCG/0.3 ML DOSE 07/12/2022 Pneumococcal (Pneumovax 23) 05/04/2006 Pneumococcal (Prevnar 13) 05/01/2016 RSV VACCINE, UNSPECIFIED 08/08/2023 Shingrix 09/03/2024,03/04/2024 Tdap (Boostrix) 12/30/2015 Tdap (Generic) 03/22/2023,,12/30/2015,2005 Family History Medical History Relation Comments Heart Brother Parkinson's Disease Brother Alzheimers Father Heart Father Heart Disease Father Hypertension Father Alzheimers Mother Arthritis Mother Depression Mother Heart Mother Heart Disease Mother Hypertension Mother Mental Health Mother Relation Status Comments Brother Father Mother Sister Social History Tobacco Use Types Packs/Day Years Used Date Smoking Tobacco: Never Smokeless Tobacco: Never Tobacco Cessation:Counseling Given: Not Answered Alcohol Use Standard Drinks/Week Comments Never 0 [...] Sex Assigned at Female 08/20/2024 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 Legal Sex Female 1:41 PM CDT Gender Identity Not on file Sexual Orientation Not on file Last Filed Vital Signs Vital Sign Reading Time Taken Comments Blood Pressure 153/76 01/30/2025 9:59 PM CDT Pulse 74 01/30/2025 9:59 PM CDT Temperature 36.6 C (97.8 F) 01/30/2025 9:59 PM CDT Respiratory Rate 16 01/30/2025 9:59 PM CDT Oxygen Saturation 97% 01/30/2025 9:59 PM CDT Inhaled Oxygen Concentration - - Weight 68.9 kg (152 lb) 01/30/2025 6:20 PM CDT Height 152.4 cm (5') 01/30/2025 6:20 PM CDT Body Mass Index 29.69 01/30/2025 6:20 PM CDT Plan of Treatment Health Maintenance Due Date Last Done Comments COVID-19 Vaccine ( season) 2025 12/23/2024, 06/03/2024, 08/08/2023, Additional history exists Annual Medicare Wellness Visit 12/31/2025 12/30/2024 DTaP, Tdap and Td Vaccines (6 - Td or Tdap) 03/22/2033 03/22/2023, 08/04/2020, 12/30/2015, Additional history exists Pneumococcal Vaccine: 50+ Years Completed 05/01/2016, 05/04/2006 RSV Immunization or 60+ Years Completed 08/08/2023, 08/08/2023 Zoster Vaccines Completed 09/03/2024, 03/04/2024 PHQ-2 (Physician [place]) Completed 12/29/2024 Meningococcal B Vaccine Aged Out No l onger eligible based on patient's age to complete this topic Meningococcal Vaccine Aged Out No elizabeth elizabeth eligible based on patient's age to complete this topic RSV Immunizations Under 20 Months Aged Out No longer eligible based on patient's age to complete this topic Medical Devices Implanted Type Area Costumer Device Identifier Shelf Expiration Date Model / Serial / Lot Plate Synthes 2.4 Va-Lcp Vlr Dist Radius 6h Hd/2h Shaft Left - [id number] Implanted:Qty: 1 on 06/27/2021 by Meng Sanders MD at [facility] Plate Left: Radius SYNTHES 02.111.621 / / Screw Synthes 2.4 Locking Stardrive 20mm - [id number] Implanted:Qty: 4 on 06/27/2021 by Meng Sanders MD at [facility] Screw Left: Radius SYNTHES 02.210.120 / / Screw Synthes 2.4 Locking Stardrive 18mm - [id number] Implanted:Qty: 2 on 06/27/2021 by Meng Sanders MD at [facility] Screw Left: Radius SYNTHES .118 / / Screw Synthes 2.4 Locking Stardrive 12mm - [id number] Implanted:Qty: 1 [facility] 06/27/20[facility] Screw Left: Radius SYNTHES .112 / / Screw Synthes 2.4 Locking Stardrive 14mm - [id number] Implanted:Qty: 1 on 06/27/2021 by Meng Sanders MD at [facility] Screw Left: Radius SYNTHES .114 / / Wire Luna .062 X 9 - [id number] Implanted:Qty: 1 on 06/27/2021 by Meng Sanders MD at [facility] Wire Left: Radius [employer] [id number] / / Procedures Procedure Name Priority Date/Time Associated Diagnosis Comments MRI HIP LT WO CON Routine 03/21/2025 1:5 0 PM CDT Abnormal findings on imaging test Hip pain URINE BACTERIA CULTURE Routine 03/10/2025 10:18 AM CDT Frequent falls Encounter for long-term current use of medication XR HIP LT 2V Routine 03/10/2025 9:13 AM CDT Hip pain URINALYSIS AUTO DIP Routine 03/10/2025 Frequent falls XR HIP ARNEL 2V+PELVIS STAT 01/30/2025 6:42 PM CDT from Last 3 Months Results * MRI HIP LT WO CON (03/21/2025 1:50 PM CDT) Anatomical Region Laterality Modality Hip Magnetic Resonan ce 03/30/2025 8:35 AM CDT Impressions 03/30/2025 9:43 AM CDT IMPRESSION: 1. No acute osseous abnormality. 2. Combination of enthesopathy and prior avulsion injury at the left greater trochanter corresponds to the findings on recent radiography. 3. Moderate osteoarthritis of both hips. 4. Small amount of fluid within both greater trochanteric bursae without bursal distention to indicate a bursitis. 5. Increased signal within the left adductor and obturator musculature near the inferior pubic ramus likely relating to mild intrasubstance tearing/strain. No discrete fluid-filled tear. Ordered By: DESTINI YADAV Interpreted By: Noam Rucker MD, 03/30/2025 8:35 AM Narrative 03/30/2025 9:43 AM CDT [address] [address] EXAMINATION: MRI HIP LT WO CON DATE: 03/21/2025 1:18 PM HISTORY: 84 years Female. left hip pain ANB findings on Xray COMPARISON: Left hip radiography 03/10/2025. Pelvic and bilateral hip radiography 01/30/2025. TECHNIQUE: Multiplanar, multisequence MR imaging of the left hip was performed according to routine protocol without complication. FINDINGS: Joints: Moderate amount of fluid within the posterior recess of the left hip joint with septations. Small right hip joint effusion. Sacroiliac joints are unremarkable. Moderate degenerative changes of the symphysis pubis. Labrum: Chronic tearing of the left acetabular labrum. Cartilage: Moderate diffuse cartilaginous thinning without full thickness defect identified. Tendons: Enthesopathy of the left more so than right gluteus medius and minimus tendon insertions. Tendinosis of the left gluteus medius. Marrow: No acute fracture or destructive osseous lesion is identified. A chronic avulsion injury at the cephalad margin of the left greater trochanter is demonstrated and corresponds to the irregular ossific densities on recent radiographs (series [id number] image 15). Miscellaneous: Small amount of fluid within the left greater trochanteric bursa (series [id number] image 14). Fluid in the right trochanteric bursa. Mild increased signal on T2 STIR weighted imaging within the musculature of the left adductor and obturator externus near the left inferior pubic ramus (series [id number] image 33). Included pelvic viscera are unremarkable. Procedure Note Noam Rucker MD - 03/30/[address] [address] EXAMINATION: MRI HIP LT WO CON DATE: 03/21/2025 1:18 PM HISTORY: 84 years Female. left hip pain ANB findings on Xray COMPARISON: Left hip radiography 03/10/2025. Pelvic and bilateral hipradiography 01/30/2025. TECHNIQUE: Multiplanar, multisequence MR imaging of the left hip wasperformed according to routine protocol without complication. FINDINGS: Joints: Moderate amount of fluid within the posterior recess of the lefthip joint with septations. Small right hip joint effusion. Sacroiliacjoints are unremarkable. Moderate degenerative changes of the symphysispubis. Labrum: Chronic tearing of the left acetabular labrum. Cartilage: Moderate diffuse cartilaginous thinning without full thicknessdefect identified. Tendons: Enthesopathy of the left more so than right gluteus medius andminimus tendon insertions. Tendinosis of the left gluteus medius. Marrow: No acute fracture or destructive osseous lesion is identified. Achronic avulsion injury at the cephalad margin of the left greatertrochanter is demonstrated and corresponds to the irregular ossificdensities on recent radiographs (series [id number] image 15). Miscellaneous: Small amount of fluid within the left greater trochantericbursa (series [id number] image 14). Fluid in the right trochanteric bursa.Mild increased signal on T2 STIR weighted imaging within the musculatureof the left adductor and obturator externus near the left inferior pubicramus (series [id number] image 33). Included pelvic viscera are unremarkable. IMPRESSION: 1. No acute osseous abnormality. 2. Combination of enthesopathy and prior avulsion injury at the leftgreater trochanter corresponds to the findings on recent radiography. 3. Moderate osteoarthritis of both hips. 4. Small amount of fluid within both greater trochanteric bursae withoutbursal distention to indicate a bursitis. 5. Increased signal within the left adductor and obturator musculaturenear the inferior pubic ramus likely relating to mild intrasubstancetearing/strain. No discrete fluid-filled tear. Ordered By: DESTINI KILZER Interpreted By: Noam Rucker MD, 03/30/2025 8:35 AM Destini DUNCAN MRI Final Result * URINE BACTERIA CULTURE (03/10/2025 10:18 AM CDT) SPEC DESCRIPTION URINE CLEAN CATCH 03/10/2025 10:18 AM CDT [facility] SPECIAL REQUESTS NO SPECIAL REQUEST 03/10/2025 10:18 AM CDT [facility] CULTURE RESULT FEW CONTAMINANTS 04/2025 12:43 PM CDT [facility] URINE SPECIMEN OBTAINED BY CLEAN CATCH PROCEDURE / Unknown 03/10/2025 10:18 AM CDT 03/10/2025 5:14 PM CDT Destini Sandrarebekah [facility] MICROBIOLOGY - GENERAL ORDERAB LES Final Result [facility] [address] [place] [address], [id number] * XR HIP LT 2V (03/10/2025 9:13 AM CDT) Anatomical Region Laterality Modality Hip Radiographic Radha ging 03/10/2025 10:0 0 AM CDT Impressions 03/10/2025 10:07 AM CDT IMPRESSION: 1. No definite acute osseous finding. Presumed enthesopathic change at the greater trochanter of the proximal left femur. An underlying component of prior avulsion injury may also be present. Further evaluation with MR imaging of the left hip could be considered. 2. Mild to moderate osteoarthritis of the left hip. Ordered By: DESTINI YADAV Interpreted By: Noam Rucker MD, 03/10/2025 10:00 AM Narrative 03/10/2025 10:07 AM CDT [facility] and Internal [address] [address] EXAMINATION: XR HIP LT 2V DATE: 03/10/2025 8:53 AM HISTORY: 84 years Female. Left hip pain. Multiple recent falls. COMPARISON: Left hip radiography 08/10/2021 and 01/30/2025. TECHNIQUE: AP and frog leg views of the left hip. FINDINGS: No acute fracture or destructive osseous lesion is identified. Left hip alignment is intact. Mild to moderate osteoarthritis of the left hip joint. Enthesopathic change at the greater trochanter of the proximal femur is suggested. A component of a prior avulsion injury may be present. Degenerative changes of the sacroiliac articulations, lumbosacral spine, and symphysis pubis. Atherosclerotic calcifications. Inspissated stool in the rectum. Procedure Note Noam Rucker MD - 03/10/2025 [facility] Internal [address] [address] EXAMINATION: XR HIP LT 2V DATE: 03/10/2025 8:53 AM HISTORY: 84 years Female. Left hip pain. Multiple recent falls. COMPARISON: Left hip radiography 08/10/2021 and 01/30/2025. TECHNIQUE: AP and frog leg views of the left hip. FINDINGS: No acute fracture or destructive osseous lesion is identified. Left hipalignment is intact. Mild to moderate osteoarthritis of the left hipjoint. Enthesopathic change at the greater trochanter of the proximalfemur is suggested. A component of a prior avulsion injury may be present.Degenerative changes of the sacroiliac articulations, lumbosacral spine,and symphysis pubis. Atherosclerotic calcifications. Inspissated stool inthe rectum. IMPRESSION: 1. No definite acute osseous finding. Presumed enthesopathic change at thegreater trochanter of the proximal left femur. An underlying component ofprior avulsion injury may also be present. Further evaluation with MRimaging of the left hip could be considered. 2. Mild to moderate osteoarthritis of the left hip. Ordered By: DESTINI YADAV Interpreted By: Noam Rucker MD, 03/10/2025 10:00 AM [place] [facility] GENERAL IMAGING Final Result * URINALYSIS AUTO DIP (03/10/2025) COLOR (U) YELLOW YELLOW [facility] TRANSPARENCY CLEAR CLEAR [facility] GLUCOSE (U) NEGATIVE NEGATIVE MG/DL [facility] BILIRUBIN (U) NEGATIVE NEGATIVE [facility] TH [facility] KETONES MG/DL (U) NEGATIVE NEGATIVE MG/DL [facility] SPECIFIC GRAVITY (U) 1.020 1.001 - 1.035 [facility] BLOOD (U) NEGATIVE NEGATIVE [facility] U PH 5.5 5.0 - 9.0 [facility] PROTEIN (U) NEGATIVE NEGATIVE mg/dL [facility] UROBILINOGEN 0.2 0.2 - 1.0 EU/dL = mg/dL [facility] NITRITES NEGATIVE NEGATIVE MG/DL [facility] LEUKOCYTES (U) NEGATIVE NEGATIVE [facility] URINE SPECIMEN FROM URETHRA / Unknown 03/10/2025 [facility] URINE ORDERABLES Final Result Performing Organization Address City/State/[facility] Co de Phone Number [facility] [address] [place] [address], * XR HIP ARNEL 2V+PELVIS (01/30/2025 6:42 PM CDT) Anatomical Region Laterality Modality Hip, Pelvis Radiographic Radha ging 01/30/2025 7:22 PM CDT Impressions 01/30/2025 7:29 PM CDT IMPRESSION: 1. No acute osseous abnormality in bilateral hips/pelvis. 2. Chronic appearing irregularity with associated lucency at the left greater trochanter similar to KUB 09/28/2024. 3. 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 4. 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 Referred By: Interpreted By: Kieran Gonzalez MD, 01/30/2025 7:22 PM Narrative 01/30/2025 7:29 PM [address]T [address] [address] Examination: Bilateral hips, 2 views each with AP pelvis Exam Date/Time: 01/30/2025 6:30 PM Reason For Exam: fall Comparison: KUB 09/28/2024 Technique: 2 views of each hip were obtained. AP view of pelvis obtained as well. Findings: No acute fracture or dislocation. Chronic appearing irregularity with associated lucency at the left greater trochanter appears similar to KUB 09/28/2024. No destructive osseous lytic or sclerotic lesions. 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 No radiopaque foreign bodies. 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 Vascular calcifications. Procedure Note Kieran Gonzalez MD - 01/30/[address] [address] Examination: Bilateral hips, 2 views each with AP pelvis Exam Date/Time: 01/30/2025 6:30 PM Reason For Exam: fall Comparison: KUB 09/28/2024 Technique: 2 views of each hip were obtained. AP view of pelvis obtainedas well. Findings: No acute fracture or dislocation. Chronic appearingirregularity with associated lucency at the left greater trochanterappears similar to KUB 09/28/2024. No destructive osseous lytic orsclerotic lesions. 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 Noradiopaque foreign bodies. Extensive degenerative change at the symphysispubis. Vascular calcifications. IMPRESSION: 1. No acute osseous abnormality in bilateral hips/pelvis. 2. Chronic appearing irregularity with associated lucency at the leftgreater trochanter similar to KUB 09/28/2024. 3. 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 4. 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 Referred By: Interpreted By: Kieran Gonzalez MD, 01/30/2025 7:22 PM Noam [facility] Final Resu lt from Last 3 Months Insurance [employer] MEDICAID Advance Directives Documents on File Type Date Recorded Patient Hr Assistant Expl anation Advance Directives and Living Will 06/29/2021 11:38 AM 08/29/2016 POA for Healthcare Power of Load Dropper 03/11/2019 * Full Code (Latest Code Status on File) Date Activated Date Inactivated Comments 07/18/2022 9:42 PM 01/30/2025 6:17 PM * Full Code Date Activated Date Inactivated Comments 06/22/2021 9:05 PM 06/27/2021 11:46 AM Care Teams Manager Delivery Relationship Specialty Start Date End Date Destini Yadav FNP [address] [place] [address] PCP - General NURSE PRACTITIONER 11/03/17 Fely Lua, RN [address] [place] [address] Production Machinist (Ambulatory) REGISTERED NURSE 04/21/25
--- OUTSIDE RECORDS SUMMARY | 2025-04-26 06:45 | XMS_ITS | Encounter Summary ---
Author Organization [facility] Address [address] [place] [address] Care Team Providers Care Central Aisle Cashier Name Role Phone Lisette Yadav Primary Care Provider [phone] Lyndsay Hernandez RN Unavailable Kimberley Tapia RN Unavailable Unavailable Fely Lua RN Unavailable Encounter Details Date Type Department Care Team (Late st Contact Info) Description 06/27/2021 [place]unt Message Enc [facility] Medical Group Family & Internal Medicine [facility] [address] [place] [address] Lisette Yadav FNP [address] [place] [address] Oxygen Saturation Social History Tobacco Use Types Packs/Day Years [...] 3, please move on to questions 3-9 2 02/02/2021 Comments No Sex and Gender Information Value Date Recorded Sex Assigned at Female 08/20/2024 9:29 AM ASSISTANT PROFESSOR OF ECONOMICS Legal Sex Female 1:41 PM CDT Gender Identity Not on file Sexual Orientation Not on file COVID-19 Exposure Response Date Recorded In the last month, have you been in contact with someone who was confirmed or suspected to have Coronavirus / COVID-19? No / Unsure 06/30/2021 8:54 AM ASSISTANT PROFESSOR OF ECONOMICS documented as of this encounter Functional Status * Calculated C-SSRS Risk Score (Lifetime/Recent) Answer Date of Assessment Author Status No Risk Indicated 06/27/2021 12:02 PM ASSISTANT PROFESSOR OF ECONOMICS Annalee Galeana RN Active * [place] Suicide Severity Rating Scale (Screener/Recent Self-Report) Question Answer Date of Assessment Author Status 1. Wish to be (Past 1 Month) No 06/27/2021 12:02 PM ASSISTANT PROFESSOR OF ECONOMICS Fely Galeana RN Acti ve 2. Non-Specific Active Suicidal Thoughts (Past 1 Month) No 06/27/2021 12:02 PM ASSISTANT PROFESSOR OF ECONOMICS Fely Galeana RN Acti ve 6. Suicidal Behavior (Lifetime) No 06/27/2021 12:02 PM ASSISTANT PROFESSOR OF ECONOMICS Fely Galeana RN Acti ve documented as of this encounter Progress Notes * PERLA Albarran - 06/29/2021 9:04 AM CST She needs an overnight oximetry study STANT PROFESSOR OF ECONOMICS * PERLA Albarran - 06/27/2021 2:12 PM CST Heart rate or oxygen sat? STANT PROFESSOR OF ECONOMICS documented in this encounter Plan of Treatment Not on file documented as of this encounter Visit Diagnoses Not on filedocumented in this encounter Additional Health Concerns Assessment Noted Time PHQ-9 Depression Total Score: 7 02/03/20 21 9:16 AM CDT documented as of this encounter Care Teams Central Aisle Cashier Relationship Specialty Start Date End Date Lisette Yadav FNP [address] [place] [address] PCP - General NURSE PRACTITIONER 11/03/17 Lyndsay Hernandez RN [address] [place] [address] College Specialist (Ambulatory) REGISTERED NURSE 04/30/22 Kimberley Tapia, crosscutter rolled glass (Ambulatory) CARE MANAGEMENT 02/01/25 02/01/25 Fely Lua, RN [address] [place] [address] College Specialist (Ambulatory) REGISTERED NURSE 04/21/25 documented as of this encounter
--- OUTSIDE RECORDS SUMMARY | 2025-04-26 06:45 | XMS_ITS | Encounter Summary ---
Author Organization [facility] Address [facility] [place] [address] Care Team Providers Care Sintering Plant Supervisor Name Role Phone Lisette Yadav Primary Care Provider [phone] Lyndsay Hernandez RN Unavailable [phone] Kimberley Tapia RN Unavailable Unavailable Fely Lua RN Unavailable Encounter Details Date Type Department Care Team (Late st Contact Info) Description 02/14/2019 [email or web address] Message Enc [facility] Medical Group Family & Internal Medicine [address] [place] [address] Lisette Yadav FNP [address] [place] [address] Follow Up/Update Social History Tobacco [...] Sex Assigned at Female 08/20/2024 9:29 AM EVENT SPECIALIST Legal Sex Female 1:41 PM CDT Gender Identity Not on file Sexual Orientation Not on file documented as of this encounter Plan of Treatment Not on file documented as of this encounter Visit Diagnoses Not on filedocumented in this encounter Additional Health Concerns Assessment Noted Time PHQ-9 Depression Total Score: 2 11/07/19 19 3:21 PM CDT documented as of this encounter Care Teams Sintering Plant Supervisor Relationship Specialty Start Date End Date Lisette Yadav FNP [address] [facility] [place] [address] PCP - General NURSE PRACTITIONER 11/03/17 Lyndsay Hernandez, RN [address] [place], [place] [address] District Home Economics Agent (Ambulatory) REGISTERED NURSE 04/30/22 Kimberley Tapia, dry charge process attendant (Ambulatory) CARE MANAGEMENT 02/01/25 02/01/25 Fely Lua, RN [address] [place], [place] [address] District Home Economics Agent (Ambulatory) REGISTERED NURSE 04/21/25 documented as of this encounter
--- OUTSIDE RECORDS SUMMARY | 2025-04-26 06:45 | XMS_ITS | Encounter Summary ---
Author Organization [facility] Address [facility] [place] [address] Care Team Providers Care Outer Diameter Grinder Name Role Phone Lisette Yadav Primary Care Provider [phone] Kimberley Tapia RN Unavailable Unavailable Fely Lua RN Unavailable Encounter Details Date Type Department Care Team (Late st Contact Info) Description 07/30/2023 BLAZER [employer] FLIP FLOPS Message Enc [facility] Medical Group Family & Internal Medicine [address] [place] [address] Lisette Yadav FNP [facility] [place] [address] Appt Tomorrow Social History Tobacco Use Types Packs/Day Years [...] on file 10/03 PHQ-2 Answer Date Recorded Patient Health Questionnaire-2 Score 0 02/18/2023 Hunger Vital Sign Answer Date Recorded Within [...] Sex Assigned at Female 08/20/2024 9:29 AM MEDICAL OFFICE ASSISTANT Legal Sex Female 1:41 PM CDT Gender Identity Not on file Sexual Orientation Not on file documented as of this encounter Plan of Treatment Not on file documented as of this encounter Visit Diagnoses Not on filedocumented in this encounter Additional Health Concerns Assessment Noted Time PHQ-9 Depression Total Score: 4 01/26/20 22 10:54 AM CDT documented as of this encounter Care Teams Outer Diameter Grinder Relationship Specialty Start Date End Date Lisette Yadav FNP [address] [place] [address] PCP - General NURSE PRACTITIONER 11/03/17 Kimberley Tapia stained glass glazier helper (Ambulatory) CARE MANAGEMENT 02/01/25 02/01/25 Fely Lua, BRANDIE [address] [place] [address] Secondary School Teacher Librarian (Ambulatory) REGISTERED NURSE 04/21/25 documented as of this encounter
--- OUTSIDE RECORDS SUMMARY | 2025-04-26 06:45 | XMS_ITS | Encounter Summary ---
Author Organization [facility] Address [address] [place] [address] Care Team Providers Care Information Systems Security Developer Name Role Phone Joseph Simmons MD Primary Care Provider [phone] Encounter Details Date Type Department Care Team (Latest Contact Info) Description 05/06/2000 Outpatient Historical HIS [facility] Yaya Quintana MD NO ADDRESS ON FILE Other screening mammogram (Primary Dx) Social History Tobacco Use Types Packs/Day Years Used Date Smoking Tobacco: Never Assessed Comments Unknown Sex and Gender Information Value Date Recorded Sex Assigned at Not on file Legal Sex Female 3:01 AM PLASTIC FRAME INSERTER Gender Identity Not on file Sexual Orientation Not on file documented as of this encounter Plan of Treatment Not on file documented as of this encounter Visit Diagnoses Diagnosis Other screening mammogram- Primary documented in this encounter Care Teams Information Systems Security Developer Relationship Specialty Start Date End Date Joseph Simmons MD [address] [place] [address] PCP - General 06/13/15 documented as of this encounter
--- OUTSIDE RECORDS SUMMARY | 2025-04-26 06:45 | XMS_ITS | Encounter Summary ---
Author Organization [facility] Address [address] [place] [address] Care Team Providers Care Bait Painter Name Role Phone Joseph Simmons MD Primary Care Provider [phone] Encounter Details Date Type Department Care Team (Latest Contact Info) Description 05/17/1999 Outpatient Historical HIS [facility] BIBI Quintana, Yaya Rosales MD NO ADDRESS ON FILE Other screening mammogram (Primary Dx) Social History Tobacco Use Types Packs/Day Years Used Date Smoking Tobacco: Never Assessed Comments Unknown Sex and Gender Information Value Date Recorded Sex Assigned at Not on file Legal Sex Female 3:01 AM LINING LAYER Gender Identity Not on file Sexual Orientation Not on file documented as of this encounter Plan of Treatment Not on file documented as of this encounter Visit Diagnoses Diagnosis Other screening mammogram- Primary documented in this encounter Care Teams Bait Painter Relationship Specialty Start Date End Date Joseph Simmons MD [address] [place] [address] PCP - General 06/13/15 documented as of this encounter
--- OUTSIDE RECORDS SUMMARY | 2025-04-26 06:45 | XMS_ITS | Encounter Summary ---
Author Organization [facility] Address [address] [place] [address] Care Team Providers Care Orthophoto Tech/Draftsman Name Role Phone Lisette Yadav Primary Care Provider [phone] Lyndsay Hernandez RN Unavailable [phone] Kimberley Tapia RN Unavailable Unavailable Fely Lua RN Unavailable Encounter Details Date Type Department Care Team (Late st Contact Info) Description 02/02/2021 DataRPMt Message Enc [facility] Medical Group Family & Internal Medicine [facility] [address] [place] [address] Lisette Yadav FNP [address] [place] [address] Follow Up/Update Social History Tobacco [...] Sex Assigned at Female 08/20/2024 9:29 AM HEALTH OCCUPATIONS TEACHER Legal Sex Female 1:41 PM CDT Gender Identity Not on file Sexual Orientation Not on file COVID-19 Exposure Response Date Recorded In the last month, have you been in contact with someone who was confirmed or suspected to have Coronavirus / COVID-19? No / Unsure 02/01/2021 6:22 PM CDT documented as of this encounter Plan of Treatment Not on file documented as of this encounter Visit Diagnoses Not on filedocumented in this encounter Additional Health Concerns Assessment Noted Time PHQ-9 Depression Total Score: 7 02/03/20 21 9:16 AM CDT documented as of this encounter Care Teams Orthophoto Tech/Draftsman Relationship Specialty Start Date End Date Lisette Yadav FNP [address] [place] [address] PCP - General NURSE PRACTITIONER 11/03/17 Lyndsay Hernandez, RN [address] [place], [place] [address] Editor Publications (Ambulatory) REGISTERED NURSE 04/30/22 Kimberley Tapia, process control tech (Ambulatory) CARE MANAGEMENT 02/01/25 02/01/25 Fely Lua, RN [address] [place] [address] Editor Publications (Ambulatory) REGISTERED NURSE 04/21/25 documented as of this encounter
--- OUTSIDE RECORDS SUMMARY | 2025-04-26 06:45 | XMS_ITS | Encounter Summary ---
Author Organization [facility] Address [address] [place] [address] Care Team Providers Care Mail Manager Name Role Phone Lisette Yadav Primary Care Provider [phone] Lyndsay Hernandez RN Unavailable Kimberlye Tapia RN Unavailable Unavailable Fely Lua RN Unavailable Encounter Details Date Type Department Care Team (Late st Contact Info) Description 07/03/2021 Qonft Message Enc [facility] Medical Group Family & Internal Medicine [address] [place] [address] Lisette Yadav FNP [facility] [place] [address] Constipation Social History Tobacco Use Types Packs/Day Years [...] Assigned at Female 08/20/2024 9:29 AM SENIOR REPORT DEVELOPER Legal Sex Female 1:41 PM CDT Gender Identity Not on file Sexual Orientation Not on file COVID-19 Exposure Response Date Recorded In the last month, have you been in contact with someone who was confirmed or suspected to have Coronavirus / COVID-19? Unable to assess 07/04/2021 9:36 AM SENIOR REPORT DEVELOPER documented as of this encounter Progress Notes * PERLA Albarran - 07/03/2021 5:08 PM CST I would have her take miralax daily until her stools become loose and then go to every other day. OR REPORT DEVELOPER documented in this encounter Plan of Treatment Not on file documented as of this encounter Visit Diagnoses Not on filedocumented in this encounter Additional Health Concerns Assessment Noted Time PHQ-9 Depression Total Score: 7 02/03/20 21 9:16 AM CDT documented as of this encounter Care Teams Mail Manager Relationship Specialty Start Date End Date Lisette Yadav FNP [address] [place] [address] PCP - General NURSE PRACTITIONER 11/03/17 Lyndsay Hernandez, RN [address] [place], [place] [id number] Scrub Tech (Ambulatory) REGISTERED NURSE 04/30/22 Kimberley Tapia, slot key person (Ambulatory) CARE MANAGEMENT 02/01/25 02/01/25 Fely Lua, RN [address] [place], [place] [address] Scrub Tech (Ambulatory) REGISTERED NURSE 04/21/25 documented as of this encounter
--- OUTSIDE RECORDS SUMMARY | 2025-04-26 06:45 | XMS_ITS | Encounter Summary ---
Author Organization [facility] Address [facility] [place] [address] Care Team Providers Care Disk Operator Name Role Phone Lisette Yadav Primary Care Provider Lyndsay Hernandez RN Unavailable [phone] Kimberley Tapia RN Unavailable Unavailable Fely Lua RN Unavailable Encounter Details Date Type Department Care Team (Late st Contact Info) Description 02/14/2019 Zaubert Message Enc [facility] Medical Group Family & Internal Medicine [facility] [address] [place] [address] Lisette Yadav FNP [address] [place] [address] RE: FW: Referral Request Social History Tobacco Use Types Packs/Day Years [...] Sex Assigned at Female 08/20/2024 9:29 AM AUTOMOTIVE FINANCE MANAGER Legal Sex Female 1:41 PM CDT Gender Identity Not on file Sexual Orientation Not on file documented as of this encounter Progress Notes * Judie Kimbrough, FACTORY CLERK - 02/16/2019 2:[address] Fransisco Ledezma is located on [address], [place], [address] F# [phone] Informed Referral Center after receiving a call from [place] that he is not located at that locationwhere referral was sent * PERLA Albarran - 02/15/2019 12:07 PM CDT Refer urgently to Fransisco ledezma at [email or web address], see other message from her. We should find out about thisreferral and call her back and let her know. documented in this encounter Plan of Treatment Not on file documented as of this encounter Visit Diagnoses Not on filedocumented in this encounter Additional Health Concerns Assessment Noted Time PHQ-9 Depression Total Score: 2 11/07/19 19 3:21 PM CDT documented as of this encounter Care Teams Disk Operator Relationship Specialty Start Date End Date Lisette Yadav FNP [address] [place] [address] PCP - General NURSE PRACTITIONER 11/03/17 Lyndsay Hernandez RN [address] [place], [place] [address] Recovery Collector (Ambulatory) REGISTERED NURSE 04/30/22 Kimberley Tapia airline pilot flight instructor (Ambulatory) CARE MANAGEMENT 02/01/25 02/01/25 Fely Lua, RN [address] [place] [address] Recovery Collector (Ambulatory) REGISTERED NURSE 04/21/25 documented as of this encounter
--- OUTSIDE RECORDS SUMMARY | 2025-04-26 06:45 | XMS_ITS | Clinical Summary ---
Author Organization [place] [id number] [facility] Address [address] [place] [address] Care Team Providers Care Hydrogen Plant Operator Name Role Phone Lisette Yadav NP Primary Care Provider [phone] Allergies Active Allergy Reactions Criticality Noted Date Comments Erythromycin Unknown 03/09/2019 Medications levothyroxine (SYNTHROID, LEVOTHROID) 150 mcg tablet Take 150 mcg by mouth almond pan finisher before breakfast Active hydroCHLOROthia zide (HYDRODIURIL) 25 [...] wit h current pathological fracture of vertebra ([facility]) 03/09/2019 Alzheimer's disease 05/11/2013 Anxiety 02/16/2013 [...] on file Legal Sex Female 9:50 AM AIRPLANE ELECTRICAL REPAIRER Gender Identity Not on file Sexual Orientation [...] Plan of Treatment Not on file Insurance [employer] Member Subscriber Plan / Payer ( fective 2018-Present) Name:Lori Pederson Relation to Subscriber:Self Name:Lori Pederson Payer ID:[id number] ([facility]) Type:Not on file Address: [address] [facility] Care Teams Hydrogen Plant Operator Relationship Specialty Start Date End Date Lisette Yadav NP [address] [place] [address] PCP - General Nurse Practitioner 02/16/19
--- OUTSIDE RECORDS SUMMARY | 2025-04-26 06:45 | XMS_ITS | Encounter Summary ---
Author Organization [facility] Address [facility] [place] [address] Care Team Providers Care Hostage Negotiator Name Role Phone Lisette Yadav PERLA Primary Care Provider [phone] Fely Lua RN Unavailable Encounter Details Date Type Department Care Team (Latest Contact Info) Description 04/19/2025 Scan [facility] Scanned, Doc Med Group Social History Tobacco Use Types Packs/Day Years [...] Sex Assigned at Female 08/20/2024 9:29 AM TRAVELING PLANT OPERATOR Legal Sex Female 1:41 PM CDT Gender Identity Not on file Sexual Orientation Not on file documented as of this encounter Plan of Treatment Not on file documented as of this encounter Visit Diagnoses Not on filedocumented in this encounter Additional Health Concerns Assessment Noted Time PHQ-9 Depression Total Score: 2 12/30/19 25 8:16 PM CDT documented as of this encounter Care Teams Hostage Negotiator Relationship Specialty Start Date End Date Lisette Yadav FNP [address] [place] [address] PCP - General NURSE PRACTITIONER 11/03/17 Fely Lua, RN [address] [place] [address] Hammer Operator (Ambulatory) REGISTERED NURSE 04/21/25 documented as of this encounter
--- OUTSIDE RECORDS SUMMARY | 2025-04-26 06:45 | XMS_ITS | Encounter Summary ---
Author Organization [facility] Address [address] [place] [address] Care Team Providers Care Overhead Crane Truck Loader Name Role Phone Lisette Yadav Primary Care Provider [phone] Lyndsay Hernandez RN Unavailable [phone] Kimberley Tapia RN Unavailable Unavailable Fely Lua RN Unavailable Encounter Details Date Type Department Care Team (Late st Contact Info) Description 04/26/2022 [employer] Message Enc [facility] Family & Internal Medicine [id number] [place] [address] Lisette Yadav FNP [address] [place] [address] Test Results Social History Tobacco Use Types Packs/Day Years [...] Sex Assigned at Female 08/20/2024 9:29 AM STEAM PLANT RECORDS CLERK Legal Sex Female 1:41 PM CDT Gender [...] 12:51 PM CDT Can we print these out. I cannot pull them up documented in this encounter Plan of Treatment Not on file documented as of this encounter Visit Diagnoses Not on filedocumented in this encounter Additional Health Concerns Assessment Noted Time PHQ-9 Depression Total Score: 4 01/26/20 22 10:54 AM CDT documented as of this encounter Care Teams Overhead Crane Truck Loader Relationship Specialty Start Date End Date Lisette Yadav FNP [address] [place] [address] PCP - General NURSE PRACTITIONER 11/03/17 Lyndsay Hernandez, RN [address] [place], [place] [id number] Physical Education Professor (Ambulatory) REGISTERED NURSE 04/30/22 Kimberley Tapia, employee development director (Ambulatory) CARE MANAGEMENT 02/01/25 02/01/25 Fely Lua, RN [address] [place], [place] [address] Physical Education Professor (Ambulatory) REGISTERED NURSE 04/21/25 documented as of this encounter
--- OUTSIDE RECORDS SUMMARY | 2025-04-26 06:45 | XMS_ITS | Encounter Summary ---
Author Organization [facility] Address [address] [place] [address] Care Team Providers Care Match Up Person Name Role Phone Lisette Yadav PERLA Primary Care Provider [phone] Fely Lua RN Unavailable Reason for Visit * Reason Onset Date Comments Hospital Follow Up 04/25/2025 Encounter Details Date Type Department Care Team (Late st Contact Info) Description 04/25/2025 Patient Outreach [facility] Family & Internal Medicine [address] [phone] Fely Lua, RN [address] [place] [address] Hospital Follow Up Social History Tobacco Use Types Packs/Day Years [...] Sex Assigned at Female 08/20/2024 9:29 AM DIVINE HEALER Legal Sex Female 1:41 PM CDT Gender Identity Not on file Sexual Orientation Not on file documented as of this encounter Progress Notes * Fely Lua RN - 04/25/2025 8:10 AM CDT Called [facility], left for case management to return call for updates on patient. Patient remains admitted at this time. * Fely Lua RN - 04/25/2025 8:10 AM CDT Received return call from Cynthia with Case Management at [facility]. She states patient is ready for discharge, waiting for insurance auth currently from [facility] for [facility] Bed. Will continue to follow patient and complete TCM at discharge from facility. documented in this encounter Plan of Treatment Not on file documented as of this encounter Visit Diagnoses Not on filedocumented in this encounter Additional Health Concerns Assessment Noted Time PHQ-9 Depression Total Score: 2 12/30/19 25 8:16 PM CDT documented as of this encounter Care Teams Match Up Person Relationship Specialty Start Date End Date Lisette Yadav FNP [address] [place] [address] PCP - General NURSE PRACTITIONER 11/03/17 Fely Lua, RN [address] [place] [address] Pressing Machine Tender (Ambulatory) REGISTERED NURSE 04/21/25 documented as of this encounter
[2025-04-26 07:56] VITALS: BP 138/63; PULSE 75; PULSE 88; RESP 18; TEMP 36.8; O2SAT 93
[2025-04-26] MEDS: CALCIUM CITRATE 200 MG TABLET 400 MG PO (08:19)
[2025-04-26] MEDS: VENLAFAXINE HCL XR 75 MG CAP.ER.24H 225 MG PO (08:21)
[2025-04-26] MEDS: FOLIC ACID 1 MG TABLET PO (08:22)
[2025-04-26] MEDS: ACIDOPHILUS/BULGARICUS CHEWABLE TABLET 1 TABLET BY MOUTH (08:22)
[2025-04-26] MEDS: LOSARTAN POTASSIUM 50 MG TABLET PO (08:23)
[2025-04-26] MEDS: ASPIRIN 81 MG ENTERIC TABLET PO (08:23)
[2025-04-26] MEDS: CHOLECALCIFEROL (VITAMIN D3) 125 MCG (5,000 UNITS) TABLET PO (08:23)
[2025-04-26] MEDS: FAMOTIDINE 20 MG TABLET PO (08:23)
[2025-04-26] MEDS: TIMOLOL MALEATE 0.5% OP SOLN 5 ML BOTTLE 1 DROP EACH EYE (08:23)
[2025-04-26] MEDS: SIMETHICONE 80 MG TAB.CHEW 160 MG PO ×3 (08:24→16:26)
--- NOTE | 2025-04-26 11:49 | PM.IMHP ---
H&P: HPI History of Present Illness Date/Time: 04/26/25 11:49 Chief Complaint: Swing bed , fracture hip Narrative: This is a 84 year patient who has a PMH of dementia and has been having multiple falls Patient has a left nonsurgical hip fracture. She has come so that she could work with physical therapy so she can go back home with her daughter. Patient will be evaluated by therapy and we will treat accordingly. Outside hospital note This is an 84-year-old female patient to reside with her daughter. The patient came to the emergency room with complaints of left buttocks pain in that goes all the way down her left leg to her knee. The patient stated that she is scheduled for an MRI next month and that she has an appointment with Orthopedics today. As per ED provider CT lumbar spine showed a 10% loss of height compression fracture to L1. 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 Her sodium was low at 131 BUN 24 creatinine 1.17 which appears to be improved since previous labs. Her GFR is 44 which again has improved from previous. The daughter was in the emergency room and stated that she wanted the patient to be admitted for pain management and rehab. Patient is being admitted to inpatient status on medical-surgical floor the date of service of 04/20/2025. Review of Systems Review of Systems: Left Hip pain All systems reviewed & are unremarkable except as noted in HPI and below PMFSH Past Medical History Medical History Dementia Depression with anxiety Osteoporosis Neuropathy Glaucoma Cataract Anxiety Depression Hypothyroidism GERD (gastroesophageal reflux disease) Hypertension Alzheimer's dementia Surgical History Surgical History H/O foot surgery On the right History of bilateral knee replacement History of colonoscopy History of tonsillectomy and adenoidectomy History of hernia repair History of cholecystectomy Family History Family History Father Acute myocardial infarction Hypertension Sibling Acute myocardial infarction Brother Mother Acute myocardial infarction Hypertension Social History Social History Social History: The patient is . 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 She has 2 children. She lives with daughter. She is a lifelong nonsmoker. She does not use any alcohol marijuana or illicit drugs. Code status full code Smoking status: Never smoker Second hand tobacco smoke exposure: Yes Alcohol intake: never Substance use: never Substance use type: does not use Lack of Transportation: No Lack of Food: Never True Current Housing: I Have Housing Concerned About Future Housing: No Difficulty Paying Gas/Electric Bills: No Difficulty Paying for Meds: No Currently Unemployed: No Education: High School Diploma/GED Difficulty w/ Childcare or Family Care: No Spiritual care concerns: No Meds Home Medications and Allergies Home Medications ?Medication ?Instructions ?Recorded ?Confirmed ?Type alendronate 70 mg tablet 70 mg PO WEEKLY 08/03/20 04/25/25 History cholecalciferol (vitamin D3) 125 125 mcg PO DAILY 08/03/20 04/25/25 History mcg (5,000 unit) tablet (Vitamin D3) citalopram 40 mg tablet 40 mg PO HS 08/03/20 04/25/25 History donepezil 10 mg tablet 10 mg PO HS 08/03/20 04/25/25 History famotidine 20 mg tablet 20 mg PO BID 08/03/20 04/25/25 History simethicone 125 mg tablet 125 mg PO TIDWM 08/03/20 04/25/25 History solifenacin 10 mg tablet (Vesicare) 10 mg PO HS 08/03/20 04/25/25 History aspirin 81 mg tablet,delayed 81 mg PO DAILY 04/27/22 04/25/25 History release latanoprost 0.005 % eye drops 1 drp EACH EYE HS 04/27/22 04/25/25 History melatonin 10 mg tablet 10 mg PO HS 04/27/22 04/25/25 History timolol maleate 0.5 % eye drops 1 drp EACH EYE DAILY 04/27/22 04/25/25 History umeclidinium 62.5 mcg-vilanterol 1 ea inhalation DAILY PRN cough, 04/27/22 04/25/25 History 25 mcg/actuation powdr for sob inhalation (Anoro Ellipta) venlafaxine 75 mg capsule,extended 225 mg PO DAILY 04/27/22 04/25/25 History release 24 hr albuterol sulfate 90 mcg/actuation 2 puff inhalation QID PRN 05/12/22 04/25/25 Rx aerosol inhaler (Proventil HFA) Shortness Of Breath #1 g levothyroxine 150 mcg tablet 137 mcg (0.9133 x 150 mcg) PO 05/12/22 04/25/25 Rx DAILY 30 days #30 tabs losartan 50 mg tablet 50 mg PO DAILY #30 tabs 05/12/22 04/25/25 Rx tolnaftate 1 % topical powder 1 applic topical Q12HR 20 days #1 g 05/12/22 04/25/25 Rx Lactobacillus rhamnosus GG 10 1 cap PO DAILY 04/20/25 04/25/25 History billion cell capsule (Culturelle) calcium citrate 400 mg PO DAILY 04/20/25 04/25/25 History d-mannose 500 mg capsule 2,100 mg PO DAILY 04/20/25 04/25/25 History folic acid 1 mg tablet 1,000 mcg PO DAILY 04/20/25 04/25/25 History magnesium 100 mg capsule 300 mg PO HS 04/20/25 04/25/25 History mirabegron 50 mg tablet,extended 50 mg PO QHS 04/20/25 04/25/25 History release 24 hr (Myrbetriq) polyethylene glycol 3350 17 17 g PO .qod 04/20/25 04/25/25 History gram/dose oral powder terbinafine HCl 250 mg tablet 250 mg PO DAILY 04/20/25 04/25/25 History tizanidine 2 mg tablet 2 mg PO Q8H 04/20/25 04/25/25 History acetaminophen 650 mg 650 mg PO Q8H PRN pain 04/25/25 04/25/25 History tablet,extended release Allergies Allergy/AdvReac Type Severity Reaction Status Date / Time adhesive Allergy Unknown TAPE - Verified 03/22/23 21:13 BLISTERS erythromycin base Allergy Unknown Unknown Verified 03/22/23 21:13 Vital Signs Vital Signs - 24 hr 04/25/25 17:07 04/25/25 20:00 04/26/25 00:00 Temperature 98.0 F Pulse Rate 75 75 90 Respiratory Rate 16 16 17 Blood Pressure 139/59 L Pulse Oximetry 96 96 100 Oxygen Delivery Room Air Room Air Room Air 04/26/25 07:56 04/26/25 07:56 Temperature 98.2 F Pulse Rate 75 88 Respiratory Rate 18 18 Blood Pressure 138/63 Pulse Oximetry 93 93 Oxygen Delivery Room Air Room Air Exam Const: General: comfortable and uncomfortable (left hip hurts when touched ) HENMT: Ears: TM's normal bilaterally Eyes: General: appearance normal, both eyes and all related structures Pupils: Equal, round and reactive pupils present Resp: Effort & Inspection: normal respiratory effort Auscultation: clear to auscultation bilaterally Cardio: Rate: regular rate Urinary Catheter: Urinary Catheter: patent and draining Skin: General skin exam: normal color Neuro: Speech: normal speech Other: Limps and needs 2 assist Extrem: General: normal to inspection Psych: Mental Status: mental status grossly normal (confused ) Assessment and Plan Assessment and plan (1) Multiple falls: Code(s): R29.6 - Repeated falls Status: Acute Assessment and Plan: -Fractured hip - fall precaution - Pain medication (2) Arthritis of left hip: Code(s): M16.12 - Unilateral primary osteoarthritis, left hip Status: Acute (3) Physical deconditioning: Code(s): R53.81 - Other malaise Status: Acute Assessment and Plan: Physical therapy
[2025-04-26 16:00] VITALS: BP 124/60; PULSE 81; RESP 18; TEMP 36.9; O2SAT 94
[2025-04-26 20:00] VITALS: PULSE 81; RESP 18; O2SAT 94
[2025-04-26] MEDS: CITALOPRAM HYDROBROMIDE 20 MG TABLET 40 MG PO (21:04)
[2025-04-26] MEDS: LATANOPROST 0.005% OP SOLN 2.5 ML BTL 1 DROP EACH EYE (21:04)
[2025-04-26] MEDS: MELATONIN 5 MG TABLET 10 MG PO (21:04)
[2025-04-26] MEDS: DONEPEZIL HCL 5 MG TABLET 10 MG PO (21:04)
[2025-04-26] MEDS: MAGNESIUM OXIDE 400 MG TABLET PO (21:04)
[2025-04-26] MEDS: traMADol HCL (*CRX) 25 MG TABLET PO (21:05)
[2025-04-27] VITALS: BP 111/55; PULSE 77; RESP 17; TEMP 36.6; O2SAT 100
[2025-04-27] MEDS: ACETAMINOPHEN 325 MG TABLET 650 MG PO ×4 (02:32→18:11)
[2025-04-27] MEDS: traMADol HCL (*CRX) 25 MG TABLET PO ×3 (06:17→21:08)
[2025-04-27] MEDS: TIZANIDINE HCL 2 MG TABLET PO ×3 (06:17→21:08)
[2025-04-27] MEDS: LEVOTHYROXINE SODIUM 25 MCG TABLET PO (06:17)
[2025-04-27] MEDS: LEVOTHYROXINE SODIUM 112 MCG TABLET PO (06:17)
[2025-04-27 08:00] VITALS: BP 134/92; PULSE 86; RESP 20; TEMP 36.6; O2SAT 95
[2025-04-27] MEDS: LOSARTAN POTASSIUM 50 MG TABLET PO (09:28)
[2025-04-27] MEDS: VENLAFAXINE HCL XR 75 MG CAP.ER.24H 225 MG PO (09:28)
[2025-04-27] MEDS: SIMETHICONE 80 MG TAB.CHEW 160 MG PO ×3 (09:28→17:43)
[2025-04-27] MEDS: CALCIUM CITRATE 200 MG TABLET 400 MG PO (09:28)
[2025-04-27] MEDS: FOLIC ACID 1 MG TABLET PO (09:29)
[2025-04-27] MEDS: ACIDOPHILUS/BULGARICUS CHEWABLE TABLET 1 TABLET BY MOUTH (09:29)
[2025-04-27] MEDS: TIMOLOL MALEATE 0.5% OP SOLN 5 ML BOTTLE 1 DROP EACH EYE (09:29)
[2025-04-27] MEDS: ASPIRIN 81 MG ENTERIC TABLET PO (09:29)
[2025-04-27] MEDS: FAMOTIDINE 20 MG TABLET PO (09:29)
[2025-04-27] MEDS: CHOLECALCIFEROL (VITAMIN D3) 125 MCG (5,000 UNITS) TABLET PO (09:29)
[2025-04-27 15:57] VITALS: BP 134/78; PULSE 73; RESP 20; TEMP 36.4; O2SAT 95
[2025-04-27 20:00] VITALS: PULSE 80; RESP 16; O2SAT 94
[2025-04-27] MEDS: LATANOPROST 0.005% OP SOLN 2.5 ML BTL 1 DROP EACH EYE (21:07)
[2025-04-27] MEDS: CITALOPRAM HYDROBROMIDE 20 MG TABLET 40 MG PO (21:08)
[2025-04-27] MEDS: MELATONIN 5 MG TABLET 10 MG PO (21:08)
[2025-04-27] MEDS: MAGNESIUM OXIDE 400 MG TABLET PO (21:09)
[2025-04-27] MEDS: DONEPEZIL HCL 5 MG TABLET 10 MG PO (21:09)
[2025-04-28] VITALS: BP 137/62; PULSE 80; RESP 16; TEMP 36.9; O2SAT 94
[2025-04-28] MEDS: ACETAMINOPHEN 325 MG TABLET 650 MG PO ×3 (03:13→21:30)
[2025-04-28] MEDS: LEVOTHYROXINE SODIUM 25 MCG TABLET PO (06:21)
[2025-04-28] MEDS: LEVOTHYROXINE SODIUM 112 MCG TABLET PO (06:21)
[2025-04-28] MEDS: TIZANIDINE HCL 2 MG TABLET PO ×3 (06:21→21:31)
[2025-04-28 07:50] VITALS: BP 102/66; PULSE 85; RESP 16; TEMP 36.8; O2SAT 95
[2025-04-28 08:25] VITALS: PULSE 85; RESP 16; O2SAT 95
[2025-04-28] MEDS: SIMETHICONE 80 MG TAB.CHEW 160 MG PO ×3 (08:41→17:48)
[2025-04-28] MEDS: CALCIUM CITRATE 200 MG TABLET 400 MG PO (08:41)
[2025-04-28] MEDS: FAMOTIDINE 20 MG TABLET PO (08:42)
[2025-04-28] MEDS: CHOLECALCIFEROL (VITAMIN D3) 125 MCG (5,000 UNITS) TABLET PO (08:42)
[2025-04-28] MEDS: VENLAFAXINE HCL XR 75 MG CAP.ER.24H 225 MG PO (08:42)
[2025-04-28] MEDS: LOSARTAN POTASSIUM 50 MG TABLET PO (08:42)
[2025-04-28] MEDS: FOLIC ACID 1 MG TABLET PO (08:42)
[2025-04-28] MEDS: ACIDOPHILUS/BULGARICUS CHEWABLE TABLET 1 TABLET BY MOUTH (08:42)
[2025-04-28] MEDS: traMADol HCL (*CRX) 25 MG TABLET PO ×2 (08:42→17:48)
[2025-04-28] MEDS: ASPIRIN 81 MG ENTERIC TABLET PO (08:43)
[2025-04-28] MEDS: TIMOLOL MALEATE 0.5% OP SOLN 5 ML BOTTLE 1 DROP EACH EYE (08:44)
[2025-04-28] MEDS: TOLNAFTATE 1% POWDER 45 GM BTL 1 APPLIC TOPICAL ×2 (12:00→21:32)
[2025-04-28 16:35] VITALS: BP 144/71; PULSE 76; RESP 18; TEMP 36.9; O2SAT 95
[2025-04-28 20:00] VITALS: PULSE 88; RESP 16; O2SAT 95
[2025-04-28] MEDS: LATANOPROST 0.005% OP SOLN 2.5 ML BTL 1 DROP EACH EYE (21:30)
[2025-04-28] MEDS: MELATONIN 5 MG TABLET 10 MG PO (21:31)
[2025-04-28] MEDS: DONEPEZIL HCL 5 MG TABLET 10 MG PO (21:31)
[2025-04-28] MEDS: CITALOPRAM HYDROBROMIDE 20 MG TABLET 40 MG PO (21:31)
[2025-04-28] MEDS: MAGNESIUM OXIDE 400 MG TABLET PO (21:31)
[2025-04-29] VITALS: BP 135/82; PULSE 88; RESP 16; TEMP 36.9; O2SAT 95
[2025-04-29] MEDS: traMADol HCL (*CRX) 25 MG TABLET PO ×3 (04:16→21:29)
[2025-04-29] MEDS: LEVOTHYROXINE SODIUM 112 MCG TABLET PO (06:27)
[2025-04-29] MEDS: TIZANIDINE HCL 2 MG TABLET PO ×3 (06:27→21:28)
[2025-04-29] MEDS: LEVOTHYROXINE SODIUM 25 MCG TABLET PO (06:27)
[2025-04-29 08:00] VITALS: BP 151/89; PULSE 87; RESP 20; TEMP 36.6; O2SAT 94
[2025-04-29] MEDS: ACETAMINOPHEN 325 MG TABLET 650 MG PO ×2 (08:06→17:08)
[2025-04-29] MEDS: SIMETHICONE 80 MG TAB.CHEW 160 MG PO ×3 (08:07→17:08)
[2025-04-29] MEDS: CALCIUM CITRATE 200 MG TABLET 400 MG PO (08:57)
[2025-04-29] MEDS: FOLIC ACID 1 MG TABLET PO (08:57)
[2025-04-29] MEDS: LOSARTAN POTASSIUM 50 MG TABLET PO (08:58)
[2025-04-29] MEDS: FAMOTIDINE 20 MG TABLET PO (08:58)
[2025-04-29] MEDS: CHOLECALCIFEROL (VITAMIN D3) 125 MCG (5,000 UNITS) TABLET PO (08:58)
[2025-04-29] MEDS: ACIDOPHILUS/BULGARICUS CHEWABLE TABLET 1 TABLET BY MOUTH (08:58)
[2025-04-29] MEDS: VENLAFAXINE HCL XR 75 MG CAP.ER.24H 225 MG PO (08:58)
[2025-04-29] MEDS: TIMOLOL MALEATE 0.5% OP SOLN 5 ML BOTTLE 1 DROP EACH EYE (08:58)
[2025-04-29] MEDS: ASPIRIN 81 MG ENTERIC TABLET PO (08:58)
[2025-04-29] MEDS: TOLNAFTATE 1% POWDER 45 GM BTL 1 APPLIC TOPICAL ×2 (08:59→21:29)
[2025-04-29 16:30] VITALS: BP 153/83; PULSE 85; RESP 16; TEMP 36.4; O2SAT 94
[2025-04-29 20:00] VITALS: PULSE 85; RESP 16; O2SAT 94
[2025-04-29] MEDS: LATANOPROST 0.005% OP SOLN 2.5 ML BTL 1 DROP EACH EYE (20:21)
[2025-04-29] MEDS: CITALOPRAM HYDROBROMIDE 20 MG TABLET 40 MG PO (20:21)
[2025-04-29] MEDS: MELATONIN 5 MG TABLET 10 MG PO (20:21)
[2025-04-29] MEDS: MAGNESIUM OXIDE 400 MG TABLET PO (20:21)
[2025-04-29] MEDS: DONEPEZIL HCL 5 MG TABLET 10 MG PO (20:21)
[2025-04-30] VITALS: BP 142/68; PULSE 89; RESP 17; TEMP 36.7; O2SAT 96
[2025-04-30] MEDS: ACETAMINOPHEN 325 MG TABLET 650 MG PO ×4 (02:10→21:03)
[2025-04-30] MEDS: LEVOTHYROXINE SODIUM 25 MCG TABLET PO (05:37)
[2025-04-30] MEDS: LEVOTHYROXINE SODIUM 112 MCG TABLET PO (05:37)
[2025-04-30] MEDS: TIZANIDINE HCL 2 MG TABLET PO ×3 (05:37→21:02)
[2025-04-30] MEDS: traMADol HCL (*CRX) 25 MG TABLET PO ×3 (05:37→21:02)
[2025-04-30] MEDS: ALENDRONATE SODIUM 70 MG TABLET PO (05:40)
[2025-04-30 07:54] VITALS: BP 126/59; PULSE 83; PULSE 89; RESP 17; RESP 18; TEMP 36.6; O2SAT 95; O2SAT 96
[2025-04-30] MEDS: VENLAFAXINE HCL XR 75 MG CAP.ER.24H 225 MG PO (08:14)
[2025-04-30] MEDS: CALCIUM CITRATE 200 MG TABLET 400 MG PO (08:15)
[2025-04-30] MEDS: ACIDOPHILUS/BULGARICUS CHEWABLE TABLET 1 TABLET BY MOUTH (08:16)
[2025-04-30] MEDS: FOLIC ACID 1 MG TABLET PO (08:16)
[2025-04-30] MEDS: LOSARTAN POTASSIUM 50 MG TABLET PO (08:16)
[2025-04-30] MEDS: CHOLECALCIFEROL (VITAMIN D3) 125 MCG (5,000 UNITS) TABLET PO (08:16)
[2025-04-30] MEDS: FAMOTIDINE 20 MG TABLET PO (08:16)
[2025-04-30] MEDS: ASPIRIN 81 MG ENTERIC TABLET PO (08:17)
[2025-04-30] MEDS: TIMOLOL MALEATE 0.5% OP SOLN 5 ML BOTTLE 1 DROP EACH EYE (08:17)
[2025-04-30] MEDS: SIMETHICONE 80 MG TAB.CHEW 160 MG PO ×3 (08:18→16:52)
[2025-04-30] MEDS: TOLNAFTATE 1% POWDER 45 GM BTL 1 APPLIC TOPICAL ×2 (08:18→21:05)
[2025-04-30 16:00] VITALS: BP 141/78; PULSE 84; RESP 16; TEMP 36.8; O2SAT 97
[2025-04-30] MEDS: DONEPEZIL HCL 5 MG TABLET 10 MG PO (21:01)
[2025-04-30] MEDS: MAGNESIUM OXIDE 400 MG TABLET PO (21:01)
[2025-04-30] MEDS: MELATONIN 5 MG TABLET 10 MG PO (21:03)
[2025-04-30] MEDS: CITALOPRAM HYDROBROMIDE 20 MG TABLET 40 MG PO (21:03)
[2025-04-30] MEDS: LATANOPROST 0.005% OP SOLN 2.5 ML BTL 1 DROP EACH EYE (21:05)
[2025-05-01] VITALS: BP 147/77; PULSE 89; RESP 16; TEMP 37.5; O2SAT 98
[2025-05-01] MEDS: ACETAMINOPHEN 325 MG TABLET 650 MG PO ×4 (02:24→21:01)
--- NOTE | 2025-05-01 02:24 | PC.NURSE ---
Patient noted screaming out in room. Noted sitting on side of bed, states she is dying, states the doctor has poisoned her. Pt noted to be incontinent of urine, assisted to BSC with gait belt, 1 assist, and madeline-steady. Pt wanting racebook writer to keep soiled depend to get a sample to test for the poison. Pt unable to explain further about her statements, then states she is in pain. PRN pain med given. Pt in recliner with chair alarm on and functioning, call light and fluids in reach. Reminded and encouraged to use call light, pt states understanding.
[2025-05-01] MEDS: traMADol HCL (*CRX) 25 MG TABLET PO ×3 (05:29→17:59)
[2025-05-01] MEDS: TIZANIDINE HCL 2 MG TABLET PO ×3 (05:29→21:01)
[2025-05-01] MEDS: LEVOTHYROXINE SODIUM 25 MCG TABLET PO (05:30)
[2025-05-01] MEDS: LEVOTHYROXINE SODIUM 112 MCG TABLET PO (05:30)
[2025-05-01 08:00] VITALS: BP 148/74; PULSE 92; RESP 18; TEMP 36.1; O2SAT 94
[2025-05-01] MEDS: SIMETHICONE 80 MG TAB.CHEW 160 MG PO ×3 (08:40→18:02)
[2025-05-01] MEDS: TIMOLOL MALEATE 0.5% OP SOLN 5 ML BOTTLE 1 DROP EACH EYE (08:41)
[2025-05-01] MEDS: ASPIRIN 81 MG ENTERIC TABLET PO (08:41)
[2025-05-01] MEDS: VENLAFAXINE HCL XR 75 MG CAP.ER.24H 225 MG PO (08:44)
[2025-05-01] MEDS: ACIDOPHILUS/BULGARICUS CHEWABLE TABLET 1 TABLET BY MOUTH (08:45)
[2025-05-01] MEDS: LOSARTAN POTASSIUM 50 MG TABLET PO (08:45)
[2025-05-01] MEDS: CALCIUM CITRATE 200 MG TABLET 400 MG PO (08:45)
[2025-05-01] MEDS: FAMOTIDINE 20 MG TABLET PO (08:45)
[2025-05-01] MEDS: CHOLECALCIFEROL (VITAMIN D3) 125 MCG (5,000 UNITS) TABLET PO (08:45)
[2025-05-01] MEDS: FOLIC ACID 1 MG TABLET PO (08:45)
[2025-05-01] MEDS: TOLNAFTATE 1% POWDER 45 GM BTL 1 APPLIC TOPICAL ×2 (08:46→21:03)
--- NOTE | 2025-05-01 14:03 | PC.NURSE ---
patient mad an inpatient @1052
[2025-05-01 16:00] VITALS: BP 132/76; PULSE 76; RESP 18; TEMP 36.6; O2SAT 95
[2025-05-01 20:00] VITALS: PULSE 74; RESP 18; O2SAT 97
[2025-05-01] MEDS: CITALOPRAM HYDROBROMIDE 20 MG TABLET 40 MG PO (21:00)
[2025-05-01] MEDS: MAGNESIUM OXIDE 400 MG TABLET PO (21:01)
[2025-05-01] MEDS: DONEPEZIL HCL 5 MG TABLET 10 MG PO (21:02)
[2025-05-01] MEDS: MELATONIN 5 MG TABLET 10 MG PO (21:02)
[2025-05-01] MEDS: LATANOPROST 0.005% OP SOLN 2.5 ML BTL 1 DROP EACH EYE (21:02)
[2025-05-02] VITALS: BP 120/74; PULSE 85; RESP 16; TEMP 36.8; O2SAT 96
[2025-05-02] MEDS: traMADol HCL (*CRX) 50 MG TABLET 25 MG PO ×3 (02:45→21:23)
[2025-05-02] MEDS: TIZANIDINE HCL 2 MG TABLET PO ×3 (06:28→21:25)
[2025-05-02] MEDS: LEVOTHYROXINE SODIUM 112 MCG TABLET PO (06:28)
[2025-05-02] MEDS: LEVOTHYROXINE SODIUM 25 MCG TABLET PO (06:29)
[2025-05-02] MEDS: ACETAMINOPHEN 325 MG TABLET 650 MG PO ×3 (06:29→21:23)
[2025-05-02 07:53] VITALS: BP 118/61; PULSE 83; RESP 20; TEMP 36.5; O2SAT 93
[2025-05-02] MEDS: VENLAFAXINE HCL XR 75 MG CAP.ER.24H 225 MG PO (08:33)
[2025-05-02] MEDS: ASPIRIN 81 MG ENTERIC TABLET PO (08:34)
[2025-05-02] MEDS: FAMOTIDINE 20 MG TABLET PO (08:34)
[2025-05-02] MEDS: CALCIUM CITRATE 200 MG TABLET 400 MG PO (08:34)
[2025-05-02] MEDS: ACIDOPHILUS/BULGARICUS CHEWABLE TABLET 1 TABLET BY MOUTH (08:34)
[2025-05-02] MEDS: CHOLECALCIFEROL (VITAMIN D3) 125 MCG (5,000 UNITS) TABLET PO (08:36)
[2025-05-02] MEDS: SIMETHICONE 80 MG TAB.CHEW 160 MG PO ×3 (08:36→16:21)
[2025-05-02] MEDS: LOSARTAN POTASSIUM 50 MG TABLET PO (08:37)
[2025-05-02] MEDS: FOLIC ACID 1 MG TABLET PO (08:37)
[2025-05-02] MEDS: TIMOLOL MALEATE 0.5% OP SOLN 5 ML BOTTLE 1 DROP EACH EYE (08:38)
[2025-05-02] MEDS: TOLNAFTATE 1% POWDER 45 GM BTL 1 APPLIC TOPICAL ×2 (08:39→21:24)
[2025-05-02 16:00] VITALS: BP 116/65; PULSE 76; RESP 20; TEMP 36.4; O2SAT 96
[2025-05-02 20:00] VITALS: PULSE 76; RESP 20; O2SAT 96
[2025-05-02] MEDS: CITALOPRAM HYDROBROMIDE 20 MG TABLET 40 MG PO (21:22)
[2025-05-02] MEDS: LATANOPROST 0.005% OP SOLN 2.5 ML BTL 1 DROP EACH EYE (21:22)
[2025-05-02] MEDS: DONEPEZIL HCL 5 MG TABLET 10 MG PO (21:22)
[2025-05-02] MEDS: MAGNESIUM OXIDE 400 MG TABLET PO (21:23)
[2025-05-02] MEDS: MELATONIN 5 MG TABLET 10 MG PO (21:23)
[2025-05-03] VITALS: BP 129/66; PULSE 82; RESP 17; TEMP 36.7; O2SAT 97
[2025-05-03] MEDS: ACETAMINOPHEN 325 MG TABLET 650 MG PO ×2 (03:57→13:24)
[2025-05-03] MEDS: TIZANIDINE HCL 2 MG TABLET PO ×3 (05:49→20:14)
[2025-05-03] MEDS: traMADol HCL (*CRX) 50 MG TABLET 25 MG PO ×2 (05:49→16:35)
[2025-05-03] MEDS: LEVOTHYROXINE SODIUM 112 MCG TABLET PO (05:49)
[2025-05-03] MEDS: LEVOTHYROXINE SODIUM 25 MCG TABLET PO (05:49)
[2025-05-03 06:57] LABS: Hematocrit 36.7 % (35.0-42.0); Hemoglobin 12.2 g/dL (11.7-13.8); Mean Corpuscular HGB Conc 33.2 g/dL (32-36); Mean Corpuscular Hemoglobin 34.8 pg (27.0-31.0); Mean Corpuscular Volume 104.6 fL (78.0-102.0); Platelet Count Result 185 K/mm3 (150-420); Red Blood Count 3.51 M/mm3 (4.20-5.40); White Blood Count 6.5 K/mm3 (4.8-10.8)
[2025-05-03 07:18] LABS: Alanine Aminotransferase 18 U/L (6-35); Albumin Level 3.7 g/dL (3.5-5.1); Alkaline Phosphatase 58 U/L (38-126); Anion Gap 6 mmol/L (4-12); Aspartate Amino Transferase 27 U/L (14-36); Bilirubin,Total 0.7 mg/dL (0.2-1.3); Blood Urea Nitrogen 26 mg/dL (7-17); Calcium 9.5 mg/dL (8.4-10.2); Carbon Dioxide 28 mmol/L (22-30); Chloride 101 mmol/L (98-107); Estimated CRCL calculation 26 ml/min; Estimated Glomerular Filt Rate 41; Glucose 92 mg/dL (65-110); Magnesium 2.2 mg/dL (1.6-2.3); Osmolality Calculated 284 mOsm/kg (285-295); Potassium 4.4 mmol/L (3.4-5.0); Sodium 135 mmol/L (137-145); Total Protein 6.5 g/dL (6.3-8.2)
[2025-05-03 08:00] VITALS: BP 149/65; PULSE 98; RESP 16; TEMP 36.7; O2SAT 98
[2025-05-03] MEDS: ACIDOPHILUS/BULGARICUS CHEWABLE TABLET 1 TABLET BY MOUTH (08:45)
[2025-05-03] MEDS: VENLAFAXINE HCL XR 75 MG CAP.ER.24H 225 MG PO (08:45)
[2025-05-03] MEDS: SIMETHICONE 80 MG TAB.CHEW 160 MG PO ×3 (08:45→16:36)
[2025-05-03] MEDS: FOLIC ACID 1 MG TABLET PO (08:46)
[2025-05-03] MEDS: ASPIRIN 81 MG ENTERIC TABLET PO (08:46)
[2025-05-03] MEDS: CHOLECALCIFEROL (VITAMIN D3) 125 MCG (5,000 UNITS) TABLET PO (08:46)
[2025-05-03] MEDS: LOSARTAN POTASSIUM 50 MG TABLET PO (08:46)
[2025-05-03] MEDS: CALCIUM CITRATE 200 MG TABLET 400 MG PO (08:46)
[2025-05-03] MEDS: TOLNAFTATE 1% POWDER 45 GM BTL 1 APPLIC TOPICAL ×2 (08:47→20:17)
[2025-05-03] MEDS: TIMOLOL MALEATE 0.5% OP SOLN 5 ML BOTTLE 1 DROP EACH EYE (08:47)
[2025-05-03] MEDS: FAMOTIDINE 20 MG TABLET PO (08:50)
--- NOTE | 2025-05-03 09:27 | P.PNIM_ITS ---
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 with moderate secondary muscular atrophy and mild to moderate obturator externus bursitis * Weight-bearing as tolerated per Orthopedics * PT/OT * acetaminophen and tenacity for pain control * avoid opiates patient had developed hallucinations * follow up with Orthopedics outpatient * currently looking for longterm facility for continued therapy (2) Multiple falls: Code(s): R29.6 - Repeated falls Status: Acute Assessment and Plan: * fall precaution * PT/OT (3) Physical deconditioning: Code(s): R53.81 - Other malaise Status: Acute Assessment and Plan: See Above continued physical and occupational therapy plan for SNF placement (4) Depression with anxiety: Code(s): F41.8 - Other specified anxiety disorders Status: Acute Assessment and Plan: * continue patient's citalopram and venlafaxine (5) Hypertension: Code(s): I10 - Essential (primary) hypertension Status: Acute Assessment and Plan: * continue patient's losartan 50 mg daily * monitor BP per unit protocol (6) Hypothyroidism: Code(s): E03.9 - Hypothyroidism, unspecified Status: Acute Assessment and Plan: * continue patient's levothyroxine (7) Chronic kidney disease: Code(s): N18.9 - Chronic kidney disease, unspecified Status: Acute Assessment and Plan: patient with CKD stage 3 * avoid nephrotoxic medication * trend renal function p.r.n. * creatinine 1.23 at baseline today Plan Code status: DNR DVT prophylaxis: SCD Stress ulcer prophylaxis: LINDA PT/OT notes: Swing bed Plan for longterm facility discharge Disposition: patient continues admission to [facility] for continued physical and occupational therapy pending placement to longterm facility for further rehabilitation. Time Spent With Patient Time with patient: 15 - 25 minutes Subjective Date/time seen: 05/03/25 09:27 Interval history: 05/03/2025: patient up in chair eating breakfast reports she still has intermittent pain worse with therapy to left hip otherwise with no complaints. Patient denies any chest pain, shortness breath, nausea, vomiting or difficulty with urination or defecation. labs reviewed and unremarkable renal function at baseline and sodium at 135. Review of Systems Review of Systems: Left Hip pain All systems reviewed & are unremarkable except as noted in HPI and below Exam Const: General: comfortable and uncomfortable (left hip hurts when touched ) HENMT: Ears: TM's normal bilaterally Eyes: General: appearance normal, both eyes and all related structures Pupils: Equal, round and reactive pupils present Resp: Effort & Inspection: normal respiratory effort Auscultation: clear to auscultation bilaterally Cardio: Rate: regular rate Urinary Catheter: Urinary Catheter: patent and draining Skin: General skin exam: normal color Neuro: Cranial nerves: Yes Equal, round and reactive pupils present Speech: normal speech Other: Limps and needs 2 assist Extrem: General: normal to inspection Psych: Mental Status: mental status grossly normal (confused ) Objective Data Vital Signs Vital Signs: Vital Signs - 24 hr 05/02/25 16:00 05/02/25 20:00 05/03/25 00:00 Temperature 97.5 F L 98.1 F Pulse Rate 76 76 82 Respiratory Rate 20 20 17 Blood Pressure 116/65 129/66 Pulse Oximetry 96 96 97 Oxygen Delivery Room Air Room Air Room Air Intake/Output Intake/Output: Intake & Output 04/30/25 05/01/25 05/02/25 05/03/25 23:59 23:59 23:59 23:59 Intake Total 1959 1240 1300 240 Output Total 400 1100 Balance 1959 840 200 240 Meds/Results Medications: Active Medications Generic Name Dose Route Start Last Admin Trade Name Freq PRN Reason Stop Dose Admin Acetaminophen 650 mg 04/25/25 17:17 05/03/25 03:57 Acetaminophen 325 Mg Tablet PO 650 mg Q4H PRN Administration Mild Pain (1-3) or Fever Albuterol 2 puff 04/25/25 17:22 Albuterol Sulfate (*Sp) Inhaler INHALATION QIDRT PRN Shortness Of Breath Alendronate Sodium 70 mg 04/30/25 06:30 04/30/25 05:40 Alendronate Sodium 70 Mg Tablet PO 70 mg Sa@0630 ZACARIAS Administration Aspirin 81 mg 04/26/25 09:00 05/03/25 08:46 Aspirin 81 Mg Enteric Tablet PO 81 mg DAILY ZACARIAS Administration Calcium Citrate 400 mg 04/26/25 09:00 05/03/25 08:46 Calcium Citrate 200 Mg Tablet PO 400 mg DAILY ZACARIAS Administration Citalopram Hydrobromide 40 mg 04/25/25 21:00 05/02/25 21:22 Citalopram Hydrobromide 20 Mg Tablet PO 40 mg HS ZACARIAS Administration Docusate Sodium 100 mg 04/25/25 17:17 Docusate Sodium 100 Mg Capsule PO BID PRN Constipation Donepezil HCl 10 mg 04/25/25 21:00 05/02/25 21:22 Donepezil Hcl 5 Mg Tablet PO 10 mg HS ZACARIAS Administration Famotidine 20 mg 04/26/25 09:00 05/03/25 08:50 Famotidine 20 Mg Tablet PO 20 mg QAM ZACARIAS Administration Folic Acid 1 mg 04/26/25 09:00 05/03/25 08:46 Folic Acid 1 Mg Tablet PO 1 mg DAILY ZACARIAS Administration Lactobacillus Acidophilus 1 tablet 04/26/25 09:00 05/03/25 08:45 Acidophilus/Bulgaricus Chewable Tablet BY MOUTH 1 tablet DAILY ZACARIAS Administration Latanoprost 1 drop 04/25/25 21:00 05/02/25 21:22 Latanoprost 0.005% Op Soln 2.5 Ml Btl EACH EYE 1 drop HS ZACARIAS Administration Levothyroxine Sodium 112 mcg 04/26/25 06:30 05/03/25 05:49 Levothyroxine Sodium 112 Mcg Tablet PO 112 mcg DAILY@0630 ZACARIAS Administration Levothyroxine Sodium 25 mcg 04/26/25 06:30 05/03/25 05:49 Levothyroxine Sodium 25 Mcg Tablet PO 25 mcg DAILY@0630 ZACARIAS Administration Losartan Potassium 50 mg 04/26/25 09:00 05/03/25 08:46 Losartan Potassium 50 Mg Tablet PO 50 mg DAILY ZACARIAS Administration Magnesium Oxide 400 mg 04/25/25 21:00 05/02/25 21:23 Magnesium Oxide 400 Mg Tablet PO 400 mg HS ZACARIAS Administration Melatonin 10 mg 04/25/25 21:00 05/02/25 21:23 Melatonin 5 Mg Tablet PO 10 mg HS ZACARIAS Administration Mirabegron 50 mg 04/25/25 21:00 Mirabegron 25 Mg Er Tablet PO On Hold: 04/25/25 21:00 QHS [facility] Comment: DUPLICATE WITH SOLFENACIN Polyethylene Glycol 17 gm 04/26/25 09:00 05/02/25 08:38 Polyethylene Glycol 3350 17 Gm Powd.Pack PO 17 gm Q48H ZACARIAS Administration Simethicone 160 mg 04/26/25 08:00 05/03/25 08:45 Simethicone 80 Mg Tab.Chew PO 160 mg TIDWM ZACARIAS Administration Solifenacin 10 mg 04/25/25 21:00 Solifenacin 5 Mg Tablet PO On Hold: 04/25/25 21:00 HS [facility] Comment: DUPLICATE WITH MYRBETRIC Timolol Maleate 1 drop 04/26/25 09:00 05/03/25 08:47 Timolol Maleate 0.5% Op Soln 5 Ml Bottle EACH EYE 1 drop DAILY ZACARIAS Administration Tizanidine HCl 2 mg 04/25/25 22:00 05/03/25 05:49 Tizanidine Hcl 2 Mg Tablet PO 2 mg Q8HR ZACARIAS Administration Tolnaftate 1 applic 04/28/25 11:00 05/03/25 08:47 Tolnaftate 1% Powder 45 Gm Btl TOPICAL 1 applic Q12HR ZACARIAS Administration Tramadol HCl 25 mg 05/01/25 18:27 05/03/25 05:49 Tramadol Hcl (*Crx) 50 Mg Tablet PO 25 mg Q6H PRN Administration Pain Rated 4-6 Umeclidinium/Vilanterol 1 puff 04/25/25 17:22 Umeclidinium/Vilanterol 62.5-25 Mcg Ellipta INHALATION DAILYRT PRN cough, sob Venlafaxine HCl 225 mg 04/26/25 09:00 05/03/25 08:45 Venlafaxine Hcl Xr 75 Mg Cap.Er.24h PO 225 mg DAILY ZACARIAS Administration Vitamin D 125 mcg 04/26/25 09:00 05/03/25 08:46 Cholecalciferol (Vitamin D3) 125 Mcg (5,000 Units) Tablet PO 125 mcg DAILY ZACARIAS Administration Labs Labs: Laboratory Results - last 24 hr 05/03/25 06:52 WBC 6.5 RBC 3.51 L Hgb 12.2 Hct 36.7 MCV 104.6 H MCH 34.8 H MCHC 33.2 RDW 14.5 H Plt Count 185 MPV 9.2 Sodium 135 L Potassium 4.4 Chloride 101 Carbon Dioxide 28 Anion Gap 6 BUN 26 H Creatinine 1.23 H Estim Creat Clear Calc 26 Estimated GFR 41 L Glucose 92 Calculated Osmolality 284 L Calcium 9.5 Magnesium 2.2 Total Bilirubin 0.7 AST 27 ALT 18 Alkaline Phosphatase 58 Total Protein 6.5 Albumin 3.7 Quality VTE Prophylaxis VTE prophylaxis: mechanical ordered -Patient's previous records reviewed on admission -discussed all findings and current treatment plan with patient -Consultations reviewed for recommendations -Patient's disposition for safe discharge discussed with porter sample case -radiology imaging, EKG and test results I have personally reviewed and interpreted unless otherwise specified Dictation performed by Myrl direct speech recognition software, therefore cut off saw operator metal variants and typographical errors may occur. Hospitalist [facility] Advance Care Plan I have confirmed that the patient's Advanced Care Plan is present, code status is documented, or surrogate decision maker is listed in patient medical record.: Yes Medication Reconciliation I have utilized all available resources to obtain, update and review the patients current medications (includes all prescriptions, OTC, herbals, cannabis, and nutritional supplements).: Yes The patient is not eligible for med reconciliation; the patient is in a emergent medical situation where delaying treatment would jeopardize the patients health.: No
[2025-05-03 16:00] VITALS: BP 144/78; PULSE 88; RESP 20; TEMP 36.6; O2SAT 98
[2025-05-03] MEDS: LATANOPROST 0.005% OP SOLN 2.5 ML BTL 1 DROP EACH EYE (20:15)
[2025-05-03] MEDS: MAGNESIUM OXIDE 400 MG TABLET PO (20:15)
[2025-05-03] MEDS: DONEPEZIL HCL 5 MG TABLET 10 MG PO (20:15)
[2025-05-03] MEDS: CITALOPRAM HYDROBROMIDE 20 MG TABLET 40 MG PO (20:15)
[2025-05-03] MEDS: MELATONIN 5 MG TABLET 10 MG PO (20:15)
[2025-05-04] VITALS: BP 145/76; PULSE 90; RESP 20; TEMP 36.7; O2SAT 100
[2025-05-04] MEDS: traMADol HCL (*CRX) 50 MG TABLET 25 MG PO ×4 (00:02→21:07)
[2025-05-04] MEDS: ACETAMINOPHEN 325 MG TABLET 650 MG PO ×2 (03:06→08:36)
[2025-05-04] MEDS: TIZANIDINE HCL 2 MG TABLET PO ×3 (06:07→21:07)
[2025-05-04] MEDS: LEVOTHYROXINE SODIUM 25 MCG TABLET PO (06:08)
[2025-05-04] MEDS: LEVOTHYROXINE SODIUM 112 MCG TABLET PO (06:08)
[2025-05-04 08:00] VITALS: BP 146/72; PULSE 75; RESP 20; TEMP 36.6; O2SAT 94
[2025-05-04] MEDS: TOLNAFTATE 1% POWDER 45 GM BTL 1 APPLIC TOPICAL ×2 (08:34→21:08)
[2025-05-04] MEDS: VENLAFAXINE HCL XR 75 MG CAP.ER.24H 225 MG PO (08:35)
[2025-05-04] MEDS: TIMOLOL MALEATE 0.5% OP SOLN 5 ML BOTTLE 1 DROP EACH EYE (08:35)
[2025-05-04] MEDS: CALCIUM CITRATE 200 MG TABLET 400 MG PO (08:35)
[2025-05-04] MEDS: FAMOTIDINE 20 MG TABLET PO (08:35)
[2025-05-04] MEDS: LOSARTAN POTASSIUM 50 MG TABLET PO (08:36)
[2025-05-04] MEDS: SIMETHICONE 80 MG TAB.CHEW 160 MG PO ×3 (08:36→16:15)
[2025-05-04] MEDS: ASPIRIN 81 MG ENTERIC TABLET PO (08:37)
[2025-05-04] MEDS: ACIDOPHILUS/BULGARICUS CHEWABLE TABLET 1 TABLET BY MOUTH (08:37)
[2025-05-04] MEDS: FOLIC ACID 1 MG TABLET PO (08:37)
[2025-05-04] MEDS: CHOLECALCIFEROL (VITAMIN D3) 125 MCG (5,000 UNITS) TABLET PO (08:37)
--- NOTE | 2025-05-04 10:12 | P.PNIM_ITS ---
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 with moderate secondary muscular atrophy and mild to moderate obturator externus bursitis * Weight-bearing as tolerated per Orthopedics * PT/OT * acetaminophen and zanaflex for pain control * avoid opiates patient had developed hallucinations * follow up with Orthopedics outpatient * currently looking for intermediate facility for continued therapy * change Tylenol from PRN to scheduled * patient reports uncontrolled pain in the left hip (2) Multiple falls: Code(s): R29.6 - Repeated falls Status: Acute Assessment and Plan: * fall precautions * PT/OT (3) Physical deconditioning: Code(s): R53.81 - Other malaise Status: Acute Assessment and Plan: See Above continued physical and occupational therapy plan for SNF placement (4) Depression with anxiety: Code(s): F41.8 - Other specified anxiety disorders Status: Acute Assessment and Plan: * continue patient's citalopram and venlafaxine (5) Hypertension: Code(s): I10 - Essential (primary) hypertension Status: Acute Assessment and Plan: * continue patient's losartan 50 mg daily * monitor BP per unit protocol (6) Hypothyroidism: Code(s): E03.9 - Hypothyroidism, unspecified Status: Acute Assessment and Plan: * continue patient's levothyroxine (7) Chronic kidney disease: Code(s): N18.9 - Chronic kidney disease, unspecified Status: Acute Assessment and Plan: patient with CKD stage 3 * avoid nephrotoxic medication * trend renal function p.r.n. * creatinine at baseline on labs Plan Code status: DNR DVT prophylaxis: SCD Stress ulcer prophylaxis: NA PT/OT notes: Swing bed Plan for intermediate facility discharge Disposition: patient continues admission to [facility] for continued physical and occupational therapy pending placement to intermediate facility for further rehabilitation. Subjective Date/time seen: 05/04/25 10:12 Interval history: Patient seen in her room, sitting up in chair, in some mild distress due to left hip pain. Patient reports pain is not controlled. Change tylenol to scheduled 1000 mg every 6 hours. Continue to avoid narcotics due to patients history of hallucinations. Patient continues with PT/OT. Case management working on placement at SNF for longer rehab placement and also closer to where daughter lives. Patient denies other complaints. Review of Systems Review of Systems: Left Hip pain All systems reviewed & are unremarkable except as noted in HPI and below Exam Const: General: uncomfortable (left hip hurts when touched ) Eyes: General: appearance normal, both eyes and all related structures Resp: Effort & Inspection: normal respiratory effort Auscultation: clear to auscultation bilaterally Cardio: Rate: regular rate Urinary Catheter: Urinary Catheter: patent and draining Skin: General skin exam: normal color Neuro: Speech: normal speech Other: Limps and needs 2 assist Extrem: General: normal to inspection Psych: Mental Status: mental status grossly normal (confused ) Objective Data Vital Signs Vital Signs: Vital Signs - 24 hr 05/03/25 16:00 05/04/25 00:00 05/04/25 08:00 Temperature 97.9 F 98.0 F 98 F Pulse Rate 88 90 75 Respiratory Rate 20 20 20 Blood Pressure 144/78 H 145/76 H 146/72 H Pulse Oximetry 98 100 94 Oxygen Delivery Room Air Room Air Room Air Intake/Output Intake/Output: Intake & Output 05/01/25 05/02/25 05/03/25 05/04/25 23:59 23:59 23:59 23:59 Intake Total 1240 1300 1080 590 Output Total 400 1100 550 Balance 840 200 530 590 Meds/Results Medications: Active Medications Generic Name Dose Route Start Last Admin Trade Name Freq PRN Reason Stop Dose Admin Acetaminophen 1,000 mg 05/04/25 10:00 Acetaminophen 500 Mg Tablet PO Q6H ZACARIAS Albuterol 2 puff 04/25/25 17:22 Albuterol Sulfate (*Sp) Inhaler INHALATION QIDRT PRN Shortness Of Breath Alendronate Sodium 70 mg 04/30/25 06:30 04/30/25 05:40 Alendronate Sodium 70 Mg Tablet PO 70 mg Sa@0630 ZACARIAS Administration Aspirin 81 mg 04/26/25 09:00 05/04/25 08:37 Aspirin 81 Mg Enteric Tablet PO 81 mg DAILY ZACARIAS Administration Calcium Citrate 400 mg 04/26/25 09:00 05/04/25 08:35 Calcium Citrate 200 Mg Tablet PO 400 mg DAILY ZACARIAS Administration Citalopram Hydrobromide 40 mg 04/25/25 21:00 05/03/25 20:15 Citalopram Hydrobromide 20 Mg Tablet PO 40 mg HS ZACARIAS Administration Docusate Sodium 100 mg 04/25/25 17:17 Docusate Sodium 100 Mg Capsule PO BID PRN Constipation Donepezil HCl 10 mg 04/25/25 21:00 05/03/25 20:15 Donepezil Hcl 5 Mg Tablet PO 10 mg HS ZACARIAS Administration Famotidine 20 mg 04/26/25 09:00 05/04/25 08:35 Famotidine 20 Mg Tablet PO 20 mg QAM ZACARIAS Administration Folic Acid 1 mg 04/26/25 09:00 05/04/25 08:37 Folic Acid 1 Mg Tablet PO 1 mg DAILY ZACARIAS Administration Lactobacillus Acidophilus 1 tablet 04/26/25 09:00 05/04/25 08:37 Acidophilus/Bulgaricus Chewable Tablet BY MOUTH 1 tablet DAILY ZACARIAS Administration Latanoprost 1 drop 04/25/25 21:00 05/03/25 20:15 Latanoprost 0.005% Op Soln 2.5 Ml Btl EACH EYE 1 drop HS ZACARIAS Administration Levothyroxine Sodium 112 mcg 04/26/25 06:30 05/04/25 06:08 Levothyroxine Sodium 112 Mcg Tablet PO 112 mcg DAILY@0630 ZACARIAS Administration Levothyroxine Sodium 25 mcg 04/26/25 06:30 05/04/25 06:08 Levothyroxine Sodium 25 Mcg Tablet PO 25 mcg DAILY@0630 ZACARIAS Administration Losartan Potassium 50 mg 04/26/25 09:00 05/04/25 08:36 Losartan Potassium 50 Mg Tablet PO 50 mg DAILY ZACARIAS Administration Magnesium Oxide 400 mg 04/25/25 21:00 05/03/25 20:15 Magnesium Oxide 400 Mg Tablet PO 400 mg HS ZACARIAS Administration Melatonin 10 mg 04/25/25 21:00 05/03/25 20:15 Melatonin 5 Mg Tablet PO 10 mg HS ZACARIAS Administration Mirabegron 50 mg 04/25/25 21:00 Mirabegron 25 Mg Er Tablet PO On Hold: 04/25/25 [facility] SOL[facility] Polyethylene Glycol 17 gm 04/26/25 09:00 05/02/25 08:38 Polyethylene Glycol 3350 17 Gm Powd.Pack PO 17 gm Q48H ZACARIAS Administration Simethicone 160 mg 04/26/25 08:00 05/04/25 08:36 Simethicone 80 Mg Tab.Chew PO 160 mg TIDWM ZACARIAS Administration Solifenacin 10 mg 04/25/25 21:00 Solifenacin 5 Mg Tablet PO On Hold: 04/25/25 21:00 [facility] Comment: DUPLICATE WITH MYRBETRIC Timolol Maleate 1 drop 04/26/25 09:00 05/04/25 08:35 Timolol Maleate 0.5% Op Soln 5 Ml Bottle EACH EYE 1 drop DAILY ZACARIAS Administration Tizanidine HCl 2 mg 04/25/25 22:00 05/04/25 06:07 Tizanidine Hcl 2 Mg Tablet PO 2 mg Q8HR ZACARIAS Administration Tolnaftate 1 applic 04/28/25 11:00 05/04/25 08:34 Tolnaftate 1% Powder 45 Gm Btl TOPICAL 1 applic Q12HR ZACARIAS Administration Tramadol HCl 25 mg 05/01/25 18:27 05/04/25 06:08 Tramadol Hcl (*Crx) 50 Mg Tablet PO 25 mg Q6H PRN Administration Pain Rated 4-6 Umeclidinium/Vilanterol 1 puff 04/25/25 17:22 Umeclidinium/Vilanterol 62.5-25 Mcg Ellipta INHALATION DAILYRT PRN cough, sob Venlafaxine HCl 225 mg 04/26/25 09:00 05/04/25 08:35 Venlafaxine Hcl Xr 75 Mg Cap.Er.24h PO 225 mg DAILY ZACARIAS Administration Vitamin D 125 mcg 04/26/25 09:00 05/04/25 08:37 Cholecalciferol (Vitamin D3) 125 Mcg (5,000 Units) Tablet PO 125 mcg DAILY ZACARIAS Administration Quality VTE Prophylaxis VTE prophylaxis: mechanical ordered
[2025-05-04 16:00] VITALS: BP 124/70; PULSE 83; RESP 18; TEMP 36.9; O2SAT 94
[2025-05-04] MEDS: ACETAMINOPHEN 500 MG TABLET 1000 MG PO ×2 (16:14→21:05)
[2025-05-04] MEDS: CITALOPRAM HYDROBROMIDE 20 MG TABLET 40 MG PO (21:06)
[2025-05-04] MEDS: MELATONIN 5 MG TABLET 10 MG PO (21:07)
[2025-05-04] MEDS: DONEPEZIL HCL 5 MG TABLET 10 MG PO (21:07)
[2025-05-04] MEDS: MAGNESIUM OXIDE 400 MG TABLET PO (21:07)
[2025-05-04] MEDS: LATANOPROST 0.005% OP SOLN 2.5 ML BTL 1 DROP EACH EYE (21:09)
[2025-05-05] VITALS: BP 141/79; PULSE 86; RESP 16; TEMP 36.3; O2SAT 99
[2025-05-05] MEDS: ACETAMINOPHEN 500 MG TABLET 1000 MG PO ×4 (03:09→20:48)
[2025-05-05] MEDS: TIZANIDINE HCL 2 MG TABLET PO ×3 (06:22→20:48)
[2025-05-05] MEDS: traMADol HCL (*CRX) 50 MG TABLET 25 MG PO ×3 (06:23→21:58)
[2025-05-05] MEDS: LEVOTHYROXINE SODIUM 25 MCG TABLET PO (06:23)
[2025-05-05] MEDS: LEVOTHYROXINE SODIUM 112 MCG TABLET PO (06:23)
[2025-05-05 08:00] VITALS: BP 145/78; PULSE 101; RESP 18; TEMP 36.8; O2SAT 96
[2025-05-05] MEDS: SIMETHICONE 80 MG TAB.CHEW 160 MG PO ×3 (08:28→17:38)
[2025-05-05] MEDS: VENLAFAXINE HCL XR 75 MG CAP.ER.24H 225 MG PO (08:29)
[2025-05-05] MEDS: CALCIUM CITRATE 200 MG TABLET 400 MG PO (08:29)
[2025-05-05] MEDS: FAMOTIDINE 20 MG TABLET PO (08:30)
[2025-05-05] MEDS: LOSARTAN POTASSIUM 50 MG TABLET PO (08:31)
[2025-05-05] MEDS: ASPIRIN 81 MG ENTERIC TABLET PO (08:31)
[2025-05-05] MEDS: FOLIC ACID 1 MG TABLET PO (08:31)
[2025-05-05] MEDS: ACIDOPHILUS/BULGARICUS CHEWABLE TABLET 1 TABLET BY MOUTH (08:31)
[2025-05-05] MEDS: TIMOLOL MALEATE 0.5% OP SOLN 5 ML BOTTLE 1 DROP EACH EYE (08:32)
[2025-05-05] MEDS: CHOLECALCIFEROL (VITAMIN D3) 125 MCG (5,000 UNITS) TABLET PO (08:32)
[2025-05-05] MEDS: TOLNAFTATE 1% POWDER 45 GM BTL 1 APPLIC TOPICAL ×2 (08:33→20:49)
--- NOTE | 2025-05-05 13:17 | P.PNIM_ITS ---
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 with moderate secondary muscular atrophy and mild to moderate obturator externus bursitis * Weight-bearing as tolerated per Orthopedics * PT/OT * acetaminophen and zanaflex for pain control * avoid opiates patient had developed hallucinations * follow up with Orthopedics outpatient * currently looking for [facility] facility for continued therapy * change Tylenol from PRN to scheduled, discussed this change with the patient * patient reports uncontrolled pain in the left hip still * discussed asking for PRN Tramadol with patient, she is agreeable to ask for this when she feels she needs additional pain control (2) Multiple falls: Code(s): R29.6 - Repeated falls Status: Acute Assessment and Plan: * fall precautions * PT/OT (3) Physical deconditioning: Code(s): R53.81 - Other malaise Status: Acute Assessment and Plan: See Above continued physical and occupational therapy plan for SNF placement (4) Depression with anxiety: Code(s): F41.8 - Other specified anxiety disorders Status: Acute Assessment and Plan: * continue patient's citalopram and venlafaxine * mood appears stable (5) Hypertension: Code(s): I10 - Essential (primary) hypertension Status: Acute Assessment and Plan: * continue patient's losartan 50 mg daily * monitor BP per unit protocol (6) Hypothyroidism: Code(s): E03.9 - Hypothyroidism, unspecified Status: Acute Assessment and Plan: * continue patient's levothyroxine (7) Chronic kidney disease: Code(s): N18.9 - Chronic kidney disease, unspecified Status: Acute Assessment and Plan: patient with CKD stage 3 * avoid nephrotoxic medication * trend renal function p.r.n. * creatinine at baseline on labs Plan Code status: DNR DVT prophylaxis: SCD Stress ulcer prophylaxis: NA PT/OT notes: Swing bed Plan for [facility] facility discharge Disposition: patient continues admission to [facility] for continued physical and occupational therapy, Patient has been accepted at SNF facility in [place], [place] and waiting for insurance auth. Subjective Date/time seen: 05/05/25 13:17 Interval history: Patient lying in bed, in no acute distress. Patient still with complaints of un controlled left hip pain. Discussed with patient that her Tylenol was changed to scheduled and encouraged her to ask for her PRN Tramadol. Patient agreeable to plan. Patient has been accepted to SNF in [place], [place], awaiting insurance auth. Patient continues with PT/OT. Review of Systems Review of Systems: Left Hip pain All systems reviewed & are unremarkable except as noted in HPI and below Exam Const: General: uncomfortable (left hip hurts when touched ) Eyes: General: appearance normal, both eyes and all related structures Resp: Effort & Inspection: normal respiratory effort Auscultation: clear to auscultation bilaterally Cardio: Rate: regular rate Urinary Catheter: Urinary Catheter: patent and draining Skin: General skin exam: normal color Neuro: Speech: normal speech Other: Limps and needs 2 assist Extrem: General: normal to inspection Psych: Mental Status: mental status grossly normal (confused ) Objective Data Vital Signs Vital Signs: Vital Signs - 24 hr 05/04/25 16:00 05/05/25 00:00 05/05/25 08:00 Temperature 98.4 F 97.4 F L Pulse Rate 83 86 101 H Respiratory Rate 18 16 18 Blood Pressure 124/70 141/79 H Pulse Oximetry 94 99 96 Oxygen Delivery Room Air Room Air Room Air 05/05/25 08:00 Temperature 98.2 F Pulse Rate 101 H Respiratory Rate 18 Blood Pressure 145/78 H Pulse Oximetry 96 Oxygen Delivery Room Air Intake/Output Intake/Output: Intake & Output 05/02/25 05/03/25 05/04/25 05/05/25 23:59 23:59 23:59 23:59 Intake Total 1300 1080 1810 750 Output Total 1100 550 Balance 817 128 7950 750 Meds/Results Medications: Active Medications Generic Name Dose Route Start Last Admin Trade Name Freq PRN Reason Stop Dose Admin Acetaminophen 1,000 mg 05/04/25 10:00 05/05/25 10:44 Acetaminophen 500 Mg Tablet PO 1,000 mg Q6H ZACARIAS Administration Albuterol 2 puff 04/25/25 17:22 Albuterol Sulfate (*Sp) Inhaler INHALATION QIDRT PRN Shortness Of Breath Alendronate Sodium 70 mg 04/30/25 06:30 04/30/25 05:40 Alendronate Sodium 70 Mg Tablet PO 70 mg Sa@0630 ZACARIAS Administration Aspirin 81 mg 04/26/25 09:00 05/05/25 08:31 Aspirin 81 Mg Enteric Tablet PO 81 mg DAILY ZACARIAS Administration Calcium Citrate 400 mg 04/26/25 09:00 05/05/25 08:29 Calcium Citrate 200 Mg Tablet PO 400 mg DAILY ZACARIAS Administration Citalopram Hydrobromide 40 mg 04/25/25 21:00 05/04/25 21:06 Citalopram Hydrobromide 20 Mg Tablet PO 40 mg HS ZACARIAS Administration Docusate Sodium 100 mg 04/25/25 17:17 Docusate Sodium 100 Mg Capsule PO BID PRN Constipation Donepezil HCl 10 mg 04/25/25 21:00 05/04/25 21:07 Donepezil Hcl 5 Mg Tablet PO 10 mg HS ZACARIAS Administration Famotidine 20 mg 04/26/25 09:00 05/05/25 08:30 Famotidine 20 Mg Tablet PO 20 mg QAM ZACARIAS Administration Folic Acid 1 mg 04/26/25 09:00 05/05/25 08:31 Folic Acid 1 Mg Tablet PO 1 mg DAILY ZACARIAS Administration Lactobacillus Acidophilus 1 tablet 04/26/25 09:00 05/05/25 08:31 Acidophilus/Bulgaricus Chewable Tablet BY MOUTH 1 tablet DAILY ZACARIAS Administration Latanoprost 1 drop 04/25/25 21:00 05/04/25 21:09 Latanoprost 0.005% Op Soln 2.5 Ml Btl EACH EYE 1 drop HS ZACARIAS Administration Levothyroxine Sodium 112 mcg 04/26/25 06:30 05/05/25 06:23 Levothyroxine Sodium 112 Mcg Tablet PO 112 mcg DAILY@0630 ZACARIAS Administration Levothyroxine Sodium 25 mcg 04/26/25 06:30 05/05/25 06:23 Levothyroxine Sodium 25 Mcg Tablet PO 25 mcg DAILY@0630 ZACARIAS Administration Losartan Potassium 50 mg 04/26/25 09:00 05/05/25 08:31 Losartan Potassium 50 Mg Tablet PO 50 mg DAILY ZACARIAS Administration Magnesium Oxide 400 mg 04/25/25 21:00 05/04/25 21:07 Magnesium Oxide 400 Mg Tablet PO 400 mg HS ZACARIAS Administration Melatonin 10 mg 04/25/25 21:00 05/04/25 21:07 Melatonin 5 Mg Tablet PO 10 mg HS ZACARIAS Administration Mirabegron 50 mg 04/25/25 21:00 Mirabegron 25 Mg Er Tablet PO On Hold: 04/25/25 21:00 [facility] Comment: DUPLICATE WITH SOLFENACIN Polyethylene Glycol 17 gm 04/26/25 09:00 05/04/25 14:22 Polyethylene Glycol 3350 17 Gm Powd.Pack PO Not Given Q48H ZACARIAS Simethicone 160 mg 04/26/25 08:00 05/05/25 12:54 Simethicone 80 Mg Tab.Chew PO 160 mg TIDWM ZACARIAS Administration Solifenacin 10 mg 04/25/25 21:00 Solifenacin 5 Mg Tablet PO On Hold: 04/25/25 21:00 HS [facility] Comment: DUPLICATE WITH MYRBETRIC Timolol Maleate 1 drop 04/26/25 09:00 05/05/25 08:32 Timolol Maleate 0.5% Op Soln 5 Ml Bottle EACH EYE 1 drop DAILY ZACARIAS Administration Tizanidine HCl 2 mg 04/25/25 22:00 05/05/25 06:22 Tizanidine Hcl 2 Mg Tablet PO 2 mg Q8HR ZACARIAS Administration Tolnaftate 1 applic 04/28/25 11:00 05/05/25 08:33 Tolnaftate 1% Powder 45 Gm Btl TOPICAL 1 applic Q12HR ZACARIAS Administration Tramadol HCl 25 mg 05/01/25 18:27 05/05/25 12:53 Tramadol Hcl (*Crx) 50 Mg Tablet PO 25 mg Q6H PRN Administration Pain Rated 4-6 Umeclidinium/Vilanterol 1 puff 04/25/25 17:22 Umeclidinium/Vilanterol 62.5-25 Mcg Ellipta INHALATION DAILYRT PRN cough, sob Venlafaxine HCl 225 mg 04/26/25 09:00 05/05/25 08:29 Venlafaxine Hcl Xr 75 Mg Cap.Er.24h PO 225 mg DAILY ZACARIAS Administration Vitamin D 125 mcg 04/26/25 09:00 05/05/25 08:32 Cholecalciferol (Vitamin D3) 125 Mcg (5,000 Units) Tablet PO 125 mcg DAILY ZACARIAS Administration Quality VTE Prophylaxis VTE prophylaxis: mechanical ordered
[2025-05-05 16:00] VITALS: BP 138/76; PULSE 94; RESP 18; TEMP 37; O2SAT 98
[2025-05-05 20:00] VITALS: PULSE 92; RESP 18; O2SAT 95
[2025-05-05] MEDS: DONEPEZIL HCL 5 MG TABLET 10 MG PO (20:48)
[2025-05-05] MEDS: CITALOPRAM HYDROBROMIDE 20 MG TABLET 40 MG PO (20:48)
[2025-05-05] MEDS: MELATONIN 5 MG TABLET 10 MG PO (20:48)
[2025-05-05] MEDS: LATANOPROST 0.005% OP SOLN 2.5 ML BTL 1 DROP EACH EYE (20:48)
[2025-05-05] MEDS: MAGNESIUM OXIDE 400 MG TABLET PO (20:49)
[2025-05-06] VITALS: BP 124/64; PULSE 92; RESP 16; TEMP 36.9; O2SAT 95
[2025-05-06] MEDS: ACETAMINOPHEN 500 MG TABLET 1000 MG PO ×2 (04:58→10:28)
[2025-05-06] MEDS: TIZANIDINE HCL 2 MG TABLET PO (06:01)
[2025-05-06] MEDS: LEVOTHYROXINE SODIUM 25 MCG TABLET PO (06:02)
[2025-05-06] MEDS: LEVOTHYROXINE SODIUM 112 MCG TABLET PO (06:02)
[2025-05-06 08:00] VITALS: BP 155/76; PULSE 101; RESP 18; TEMP 36.7; O2SAT 98
[2025-05-06] MEDS: SIMETHICONE 80 MG TAB.CHEW 160 MG PO ×2 (08:30→12:47)
[2025-05-06] MEDS: VENLAFAXINE HCL XR 75 MG CAP.ER.24H 225 MG PO (08:31)
[2025-05-06] MEDS: CALCIUM CITRATE 200 MG TABLET 400 MG PO (08:31)
[2025-05-06] MEDS: CHOLECALCIFEROL (VITAMIN D3) 125 MCG (5,000 UNITS) TABLET PO (08:32)
[2025-05-06] MEDS: FOLIC ACID 1 MG TABLET PO (08:32)
[2025-05-06] MEDS: ACIDOPHILUS/BULGARICUS CHEWABLE TABLET 1 TABLET BY MOUTH (08:33)
[2025-05-06] MEDS: ASPIRIN 81 MG ENTERIC TABLET PO (08:33)
[2025-05-06] MEDS: FAMOTIDINE 20 MG TABLET PO (08:33)
[2025-05-06] MEDS: LOSARTAN POTASSIUM 50 MG TABLET PO (08:33)
[2025-05-06] MEDS: TOLNAFTATE 1% POWDER 45 GM BTL 1 APPLIC TOPICAL (08:34)
[2025-05-06] MEDS: TIMOLOL MALEATE 0.5% OP SOLN 5 ML BOTTLE 1 DROP EACH EYE (08:34)
--- NOTE | 2025-05-06 10:17 | P.DS_ITS ---
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 with moderate secondary muscular atrophy and mild to moderate obturator externus bursitis * Weight-bearing as tolerated per Orthopedics * PT/OT * acetaminophen and zanaflex for pain control * avoid opiates patient had developed hallucinations * follow up with Orthopedics outpatient * currently looking for [facility] facility for continued therapy * change Tylenol from PRN to scheduled, discussed this change with the patient * patient reports uncontrolled pain in the left hip still * discussed asking for PRN Tramadol with patient, she is agreeable to ask for this when she feels she needs additional pain control * patient discharging to SNF in [place] for longer term placement (2) Multiple falls: Code(s): R29.6 - Repeated falls Status: Acute Assessment and Plan: * fall precautions * PT/OT (3) Physical deconditioning: Code(s): R53.81 - Other malaise Status: Acute Assessment and Plan: See Above continued physical and occupational therapy plan for SNF placement (4) Depression with anxiety: Code(s): F41.8 - Other specified anxiety disorders Status: Acute Assessment and Plan: * continue patient's citalopram and venlafaxine * mood appears stable (5) Hypertension: Code(s): I10 - Essential (primary) hypertension Status: Acute Assessment and Plan: * continue patient's losartan 50 mg daily * monitor BP per unit protocol (6) Hypothyroidism: Code(s): E03.9 - Hypothyroidism, unspecified Status: Acute Assessment and Plan: * continue patient's levothyroxine (7) Chronic kidney disease: Code(s): N18.9 - Chronic kidney disease, unspecified Status: Acute Assessment and Plan: patient with CKD stage 3 * avoid nephrotoxic medication * trend renal function p.r.n. * creatinine at baseline on labs Plan Code status: DNR DVT prophylaxis: SCD Stress ulcer prophylaxis: NA PT/OT notes: Swing bed Plan for [facility] facility discharge Disposition: patient continues admission to [facility] swing bed for continued physical and occupational therapy, Patient has been accepted at SNF facility in [place], [place] and waiting for insurance auth. DS: Summary Hospital Course Reason for hospitalization: generalized weakness Hospital Course: Patient is a 84 year old female with PMH of dementia and falls. Patient was admitted to the hospital after a fall with a left non-surgical hip fracture. Patient discharged from the hospital to [facility] for a swing bed placement for rehab. Patient has been participating with rehab. Patient has still been having pain and pain medications have been adjusted during her stay. We have been avoiding opiates due to daughter stating patient was confused when given them in the past. It was determined that patient would need a longer rehab stay and possible LTC placement and patient is being transferred to [facility] for continued rehabilitation. Time Spent with Patient Time attestation: Total time spent providing and/or coordinating discharge services: 35 Minutes Exam Const: General: comfortable and uncomfortable (left hip hurts when touched ) HENMT: Ears: TM's normal bilaterally Eyes: General: appearance normal, both eyes and all related structures Pupils: Equal, round and reactive pupils present Resp: Effort & Inspection: normal respiratory effort Auscultation: clear to auscultation bilaterally Cardio: Rate: regular rate Urinary Catheter: Urinary Catheter: patent and draining Skin: General skin exam: normal color Neuro: Cranial nerves: Yes Equal, round and reactive pupils present Speech: normal speech Other: Limps and needs 2 assist Extrem: General: normal to inspection Psych: Mental Status: mental status grossly normal (confused ) Discharge Plan Discharge Attending physician on discharge: Gatito Flores Consulting providers: Ifrah Hawk; Mamie Mota; Alexa Norris Discharging Clinician: Alexa Norris Patient Disposition: SNF Activity: as tolerated Diet: regular Discharge Instructions: Discharge to rehab at [facility] for continued PT/OT. Patient Instructions: Venlafaxine (By mouth), Fall Prevention (DC), Hip Fracture (GEN) Patient Language: Albanian Stand Alone Forms: General Discharge Information Follow-up/Referrals: Antelmo Hernández MD [Physician, Orthopedics] - 06/03/25 10:45 am Referral Note: Please get x-rays completed 1-2 days prior to appointment Discharge Medications: New acetaminophen 500 mg Tablet 1,000 mg PO Q6H Qty: 30 0RF levothyroxine 25 mcg Tablet 25 mcg PO DAILY@0630 Qty: 30 0RF famotidine 20 mg Tablet 20 mg PO QAM Qty: 30 0RF docusate sodium 100 mg Capsule 100 mg PO BID PRN (Reason: Constipation) Qty: 30 0RF levothyroxine [Synthroid] 112 mcg Tablet 112 mcg PO DAILY@0630 Qty: 30 0RF tramadol 50 mg Tablet 25 mg PO Q6H PRN (Reason: Pain Rated 4-6) Qty: 30 0RF tolnaftate 1 % Powder 1 applic topical Q12HR Qty: 45 0RF simethicone 80 mg Tablet,Chewable 160 mg PO TIDWM Qty: 30 0RF Continued tolnaftate 1 % Powder 1 applic topical Q12HR 20 Days Qty: 1 0RF albuterol sulfate [Proventil HFA] 90 mcg/actuation Hfa Aerosol Inhaler 2 puff inhalation QID PRN (Reason: Shortness Of Breath) Qty: 1 0RF losartan 50 mg tablet 50 mg PO DAILY Qty: 30 0RF citalopram 40 mg tablet 40 mg PO HS donepezil 10 mg tablet 10 mg PO HS alendronate 70 mg tablet 70 mg PO WEEKLY Rx Instructions: Patient takes on Saturdays solifenacin [Vesicare] 10 mg tablet 10 mg PO HS cholecalciferol (vitamin D3) [Vitamin D3] 125 mcg (5,000 unit) Tablet 125 mcg PO DAILY latanoprost 0.005 % drops 1 drp EACH EYE HS venlafaxine 75 mg capsule,extended release 24hr 225 mg PO DAILY aspirin 81 mg tablet,delayed release (DR/EC) 81 mg PO DAILY timolol maleate 0.5 % drops 1 drp EACH EYE DAILY melatonin 10 mg Tablet 10 mg PO HS umeclidinium-vilanterol [Anoro Ellipta] 62.5-25 mcg/actuation blister with device 1 ea INHALATION DAILY PRN (Reason: cough, sob) mirabegron [Myrbetriq] 50 mg tablet extended release 24 hr 50 mg PO QHS polyethylene glycol 3350 17 gram/dose powder 17 g PO .qod tizanidine 2 mg tablet 2 mg PO Q8H magnesium 100 mg capsule 300 mg PO HS folic acid 1 mg tablet 1,000 mcg PO DAILY calcium citrate 200 mg (950 mg) tablet 400 mg PO DAILY d-mannose 500 mg capsule 2,100 mg PO DAILY Culturelle 10 billion cell capsule 1 cap PO DAILY Discontinued levothyroxine 150 mcg tablet 137 mcg PO DAILY 30 Days Qty: 30 0RF acetaminophen 650 mg tablet extended release 650 mg PO Q8H PRN (Reason: pain) famotidine 20 mg tablet 20 mg PO BID simethicone 125 mg Tablet 125 mg PO TIDWM terbinafine HCl 250 mg tablet 250 mg PO DAILY Date of admission: 04/25/25 16:10 Primary Care Provider: SERGIODESTINI Admitting Provider: Gatito Flores Attending physician on admission: Gatito Flores Condition: Stable Quality VTE Prophylaxis VTE prophylaxis: mechanical ordered
--- NOTE | 2025-05-06 13:10 | PC.NURSE ---
Staff member from [facility] came with w/c to picket [employer] patient. Patient's belongings gathered and sent home with patient. Patient left unit in w/c and left hospital grounds in [place] transport vehicle. Report called to Rizwan at [facility]. Rizwan voiced understanding.
--- NOTE | 2025-05-10 10:51 | PC.NURSE ---
Discharge f/u call #1, message left to call back to [phone].
--- NOTE | 2025-05-16 10:01 | PC.NURSE ---
Unable to contact pt for f/u call. Pt d/c to SNF and message was previously left for pt to call with questions or concerns.
== END 2025-05-06 13:10 | DRG 561 ==
PROVIDERS: Nurse Practitioner Family; Admitting Provider Internal Medicine; PCP Nurse Practitioner Family; Visit Provider Internal Medicine
DX: S72.112D Displaced fracture of greater trochanter of left femur, subsequent encounter for closed fracture with routine healing (principal); R53.81 Other malaise; M16.12 Unilateral primary osteoarthritis, left hip; R29.6 Repeated falls; F41.8 Other specified anxiety disorders; E03.9 Hypothyroidism, unspecified; I12.9 Hypertensive chronic kidney disease with stage 1 through stage 4 chronic kidney disease, or unspecified chronic kidney disease; N18.30 Chronic kidney disease, stage 3 unspecified; Z66 Do not resuscitate; Z79.82 Long term (current) use of aspirin
CPT/HCPCS: 36415; 80053; 83735; 85027; 92526; 92610; 97110; 97161; 97166; 97530; 97535; A9270